=== PATIENT | female | born 1955 | race Caucasian/White ===

== ENCOUNTER 2017-09-30 20:51 | Inpatient (IN) ==
[2017-09-30] MEDS ORDERED: IOPAMIDOL 100 ML BOTTLE IJ ONE (20:52)
[2017-09-30] MEDS ORDERED: 0.9 % SODIUM CHLORIDE 1,000 ML IV ONE (21:10)
[2017-09-30] MEDS ORDERED: ONDANSETRON 4 MG/2 ML VIAL IV ONE (21:10)
--- NOTE | 2017-09-30 21:13 | Emergency Department Note ---
Abdominal Pain HPI - General Chief Complaint: Abdominal Pain Stated Complaint: abdominal pain Time Seen by Provider: 09/30/17 20:56 Source: patient Mode of arrival: ambulatory Limitations: no limitations - History of Present Illness HPI Narrative: 62-year-old female presents with left-sided abdominal pain and diarrhea 2 days. She states she ate a jar of peanuts in 2 days and then this started. She has elevated liver enzymes and had an abdominal pelvis CT 10 days ago and she has not gotten her results yet. She denies shortness of breath. She states the pain is left-sided and very uncomfortable. She denies any urinary symptoms or blood in her urine. She denies history of diverticulitis or kidney stones. She denies fever chills. She is nauseated but has not vomited. She has not taken anything for the pain. She has had regular colonoscopies which have never shown anything significant. She has had loose stools and has had 3 bowel movements yesterday and today. She states it is loose and then watery. She is on the Z-Ben right now for bronchitis. - Related Data Home Medications Medication Instructions Recorded Confirmed buspirone 15 mg tablet 15 mg PO TID tab 04/17/15 06/09/17 fluoxetine 20 mg tablet 80 mg PO DAILY tab 06/18/15 06/09/17 calcium carbonate 600 mg calcium 500 mg PO DAILY tab 10/21/15 03/30/17 (1,500 mg) tablet potassium chloride ER 10 mEq 10 meq PO QDAY 10/21/15 03/30/17 capsule,extended release Furosemide [Lasix] 40 mg PO QDAY 12/10/15 06/09/17 ipratropium bromide 0.02 % 1.25 ml INHALATION ONCE 05/17/17 06/09/17 solution for inhalation meloxicam 15 mg tablet 15 mg PO ONCE tab 05/17/17 06/09/17 mometasone-formoterol HFA 200 2 puff INHALATION BID 05/17/17 06/09/17 mcg-5 mcg/actuation aerosol inhaler pregabalin 75 mg capsule 75 mg PO BID 05/17/17 06/09/17 lisinopril 20 mg tablet 10 mg PO DAILY tab 06/09/17 06/09/17 Previous Rx's Medication Instructions Recorded Lactobacillus 1 tab-cap PO QDAY #30 cap 05/22/15 acidophilus-Bifidobac.animalis 10 billion cell capsule alendronate 70 mg tablet 70 mg PO QWEEK 30 Days #5 tab 05/22/15 loperamide 2 mg capsule 2 mg PO Q1-3H PRN #30 cap 05/22/15 fenofibrate 160 mg tablet 160 mg PO QDAY #90 tab 05/23/15 albuterol sulfate HFA 90 2 puff INHALATION Q4-6HP PRN 30 07/09/15 mcg/actuation aerosol inhaler Days #8 g omeprazole 20 mg capsule,delayed 20 mg PO QDAY #90 cap 07/18/15 release triamcinolone acetonide 0.1 % 1 applic TOPICAL BID #30 g 07/18/15 topical ointment gabapentin 800 mg tablet 800 mg PO TID 30 Days #90 tab 08/30/15 benzonatate 100 mg capsule 100 mg PO Q4H PRN #60 cap 11/11/15 Promethazine [Phenergan] 25 mg PO Q4-6HP PRN #20 tablet 03/30/17 Ondansetron HCl [Zofran ODT] 4 mg SL Q4-6HP PRN #10 tablet 05/26/17 Allergies Allergy/AdvReac Type Severity Reaction Status Date / Time guaifenesin [GUAIFENESIN] Allergy Severe ANAPHYLAXIS Verified 09/30/17 20:53 fluconazole [From Diflucan] Allergy Unknown Hives Verified 09/30/17 20:53 bupropion AdvReac Severe psychotic Verified 09/30/17 20:53 episode sulfamethoxazole AdvReac Intermediate Flushing Verified 09/30/17 20:53 [From Sulfamethoprim] trimethoprim AdvReac Intermediate Flushing Verified 09/30/17 20:53 [From Sulfamethoprim] Pollens Allergy Unknown Unknown Uncoded 06/09/17 14:59 Review of Systems All systems ED: reviewed and negative except as stated. Abdominal Pain PMH - Past Medical History Medical history: Reports: asthma, COPD, fibromyalgia, hyperlipidemia, hypertension, osteoporosis, other (back pain, IBS, osteoarthritis) Surgical history ED: Reports: cholecystectomy, hysterectomy Psychiatric history: Reports: depression PERFUSIONIST history: Reports: no PERFUSIONIST history Family history: Reports: no significant family history - Social History Smoking status: Former smoker Alcohol use: Reports: Rarely Drug use: Reports: marijuana Physical Exam Limitations: no limitations General appearance: alert, in no apparent distress, other (uncomfortable) Head: atraumatic Eye: Present: normal appearance. Absent: conjunctival injection Neck: Present: normal inspection, full ROM Chest: Present: normal inspection, symmetric chest wall rise Respiratory: Present: normal lung sounds bilaterally Cardiovascular: Present: tachycardia, normal heart sounds Abdominal: Present: soft, distention, tenderness, guarding, normal bowel sounds. Absent: rebound, rigidity Abdominal tenderness: Present: LUQ, LLQ, severe Extremities: Present: normal inspection, full ROM Neurological: Present: alert, oriented X3 Psychiatric: Present: anxious Skin: Present: warm, dry, intact Course Course Narrative: Diverticulosis is shown on her CT that she had 10 days ago Sine out Given to Dr. Cuellar and he will take over the care of this patient Vital Signs Temperature 97.0 F 09/30/17 20:51 Pulse Rate 100 H 09/30/17 20:51 Respiratory Rate 22 09/30/17 20:51 Blood Pressure 134/84 09/30/17 20:51 Pulse Oximetry (%) 97 09/30/17 20:51 Temperature 97.0 F 09/30/17 20:51 Pulse Rate 100 H 09/30/17 20:51 Respiratory Rate 22 09/30/17 20:51 Blood Pressure 134/84 09/30/17 20:51 Pulse Oximetry (%) 97 09/30/17 20:51 Abdominal Pain - Lab Data Result diagrams: 09/30/17 21:16 09/30/17 21:16 Lab Results 09/30/17 Range/Units 21:16 Band Neutrophils % Not Reportable Disposition Pt seen by LEARNING AND DEVELOPMENT ASSOCIATE/PA only: No Referrals: Darleen Kemp ARNP [Primary Care Provider] -
[2017-09-30] MEDS: HYDROmorphone 2 MG/ML SYRINGE IV PRN ×3 (21:27→21:56)
[2017-09-30 22:21] LABS: Mean Corpuscular HGB Conc 32.6 g/dL (31.0-36.0); Mean Corpuscular Hemoglobin 26.1 pg (26.0-34.0); Platelet Count 613 K/mcL (140-440); RBC 4.77 M/mcL (4.00-5.20); Red Cell Distribution Width 14.2 % (11.5-14.5)
[2017-09-30 22:26] LABS: ALT/SGPT 38 U/l (0-40); Albumin 3.7 gm/dL (3.2-5.2); Albumin/Globulin Ratio 1.1 (1.0-2.3); Alkaline Phosphatase 63 U/L (39-117); Blood Urea Nitrogen 26 mg/dl (8-23); Lipase 80 U/L (7-60)
--- NOTE | 2017-09-30 22:35 | Emergency Department Note ---
Abdominal Pain HPI - General Chief Complaint: Abdominal Pain Stated Complaint: abdominal pain Time Seen by Provider: 09/30/17 20:56 Source: patient Mode of arrival: ambulatory Limitations: no limitations - Related Data Home Medications Medication Instructions Recorded Confirmed buspirone 15 mg tablet 15 mg PO TID tab 04/17/15 06/09/17 fluoxetine 20 mg tablet 80 mg PO DAILY tab 06/18/15 06/09/17 calcium carbonate 600 mg calcium 500 mg PO DAILY tab 10/21/15 03/30/17 (1,500 mg) tablet potassium chloride ER 10 mEq 10 meq PO QDAY 10/21/15 03/30/17 capsule,extended release Furosemide [Lasix] 40 mg PO QDAY 12/10/15 06/09/17 ipratropium bromide 0.02 % 1.25 ml INHALATION ONCE 05/17/17 06/09/17 solution for inhalation meloxicam 15 mg tablet 15 mg PO ONCE tab 05/17/17 06/09/17 mometasone-formoterol HFA 200 2 puff INHALATION BID 05/17/17 06/09/17 mcg-5 mcg/actuation aerosol inhaler pregabalin 75 mg capsule 75 mg PO BID 05/17/17 06/09/17 lisinopril 20 mg tablet 10 mg PO DAILY tab 06/09/17 06/09/17 Previous Rx's Medication Instructions Recorded Lactobacillus 1 tab-cap PO QDAY #30 cap 05/22/15 acidophilus-Bifidobac.animalis 10 billion cell capsule alendronate 70 mg tablet 70 mg PO QWEEK 30 Days #5 tab 05/22/15 loperamide 2 mg capsule 2 mg PO Q1-3H PRN #30 cap 05/22/15 fenofibrate 160 mg tablet 160 mg PO QDAY #90 tab 05/23/15 albuterol sulfate HFA 90 2 puff INHALATION Q4-6HP PRN 30 07/09/15 mcg/actuation aerosol inhaler Days #8 g omeprazole 20 mg capsule,delayed 20 mg PO QDAY #90 cap 07/18/15 release triamcinolone acetonide 0.1 % 1 applic TOPICAL BID #30 g 07/18/15 topical ointment gabapentin 800 mg tablet 800 mg PO TID 30 Days #90 tab 08/30/15 benzonatate 100 mg capsule 100 mg PO Q4H PRN #60 cap 11/11/15 Promethazine [Phenergan] 25 mg PO Q4-6HP PRN #20 tablet 03/30/17 Ondansetron HCl [Zofran ODT] 4 mg SL Q4-6HP PRN #10 tablet 05/26/17 Allergies Allergy/AdvReac Type Severity Reaction Status Date / Time guaifenesin [GUAIFENESIN] Allergy Severe ANAPHYLAXIS Verified 09/30/17 20:53 fluconazole [From Diflucan] Allergy Unknown Hives Verified 09/30/17 20:53 bupropion AdvReac Severe psychotic Verified 09/30/17 20:53 episode sulfamethoxazole AdvReac Intermediate Flushing Verified 09/30/17 20:53 [From Sulfamethoprim] trimethoprim AdvReac Intermediate Flushing Verified 09/30/17 20:53 [From Sulfamethoprim] Pollens Allergy Unknown Unknown Uncoded 06/09/17 14:59 Abdominal Pain PMH - Past Medical History Medical history: Reports: asthma, COPD, fibromyalgia, hyperlipidemia, hypertension, osteoporosis, other (back pain, IBS, osteoarthritis) Psychiatric history: Reports: depression LIQUEFIER history: Reports: no LIQUEFIER history Family history: Reports: no significant family history - Social History Smoking status: Former smoker Alcohol use: Reports: Rarely Drug use: Reports: marijuana Physical Exam Limitations: no limitations General appearance: alert, in no apparent distress, other (uncomfortable) Course - Reevaluation(s) Reevaluation #1: Repeat abdominal exam still with significant tenderness left lower quadrant, white count is 17,000, we will proceed with CT scan of the abdomen and pelvis.Patient seen and discussed with Janessa Vital Signs Temperature 97.0 F 09/30/17 20:51 Pulse Rate 100 H 09/30/17 20:51 Respiratory Rate 22 09/30/17 20:51 Blood Pressure 134/84 09/30/17 20:51 Pulse Oximetry (%) 97 09/30/17 20:51 Temperature 97.0 F 09/30/17 20:51 Pulse Rate 90 09/30/17 23:35 Respiratory Rate 16 09/30/17 23:35 Blood Pressure 134/86 09/30/17 23:35 Pulse Oximetry (%) 97 09/30/17 23:35 Abdominal Pain - [place] Narrative Medical decision making narrative: Her pain was better in the department after IV Dilaudid. Actually she was much improved after getting a CT scan of the abdomen with contrast and suddenly didn' t feel any pain anymore. He still does have a white count, CT showing small bowel obstruction. I discussed with Dr. Sandoval and we will admit her with NG tube and it antibiotics. - Lab Data Result diagrams: 09/30/17 21:16 09/30/17 21:16 Lab Results 09/30/17 09/30/17 09/30/17 Range/Units 21:16 21:16 21:16 WBC 17.2 H (4.5-11.0) K/mcL RBC 4.77 (4.00-5.20) M/mcL Hgb 12.4 (12.0-15.0) g/dL Hct 38.1 (36.0-48.0) % MCV 80.0 (80.0-100.0) fL MCH 26.1 (26.0-34.0) pg MCHC 32.6 (31.0-36.0) g/dL RDW 14.2 (11.5-14.5) % Plt Count 613 H (140-440) K/mcL MPV 9.0 (7.4-10.4) fL Total Counted 100 Seg Neutrophils % 67 (38-78) % Band Neutrophils % 10 (0-10) % Lymphocytes % 13 L (15-49) % Monocytes % (Manual) 3 (1-12) % Eosinophils % (Manual) 2 (0-7) % Basophils % (Manual) 1 (0-2) % Reactive Lymphocytes 4 H (0-2) % Platelet Estimate Incr (NORMAL) RBC Morphology Abnormal (NORMAL) Polychromasia Occ A (NONE SEEN) Hypochromasia 1+ A (NONE SEEN) Sodium 134 (133-145) mmol/L Potassium 5.3 H (3.3-5.1) mmol/L Chloride 97 (96-108) mmol/L Carbon Dioxide 20 L (22-30) mmol/L Anion Gap 17.0 H (8-16) BUN 26 H (8-23) mg/dl Creatinine 1.0 (0.6-1.1) mg/dl GFR Calculation 59 Glucose 149 H (70-105) mg/dL Calcium 9.9 (8.6-10.4) mg/dl Total Bilirubin 0.3 (0.0-1.0) mg/dL AST 58 H (0-37) U/l ALT 38 (0-40) U/l Alkaline Phosphatase 63 (39-117) U/L C-Reactive Protein 2.2 H (0.0-0.8) mg/dl Total Protein 7.2 (5.9-8.4) gm/dL Albumin 3.7 (3.2-5.2) gm/dL Globulin 3.5 (2.2-3.7) gm/dL Albumin/Globulin Ratio 1.1 (1.0-2.3) Lipase 80 H (7-60) U/L Urine Color Urine Appearance Urine pH (5.0-9.0) Ur Specific [place] (1.000-1.035) Urine Protein (NEG) mg/dL Urine Glucose (UA) (NEG) mg/dL Urine Ketones (NEG) mg/dL Urine Occult Blood (<0.03) mg/dL Urine Nitrate (NEG) Urine Bilirubin (NEG) mg/dL Urine Urobilinogen (NEG) mg/dL Ur Leukocyte Esterase (NEG) /uL Urine RBC (0-1) /hpf Urine WBC (0-4) /hpf Ur Squamous Epith Cells (0-4) /hpf Amorphous Crystals (0) /hpf Urine Bacteria (0) /hpf Ur Culture Indicated? 09/30/17 Range/Units 23:30 WBC (4.5-11.0) K/mcL RBC (4.00-5.20) M/mcL Hgb (12.0-15.0) g/dL Hct (36.0-48.0) % MCV (80.0-100.0) fL MCH (26.0-34.0) pg MCHC (31.0-36.0) g/dL RDW (11.5-14.5) % Plt Count (140-440) K/mcL MPV (7.4-10.4) fL Total Counted Seg Neutrophils % (38-78) % Band Neutrophils % (0-10) % Lymphocytes % (15-49) % Monocytes % (Manual) (1-12) % Eosinophils % (Manual) (0-7) % Basophils % (Manual) (0-2) % Reactive Lymphocytes (0-2) % Platelet Estimate (NORMAL) RBC Morphology (NORMAL) Polychromasia (NONE SEEN) Hypochromasia (NONE SEEN) Sodium (133-145) mmol/L Potassium (3.3-5.1) mmol/L Chloride (96-108) mmol/L Carbon Dioxide (22-30) mmol/L Anion Gap (8-16) BUN (8-23) mg/dl Creatinine (0.6-1.1) mg/dl GFR Calculation Glucose (70-105) mg/dL Calcium (8.6-10.4) mg/dl Total Bilirubin (0.0-1.0) mg/dL AST (0-37) U/l ALT (0-40) U/l Alkaline Phosphatase (39-117) U/L C-Reactive Protein (0.0-0.8) mg/dl Total Protein (5.9-8.4) gm/dL Albumin (3.2-5.2) gm/dL Globulin (2.2-3.7) gm/dL Albumin/Globulin Ratio (1.0-2.3) Lipase (7-60) U/L Urine Color Yellow Urine Appearance Clear Urine pH 6.0 (5.0-9.0) Ur Specific [place] 1.027 (1.000-1.035) Urine Protein Neg (NEG) mg/dL Urine Glucose (UA) Negative (NEG) mg/dL Urine Ketones Neg (NEG) mg/dL Urine Occult Blood Neg (<0.03) mg/dL Urine Nitrate Neg (NEG) Urine Bilirubin Neg (NEG) mg/dL Urine Urobilinogen Neg (NEG) mg/dL Ur Leukocyte Esterase Neg (NEG) /uL Urine RBC < 1 (0-1) /hpf Urine WBC 1 (0-4) /hpf Ur Squamous Epith Cells 1 (0-4) /hpf Amorphous Crystals Few A (0) /hpf Urine Bacteria 0 (0) /hpf Ur Culture Indicated? No Disposition Pt seen by LAP REGULATOR/PA only: No Clinical Impression: Small bowel obstruction Disposition: Xfer As Inpt ([facility]) Condition: Fair Referrals: Darleen Kemp ARNP [Primary Care Provider] -
[2017-09-30 22:37] LABS: Band Neutrophils % 10 % (0-10); Basophils % (Manual) 1 % (0-2); Eosinophils % (Manual) 2 % (0-7); Hypochromasia 1+ (NONE SEEN); Lymphocytes % 13 % (15-49); Monocytes % (Manual) 3 % (1-12); Platelet Estimate INCR (NORMAL); RBC Morphology ABNORMAL (NORMAL); Segmented Neutrophils % 67 % (38-78)
[2017-10-01 00:09] LABS: Appearance,Urine CLEAR; Bacteria,Urine 0 /hpf (0); Bilirubin,Urine NEG (NEG); Color,Urine YELLOW; Glucose,Urine (UA) NEGATIVE (NEG); Leukocyte Esterase,Urine NEG /uL (NEG); Nitrate,Urine NEG (NEG); Protein,Urine NEG (NEG); Specific Gravity,Urine 1.027 (1.000-1.035); Urine Amorphous Crystals FEW /hpf (0); Urine Blood NEG mg/dL (<0.03); Urine RBC < 1 /hpf (0-1); Urine Squamous Epithelial Cell 1 /hpf (0-4); Urine WBC 1 /hpf (0-4); Urobilinogen,Urine NEG (NEG)
[2017-10-01] MEDS ORDERED: LIDOCAINE JEL 2% 1 TUBE 30GM TOPICAL ONE (00:21)
[2017-10-01] MEDS: LACTATED RINGERS 1,000 ML IV SCH ×3 (00:48→23:39)
[2017-10-01] MEDS: PIPERACILLIN SODIUM/TAZOBACTAM 3.375 GM in DEXTROSE 5% IN WATER 50 ML IV SCH ×3 (00:49→21:28)
[2017-10-01] MEDS: HYDROmorphone 2 MG/ML SYRINGE IV PRN ×4 (01:44→12:53)
[2017-10-01] MEDS: ONDANSETRON 4 MG/2 ML VIAL IV PRN ×5 (02:49→21:23)
--- NOTE | 2017-10-01 06:19 | XRay Report ---
CLINICAL INFORMATION: NG placement - small bowel obstruction COMPARISON: None. FINDINGS: NG tube overlies the gastric antrum. Stomach and visualized small bowel are moderately distended compatible small bowel obstruction pattern is seen on CT. Liver is mildly enlarged. No free air or soft tissue mass IMPRESSION: NG in satisfactory position in the gastric antrum. Partial small bowel obstruction pattern - stable Interpreted and Authenticated by: Gaurav Scott 10/01/17
[2017-10-01 10:08] LABS: Basophils # (Auto) 0.1 K/mcL (0.0-0.3); Basophils % (Auto) 0.3 % (0.0-2.0); Eosinophils # (Auto) 0.3 K/mcL (0.0-0.7); Eosinophils % (Auto) 1.3 % (0.0-7.0); Granulocytes % (Auto) 84.4 % (38.0-78.0); Lymphocytes # (Auto) 1.8 K/mcL (1.5-4.8); Lymphocytes % (Auto) 9.3 % (15.5-49.0); Mean Cell Volume 82.5 fL (80.0-100.0); Mean Corpuscular HGB Conc 32.4 g/dL (31.0-36.0); Mean Corpuscular Hemoglobin 26.7 pg (26.0-34.0); Monocytes # (Auto) 0.9 K/mcL (0.1-0.9); Monocytes % (Auto) 4.7 % (1.0-12.0); Platelet Count 644 K/mcL (140-440); Red Cell Distribution Width 15.5 % (11.5-14.5)
[2017-10-01 10:28] LABS: ALT/SGPT 39 U/l (0-40); Albumin 3.9 gm/dL (3.2-5.2); Albumin/Globulin Ratio 1.3 (1.0-2.3); Alkaline Phosphatase 64 U/L (39-117); Bilirubin,Direct < 0.2 mg/dL (0.0-0.3); Blood Urea Nitrogen 18 mg/dl (8-23); Gamma Glutamyl Transpeptidase 104 U/L (5-36); Uric Acid 4.2 mg/dL (2.5-8.0)
--- NOTE | 2017-10-01 10:33 | Cat Scan Report ---
CLINICAL INFORMATION: Abnormal pain and distention COMPARISON: 09/20/[address] TECHNIQUE: Following enteric contrast, 80 cc of Isovue-300 were injected intravenously, and 60 seconds later, 0.625 mm helical slices were obtained from the mid heart through the subtrochanteric regions. Following reconstruction, 2.5 mm sagittal, coronal and axial reformatted images were processed and reviewed at bone, lung and soft tissue windows. Five minutes later, 0.625 mm helical slices were obtained from the mid heart through the kidneys and viewed at soft tissue windows.The exam was performed using radiation dose optimization techniques including, but not limited to, automated exposure control, adjustment of the mA and/or kV according to patient size and use of iterative reconstruction technique. FINDINGS: Lung bases show subsegmental atelectasis in the peripheral right lower lobe which is new. No pleural effusions. The visualized heart is grossly normal Images through the abdomen show mild hepatomegaly with moderate diffuse fatty change - as previously seen. The 5 mm cyst in the left hepatic lobe is noted, but no significant focal hepatic lesions. The gallbladder is surgically absent. Common bile duct is mildly dilated - 8 mm compatible post cholecystectomy state. Both kidneys, adrenal glands, spleen, pancreas and aorta, including aortic branches, are normal in size, configuration and attenuation without focal lesion. Images through the pelvis show urinary bladder to be normal. Hysterectomy/oophorectomy changes are again noted. The stomach duodenum and jejunum are moderately dilated with transition point in the distal jejunum within the central false pelvis. Transition is relatively long suggesting segmental inflammation. The distal small bowel and colon are decompressed. There is a small amount of free fluid in the deep true pelvis and interloop mesenteric region. No free air. A 3.2 cm periumbilical hernia containing only mesenteric fat is unchanged in size, however, there is a small amount of edema in the peripheral hernia sac - not previously seen. Bone windows show only mild broad L5-S1 disc protrusions. No focal osseous lesion IMPRESSION: 1. High-grade partial small bowel obstruction in the distal jejunum with transition point in the central false pelvis. This appears be a long segment of inflammatory change. Small amount of free intraperitoneal fluid is compatible with third spacing. No free air. 2. Small periumbilical hernia with edema surrounding the hernia sac - new from the previous study 3. Mild hepatomegaly with diffuse fatty change in the liver - as previously seen 4. Mild atelectasis right base Interpreted and Authenticated by: Gaurav Scott 10/01/17
[2017-10-01] MEDS: METOCLOPRAMIDE 10 MG/2 ML VIAL IV SCH ×3 (12:25→23:39)
[2017-10-01] MEDS ORDERED: DIATRIZOATE MEGLU/DIATRIZO SOD 30 ML BOTTLE PO ONE (13:49)
[2017-10-01] MEDS ORDERED: HYDROmorphone 2 MG/ML SYRINGE IV PRN (14:41)
--- NOTE | 2017-10-01 14:46 | General Surg History&Physical ---
History of Present Illness Patient information: Note initiated : 10/01/17 at 2:34 pm Service Date, if different from initiated Date: [] Patient: Kenia Sandoval a 62 y/o F admitted on 10/01/17 for abdominal pain. Chief Complaint: [] HPI: Ms. Sandoval is a 62 year old F who is admitted with crampy mid abdominal and left- sided abdominal pain. She states that this started after she ate dark peanuts 2 days ago. She had nausea with some vomiting. The pain has increased in intensity and she finally came to the emergency room. She does give a history of having a loose bowel movement on yesterday. She has passed a small amount of flatus today. CT of the abdomen shows a dilated loop of small bowel in midabdomen which extends all the way back to the stomach. There is equalization of the small bowel contents with very thick residue which appears to be proximal to an area of partial obstruction. There is some small amount of gas in the distal bowel and the colon. She is felt to have a partial obstruction and is admitted for treatment. Review of Systems - Constitutional fatigue, headache(s), malaise, weakness, weight gain - EENT Nose, mouth and throat: dizziness, dry mouth, headache(s) - Cardiovascular dyspnea on exertion, pedal edema, rapid heart rate, no chest pain with activity , no diaphoresis, no irregular heart rhythm, no palpatations - Respiratory dyspnea on exertion, wheezing, chest congestion, excessive phlegm production - Gastrointestinal abdominal pain, bloating, diarrhea, loose stools, nausea, vomiting - Genitourinary Genitourinary: nocturia, urinary incontinence - Musculoskeletal arthralgias, back pain, myalgias - Integumentary no pruritus, no rash (Is is) - Neurological abnormal gait, headache(s), weakness - Psychiatric anxiety, depression - Endocrine fatigue, palpitations - Hematologic/Lymphatic no easy bleeding, no easy bruising (Is), no lymphadenopathy - Allergic/Immunologic no tongue swelling, no throat swelling, no uticaria, no wheezing, no lip swelling ( is) Past History Past medical history: Obstructive lung disease Essential hypertension Anxiety with depression Fibromyalgia Gastroesophageal reflux disease Chronic obstructive sleep apnea Past surgical history: Cholecystectomy Diagnostic laparoscopy Total abdominal hysterectomy Tubal ligation Past family history: Carcinoma of bladder Stroke Essential hypertension Coronary artery disease Diabetes mellitus Throat cancer Past social history: Employed Former smoker 40 years Frequent alcohol use Frequent marijuana use Medications and Allergies Home Medications Medication Instructions Recorded Confirmed Type buspirone 15 mg tablet 15 mg PO TID tab 04/17/15 10/01/17 History alendronate 70 mg tablet 70 mg PO QWEEK 30 Days #5 tab 05/22/15 10/01/17 Rx loperamide 2 mg capsule 2 mg PO Q1-3H PRN #30 cap 05/22/15 10/01/17 Rx fenofibrate 160 mg tablet 160 mg PO QDAY #90 tab 05/23/15 10/01/17 Rx fluoxetine 20 mg tablet 80 mg PO DAILY tab 06/18/15 10/01/17 History albuterol sulfate HFA 90 2 puff INHALATION Q4-6HP PRN 30 07/09/15 10/01/17 Rx mcg/actuation aerosol inhaler Days #8 g omeprazole 20 mg capsule,delayed 20 mg PO QDAY #90 cap 07/18/15 10/01/17 Rx release triamcinolone acetonide 0.1 % 1 applic TOPICAL BID #30 g 07/18/15 10/01/17 Rx topical ointment gabapentin 800 mg tablet 800 mg PO TID 30 Days #90 tab 08/30/15 10/01/17 Rx calcium carbonate 600 mg calcium 500 mg PO DAILY tab 10/21/15 10/01/17 History (1,500 mg) tablet potassium chloride ER 10 mEq 10 meq PO QDAY 10/21/15 10/01/17 History capsule,extended release benzonatate 100 mg capsule 100 mg PO Q4H PRN #60 cap 11/11/15 10/01/17 Rx Furosemide [Lasix] 20 mg PO BID 12/10/15 10/01/17 History ipratropium bromide 0.02 % 1.25 ml INHALATION QIDP PRN 05/17/17 10/01/17 History solution for inhalation meloxicam 15 mg tablet 15 mg PO DAILY tab 05/17/17 10/01/17 History mometasone-formoterol HFA 200 2 puff INHALATION BID 05/17/17 10/01/17 History mcg-5 mcg/actuation aerosol inhaler pregabalin 75 mg capsule 75 mg PO DAILY 05/17/17 10/01/17 History lisinopril 20 mg tablet 10 mg PO DAILY tab 06/09/17 10/01/17 History Allergies Allergy/AdvReac Type Severity Reaction Status Date / Time guaifenesin [GUAIFENESIN] Allergy Severe ANAPHYLAXIS Verified 09/30/17 20:53 fluconazole [From Diflucan] Allergy Mild Hives Verified 10/01/17 07:30 bupropion AdvReac Severe psychotic Verified 09/30/17 20:53 episode sulfamethoxazole AdvReac Intermediate [place]ushing Verified 09/30/17 20:53 [From Sulfamethoprim] trimethoprim AdvReac Intermediate [place] Verified 09/30/17 20:53 [From Sulfamethoprim] Exam Temp Pulse Resp BP Pulse Ox 98.0 F 101 H 16 127/86 92 10/01/17 12:00 10/01/17 12:00 10/01/17 12:00 10/01/17 12:00 10/01/17 12:00 - General physical appearance well developed, well nourished, moderate distress, obese - Eyes PERRL, normal ocular movement. negative: icteric - ENT normal pinna, normal nares, normal mucosa, no hearing loss, no congestion - Head Head exam IM: Present: atraumatic, normocephalic - Neck no masses, no bruits, trachea midline, no lymphadectomy, no venous distension - Cardiovascular Cardiovascular exam IM: Present: normal rate and rhythm, RRR, +S1, +S2. Absent : gallop, JVD, systolic murmur, tachycardia - Respiratory normal expansion (Is), normal respiratory effort, clear to percussion, clear to auscultation - Abdomen Abdomen: Present: soft, tender (Mild tenderness in mid abdomen;), bowel sounds ( Hyperactive bowel sounds), distended (Grossly distended abdomen with tympany;) Hernia: Present: none - Genitourinary Present: normal external genitalia - Integumentary Present: no rash, no growths, no abnormal pigmentation - Neurologic Present: normal coordination, normal sensation - Musculoskeletal Present: normal gait, normal posture - Psychiatric Present: oriented to time, oriented to person, oriented to place, speech is normal, memory intact Assessment and Plan (1) Small bowel obstruction Status: Acute (2) Nausea and vomiting in adult Status: Resolved (3) Generalized anxiety disorder Status: Chronic (4) Major depressive disorder Status: Chronic (5) Hypertension, essential Status: Chronic Comment: BP stable, Will review previous medical records, Monitor for now, stop atenolol, given copd, and try amlodipine. (6) COPD (chronic obstructive pulmonary disease) Status: Chronic Comment: uses albuterol 2 puffs daily on turdoza, symbicort, She is still smoking ciggs as well as THC on a regular basis, educated her at length to quit. Presently stable on current dose Qualifiers:
[2017-10-02 05:45] LABS: Basophils # (Auto) 0 K/mcL (0.0-0.3); Basophils % (Auto) 0.1 % (0.0-2.0); Eosinophils # (Auto) 0.3 K/mcL (0.0-0.7); Eosinophils % (Auto) 2.4 % (0.0-7.0); Granulocytes % (Auto) 70.3 % (38.0-78.0); Lymphocytes # (Auto) 2.1 K/mcL (1.5-4.8); Lymphocytes % (Auto) 18.6 % (15.5-49.0); Mean Cell Volume 81.7 fL (80.0-100.0); Mean Corpuscular HGB Conc 33.2 g/dL (31.0-36.0); Mean Corpuscular Hemoglobin 27.1 pg (26.0-34.0); Monocytes % (Auto) 8.6 % (1.0-12.0); Platelet Count 537 K/mcL (140-440); Red Cell Distribution Width 14.9 % (11.5-14.5)
[2017-10-02] MEDS: METOCLOPRAMIDE 10 MG/2 ML VIAL IV SCH ×4 (05:50→23:54)
[2017-10-02] MEDS: PIPERACILLIN SODIUM/TAZOBACTAM 3.375 GM in DEXTROSE 5% IN WATER 50 ML IV SCH ×3 (05:50→22:12)
[2017-10-02] MEDS: LACTATED RINGERS 1,000 ML IV SCH ×4 (06:05→20:24)
[2017-10-02 06:07] LABS: ALT/SGPT 41 U/l (0-40); Albumin 3.5 gm/dL (3.2-5.2); Albumin/Globulin Ratio 1.1 (1.0-2.3); Alkaline Phosphatase 61 U/L (39-117); Bilirubin,Direct < 0.2 mg/dL (0.0-0.3); Blood Urea Nitrogen 19 mg/dl (8-23); Gamma Glutamyl Transpeptidase 91 U/L (5-36); Magnesium 2.1 mg/dL (1.6-2.5); Uric Acid 5.4 mg/dL (2.5-8.0)
[2017-10-02] MEDS: ONDANSETRON 4 MG/2 ML VIAL IV PRN ×2 (07:04→15:50)
--- NOTE | 2017-10-02 09:48 | XRay Report ---
CLINICAL INFORMATION: Follow bowel obstruction COMPARISON: 10/01/2017 FINDINGS: NG tube is in stable satisfactory position the tip overlying the gastric antrum. The stomach, small and large bowel now appear decompressed compatible with complete resolution of small bowel obstruction. No free air or soft tissue mass or organomegaly. IMPRESSION: Complete resolution small bowel obstruction pattern. Interpreted and Authenticated by: Gaurav Scott 10/02/17
--- NOTE | 2017-10-02 09:52 | XRay Report ---
CLINICAL INFORMATION: Distal jejunal obstruction COMPARISON: Plain films from 10/01/2017 0026 hours TECHNIQUE: Water-soluble contrast was infused through indwelling NG tube and serial plain films were obtained over a two hour period. Unfortunately, in the mid study, the NG tube was inadvertently placed back to suction and much of the enteric contrast was removed mildly diminishing the quality of the exam.. FINDINGS: The stomach, duodenum and multiple loops of jejunum are moderately dilated to the mid jejunal level. No contrast is seen within the ileum or colon IMPRESSION: High-grade small bowel obstruction at the distal jejunal level. Interpreted and Authenticated by: Gaurav Scott 10/02/17
--- NOTE | 2017-10-02 12:24 | General Surgery Progress Note ---
Subjective Patient reports: feels better, pain is less, flatus, bowel movement, afebrile Narrative: Note initiated : 10/02/17 at 12:22 pm Service Date, if different from initiated Date: [] Patient: Kenia Sandoval 62 y/o F admitted on 10/01/17 for abdominal pain. Chief Complaint: [Patient is doing much better. Her small bowel follow through showed transit of contrast through her bowel and she has had multiple bowel movements. She denies nausea. Her nasogastric output is less than 300 cc. Abdominal x-rays this morning shows significant decompression of her small bowel without an obstructive pattern.] Objective Temp Pulse Resp BP Pulse Ox 97.6 F 98 H 20 134/96 93 10/02/17 06:59 10/02/17 06:59 10/02/17 06:59 10/02/17 06:59 10/02/17 06:59 - Additional Data Intake & Output - Last 24 hours: Intake & Output 09/30/17 10/01/17 10/02/17 10/03/17 05:59 05:59 05:59 05:59 Intake Total 1050 / 1050 2460 / 2460 1000 / 1000 Output Total 1050 / 1050 5452 / 5452 50 / 50 Balance 0 / 0 -2992 / -2992 950 / 950 Weight 188 lb 165 lb 165 lb - General physical appearance well developed, no distress - Eyes PERRL - ENT no congestion - Neck no venous distension - Respiratory normal expansion, normal respiratory effort, clear to auscultation - Cardiovascular Cardiovascular exam: Present: normal rate and rhythm, RRR, +S1, +S2. Absent: JVD, tachycardia (Is) - Abdomen soft, non tender, bowel sounds (Good active bowel sounds; mild tenderness in mid abdomen;) - Integumentary no rash, no growths, no abnormal pigmentation - Neurologic normal coordination, normal sensation - Musculoskeletal normal gait, normal posture - Psychiatric oriented to time, oriented to person, oriented to place, speech is normal, memory intact - Labs 10/02/17 04:35 10/02/17 04:35 Diabetes panel 10/02/17 Range/Units 04:35 Sodium 144 (133-145) mmol/L Potassium 3.6 (3.3-5.1) mmol/L Chloride 99 (96-108) mmol/L Carbon Dioxide 30 (22-30) mmol/L BUN 19 (8-23) mg/dl Creatinine 1.1 (0.6-1.1) mg/dl Glucose 117 H (70-105) mg/dL Calcium 9.9 (8.6-10.4) mg/dl AST 64 H (0-37) U/l ALT 41 H (0-40) U/l Alkaline Phosphatase 61 (39-117) U/L Total Protein 6.7 (5.9-8.4) gm/dL Albumin 3.5 (3.2-5.2) gm/dL Triglycerides 175 H (<150) mg/dl Calcium panel 10/02/17 Range/Units 04:35 Calcium 9.9 (8.6-10.4) mg/dl Phosphorus 3.7 (2.7-4.5) mg/dL Albumin 3.5 (3.2-5.2) gm/dL Pituitary panel 10/02/17 Range/Units 04:35 Sodium 144 (133-145) mmol/L Potassium 3.6 (3.3-5.1) mmol/L Chloride 99 (96-108) mmol/L Carbon Dioxide 30 (22-30) mmol/L BUN 19 (8-23) mg/dl Creatinine 1.1 (0.6-1.1) mg/dl Glucose 117 H (70-105) mg/dL Calcium 9.9 (8.6-10.4) mg/dl Adrenal panel 10/02/17 Range/Units 04:35 Sodium 144 (133-145) mmol/L Potassium 3.6 (3.3-5.1) mmol/L Chloride 99 (96-108) mmol/L Carbon Dioxide 30 (22-30) mmol/L BUN 19 (8-23) mg/dl Creatinine 1.1 (0.6-1.1) mg/dl Glucose 117 H (70-105) mg/dL Calcium 9.9 (8.6-10.4) mg/dl Total Bilirubin 0.3 (0.0-1.0) mg/dL AST 64 H (0-37) U/l ALT 41 H (0-40) U/l Alkaline Phosphatase 61 (39-117) U/L Total Protein 6.7 (5.9-8.4) gm/dL Albumin 3.5 (3.2-5.2) gm/dL Assessment and Plan (1) Small bowel obstruction Status: Acute Assessment and plan: Significantly improved; suggesting partial obstruction; Plan--discontinue nasogastric tube Full liquid diet MiraLAX 17 g in 8 ounces liquid twice daily 2 view abdominal x-rays in the morning Current Visit: Yes (2) Nausea and vomiting in adult Status: Resolved Current Visit: No (3) Generalized anxiety disorder Status: Chronic Current Visit: No (4) Major depressive disorder Status: Chronic Current Visit: No (5) Hypertension, essential Problem details: BP stable, Will review previous medical records, Monitor for now, stop atenolol, given copd, and try amlodipine. Status: Chronic Current Visit: No (6) COPD (chronic obstructive pulmonary disease) Problem details: uses albuterol 2 puffs daily on turdoza, symbicort, She is still smoking ciggs as well as THC on a regular basis, educated her at length to quit. Presently stable on current dose Status: Chronic Current Visit: No - Time Spent With Patient Total time spent is greater than 50% in coordination of care (as documented) at patient's floor/unit and/or counseling patient:
[2017-10-02] MEDS: busPIRone 5 MG TABLET PO SCH ×2 (14:37→20:21)
[2017-10-02] MEDS: LORazepam 2 MG/ML VIAL IV PRN ×2 (15:50→22:59)
[2017-10-02] MEDS: GABAPENTIN 300 MG CAPSULE PO SCH (20:21)
[2017-10-02] MEDS: POLYETHYLENE GLYCOL 3350 17 GM PACKET PO SCH (20:21)
[2017-10-03] MEDS: LACTATED RINGERS 1,000 ML IV SCH ×5 (01:58→22:21)
[2017-10-03] MEDS: METOCLOPRAMIDE 10 MG/2 ML VIAL IV SCH ×4 (05:33→23:59)
[2017-10-03] MEDS: PIPERACILLIN SODIUM/TAZOBACTAM 3.375 GM in DEXTROSE 5% IN WATER 50 ML IV SCH ×3 (05:34→21:13)
[2017-10-03 06:04] LABS: Basophils # (Auto) 0.1 K/mcL (0.0-0.3); Basophils % (Auto) 0.5 % (0.0-2.0); Eosinophils # (Auto) 0.4 K/mcL (0.0-0.7); Eosinophils % (Auto) 3.4 % (0.0-7.0); Granulocytes % (Auto) 65.9 % (38.0-78.0); Lymphocytes # (Auto) 2.9 K/mcL (1.5-4.8); Lymphocytes % (Auto) 24.1 % (15.5-49.0); Mean Cell Volume 81.3 fL (80.0-100.0); Mean Corpuscular HGB Conc 33.2 g/dL (31.0-36.0); Monocytes # (Auto) 0.7 K/mcL (0.1-0.9); Monocytes % (Auto) 6.1 % (1.0-12.0); Platelet Count 463 K/mcL (140-440); RBC 4.14 M/mcL (4.00-5.20); Red Cell Distribution Width 14.6 % (11.5-14.5)
[2017-10-03 06:50] LABS: ALT/SGPT 51 U/l (0-40); Albumin 3.2 gm/dL (3.2-5.2); Albumin/Globulin Ratio 1.1 (1.0-2.3); Alkaline Phosphatase 63 U/L (39-117); Bilirubin,Direct < 0.2 mg/dL (0.0-0.3); Blood Urea Nitrogen 10 mg/dl (8-23); Gamma Glutamyl Transpeptidase 88 U/L (5-36)
[2017-10-03] MEDS ORDERED: POTASSIUM CHLORIDE 20 MEQ in DEXTROSE 5% IN WATER 250 ML IV ONE (07:03)
[2017-10-03] MEDS: POTASSIUM CHLORIDE 20 MEQ PACKET PO SCH ×2 (08:09→17:59)
[2017-10-03] MEDS: FLUoxetine HCL 20 MG CAPSULE PO SCH (08:09)
[2017-10-03] MEDS: POLYETHYLENE GLYCOL 3350 17 GM PACKET PO SCH (08:09)
[2017-10-03] MEDS: GABAPENTIN 300 MG CAPSULE PO SCH ×2 (08:10→21:13)
[2017-10-03] MEDS: busPIRone 5 MG TABLET PO SCH ×3 (08:10→21:13)
--- NOTE | 2017-10-03 08:46 | XRay Report ---
CLINICAL INFORMATION: Follow up small bowel obstruction COMPARISON: 10/02/2017 FINDINGS: Stool gas pattern is normal. NG tube now out. No free air, soft tissue mass or organomegaly or pathologic calcification IMPRESSION: Negative abdomen Interpreted and Authenticated by: Gaurav Scott 10/03/17
--- NOTE | 2017-10-03 11:04 | General Surgery Progress Note ---
Subjective Patient reports: feels better, pain is less, flatus, bowel movement, diarrhea, afebrile Narrative: Note initiated : 10/03/17 at 11:02 am Service Date, if different from initiated Date: [] Patient: Kenia Sandoval 62 y/o F admitted on 10/01/17 for abdominal pain. Chief Complaint: [Patient is significantly improved. She no longer has crampy pain. She has a large volume of flatus and has had multiple liquid bowel movements. She estimates that she has had at least 10-12 bowel movements since yesterday. Her abdomen is still distended but it is nontender. She has good active bowel sounds. She has tolerated full liquids without difficulty. She has been afebrile.] Objective Temp Pulse Resp BP Pulse Ox 98.2 F 100 H 22 143/87 95 10/03/17 04:00 10/03/17 04:00 10/03/17 04:00 10/03/17 04:00 10/03/17 04:00 - Additional Data Intake & Output - Last 24 hours: Intake & Output 10/01/17 10/02/17 10/03/17 10/04/17 05:59 05:59 05:59 05:59 Intake Total 1050 / 1050 2460 / 2460 3870 / 3870 200 / 200 Output Total 1050 / 1050 5452 / 5452 1151 / 1151 250 / 250 Balance 0 / 0 -2992 / -2992 2719 / 2719 -50 / -50 Weight 188 lb 165 lb 168 lb - General physical appearance well developed, well nourished, no distress, severe distress, no pain - Eyes PERRL - ENT no congestion - Neck no venous distension - Respiratory normal expansion, normal respiratory effort, clear to auscultation - Cardiovascular Cardiovascular exam: Present: normal rate and rhythm, RRR, +S1, +S2. Absent: gallop, JVD, systolic murmur, tachycardia - Abdomen soft, non tender, bowel sounds (Good active bowel sounds) - Integumentary no rash, no growths, no abnormal pigmentation - Neurologic normal coordination, normal sensation - Musculoskeletal normal gait, normal posture - Psychiatric oriented to time, oriented to person, oriented to place, speech is normal, memory intact - Labs 10/03/17 04:06 10/03/17 04:06 Diabetes panel 10/03/17 Range/Units 04:06 Sodium 140 (133-145) mmol/L Potassium 2.8 L* (3.3-5.1) mmol/L Chloride 99 (96-108) mmol/L Carbon Dioxide 28 (22-30) mmol/L BUN 10 (8-23) mg/dl Creatinine 0.9 (0.6-1.1) mg/dl Glucose 87 (70-105) mg/dL Calcium 9.0 (8.6-10.4) mg/dl AST 109 H (0-37) U/l ALT 51 H (0-40) U/l Alkaline Phosphatase 63 (39-117) U/L Total Protein 6.1 (5.9-8.4) gm/dL Albumin 3.2 (3.2-5.2) gm/dL Triglycerides 159 H (<150) mg/dl Calcium panel 10/03/17 Range/Units 04:06 Calcium 9.0 (8.6-10.4) mg/dl Phosphorus 2.9 (2.7-4.5) mg/dL Albumin 3.2 (3.2-5.2) gm/dL Pituitary panel 10/03/17 Range/Units 04:06 Sodium 140 (133-145) mmol/L Potassium 2.8 L* (3.3-5.1) mmol/L Chloride 99 (96-108) mmol/L Carbon Dioxide 28 (22-30) mmol/L BUN 10 (8-23) mg/dl Creatinine 0.9 (0.6-1.1) mg/dl Glucose 87 (70-105) mg/dL Calcium 9.0 (8.6-10.4) mg/dl Adrenal panel 10/03/17 Range/Units 04:06 Sodium 140 (133-145) mmol/L Potassium 2.8 L* (3.3-5.1) mmol/L Chloride 99 (96-108) mmol/L Carbon Dioxide 28 (22-30) mmol/L BUN 10 (8-23) mg/dl Creatinine 0.9 (0.6-1.1) mg/dl Glucose 87 (70-105) mg/dL Calcium 9.0 (8.6-10.4) mg/dl Total Bilirubin 0.3 (0.0-1.0) mg/dL AST 109 H (0-37) U/l ALT 51 H (0-40) U/l Alkaline Phosphatase 63 (39-117) U/L Total Protein 6.1 (5.9-8.4) gm/dL Albumin 3.2 (3.2-5.2) gm/dL Assessment and Plan (1) Small bowel obstruction Status: Acute Assessment and plan: Significantly improved; suggesting partial obstruction; Plan--discontinue MiraLAX Advance to soft diet Possible discharge home in the morning Replace potassium chloride Current Visit: Yes (2) Nausea and vomiting in adult Status: Resolved Current Visit: No (3) Generalized anxiety disorder Status: Chronic Current Visit: No (4) Major depressive disorder Status: Chronic Current Visit: No (5) Hypertension, essential Problem details: BP stable, Will review previous medical records, Monitor for now, stop atenolol, given copd, and try amlodipine. Status: Chronic Current Visit: No (6) COPD (chronic obstructive pulmonary disease) Problem details: uses albuterol 2 puffs daily on turdoza, symbicort, She is still smoking ciggs as well as THC on a regular basis, educated her at length to quit. Presently stable on current dose Status: Chronic Current Visit: No - Time Spent With Patient Total time spent is greater than 50% in coordination of care (as documented) at patient's floor/unit and/or counseling patient:
[2017-10-03] MEDS: LORazepam 2 MG/ML VIAL IV PRN (21:57)
[2017-10-04] MEDS: LACTATED RINGERS 1,000 ML IV SCH ×2 (04:21→08:15)
[2017-10-04 05:01] LABS: Basophils # (Auto) 0.1 K/mcL (0.0-0.3); Basophils % (Auto) 0.5 % (0.0-2.0); Eosinophils # (Auto) 0.7 K/mcL (0.0-0.7); Eosinophils % (Auto) 5.6 % (0.0-7.0); Granulocytes % (Auto) 64.5 % (38.0-78.0); Lymphocytes # (Auto) 2.6 K/mcL (1.5-4.8); Lymphocytes % (Auto) 22.8 % (15.5-49.0); Mean Cell Volume 81.9 fL (80.0-100.0); Mean Corpuscular HGB Conc 32.8 g/dL (31.0-36.0); Mean Corpuscular Hemoglobin 26.8 pg (26.0-34.0); Monocytes # (Auto) 0.8 K/mcL (0.1-0.9); Monocytes % (Auto) 6.6 % (1.0-12.0); Platelet Count 489 K/mcL (140-440); RBC 4.12 M/mcL (4.00-5.20); Red Cell Distribution Width 14.7 % (11.5-14.5)
[2017-10-04 05:20] LABS: ALT/SGPT 51 U/l (0-40); Albumin 3.3 gm/dL (3.2-5.2); Albumin/Globulin Ratio 1.3 (1.0-2.3); Alkaline Phosphatase 54 U/L (39-117); Bilirubin,Direct < 0.2 mg/dL (0.0-0.3); Blood Urea Nitrogen 8 mg/dl (8-23); Gamma Glutamyl Transpeptidase 91 U/L (5-36); Uric Acid 3.2 mg/dL (2.5-8.0)
[2017-10-04] MEDS: PIPERACILLIN SODIUM/TAZOBACTAM 3.375 GM in DEXTROSE 5% IN WATER 50 ML IV SCH ×2 (05:23→13:01)
[2017-10-04] MEDS: METOCLOPRAMIDE 10 MG/2 ML VIAL IV SCH ×2 (05:24→13:01)
[2017-10-04] MEDS: POTASSIUM CHLORIDE 20 MEQ PACKET PO SCH (08:05)
[2017-10-04] MEDS ORDERED: LISINOPRIL 5 MG TABLET PO SCH (09:00)
[2017-10-04] MEDS: FLUoxetine HCL 20 MG CAPSULE PO SCH (09:13)
[2017-10-04] MEDS: GABAPENTIN 300 MG CAPSULE PO SCH (09:14)
[2017-10-04] MEDS: busPIRone 5 MG TABLET PO SCH (09:15)
--- NOTE | 2017-10-04 13:21 | Discharge Summary ---
Providers - Providers Patient information: Note initiated : 10/04/17 at 1:16 pm Service Date, if different from initiated Date: [] Patient: Kenia Sandoval 62 y/o F admitted on 10/01/17 for Abdominal Pain/Small Bowel Obstruction. Chief Complaint: [] Date of admission: 09/30/17 Discharge date: 10/04/17 Attending physician: Mary Kate Sandoval Hospitalization Hospital course: 62-year-old female who was admitted for partial intestinal obstruction. The patient developed crampy abdominal pain followed by nausea and vomiting after eating a large jar of mixed nuts. The pain became worse and she developed worsening abdominal distention with recurrent nausea and vomiting. She was seen in the emergency room for exam revealed a tender distended abdomen with hyperactive bowel sounds. She had leukocytosis and CT scan showed faecalization of intestinal contents in the small bowel with an abrupt transition in the distal jejunum. The proximal jejunum and stomach were also dilated. She was treated with nasogastric decompression, IV fluids. A small bowel follow-through was done with Gastrografin which showed transit through the bowel. She had multiple bowel movements thereafter and follow-up x-rays showed resolution of the obstructive pattern. She was given 4 doses of MiraLAX and her bowel was totally cleared. Her diet was advanced and she tolerated it without difficulty. She was started on soft diet yesterday and she is asymptomatic today. She is stable for discharge and is advised to have follow- up with her primary physician within the next week. Discharge diagnosis: Small bowel obstruction Secondary discharge diagnosis: Diabetes mellitus Chronic obstructive lung disease Chronic obstructive sleep apnea Anxiety with depression Reason for admission: Small bowel obstruction Procedures: None Pertinent studies/significant findings: small bowel follow-through with Gastrografin Complications: None Exam Temp Pulse Resp BP Pulse Ox 99.5 F H 96 H 16 129/74 96 10/04/17 12:54 10/04/17 12:54 10/04/17 12:54 10/04/17 12:54 10/04/17 08:10 - General physical appearance well developed, well nourished, no distress - Eyes PERRL, normal ocular movement - ENT normal pinna, normal nares, normal mucosa, no hearing loss, no congestion - Head Head exam IM: Present: atraumatic, normocephalic - Neck no masses, no bruits, trachea midline, no lymphadectomy, no venous distension - Cardiovascular Cardiovascular exam IM: Present: normal rate and rhythm - Respiratory normal expansion, normal respiratory effort, clear to percussion, clear to auscultation - Abdomen Abdomen: Present: soft, non tender, bowel sounds, distended (Abdomen is mildly distended but with good active bowel sounds and without tenderness) Hernia: Present: none - Genitourinary Present: normal external genitalia - Integumentary Present: no rash, no growths, no abnormal pigmentation - Neurologic Present: normal coordination, normal sensation - Musculoskeletal Present: normal gait, normal posture - Psychiatric Present: oriented to time, oriented to person, oriented to place, speech is normal, memory intact Discharge Plan - Patient/Caregiver Discharge Instructions Activity: increase activity as tolerated Diet: Regular Diet Additional Instructions: Use MiraLAX 1 or 2 glasses per day if you should develop symptoms of constipation - Follow up Plan Follow up with: Darleen Kemp ARNP [Primary Care Provider] - Disposition: Home, Self-Care Prognosis: Good Rehab Potential: Good I certify that the patient requires SNF services.: No Overall status at discharge: patient is back to baseline Pending Studies Resuscitation Status Full Code Diet GI Soft/Transitional Start WedOct 03 1050 Buspirone HCl (Buspar) 15 mg PO TID [facility] Last Admin: 10/04/17 09:15 Dose: 15 mg Admin: 10/03/17 21:13 Dose: 15 mg Admin: 10/03/17 15:15 Dose: 15 mg Admin: 10/03/17 08:10 Dose: 15 mg Admin: 10/02/17 20:21 Dose: 15 mg Admin: 10/02/17 14:37 Dose: 15 mg Fluoxetine HCl (Prozac) 80 mg PO DAILY [facility] Last Admin: 10/04/17 09:13 Dose: 80 mg Admin: 10/03/17 08:09 Dose: 80 mg Gabapentin (Neurontin) 600 mg PO BID [facility] Last Admin: 10/04/17 09:14 Dose: 600 mg Admin: 10/03/17 21:13 Dose: 600 mg Admin: 10/03/17 08:10 Dose: 600 mg Admin: 10/02/17 20:21 Dose: 600 mg Hydromorphone HCl (Dilaudid) 1 mg IV Q4HP PRN PRN Reason: PAIN LEVEL > 6 Last Admin: 10/01/17 23:40 Dose: 1 mg Lactated Ringer's (Lactated Ringers) 1,000 mls @ 100 mls/hr IV .Q10H [facility] Last Admin: 10/04/17 08:15 Dose: Not Given Admin: 10/04/17 04:21 Dose: 100 mls/hr Infusion: 10/04/17 03:34 Dose: 100 mls/hr Admin: 10/03/17 22:21 Dose: Not Given Admin: 10/03/17 17:34 Dose: 100 mls/hr Infusion: 10/03/17 17:34 Dose: 0 mls/hr Admin: 10/03/17 15:14 Dose: Not Given Admin: 10/03/17 05:34 Dose: 100 mls/hr Infusion: 10/03/17 05:34 Dose: 100 mls/hr Admin: 10/03/17 01:58 Dose: Not Given Admin: 10/02/17 20:24 Dose: 100 mls/hr Infusion: 10/02/17 20:24 Dose: 100 mls/hr Admin: 10/02/17 17:20 Dose: Not Given Admin: 10/02/17 10:28 Dose: 100 mls/hr Infusion: 10/02/17 09:39 Dose: 100 mls/hr Admin: 10/02/17 06:05 Dose: Not Given Admin: 10/01/17 23:39 Dose: 100 mls/hr Infusion: 10/01/17 22:25 Dose: 100 mls/hr Admin: 10/01/17 12:25 Dose: 100 mls/hr Infusion: 10/01/17 10:48 Dose: 100 mls/hr Admin: 10/01/17 00:48 Dose: 100 mls/hr Piperacillin Sod/Tazobactam (Sod 3.375 gm/ Dextrose) 50 mls @ 100 mls/hr IV Q8H ALEJANDRO Last Admin: 10/04/17 13:01 Dose: Admin: 10/04/17 05:23 Dose: 100 mls/hr Infusion: 10/03/17 21:58 Dose: 0 mls/hr Admin: 10/03/17 21:13 Dose: 100 mls/hr Infusion: 10/03/17 15:45 Dose: 100 mls/hr Admin: 10/03/17 15:15 Dose: 100 mls/hr Infusion: 10/03/17 06:04 Dose: 100 mls/hr Admin: 10/03/17 05:34 Dose: 100 mls/hr Infusion: 10/02/17 22:42 Dose: 0 mls/hr Admin: 10/02/17 22:12 Dose: 100 mls/hr Infusion: 10/02/17 15:08 Dose: 100 mls/hr Admin: 10/02/17 14:38 Dose: 100 mls/hr Infusion: 10/02/17 06:20 Dose: 100 mls/hr Admin: 10/02/17 05:50 Dose: 100 mls/hr Infusion: 10/01/17 22:00 Dose: 0 mls/hr Admin: 10/01/17 21:28 Dose: 100 mls/hr Infusion: 10/01/17 12:00 Dose: 0 mls/hr Admin: 10/01/17 11:05 Dose: 100 mls/hr Infusion: 10/01/17 01:25 Dose: 0 mls/hr Admin: 10/01/17 00:49 Dose: 100 mls/hr Lisinopril (Zestril) 10 mg PO DAILY [facility] Last Admin: 10/04/17 09:14 Dose: 10 mg Lorazepam (Ativan) 1 mg IV Q6HP PRN PRN Reason: ANXIETY/SEDATION Last Admin: 10/03/17 21:57 Dose: 1 mg Admin: 10/02/17 22:59 Dose: 1 mg Admin: 10/02/17 15:50 Dose: 1 mg Metoclopramide HCl (Reglan) 10 mg IV Q6 [facility] Last Admin: 10/04/17 13:01 Dose: Admin: 10/04/17 05:24 Dose: 10 mg Admin: 10/03/17 23:59 Dose: 10 mg Admin: 10/03/17 17:59 Dose: 10 mg Admin: 10/03/17 13:26 Dose: 10 mg Admin: 10/03/17 05:33 Dose: 10 mg Admin: 10/02/17 23:54 Dose: 10 mg Admin: 10/02/17 17:32 Dose: 10 mg Admin: 10/02/17 11:57 Dose: 10 mg Admin: 10/02/17 05:50 Dose: 10 mg Admin: 10/01/17 23:39 Dose: 10 mg Admin: 10/01/17 17:39 Dose: 10 mg Admin: 10/01/17 12:25 Dose: 10 mg Ondansetron HCl (Zofran) 4 mg IV Q4HP PRN PRN Reason: Nausea Last Admin: 10/02/17 15:50 Dose: 4 mg Admin: 10/02/17 07:04 Dose: 4 mg Admin: 10/01/17 21:23 Dose: 4 mg Admin: 10/01/17 17:00 Dose: 4 mg Potassium Chloride (Klor-Con) 40 meq PO BIDCC [facility]ANDRO Last Admin: 10/04/17 08:05 Dose: 40 meq Admin: 10/03/17 17:59 Dose: 40 meq Admin: 10/03/17 08:09 Dose: 40 meq Shift Summary 10/04/17 03:39 Shift Summary by Misael Argueta Pt states she is feeling much better. VSS on RA. Continues to be tachycardic. Up ad sindy to BSC. Wearing attends, sometimes incontinent of bowel on way to [facility]. Multiple very small, loose BMs at beginning of shift. No complaints of abdominal pain or tenderness. Tolerating diet well w/no complaints of nausea. IV to left wrist running LR @ 100mL/hr. Receiving IV antibiotics. Offered to walk halls w/pt after she c/o being uncomfortable and tired of laying bed, however pt declined. Possible d/c today. Initialized on 10/04/17 03:39 - END OF NOTE
[2017-10-04] MEDS ORDERED: BENZONATATE 100 MG CAPSULE PO PRN (13:25)
[2017-10-04] MEDS ORDERED: ALBUTEROL SULFATE 1 PUFF INHALER INH PRN (13:25)
[2017-10-04] MEDS ORDERED: IPRATROPIUM 2.5 ML AMPUL.NEB INH PRN (13:25)
[2017-10-04] MEDS ORDERED: LOPERAMIDE 2 MG CAPSULE PO PRN (13:25)
[2017-10-04] MEDS ORDERED: Mometasone/Formoterol [Dulera 200 Mcg/5 Mcg Inhaler] INH SCH (21:00)
[2017-10-04] MEDS ORDERED: TRIAMCINOLONE CREAM 0.1% 15G 1 DOSE TUBE TOPICAL SCH (21:00)
[2017-10-04] MEDS ORDERED: FUROSEMIDE 20 MG TABLET PO SCH (21:00)
[2017-10-05] MEDS ORDERED: OMEPRAZOLE 20 MG CAPSULE PO SCH (07:30)
[2017-10-05] MEDS ORDERED: MELOXICAM 7.5 MG TABLET PO SCH (09:00)
[2017-10-05] MEDS ORDERED: CALCIUM CARBONATE 500 MG TAB.CHEW CHEWED SCH (09:00)
[2017-10-05] MEDS ORDERED: NON FORMULARY MEDICATION 1 DOSE MISCELL (Potassium Chloride [Potassium Chloride] 10 MEQ) PO SCH (09:00)
[2017-10-05] MEDS ORDERED: FENOFIBRATE 43 MG CAPSULE PO SCH (09:00)
[2017-10-05] MEDS ORDERED: PREGABALIN 75 MG CAPSULE PO SCH (09:00)
[2017-10-11] MEDS ORDERED: ALENDRONATE SODIUM 70 MG TABLET PO SCH (09:00)
== END 2017-10-04 14:15 | disposition home or self-care (01) | DRG 390 ==
LOC: ED 20:51 → MEDSUR 10-01 00:55
PROVIDERS: ADMIT Family Medicine Adult Medicine; ATTEND Family Medicine Adult Medicine

== ENCOUNTER 2017-10-06 12:51 | Inpatient (IN) ==
[2017-10-06 13:58] LABS: Mean Cell Volume 80.8 fL (80.0-100.0); Mean Corpuscular HGB Conc 33.5 g/dL (31.0-36.0); Platelet Count 596 K/mcL (140-440); RBC 4.58 M/mcL (4.00-5.20); Red Cell Distribution Width 14.5 % (11.5-14.5)
[2017-10-06 14:15] LABS: ALT/SGPT 61 U/l (0-40); Albumin 3.9 gm/dL (3.2-5.2); Albumin/Globulin Ratio 1.3 (1.0-2.3); Alkaline Phosphatase 78 U/L (39-117); Blood Urea Nitrogen 9 mg/dl (8-23)
[2017-10-06 14:47] LABS: Appearance,Urine TURBID; Bacteria,Urine 0 /hpf (0); Bilirubin,Urine NEG (NEG); Color,Urine AMBER; Glucose,Urine (UA) NEGATIVE (NEG); Leukocyte Esterase,Urine NEG /uL (NEG); Mucus,Urine MANY /hpf (0); Nitrate,Urine NEG (NEG); Protein,Urine 30 mg/dL (NEG); Specific Gravity,Urine 1.024 (1.000-1.035); Urine Blood 0.03 mg/dL (<0.03); Urine RBC 4 /hpf (0-1); Urine Squamous Epithelial Cell 5 /hpf (0-4); Urine WBC 1 /hpf (0-4); Urobilinogen,Urine NEG (NEG)
--- NOTE | 2017-10-06 14:51 | XRay Report ---
HISTORY: Reason for Exam:still n-v FINDINGS: There are two loops of dilated jejunum in the left upper quadrant. They measure up to 4.3 cm in diameter and contain air-fluid levels. Distal to this the small and large intestine are decompressed. The stomach is also decompressed. There is no free intra-abdominal air. The dilatation small intestine is a new finding since 10/03/17. IMPRESSION: Proximal small bowel obstruction Interpreted and Authenticated by: Dariel Singh 10/06/17
[2017-10-06 14:55] LABS: Eosinophils % (Manual) 2 % (0-7); Lymphocytes % 16 % (15-49); Monocytes % (Manual) 4 % (1-12); Platelet Estimate INCREASED (NORMAL); RBC Morphology NORMAL (NORMAL); Segmented Neutrophils % 78 % (38-78)
[2017-10-06] MEDS: 0.9 % SODIUM CHLORIDE 1,000 ML IV SCH ×2 (15:54→19:38)
[2017-10-06] MEDS ORDERED: ONDANSETRON 4 MG/2 ML VIAL IV PRN (16:10)
--- NOTE | 2017-10-06 16:23 | XRay Report ---
HISTORY: Reason for Exam:NG TUBE CONFIRMATION FINDINGS: There is nasogastric tube with the tip in the cardia of the stomach. The sidehole of the catheter remains in the distal esophagus. The stomach is decompressed. There are dilated segments of jejunum in the left midabdomen. The dilatation of the small bowel is unchanged from the prior study done at 1425. IMPRESSION: Nasogastric tube in the cardia of the stomach. Stable proximal small bowel obstruction Interpreted and Authenticated by: Dariel Singh 10/06/17
--- NOTE | 2017-10-06 19:09 | General Surg History&Physical ---
History of Present Illness Patient information: Note initiated : 10/06/17 at 7:06 pm Service Date, if different from initiated Date: [] Patient: Kenia Sandoval a 62 y/o F admitted on 10/06/17 for Nausea, vomiting, diarrhea, cough, fever.. Chief Complaint: [Recurrent uncontrolled diarrhea with nausea] HPI: Ms. Sandoval is a 62 year old F who was admitted through the emergency room with recurrent severe diarrhea with nausea but no vomiting. She was recently hospitalized 30 September through 04 October 2017 with a partial intestinal obstruction associated with nausea and vomiting. She was treated with nasogastric decompression IV fluids. A Gastrografin study was done which showed good transit through the bowel but she had extensive diarrhea after the procedure. She had resolution of her obstructive pattern. Her diet was advanced and she tolerated without difficulty. She was discharged home on 04 October stable and tolerating a diet. She states that she has continued to have diarrhea and she has had low-grade fever in the 100.5 range. She has had mild mid abdominal pain but no vomiting. She has extensive yellow watery stools which occur unexpectedly and without warning. She has not had any hematochezia. Abdominal x-ray suggests adynamic ileus versus partial small bowel obstruction though the history is more compatible with ileus. Must also rule out the potential for C. difficile colitis. Review of Systems - Constitutional fatigue, headache(s), malaise - EENT Nose, mouth and throat: dizziness, dry mouth, headache(s) - Cardiovascular dyspnea on exertion, edema, no chest pain with activity, no palpatations, no rapid heart rate - Respiratory dyspnea on exertion, wheezing, chest congestion - Gastrointestinal abdominal pain, bloating, change in bowel habits, cramping, diarrhea, loose stools, nausea, no vomiting - Genitourinary Genitourinary: nocturia, urinary incontinence - Musculoskeletal back pain, myalgias - Integumentary no pruritus, no rash - Neurological abnormal gait, headache(s) - Psychiatric anxiety, depression - Endocrine fatigue - Hematologic/Lymphatic no easy bleeding, no easy bruising, no lymphadenopathy - Allergic/Immunologic no tongue swelling, no throat swelling, no uticaria, no wheezing, no lip swelling Past History Past medical history: Obstructive chronic obstructive lung disease Essential hypertension Anxiety with depression Fibromyalgia Gastroesophageal reflux disease Chronic obstructive sleep apnea Past surgical history: Cholecystectomy Diagnostic laparoscopy Total abdominal hysterectomy Tubal ligation Past family history: Carcinoma of the bladder Stroke Essential hypertension Is coronary artery disease Diabetes mellitus Laryngeal cancer Past social history: Employed Former smoker 40 years Frequent alcohol use Frequent marijuana use Medications and Allergies Home Medications Medication Instructions Recorded Confirmed Type buspirone 15 mg tablet 15 mg PO TID tab 04/17/15 10/06/17 History alendronate 70 mg tablet 70 mg PO QWEEK 30 Days #5 tab 05/22/15 10/06/17 Rx loperamide 2 mg capsule 2 mg PO Q1-3H PRN #30 cap 05/22/15 10/06/17 Rx fenofibrate 160 mg tablet 160 mg PO QDAY #90 tab 05/23/15 10/06/17 Rx fluoxetine 20 mg tablet 80 mg PO DAILY tab 06/18/15 10/06/17 History albuterol sulfate HFA 90 2 puff INHALATION Q4-6HP PRN 30 07/09/15 10/06/17 Rx mcg/actuation aerosol inhaler Days #8 g omeprazole 20 mg capsule,delayed 20 mg PO QDAY #90 cap 07/18/15 10/06/17 Rx release triamcinolone acetonide 0.1 % 1 applic TOPICAL BID #30 g 07/18/15 10/06/17 Rx topical ointment gabapentin 800 mg tablet 800 mg PO TID 30 Days #90 tab 08/30/15 10/06/17 Rx calcium carbonate 600 mg calcium 500 mg PO DAILY tab 10/21/15 10/06/17 History (1,500 mg) tablet potassium chloride ER 10 mEq 10 meq PO QDAY 10/21/15 10/06/17 History capsule,extended release benzonatate 100 mg capsule 100 mg PO Q4H PRN #60 cap 11/11/15 10/06/17 Rx Furosemide [Lasix] 20 mg PO BID 12/10/15 10/06/17 History ipratropium bromide 0.02 % 1.25 ml INHALATION QIDP PRN 05/17/17 10/06/17 History solution for inhalation meloxicam 15 mg tablet 15 mg PO DAILY tab 05/17/17 10/06/17 History mometasone-formoterol HFA 200 2 puff INHALATION BID 05/17/17 10/06/17 History mcg-5 mcg/actuation aerosol inhaler pregabalin 75 mg capsule 75 mg PO DAILY 05/17/17 10/06/17 History lisinopril 20 mg tablet 10 mg PO DAILY tab 06/09/17 10/06/17 History Allergies Allergy/AdvReac Type Severity Reaction Status Date / Time guaifenesin [GUAIFENESIN] Allergy Severe ANAPHYLAXIS Verified 09/30/17 20:53 fluconazole [From Diflucan] Allergy Mild Hives Verified 10/01/17 07:30 bupropion AdvReac Severe psychotic Verified 09/30/17 20:53 episode sulfamethoxazole AdvReac Intermediate Flushing Verified 09/30/17 20:53 [From Sulfamethoprim] trimethoprim AdvReac Intermediate Flushing Verified 09/30/17 20:53 [From Sulfamethoprim] Exam Temp Pulse Resp BP Pulse Ox 98.3 F 84 16 139/84 95 10/06/17 17:50 10/06/17 16:35 10/06/17 17:50 10/06/17 17:50 10/06/17 17:50 - General physical appearance well developed, well nourished, moderate distress, chronically ill, obese - Eyes PERRL, normal ocular movement. negative: icteric - ENT normal pinna, normal nares, normal mucosa, no hearing loss, no congestion - Head Head exam IM: Present: normal inspection - Neck no masses, no bruits, trachea midline, no lymphadectomy, no venous distension - Cardiovascular Cardiovascular exam IM: Present: normal rate and rhythm, RRR, +S1, +S2. Absent : gallop, JVD, systolic murmur - Respiratory normal expansion, normal respiratory effort, clear to percussion, clear to auscultation - Abdomen Abdomen: Present: soft, non tender, bowel sounds, distended (Moderate distention with hyperactive bowel sounds no tenderness noted) Hernia: Present: none - Genitourinary Present: normal external genitalia - Integumentary Present: no rash, no growths, no abnormal pigmentation - Neurologic Present: normal coordination, normal sensation - Musculoskeletal Present: normal gait, normal posture - Psychiatric Present: oriented to time, oriented to person, oriented to place, speech is normal, memory intact Assessment and Plan (1) Chronic diarrhea of unknown origin We will treat symptomatically and get C. difficile titer Status: Acute (2) GERD (gastroesophageal reflux disease) Status: Chronic Qualifiers: Esophagitis presence: esophagitis presence not specified Qualified Code(s) : K21.9 - Gastro-esophageal reflux disease without esophagitis (3) Benign hypertension Status: Chronic (4) Major depressive disorder Status: Chronic (5) COPD (chronic obstructive pulmonary disease) Status: Acute (6) Tension type headache Status: Chronic (7) IBS (irritable bowel syndrome) Status: Chronic Comment: 1983 (8) COPD (chronic obstructive pulmonary disease) Status: Chronic Comment: uses albuterol 2 puffs daily on turdoza, symbicort, She is still smoking ciggs as well as THC on a regular basis, educated her at length to quit. Presently stable on current dose Qualifiers:
[2017-10-06] MEDS: ACETAMINOPHEN 1,000 MG/100 ML BOTTLE IV PRN (19:39)
[2017-10-06] MEDS: PIPERACILLIN SODIUM/TAZOBACTAM 3.375 GM in DEXTROSE 5% IN WATER 50 ML IV SCH (20:02)
[2017-10-06] MEDS: LORazepam 2 MG/ML VIAL IV PRN (22:01)
[2017-10-06] MEDS: metroNIDAZOLE 500 MG/100 ML BAG IV SCH (22:02)
[2017-10-06] MEDS: 0.9 % SODIUM CHLORIDE 10 ML SYRINGE IV SCH (22:05)
[2017-10-07] MEDS: PIPERACILLIN SODIUM/TAZOBACTAM 3.375 GM in DEXTROSE 5% IN WATER 50 ML IV SCH ×5 (01:36→23:50)
[2017-10-07] MEDS: HYDROmorphone 2 MG/ML SYRINGE IV PRN ×2 (01:39→10:47)
[2017-10-07] MEDS: metroNIDAZOLE 500 MG/100 ML BAG IV SCH ×4 (01:41→19:23)
[2017-10-07] MEDS: 0.9 % SODIUM CHLORIDE 1,000 ML IV SCH ×4 (05:59→22:09)
[2017-10-07] MEDS: 0.9 % SODIUM CHLORIDE 10 ML SYRINGE IV SCH ×3 (05:59→20:36)
--- NOTE | 2017-10-07 08:19 | XRay Report ---
HISTORY: Reason for Exam:F/U OF BOWEL OBSTRUCTION FINDINGS: The dilated segments of jejunum seen in left mid abdomen on 10/06/17 have returned to normal caliber. There are a few air-fluid levels in nondilated large and small intestine. No free intra-abdominal air is present. Nasogastric tube remains in the cardia of the stomach. A patchy alveolar infiltrate is developing laterally in the left lower lobe. IMPRESSION: Resolved small bowel obstruction Mild left lower lobe atelectasis or pneumonia Interpreted and Authenticated by: Dariel Singh 10/07/17
[2017-10-07] MEDS: LORazepam 2 MG/ML VIAL IV PRN ×2 (10:47→22:05)
--- NOTE | 2017-10-07 16:01 | General Surgery Progress Note ---
Subjective Patient reports: feels better, pain is less, bowel movement, afebrile Narrative: Note initiated : 10/07/17 at 4:00 pm Service Date, if different from initiated Date: [] Patient: Kenia Sandoval 62 y/o F admitted on 10/06/17 for Recurrent Uncontrolled Diarrhea with Nausea. Chief Complaint: [] Is patient is doing better and has less diarrhea. Her stools are becoming more formed. She has less crampy abdominal pain and she denies nausea. Objective Temp Pulse Resp BP Pulse Ox 98.2 F 83 22 133/82 93 10/07/17 12:00 10/07/17 08:00 10/07/17 12:00 10/07/17 12:00 10/07/17 12:00 - Additional Data Intake & Output - Last 24 hours: Intake & Output 10/05/17 10/06/17 10/07/17 10/08/17 05:59 05:59 05:59 05:59 Intake Total 1385 / 1385 50 / 50 Output Total 782 / 782 Balance 603 / 603 50 / 50 Weight 178 lb 8 oz - General physical appearance moderate distress, moderate pain - Eyes PERRL - ENT no congestion - Neck no venous distension - Respiratory normal expansion, normal respiratory effort, clear to auscultation - Cardiovascular Cardiovascular exam: Present: normal rate and rhythm, RRR, +S1, +S2. Absent: JVD - Abdomen soft, tender, distended (Abdomen is less distended; she does not have tenderness ) - Integumentary other (Developing intertrigo) - Neurologic normal coordination - Musculoskeletal normal gait - Psychiatric oriented to time, oriented to person, oriented to place, speech is normal, memory intact - Labs 10/09/17 04:10 10/09/17 04:10 Assessment and Plan (1) Chronic diarrhea of unknown origin Status: Acute Assessment and plan: DC NG Discontinue Quinones catheter Bentyl 20 mg 4 times Current Visit: Yes (2) GERD (gastroesophageal reflux disease) Status: Chronic Current Visit: No (3) Benign hypertension Status: Chronic Current Visit: No (4) Major depressive disorder Status: Chronic Current Visit: No (5) COPD (chronic obstructive pulmonary disease) Status: Acute Current Visit: No (6) Tension type headache Status: Chronic Current Visit: No (7) IBS (irritable bowel syndrome) Problem details: 1985 Status: Chronic Current Visit: No (8) COPD (chronic obstructive pulmonary disease) Problem details: uses albuterol 2 puffs daily on turdoza, symbicort, She is still smoking ciggs as well as THC on a regular basis, educated her at length to quit. Presently stable on current dose Status: Chronic Current Visit: No - Time Spent With Patient Total time spent is greater than 50% in coordination of care (as documented) at patient's floor/unit and/or counseling patient:
[2017-10-07] MEDS: DICYCLOMINE 20 MG TABLET PO SCH ×2 (17:42→20:36)
[2017-10-07] MEDS: GABAPENTIN 400 MG CAPSULE PO SCH (20:36)
[2017-10-07] MEDS: busPIRone 5 MG TABLET PO SCH (20:36)
[2017-10-08] MEDS: metroNIDAZOLE 500 MG/100 ML BAG IV SCH ×4 (00:29→18:58)
[2017-10-08] MEDS: LORazepam 2 MG/ML VIAL IV PRN ×2 (04:41→22:19)
[2017-10-08] MEDS: HYDROmorphone 2 MG/ML SYRINGE IV PRN (05:49)
[2017-10-08] MEDS: PIPERACILLIN SODIUM/TAZOBACTAM 3.375 GM in DEXTROSE 5% IN WATER 50 ML IV SCH ×3 (05:52→17:32)
[2017-10-08] MEDS: 0.9 % SODIUM CHLORIDE 10 ML SYRINGE IV SCH ×3 (06:00→22:19)
[2017-10-08 06:01] LABS: Basophils # (Auto) 0 K/mcL (0.0-0.3); Basophils % (Auto) 0.2 % (0.0-2.0); Eosinophils # (Auto) 0.4 K/mcL (0.0-0.7); Eosinophils % (Auto) 3.7 % (0.0-7.0); Granulocytes % (Auto) 71.1 % (38.0-78.0); Lymphocytes # (Auto) 2.3 K/mcL (1.5-4.8); Lymphocytes % (Auto) 18.7 % (15.5-49.0); Mean Cell Volume 81.2 fL (80.0-100.0); Mean Corpuscular HGB Conc 33.9 g/dL (31.0-36.0); Mean Corpuscular Hemoglobin 27.6 pg (26.0-34.0); Monocytes # (Auto) 0.8 K/mcL (0.1-0.9); Monocytes % (Auto) 6.3 % (1.0-12.0); Platelet Count 484 K/mcL (140-440); RBC 4.08 M/mcL (4.00-5.20); Red Cell Distribution Width 15.1 % (11.5-14.5)
[2017-10-08 06:28] LABS: ALT/SGPT 44 U/l (0-40); Albumin 3.3 gm/dL (3.2-5.2); Albumin/Globulin Ratio 1.4 (1.0-2.3); Alkaline Phosphatase 73 U/L (39-117); Bilirubin,Direct < 0.2 mg/dL (0.0-0.3); Blood Urea Nitrogen 6 mg/dl (8-23); Gamma Glutamyl Transpeptidase 110 U/L (5-36)
[2017-10-08] MEDS: GABAPENTIN 400 MG CAPSULE PO SCH ×3 (09:00→22:18)
[2017-10-08] MEDS: busPIRone 5 MG TABLET PO SCH ×3 (09:00→22:19)
[2017-10-08] MEDS: DICYCLOMINE 20 MG TABLET PO SCH ×4 (09:00→22:19)
[2017-10-08] MEDS: FLUoxetine HCL 20 MG CAPSULE PO SCH (09:00)
[2017-10-08] MEDS: PREGABALIN 75 MG CAPSULE PO SCH (09:00)
[2017-10-08] MEDS: 0.9 % SODIUM CHLORIDE 1,000 ML IV SCH (09:01)
--- NOTE | 2017-10-08 12:23 | General Surgery Progress Note ---
Subjective Patient reports: feels better, pain is less, flatus, bowel movement, afebrile Narrative: Note initiated : 10/08/17 at 12:21 pm Service Date, if different from initiated Date: [] Patient: Kenia Sandoval 62 y/o F admitted on 10/06/17 for Recurrent Uncontrolled Diarrhea with Nausea. Chief Complaint: [Patient states that she feels much better. She has much less pain. Her stools are more formed. She denies nausea or vomiting.] Objective Temp Pulse Resp BP Pulse Ox 98.7 F 86 20 126/74 90 10/08/17 11:33 10/08/17 03:22 10/08/17 11:33 10/08/17 11:33 10/08/17 11:33 - Additional Data Intake & Output - Last 24 hours: Intake & Output 10/06/17 10/07/17 10/08/17 10/09/17 05:59 05:59 05:59 05:59 Intake Total 1385 / 1385 2225 / 2225 1890 / 1890 Output Total 782 / 782 2200 / 2200 150 / 150 Balance 603 / 603 25 / 1740 / 1740 Weight 178 lb 8 oz 178 lb - General physical appearance well developed, no distress, other (She has minimal pain at this time) - Eyes PERRL - ENT no congestion - Neck no venous distension - Respiratory normal expansion, normal respiratory effort, clear to auscultation - Cardiovascular Cardiovascular exam: Present: normal rate and rhythm, RRR, +S1, +S2. Absent: gallop, JVD, tachycardia - Abdomen soft, non tender, bowel sounds (Abdomen is benign without distention; she has good active bowel sounds; there is no tenderness) - Integumentary no rash, no growths, no abnormal pigmentation - Neurologic normal coordination, normal sensation - Musculoskeletal normal gait, normal posture - Psychiatric oriented to time, oriented to person, oriented to place, speech is normal, memory intact - Labs 10/08/17 04:27 10/08/17 04:27 Diabetes panel 10/08/17 Range/Units 04:27 Sodium 138 (133-145) mmol/L Potassium 3.3 (3.3-5.1) mmol/L Chloride 104 (96-108) mmol/L Carbon Dioxide 20 L (22-30) mmol/L BUN 6 L (8-23) mg/dl Creatinine 0.6 (0.6-1.1) mg/dl Glucose 93 (70-105) mg/dL Calcium 8.0 L (8.6-10.4) mg/dl AST 64 H (0-37) U/l ALT 44 H (0-40) U/l Alkaline Phosphatase 73 (39-117) U/L Total Protein 5.7 L (5.9-8.4) gm/dL Albumin 3.3 (3.2-5.2) gm/dL Triglycerides 132 (<150) mg/dl Calcium panel 10/08/17 Range/Units 04:27 Calcium 8.0 L (8.6-10.4) mg/dl Phosphorus 2.4 L (2.7-4.5) mg/dL Albumin 3.3 (3.2-5.2) gm/dL Pituitary panel 10/08/17 Range/Units 04:27 Sodium 138 (133-145) mmol/L Potassium 3.3 (3.3-5.1) mmol/L Chloride 104 (96-108) mmol/L Carbon Dioxide 20 L (22-30) mmol/L BUN 6 L (8-23) mg/dl Creatinine 0.6 (0.6-1.1) mg/dl Glucose 93 (70-105) mg/dL Calcium 8.0 L (8.6-10.4) mg/dl Adrenal panel 10/08/17 Range/Units 04:27 Sodium 138 (133-145) mmol/L Potassium 3.3 (3.3-5.1) mmol/L Chloride 104 (96-108) mmol/L Carbon Dioxide 20 L (22-30) mmol/L BUN 6 L (8-23) mg/dl Creatinine 0.6 (0.6-1.1) mg/dl Glucose 93 (70-105) mg/dL Calcium 8.0 L (8.6-10.4) mg/dl Total Bilirubin 0.2 (0.0-1.0) mg/dL AST 64 H (0-37) U/l ALT 44 H (0-40) U/l Alkaline Phosphatase 73 (39-117) U/L Total Protein 5.7 L (5.9-8.4) gm/dL Albumin 3.3 (3.2-5.2) gm/dL Assessment and Plan (1) Chronic diarrhea of unknown origin Status: Acute Assessment and plan: Advance to soft diet as needed Saline lock IV Probable discharge in the morning Current Visit: Yes (2) GERD (gastroesophageal reflux disease) Status: Chronic Current Visit: No (3) Benign hypertension Status: Chronic Current Visit: No (4) Major depressive disorder Status: Chronic Current Visit: No (5) COPD (chronic obstructive pulmonary disease) Status: Acute Current Visit: No (6) Tension type headache Status: Chronic Current Visit: No (7) IBS (irritable bowel syndrome) Problem details: 1985 Status: Chronic Current Visit: No (8) COPD (chronic obstructive pulmonary disease) Problem details: uses albuterol 2 puffs daily on turdoza, symbicort, She is still smoking ciggs as well as THC on a regular basis, educated her at length to quit. Presently stable on current dose Status: Chronic Current Visit: No - Time Spent With Patient Total time spent is greater than 50% in coordination of care (as documented) at patient's floor/unit and/or counseling patient:
[2017-10-08] MEDS: POTASSIUM CHLORIDE 20 MEQ TABLET PO SCH (17:32)
[2017-10-08] MEDS: ACETAMINOPHEN 1,000 MG/100 ML BOTTLE IV PRN (20:01)
[2017-10-09] MEDS: PIPERACILLIN SODIUM/TAZOBACTAM 3.375 GM in DEXTROSE 5% IN WATER 50 ML IV SCH ×3 (00:12→11:39)
[2017-10-09] MEDS: metroNIDAZOLE 500 MG/100 ML BAG IV SCH ×3 (00:51→12:11)
[2017-10-09] MEDS: 0.9 % SODIUM CHLORIDE 10 ML SYRINGE IV SCH (06:06)
[2017-10-09 06:33] LABS: Basophils # (Auto) 0.1 K/mcL (0.0-0.3); Basophils % (Auto) 0.8 % (0.0-2.0); Eosinophils # (Auto) 0.6 K/mcL (0.0-0.7); Eosinophils % (Auto) 5.7 % (0.0-7.0); Granulocytes % (Auto) 61.4 % (38.0-78.0); Lymphocytes # (Auto) 2.5 K/mcL (1.5-4.8); Lymphocytes % (Auto) 25.2 % (15.5-49.0); Mean Cell Volume 81.9 fL (80.0-100.0); Mean Corpuscular Hemoglobin 27.8 pg (26.0-34.0); Monocytes # (Auto) 0.7 K/mcL (0.1-0.9); Monocytes % (Auto) 6.9 % (1.0-12.0); Platelet Count 478 K/mcL (140-440); Red Cell Distribution Width 15.3 % (11.5-14.5)
[2017-10-09] MEDS: HYDROmorphone 2 MG/ML SYRINGE IV PRN (06:47)
[2017-10-09 07:08] LABS: ALT/SGPT 38 U/l (0-40); Albumin 3.2 gm/dL (3.2-5.2); Albumin/Globulin Ratio 1.3 (1.0-2.3); Alkaline Phosphatase 75 U/L (39-117); Bilirubin,Direct < 0.2 mg/dL (0.0-0.3); Blood Urea Nitrogen 7 mg/dl (8-23); Gamma Glutamyl Transpeptidase 119 U/L (5-36)
[2017-10-09] MEDS: POTASSIUM CHLORIDE 20 MEQ TABLET PO SCH (07:59)
[2017-10-09] MEDS: busPIRone 5 MG TABLET PO SCH (09:05)
[2017-10-09] MEDS: PREGABALIN 75 MG CAPSULE PO SCH (09:05)
[2017-10-09] MEDS: GABAPENTIN 400 MG CAPSULE PO SCH (09:05)
[2017-10-09] MEDS: FLUoxetine HCL 20 MG CAPSULE PO SCH (09:05)
[2017-10-09] MEDS: DICYCLOMINE 20 MG TABLET PO SCH ×2 (09:06→12:14)
--- NOTE | 2017-10-09 12:20 | Discharge Summary ---
Providers - Providers Patient information: Note initiated : 10/09/17 at 12:16 pm Service Date, if different from initiated Date: [] Patient: Kenia Sandoval 62 y/o F admitted on 10/06/17 for Recurrent Uncontrolled Diarrhea with Nausea. Chief Complaint: [] Date of admission: 10/06/17 Discharge date: 10/09/17 Attending physician: Mary Kate Sandoval Hospitalization Hospital course: 62-year-old female who was admitted through the emergency room with recurrent severe diarrhea with nausea but no vomiting. She had been previously hospitalized 30 September through 04 October 2017 with partial intestinal obstruction with associated nausea and vomiting. She was treated with nasogastric decompression, IV fluids,. A Gastrografin study was done which showed good transit through the bowel however it produced excessive diarrhea at the procedure. Her obstructive pattern resolved. Her diet was advanced and she tolerated regular diet. At the time of discharge she was stable without complaints. One day after discharge she developed recurrent diarrhea with low- grade fever and mid abdominal pain. She was having multiple yellow watery stools. Abdominal x-rays in the emergency room suggest adynamic ileus. There was some concern for C. difficile colitis but C. difficile titer was negative. Patient was admitted and placed on bowel rest. She was also given dicyclomine 4 times daily. Her nausea was treated symptomatically. She gradually improved and the nasogastric tube was discontinued. Diet was advanced and she had semi- formed stools which were reduced to about 3 times daily. She is now on a regular diet and is having to soft bowel movements per day. All of her symptoms have resolved. She is now stable for discharge. She will be treated with Flagyl 500 mg 3 times daily for 7 more days and will receive Bentyl 20 mg every 6 hours as needed. Discharge diagnosis: Acute gastroenteritis Secondary discharge diagnosis: Irritable bowel syndrome with exacerbation Reason for admission: Abdominal pain, uncontrolled diarrhea Procedures: None Complications: None Exam Temp Pulse Resp BP Pulse Ox 97.4 F 79 18 159/77 95 10/09/17 11:54 10/09/17 03:54 10/09/17 11:54 10/09/17 11:54 10/09/17 11:54 - General physical appearance well developed, well nourished, no distress - Eyes PERRL, normal ocular movement - ENT normal pinna, normal nares, normal mucosa, no hearing loss, no congestion - Head Head exam IM: Present: atraumatic, normocephalic - Neck no masses, no bruits, trachea midline, no lymphadectomy, no venous distension - Cardiovascular Cardiovascular exam IM: Present: normal rate and rhythm, RRR, +S1, +S2. Absent : gallop, JVD - Respiratory normal expansion, normal respiratory effort, clear to percussion, clear to auscultation - Abdomen Abdomen: Present: soft, non tender, bowel sounds. Absent: tender, guarding, distended Hernia: Present: none - Genitourinary Present: normal external genitalia - Integumentary Present: no growths, no abnormal pigmentation, other (Perineal intertrigo) - Neurologic Present: normal coordination, normal sensation - Musculoskeletal Present: normal gait, normal posture - Psychiatric Present: oriented to time, oriented to person, oriented to place, speech is normal, memory intact Discharge Plan - Patient/Caregiver Discharge Instructions Activity: increase activity as tolerated Diet: Regular Diet Prescriptions: Dicyclomine 20 mg PO QID #120 tab metroNIDAZOLE [Metronidazole] 500 mg PO TID #20 tab - Follow up Plan Follow up with: Darleen Kemp ARNP [Primary Care Provider] - Disposition: Home, Self-Care Prognosis: Good Rehab Potential: Good I certify that the patient requires SNF services.: No Overall status at discharge: patient is back to baseline Pending Studies Resuscitation Status Full Code Diet GI Soft/Transitional Start WedOct 08 1208 Buspirone HCl (Buspar) 15 mg PO TID [facility] Last Admin: 10/09/17 09:05 Dose: 15 mg Admin: 10/08/17 22:19 Dose: 15 mg Admin: 10/08/17 14:27 Dose: 15 mg Admin: 10/08/17 09:00 Dose: 15 mg Admin: 10/07/17 20:36 Dose: 15 mg Dicyclomine HCl (Dicyclomine) 20 mg PO QID [facility] Last Admin: 10/09/17 12:14 Dose: 20 mg Admin: 10/09/17 09:06 Dose: 20 mg Admin: 10/08/17 22:19 Dose: 20 mg Admin: 10/08/17 17:32 Dose: 20 mg Admin: 10/08/17 12:23 Dose: 20 mg Admin: 10/08/17 09:00 Dose: 20 mg Admin: 10/07/17 20:36 Dose: 20 mg Admin: 10/07/17 17:42 Dose: 20 mg Fluoxetine HCl (Prozac) 80 mg PO DAILY [facility] Last Admin: 10/09/17 09:05 Dose: 80 mg Admin: 10/08/17 09:00 Dose: 80 mg Gabapentin (Neurontin) 800 mg PO TID [facility] Last Admin: 10/09/17 09:05 Dose: 800 mg Admin: 10/08/17 22:18 Dose: 800 mg Admin: 10/08/17 14:27 Dose: 800 mg Admin: 10/08/17 09:00 Dose: 800 mg Admin: 10/07/17 20:36 Dose: 800 mg Hydromorphone HCl (Dilaudid) 1 mg IV Q2HP PRN PRN Reason: PAIN LEVEL > 6 Last Admin: 10/09/17 06:47 Dose: 1 mg Admin: 10/08/17 05:49 Dose: 1 mg Admin: 10/07/17 10:47 Dose: 1 mg Admin: 10/07/17 01:39 Dose: 1 mg Piperacillin Sod/Tazobactam (Sod 3.375 gm/ Dextrose) 50 mls @ 100 mls/hr IV Q6H [facility] Last Infusion: 10/09/17 12:09 Dose: 0 mls/hr Admin: 10/09/17 11:39 Dose: 100 mls/hr Infusion: 10/09/17 06:38 Dose: 0 mls/hr Admin: 10/09/17 06:08 Dose: 100 mls/hr Infusion: 10/09/17 00:42 Dose: 0 mls/hr Admin: 10/09/17 00:12 Dose: 100 mls/hr Infusion: 10/08/17 18:05 Dose: 0 mls/hr Admin: 10/08/17 17:32 Dose: 100 mls/hr Infusion: 10/08/17 12:18 Dose: 100 mls/hr Admin: 10/08/17 11:48 Dose: 100 mls/hr Infusion: 10/08/17 06:30 Dose: 0 mls/hr Admin: 10/08/17 05:52 Dose: 100 mls/hr Infusion: 10/08/17 00:20 Dose: 100 mls/hr Admin: 10/07/17 23:50 Dose: 100 mls/hr Infusion: 10/07/17 18:15 Dose: 100 mls/hr Admin: 10/07/17 17:45 Dose: 100 mls/hr Infusion: 10/07/17 13:54 Dose: 100 mls/hr Admin: 10/07/17 13:24 Dose: 100 mls/hr Infusion: 10/07/17 06:29 Dose: 100 mls/hr Admin: 10/07/17 05:59 Dose: 100 mls/hr Infusion: 10/07/17 02:06 Dose: 100 mls/hr Admin: 10/07/17 01:36 Dose: 100 mls/hr Infusion: 10/06/17 20:32 Dose: 100 mls/hr Admin: 10/06/17 20:02 Dose: 100 mls/hr Metronidazole (Flagyl) 500 mg in 100 mls @ 100 mls/hr IV Q6H [facility] Last Admin: 10/09/17 12:11 Dose: 100 mls/hr Infusion: 10/09/17 07:51 Dose: 0 mls/hr Admin: 10/09/17 06:51 Dose: 100 mls/hr Infusion: 10/09/17 01:55 Dose: 0 mls/hr Admin: 10/09/17 00:51 Dose: 100 mls/hr Infusion: 10/08/17 19:58 Dose: 0 mls/hr Admin: 10/08/17 18:58 Dose: 100 mls/hr Infusion: 10/08/17 13:23 Dose: 0 mls/hr Admin: 10/08/17 12:23 Dose: 100 mls/hr Infusion: 10/08/17 08:09 Dose: 100 mls/hr Admin: 10/08/17 07:09 Dose: 100 mls/hr Infusion: 10/08/17 01:29 Dose: 100 mls/hr Admin: 10/08/17 00:29 Dose: 100 mls/hr Infusion: 10/07/17 20:23 Dose: 100 mls/hr Admin: 10/07/17 19:23 Dose: 100 mls/hr Infusion: 10/07/17 16:32 Dose: 100 mls/hr Admin: 10/07/17 15:32 Dose: 100 mls/hr Infusion: 10/07/17 08:40 Dose: 100 mls/hr Admin: 10/07/17 07:40 Dose: 100 mls/hr Infusion: 10/07/17 02:41 Dose: 100 mls/hr Admin: 10/07/17 01:41 Dose: 100 mls/hr Infusion: 10/06/17 23:02 Dose: 100 mls/hr Admin: 10/06/17 22:02 Dose: 100 mls/hr Acetaminophen (Ofirmev) 1,000 mg in 100 mls @ 200 mls/hr IV Q6HP PRN PRN Reason: Pain Last Admin: 10/08/17 20:01 Dose: 100 mls/hr Infusion: 10/06/17 20:09 Dose: 200 mls/hr Admin: 10/06/17 19:39 Dose: 200 mls/hr Lorazepam (Ativan) 0.5 mg IV Q6HP PRN PRN Reason: ANXIETY/SEDATION Last Admin: 10/08/17 22:19 Dose: 0.5 mg Admin: 10/08/17 04:41 Dose: 0.5 mg Admin: 10/07/17 22:05 Dose: 0.5 mg Admin: 10/07/17 10:47 Dose: 0.5 mg Admin: 10/06/17 22:01 Dose: 0.5 mg Ondansetron HCl (Zofran) 4 mg IV Q4HP PRN PRN Reason: Nausea And Vomiting Last Admin: 10/08/17 05:58 Dose: 4 mg Potassium Chloride (Kdur) 40 meq PO BIDCC [facility] Last Admin: 10/09/17 07:59 Dose: 40 meq Admin: 10/08/17 17:32 Dose: 40 meq Pregabalin (Lyrica) 75 mg PO DAILY [facility] Last Admin: 10/09/17 09:05 Dose: 75 mg Admin: 10/08/17 09:00 Dose: 75 mg Sodium Chloride (Saline Flush) 10 ml IV Q8 [facility] Last Admin: 10/09/17 06:06 Dose: 10 ml Admin: 10/08/17 22:19 Dose: 10 ml Admin: 10/08/17 14:27 Dose: 10 ml Admin: 10/08/17 06:00 Dose: Not Given Admin: 10/07/17 20:36 Dose: Not Given Admin: 10/07/17 17:34 Dose: Not Given Admin: 10/07/17 05:59 Dose: Not Given Admin: 10/06/17 22:05 Dose: Not Given Shift Summary 10/09/17 04:21 Shift Summary by Louann Tavarez Pt did well through night. Up ad sindy to BR, will call when back to bed to empty hat and for help with bed rail. Incont Briefs in place for occ bowel incon, she does own cares. Alert and oriented. VSS. PRN Ativan IV 0.5 mg given at 2200 per pt req. SL IV to right wrist with intermittent antibiotics. Tolerating soft diet. Should d/c home this am. Initialized on 10/09/17 04:21 - END OF NOTE
--- NOTE | 2017-10-10 09:08 | Emergency Department Note ---
General Adult HPI - General Chief complaint: Nausea/Vomiting/Diarrhea Stated complaint: Nausea, vomiting, diarrhea, cough, fever. Time Seen by Provider: 10/06/17 13:01 Source: patient Mode of arrival: ambulatory Limitations: no limitations - History of Present Illness HPI Narrative: patient admitted earlier for small bowel obstruction and patient has had a reoccurrence of the nausea vomiting and having some abdominal pain. Pain is generalized in the mid epigastric region no localization of the pain there is no guarding or rebound sounds are decreased she was admitted to had an NG placement and apparently the small bowel obstruction resolved but her signs and symptoms she states continued for the next several days. Is afebrile - Related Data Home Medications Medication Instructions Recorded Confirmed buspirone 15 mg tablet 15 mg PO TID tab 04/17/15 10/06/17 fluoxetine 20 mg tablet 80 mg PO DAILY tab 06/18/15 10/06/17 calcium carbonate 600 mg calcium 500 mg PO DAILY tab 10/21/15 10/06/17 (1,500 mg) tablet potassium chloride ER 10 mEq 10 meq PO QDAY 10/21/15 10/06/17 capsule,extended release Furosemide [Lasix] 20 mg PO BID 12/10/15 10/06/17 ipratropium bromide 0.02 % 1.25 ml INHALATION QIDP PRN 05/17/17 10/06/17 solution for inhalation meloxicam 15 mg tablet 15 mg PO DAILY tab 05/17/17 10/06/17 mometasone-formoterol HFA 200 2 puff INHALATION BID 05/17/17 10/06/17 mcg-5 mcg/actuation aerosol inhaler pregabalin 75 mg capsule 75 mg PO DAILY 05/17/17 10/06/17 lisinopril 20 mg tablet 10 mg PO DAILY tab 06/09/17 10/06/17 Previous Rx's Medication Instructions Recorded alendronate 70 mg tablet 70 mg PO QWEEK 30 Days #5 tab 05/22/15 loperamide 2 mg capsule 2 mg PO Q1-3H PRN #30 cap 05/22/15 fenofibrate 160 mg tablet 160 mg PO QDAY #90 tab 05/23/15 albuterol sulfate HFA 90 2 puff INHALATION Q4-6HP PRN 30 07/09/15 mcg/actuation aerosol inhaler Days #8 g omeprazole 20 mg capsule,delayed 20 mg PO QDAY #90 cap 07/18/15 release triamcinolone acetonide 0.1 % 1 applic TOPICAL BID #30 g 07/18/15 topical ointment gabapentin 800 mg tablet 800 mg PO TID 30 Days #90 tab 08/30/15 benzonatate 100 mg capsule 100 mg PO Q4H PRN #60 cap 11/11/15 Dicyclomine 20 mg PO QID #120 tab 10/09/17 Nystatin [Nyata] 15 gm TP TIDP PRN #1 powder 10/09/17 metroNIDAZOLE [Metronidazole] 500 mg PO TID #20 tab 10/09/17 Allergies Allergy/AdvReac Type Severity Reaction Status Date / Time guaifenesin [GUAIFENESIN] Allergy Severe ANAPHYLAXIS Verified 09/30/17 20:53 fluconazole [From Diflucan] Allergy Mild Hives Verified 10/01/17 07:30 bupropion AdvReac Severe psychotic Verified 09/30/17 20:53 episode sulfamethoxazole AdvReac Intermediate Flushing Verified 09/30/17 20:53 [From Sulfamethoprim] trimethoprim AdvReac Intermediate Flushing Verified 09/30/17 20:53 [From Sulfamethoprim] Review of Systems All systems ED: reviewed and negative except as stated. Constitutional: Denies: fever, chills Gastrointestinal: Reports: as per HPI, abdominal pain, nausea, vomiting Past Medical History - Past Medical History Medical history: Reports: asthma, COPD, fibromyalgia, hyperlipidemia, hypertension, osteoporosis, other (back pain, IBS, osteoarthritis) Psychiatric history: Reports: depression [employer] OFFICE ASSOCIATE history: Reports: no [employer] OFFICE ASSOCIATE history Surgical history ED: Reports: cholecystectomy, hysterectomy - Social History smoking status: Former smoker Alcohol use: Reports: Rarely Drug use: Reports: marijuana Physical Exam Limitations: no limitations General appearance: alert Head: atraumatic Eye: Present: normal appearance, PERRL ENT: normal exam, normal oropharynx, mucous membranes moist Neck: Present: normal inspection, full ROM Chest: Present: normal inspection, symmetric chest wall rise Respiratory: Present: normal lung sounds bilaterally. Absent: respiratory distress, wheezes Cardiovascular: Present: regular rate, normal rhythm. Absent: bradycardia, tachycardia Abdominal: Present: distention, tenderness, diminished bowel sounds. Absent: guarding, rebound, rigidity Extremities: Present: normal inspection, full ROM. Absent: tenderness Back: Present: normal inspection, full ROM. Absent: tenderness Course Vital Signs Temperature 97.8 F 10/06/17 12:53 Pulse Rate 95 H 10/06/17 12:53 Respiratory Rate 20 10/06/17 12:53 Blood Pressure 151/94 10/06/17 12:53 Pulse Oximetry (%) 95 10/06/17 12:53 Temperature 97.7 F 10/09/17 14:29 Pulse Rate 93 H 10/09/17 14:29 Respiratory Rate 18 10/09/17 14:29 Blood Pressure 134/82 10/09/17 14:29 Pulse Oximetry (%) 95 10/09/17 14:29 Medical Decision Making - MDM Narrative Medical decision making narrative: She was revealed small bowel obstruction. Dr. Sandoval contacted patient admitted for bowel obstruction NG tube placed - Lab Data Result diagrams: 10/09/17 04:10 10/09/17 04:10 Lab Results 10/06/17 10/06/17 10/06/17 Range/Units 13:29 13:29 14:24 WBC 13.3 H (4.5-11.0) K/mcL RBC 4.58 (4.00-5.20) M/mcL Hgb 12.4 (12.0-15.0) g/dL Hct 37.0 (36.0-48.0) % MCV 80.8 (80.0-100.0) fL MCH 27.0 (26.0-34.0) pg MCHC 33.5 (31.0-36.0) g/dL RDW 14.5 (11.5-14.5) % Plt Count 596 H (140-440) K/mcL MPV 8.0 (7.4-10.4) fL Total Counted 100 Seg Neutrophils % 78 (38-78) % Band Neutrophils % Not Reportable Lymphocytes % 16 (15-49) % Monocytes % (Manual) 4 (1-12) % Eosinophils % (Manual) 2 (0-7) % Platelet Estimate Increased (NORMAL) RBC Morphology Normal (NORMAL) Sodium 139 (133-145) mmol/L Potassium 3.8 (3.3-5.1) mmol/L Chloride 104 (96-108) mmol/L Carbon Dioxide 20 L (22-30) mmol/L Anion Gap 15.0 (8-16) BUN 9 (8-23) mg/dl Creatinine 0.7 (0.6-1.1) mg/dl GFR Calculation 92 Glucose 120 H (70-105) mg/dL Calcium 9.1 (8.6-10.4) mg/dl Total Bilirubin 0.2 (0.0-1.0) mg/dL AST 121 H (0-37) U/l ALT 61 H (0-40) U/l Alkaline Phosphatase 78 (39-117) U/L Total Protein 6.9 (5.9-8.4) gm/dL Albumin 3.9 (3.2-5.2) gm/dL Globulin 3.0 (2.2-3.7) gm/dL Albumin/Globulin Ratio 1.3 (1.0-2.3) Urine Color Sima Urine Appearance Turbid Urine pH 5.0 (5.0-9.0) Ur Specific [place] 1.024 (1.000-1.035) Urine Protein 30 A (NEG) mg/dL Urine Glucose (UA) Negative (NEG) mg/dL Urine Ketones 5/tr A (NEG) mg/dL Urine Occult Blood 0.03 A (<0.03) mg/dL Urine Nitrate Neg (NEG) Urine Bilirubin Neg (NEG) mg/dL Urine Urobilinogen Neg (NEG) mg/dL Ur Leukocyte Esterase Neg (NEG) /uL Urine RBC 4 H (0-1) /hpf Urine WBC 1 (0-4) /hpf Ur Squamous Epith Cells 5 H (0-4) /hpf Urine Bacteria 0 (0) /hpf Urine Mucus Many A (0) /hpf Ur Culture Indicated? No Disposition Pt seen by TAR CHASER/PA only: No Clinical Impression: Small bowel obstruction Disposition: Xfer As Outpt/Obs ([facility]) Condition: Good Time of Disposition: 09:09
== END 2017-10-09 14:27 | disposition home or self-care (01) | DRG 392 ==
LOC: ED 12:51 → MEDSUR 16:38
PROVIDERS: ADMIT Family Medicine Adult Medicine; ATTEND Family Medicine Adult Medicine

== ENCOUNTER 2017-10-11 14:06 | Observation (INO) ==
[2017-10-11] MEDS ORDERED: PROMETHAZINE 25 MG TABLET PO PRN (14:37)
[2017-10-11] MEDS ORDERED: HYDROmorphone 2 MG/ML SYRINGE IV PRN (14:37)
[2017-10-11] MEDS ORDERED: ONDANSETRON 4 MG/2 ML VIAL IV PRN (14:37)
[2017-10-11] MEDS: 0.9 % SODIUM CHLORIDE 1,000 ML IV SCH (15:17)
[2017-10-11] MEDS: GABAPENTIN 300 MG CAPSULE PO SCH ×2 (15:17→21:43)
[2017-10-11] MEDS: busPIRone 5 MG TABLET PO SCH ×2 (15:17→21:42)
[2017-10-11] MEDS: LORazepam 2 MG/ML VIAL IV PRN ×2 (15:18→21:44)
--- NOTE | 2017-10-11 15:59 | General Surg History&Physical ---
History of Present Illness Patient information: Note initiated : 10/11/17 at 3:59 pm Service Date, if different from initiated Date: [] Patient: Kenia Sandoval 62 y/o F admitted on 10/11/17 for n/v abd pain. Chief Complaint: [] HPI: Ms. Sandoval is a 62 year old F Medications and Allergies Home Medications Medication Instructions Recorded Confirmed Type buspirone 15 mg tablet 15 mg PO TID tab 04/17/15 10/11/17 History alendronate 70 mg tablet 70 mg PO QWEEK 30 Days #5 tab 05/22/15 10/11/17 Rx loperamide 2 mg capsule 2 mg PO Q1-3H PRN #30 cap 05/22/15 10/11/17 Rx fenofibrate 160 mg tablet 160 mg PO QDAY #90 tab 05/23/15 10/11/17 Rx fluoxetine 20 mg tablet 80 mg PO DAILY tab 06/18/15 10/11/17 History albuterol sulfate HFA 90 2 puff INHALATION Q4-6HP PRN 30 07/09/15 10/11/17 Rx mcg/actuation aerosol inhaler Days #8 g omeprazole 20 mg capsule,delayed 20 mg PO QDAY #90 cap 07/18/15 10/11/17 Rx release triamcinolone acetonide 0.1 % 1 applic TOPICAL BID #30 g 07/18/15 10/11/17 Rx topical ointment gabapentin 800 mg tablet 800 mg PO TID 30 Days #90 tab 08/30/15 10/11/17 Rx calcium carbonate 600 mg calcium 500 mg PO DAILY tab 10/21/15 10/11/17 History (1,500 mg) tablet potassium chloride ER 10 mEq 10 meq PO QDAY 10/21/15 10/11/17 History capsule,extended release benzonatate 100 mg capsule 100 mg PO Q4H PRN #60 cap 11/11/15 10/11/17 Rx Furosemide [Lasix] 20 mg PO BID 12/10/15 10/11/17 History ipratropium bromide 0.02 % 1.25 ml INHALATION QIDP PRN 05/17/17 10/11/17 History solution for inhalation meloxicam 15 mg tablet 15 mg PO DAILY tab 05/17/17 10/11/17 History mometasone-formoterol HFA 200 2 puff INHALATION BID 05/17/17 10/11/17 History mcg-5 mcg/actuation aerosol inhaler pregabalin 75 mg capsule 75 mg PO DAILY 05/17/17 10/11/17 History lisinopril 20 mg tablet 10 mg PO DAILY tab 06/09/17 10/11/17 History Dicyclomine 20 mg PO QID #120 tab 10/09/17 10/11/17 Rx Nystatin [Nyata] 15 gm TP TIDP PRN #1 powder 10/09/17 10/11/17 Rx metroNIDAZOLE [Metronidazole] 500 mg PO TID #20 tab 10/09/17 10/11/17 Rx Ondansetron HCl [Zofran ODT] 4 mg SL Q4-6HP PRN #20 tab 10/10/17 10/11/17 Rx Allergies Allergy/AdvReac Type Severity Reaction Status Date / Time guaifenesin [GUAIFENESIN] Allergy Severe ANAPHYLAXIS Verified 10/11/17 13:22 fluconazole [From Diflucan] Allergy Mild Hives Verified 10/11/17 13:22 bupropion AdvReac Severe psychotic Verified 10/11/17 13:22 episode sulfamethoxazole AdvReac Intermediate Flushing Verified 10/11/17 13:22 [From Sulfamethoprim] trimethoprim AdvReac Intermediate Flushing Verified 10/11/17 13:22 [From Sulfamethoprim] Exam Temp Resp BP Pulse Ox 98.6 F 22 164/97 95 10/11/17 14:36 10/11/17 14:36 10/11/17 14:36 10/11/17 14:36
[2017-10-11 16:20] LABS: Mean Cell Volume 81.7 fL (80.0-100.0); Mean Corpuscular HGB Conc 33.5 g/dL (31.0-36.0); Mean Corpuscular Hemoglobin 27.3 pg (26.0-34.0); Platelet Count 483 K/mcL (140-440); RBC 4.17 M/mcL (4.00-5.20); Red Cell Distribution Width 15.6 % (11.5-14.5)
[2017-10-11 16:38] LABS: ALT/SGPT 48 U/l (0-40); Albumin 3.8 gm/dL (3.2-5.2); Albumin/Globulin Ratio 1.4 (1.0-2.3); Alkaline Phosphatase 96 U/L (39-117); Blood Urea Nitrogen 3 mg/dl (8-23)
[2017-10-11 16:46] LABS: Eosinophils % (Manual) 1 % (0-7); Lymphocytes % 15 % (15-49); Monocytes % (Manual) 3 % (1-12); Platelet Estimate INCREASED (NORMAL); RBC Morphology NORMAL (NORMAL); Segmented Neutrophils % 78 % (38-78)
[2017-10-11 17:14] LABS: Erythrocyte Sedimentation Rate 53 mm/hr (0-20)
[2017-10-11] MEDS: HYDROcodone/APAP 5/325MG TABLET PO PRN (18:19)
[2017-10-11] MEDS: FAMOTIDINE 20 MG TABLET PO SCH (21:44)
[2017-10-11] MEDS: FLUoxetine HCL 20 MG CAPSULE PO SCH (21:44)
[2017-10-11] MEDS: 0.9 % SODIUM CHLORIDE 10 ML SYRINGE IV SCH (21:48)
[2017-10-11] MEDS: ALBUTEROL SULFATE 2.5 MG/3 ML NEBULIZER NEB PRN (23:35)
[2017-10-12] MEDS: HYDROcodone/APAP 5/325MG TABLET PO PRN ×3 (02:53→20:50)
[2017-10-12] MEDS: 0.9 % SODIUM CHLORIDE 1,000 ML IV SCH ×2 (03:53→17:37)
[2017-10-12] MEDS: LORazepam 2 MG/ML VIAL IV PRN ×3 (06:08→20:51)
[2017-10-12] MEDS: 0.9 % SODIUM CHLORIDE 10 ML SYRINGE IV SCH ×3 (06:09→20:51)
[2017-10-12] MEDS: ENOXAPARIN 40 MG/0.4 ML SYRINGE SQ SCH (08:10)
[2017-10-12] MEDS: GABAPENTIN 300 MG CAPSULE PO SCH ×3 (08:11→20:50)
[2017-10-12] MEDS: FAMOTIDINE 20 MG TABLET PO SCH ×2 (08:11→20:49)
[2017-10-12] MEDS: busPIRone 5 MG TABLET PO SCH ×3 (08:11→20:50)
[2017-10-12] MEDS ORDERED: LISINOPRIL 10 MG TABLET PO ONE (09:00)
--- NOTE | 2017-10-12 17:53 | General Surgery Progress Note ---
Subjective Patient reports: feels better, pain is less, tolerating liquids well, flatus, bowel movement, afebrile Narrative: Note initiated : 10/12/17 at 5:50 pm Service Date, if different from initiated Date: [] Patient: Kenia Sandoval 62 y/o F admitted on 10/11/17 for N/V Abd Pain. Chief Complaint: [Patient is doing much better than on admission. She had a mild amount of nausea on admission but has not had any nausea or vomiting since admission. She had one loose stool but is now having semi-formed stools with no diarrhea. She denies abdominal pain. Her anxiety is much improved. Discussed with patient the plan for discharge in the morning with follow-up with her primary care provider Darleen Kemp.] Objective Temp Pulse Resp BP Pulse Ox 97.2 F 87 20 150/83 95 10/12/17 16:00 10/12/17 07:25 10/12/17 16:00 10/12/17 16:00 10/12/17 16:00 - Additional Data Intake & Output - Last 24 hours: Intake & Output 10/10/17 10/11/17 10/12/17 10/13/17 05:59 05:59 05:59 05:59 Intake Total 1770 / 1770 1480 / 1480 Output Total Balance 1769 / 1769 1479 / 1479 Weight 180 lb - General physical appearance well developed, no distress, no pain - Eyes PERRL - ENT no congestion - Neck no venous distension - Respiratory normal respiratory effort, clear to auscultation - Cardiovascular Cardiovascular exam: Present: normal rate and rhythm, RRR, +S1, +S2. Absent: JVD, tachycardia - Abdomen soft, non tender, distended (Abdominal exam is totally benign) - Psychiatric oriented to time, oriented to person, oriented to place, speech is normal, memory intact - Labs 10/11/17 15:28 10/11/17 15:28 Assessment and Plan (1) Irritable bowel syndrome with diarrhea Status: Acute Assessment and plan: Patient is improved and will probably be discharged in the morning. No further medication changes are warranted Current Visit: Yes (2) Nausea with vomiting, unspecified Status: Acute Current Visit: Yes (3) GERD (gastroesophageal reflux disease) Status: Chronic Assessment and plan: Continue home medications Current Visit: No (4) Generalized anxiety disorder Status: Chronic Assessment and plan: Continue on all home medications Current Visit: No (5) Major depressive disorder Status: Chronic Current Visit: No (6) COPD (chronic obstructive pulmonary disease) Status: Acute Current Visit: No (7) Hypertension, essential Problem details: BP stable, Will review previous medical records, Monitor for now, stop atenolol, given copd, and try amlodipine. Status: Chronic Current Visit: No (8) Depression Problem details: severe acute worsening, on refer to Emergency. Status: Chronic Current Visit: No - Time Spent With Patient Total time spent is greater than 50% in coordination of care (as documented) at patient's floor/unit and/or counseling patient:
[2017-10-12] MEDS: ALBUTEROL SULFATE 2.5 MG/3 ML NEBULIZER NEB PRN (20:21)
[2017-10-12] MEDS: FLUoxetine HCL 20 MG CAPSULE PO SCH (20:48)
[2017-10-13] MEDS: HYDROcodone/APAP 5/325MG TABLET PO PRN ×3 (01:10→11:49)
[2017-10-13] MEDS: 0.9 % SODIUM CHLORIDE 10 ML SYRINGE IV SCH ×2 (04:48→08:14)
[2017-10-13] MEDS: FAMOTIDINE 20 MG TABLET PO SCH (08:13)
[2017-10-13] MEDS: ENOXAPARIN 40 MG/0.4 ML SYRINGE SQ SCH (08:14)
[2017-10-13] MEDS: busPIRone 5 MG TABLET PO SCH (08:14)
[2017-10-13] MEDS: 0.9 % SODIUM CHLORIDE 1,000 ML IV SCH ×2 (08:14→10:43)
[2017-10-13] MEDS: GABAPENTIN 300 MG CAPSULE PO SCH (08:14)
[2017-10-13] MEDS ORDERED: LISINOPRIL 10 MG TABLET PO SCH (09:00)
[2017-10-13] MEDS: LORazepam 2 MG/ML VIAL IV PRN (10:46)
--- NOTE | 2017-10-13 12:30 | Discharge Summary ---
Providers - Providers Patient information: Note initiated : 10/13/17 at 12:27 pm Service Date, if different from initiated Date: [] Patient: Kenia Sandoval 62 y/o F admitted on 10/11/17 for N/V Abd Pain. Chief Complaint: [] Date of admission: 10/11/17 Discharge date: 10/13/17 Attending physician: Mary Kate Sandoval Hospitalization Hospital course: 62-year-old female who was admitted for the third time for recurrent abdominal pain nausea vomiting diarrhea. On previous evaluations no abnormality had been noted. She was seen in the emergency room on the night prior to admission with recurrent symptoms with documented nausea and vomiting. She was referred to the office where she appear to be in acute distress but had a normal abdominal exam. She was afebrile and her vital signs are stable. She was admitted started on IV fluids placed on her psychotropic meds and continued on antibiotics and pain medication. She has done well. She did not have any nausea and there was no documented vomiting. She has had semi-formed bowel movements. Patient is clinically stable at this time and is discharged home in satisfactory condition. Discharge diagnosis: Recurrent abdominal pain Secondary discharge diagnosis: Anxiety with depression Adynamic ileus Hypertension Psychogenic nausea and vomiting Reason for admission: Nausea and vomiting Procedures: None none Pertinent studies/significant findings: None Complications: None Exam Temp Pulse Resp BP Pulse Ox 96.7 F L 83 20 153/95 97 10/13/17 07:32 10/13/17 07:17 10/13/17 07:32 10/13/17 07:32 10/13/17 07:32 - General physical appearance well developed, well nourished, no distress, other (Chronic depression) - Eyes PERRL, normal ocular movement - ENT normal pinna, normal nares, normal mucosa, no hearing loss, no congestion - Head Head exam IM: Present: atraumatic, normocephalic - Neck no masses, no bruits, trachea midline, no lymphadectomy, no venous distension - Cardiovascular Cardiovascular exam IM: Present: normal rate and rhythm - Respiratory normal expansion, normal respiratory effort, clear to percussion, clear to auscultation - Abdomen Abdomen: Present: soft, non tender, bowel sounds, distended (Abdomen is distended but nontender; she has good active bowel sounds; no evidence of hernia ) Hernia: Present: none - Genitourinary Present: normal external genitalia - Integumentary Present: no rash, no growths, no abnormal pigmentation - Neurologic Present: normal coordination, normal sensation - Musculoskeletal Present: normal gait, normal posture - Psychiatric Present: oriented to time, oriented to person, oriented to place, speech is normal, memory intact, other (Chronic depression with anxiety disorder) Discharge Plan - Patient/Caregiver Discharge Instructions Activity: increase activity as tolerated Diet: Regular Diet Additional Instructions: please follow-up with your primary care provider No new prescriptions given - Follow up Plan Disposition: Home, Self-Care Prognosis: Good Rehab Potential: Good I certify that the patient requires SNF services.: No Overall status at discharge: patient is back to baseline Pending Studies Resuscitation Status Full Code Diet GI Soft/Transitional Start WedOct 11 144 Hydrocodone Bitart/Acetaminophen ([place] 5/325mg) 1 tab PO Q4HP PRN PRN Reason: PAIN LEVEL 3-6 Last Admin: 10/13/17 11:49 Dose: 1 tab Admin: 10/13/17 08:13 Dose: 1 tab Admin: 10/13/17 01:10 Dose: 1 tab Admin: 10/12/17 20:50 Dose: 1 tab Admin: 10/12/17 08:11 Dose: 1 tab Admin: 10/12/17 02:53 Dose: 1 tab Admin: 10/11/17 18:19 Dose: 1 tab Albuterol Sulfate (Ventolin) 2.5 mg NEB Q2HP PRN PRN Reason: Shortness Of Breath Last Admin: 10/12/17 20:21 Dose: 2.5 mg Admin: 10/11/17 23:35 Dose: 2.5 mg Buspirone HCl (Buspar) 15 mg PO TID [facility] Last Admin: 10/13/17 08:14 Dose: 15 mg Admin: 10/12/17 20:50 Dose: 15 mg Admin: 10/12/17 14:22 Dose: 15 mg Admin: 10/12/17 08:11 Dose: 15 mg Admin: 10/11/17 21:42 Dose: 15 mg Admin: 10/11/17 15:17 Dose: 15 mg Enoxaparin Sodium (Lovenox) 40 mg SQ DAILY [facility] Last Admin: 10/13/17 08:14 Dose: 40 mg Admin: 10/12/17 08:10 Dose: 40 mg Famotidine (Pepcid) 20 mg PO BID [facility] Last Admin: 10/13/17 08:13 Dose: 20 mg Admin: 10/12/17 20:49 Dose: 20 mg Admin: 10/12/17 08:11 Dose: 20 mg Admin: 10/11/17 21:44 Dose: 20 mg Fluoxetine HCl (Prozac) 80 mg PO HS [facility] Last Admin: 10/12/17 20:48 Dose: 80 mg Admin: 10/11/17 21:44 Dose: 80 mg Gabapentin (Neurontin) 600 mg PO TID [facility] Last Admin: 10/13/17 08:14 Dose: 600 mg Admin: 10/12/17 20:50 Dose: 600 mg Admin: 10/12/17 14:22 Dose: 600 mg Admin: 10/12/17 08:11 Dose: 600 mg Admin: 10/11/17 21:43 Dose: 600 mg Admin: 10/11/17 15:17 Dose: 600 mg Sodium Chloride (Sodium Chloride 0.9%) 1,000 mls @ 75 mls/hr IV .[id number] [facility] Last Admin: 10/13/17 10:43 Dose: 75 mls/hr Admin: 10/13/17 08:14 Dose: Not Given Infusion: 10/13/17 06:57 Dose: 75 mls/hr Admin: 10/12/17 17:37 Dose: 75 mls/hr Infusion: 10/12/17 17:13 Dose: 75 mls/hr Admin: 10/12/17 03:53 Dose: 75 mls/hr Infusion: 10/12/17 03:53 Dose: 75 mls/hr Admin: 10/11/17 15:17 Dose: 75 mls/hr Lisinopril (Zestril) 10 mg PO DAILY [facility] Last Admin: 10/13/17 08:13 Dose: 10 mg Lorazepam (Ativan) 1 mg IV Q6HP PRN PRN Reason: ANXIETY/SEDATION Last Admin: 10/13/17 10:46 Dose: 1 mg Admin: 10/12/17 20:51 Dose: 1 mg Admin: 10/12/17 11:56 Dose: 1 mg Admin: 10/12/17 06:08 Dose: 1 mg Admin: 10/11/17 21:44 Dose: 1 mg Admin: 10/11/17 15:18 Dose: 1 mg Ondansetron HCl (Zofran) 4 mg IV Q6HP PRN PRN Reason: Nausea And Vomiting Last Admin: 10/11/17 17:35 Dose: 4 mg Promethazine HCl (Phenergan) 12.5 mg PO Q6HP PRN PRN Reason: Nausea And Vomiting Last Admin: 10/11/17 15:11 Dose: 12.5 mg Sodium Chloride (Saline Flush) 10 ml IV Q8 ALEJANDRO Last Admin: 10/13/17 08:14 Dose: Not Given Admin: 10/12/17 20:51 Dose: Not Given Admin: 10/12/17 12:05 Dose: Not Given Admin: 10/12/17 06:09 Dose: Not Given Admin: 10/11/17 21:48 Dose: Not Given Shift Summary 10/13/17 03:55 Shift Summary by Veronika Page Slept off & on; c/o about having to use the BR all night. No nausea/vomiting. No abdominal pain. Has had a headache most of the night; pain meds help with ice packs between doses. Also c/o low back pain, says it's chronic, but is worse after being in our bed for 2 days. She is hoping she can go home & not get nauseated while there. Initialized on 10/13/17 03:55 - END OF NOTE
== END 2017-10-13 13:35 | disposition home or self-care (01) ==
LOC: MEDSUR
PROVIDERS: ADMIT Family Medicine Adult Medicine; ATTEND Family Medicine Adult Medicine

== ENCOUNTER 2020-10-17 15:02 | Inpatient (IN) ==
[2020-10-17] MEDS ORDERED: IPRATROPIUM/ALBUTEROL 3 ML AMPUL.NEB NEB ONE (15:35)
[2020-10-17] MEDS ORDERED: methylPREDNISolone SOD SUCC 125 MG/2 ML VIAL IV ONE (15:35)
--- NOTE | 2020-10-17 15:40 | Emergency Department Note ---
SOB HPI General Chief Complaint: Shortness of Breath/Dyspnea Stated Complaint: Shortness of Breath Time Seen by Provider: 10/17/20 15:11 Source: patient, RN notes reviewed and old records reviewed Mode of arrival: ambulatory Limitations: no limitations History of Present Illness HPI Narrative: Narrative: Dr. Gardner sent this patient to the ER after seeing her in the office for follow-up of COPD. She seemed to be struggling and gasping for breath and on arrival her O2 saturation was 81% on room air. I saw her a couple of weeks ago with COPD exacerbation and she seemed to respond to steroids and DuoNeb and went home. She has had multiple antibiotics recently and does not seem to be getting better. She has had 2 - Covid tests in the past few weeks. Today she does have wheezing some nausea and vomiting and some body aches but no headache or diarrhea. Dr. Gardner did talk to the hospitalist and the plan will be to admit her. On 3 L of oxygen nasal cannula her O2 saturation came up to 95%. She has no significant chest pain. Dr. Gardner was wondering about whether heart failure was playing a role and she does take Lasix chronically. She has had no recent edema. MD Complaint: shortness of breath and cough Onset (ago): week(s) Context: recent illness Severity: severe Consistency/Duration: constant Improves with: oxygen Worsens with: exertion Known history of: COPD, asthma and congestive heart failure Associated symptoms: Reports cough, wheezing, sputum production and nausea/vomiting Treatment prior to arrival: bronchodilator Related Data Home oxygen amount: none Home Medications Medication Instructions Recorded Confirmed buspirone 15 mg tablet 15 mg PO TID tab 04/17/15 10/17/20 fluoxetine 20 mg tablet 80 mg PO DAILY tab 06/18/15 10/17/20 potassium chloride 10 mEq 10 meq PO QDAY 10/21/15 10/17/20 capsule,extended release furosemide 20 mg PO BID 12/10/15 10/17/20 ipratropium bromide 0.02 % 1.25 ml INHALATION QIDP PRN 05/17/17 10/17/20 solution for inhalation pregabalin 75 mg capsule 75 mg PO DAILY 05/17/17 10/17/20 lisinopril 20 mg tablet 10 mg PO DAILY tab 06/09/17 10/17/20 ipratropium bromide 18 2 puff INHALATION BID 06/10/20 10/17/20 mcg/actuation aerosol inhaler ipratropium 0.5 mg-albuterol 3 mg 3 ml INHALATION Q6H PRN 10/10/20 10/17/20 (2.5 mg base)/3 mL nebulization soln Previous Rx's Medication Instructions Recorded alendronate 70 mg tablet 70 mg PO QWEEK 30 Days #5 tab 05/22/15 loperamide 2 mg capsule 2 mg PO Q1-3H PRN #30 cap 05/22/15 fenofibrate 160 mg tablet 160 mg PO QDAY #90 tab 05/23/15 albuterol sulfate 90 mcg/actuation 2 puff INHALATION Q4-6HP PRN 30 07/09/15 aerosol inhaler Days #8 g omeprazole 20 mg capsule,delayed 20 mg PO QDAY #90 cap 07/18/15 release triamcinolone acetonide 0.1 % 1 applic TOPICAL BID #30 g 07/18/15 topical ointment benzonatate 200 mg PO TID PRN #21 cap 06/13/20 naproxen 500 mg PO BID PRN #14 tab 06/22/20 ondansetron 4 mg PO Q6H PRN #14 tab 10/04/20 prednisone [Prednisone] 20 mg PO DAILY #23 tab 10/04/20 Allergies Allergy/AdvReac Type Severity Reaction Status Date / Time guaifenesin [GUAIFENESIN] Allergy Severe ANAPHYLAXIS Verified 10/10/20 14:53 fluconazole [From Diflucan] Allergy Mild Hives Verified 10/10/20 14:53 bupropion AdvReac Severe psychotic Verified 10/10/20 14:53 episode diphenhydramine AdvReac Severe Vomiting Verified 10/10/20 14:53 [From Benadryl] sulfamethoxazole AdvReac Intermediate Flushing Verified 10/10/20 14:53 [From Sulfamethoprim] trimethoprim AdvReac Intermediate Flushing Verified 10/10/20 14:53 [From Sulfamethoprim] Review of Systems ROS ROS Narrative: Narrative: All systems ED: reviewed and negative except as stated. Constitutional: Denies fever PFSH Narrative Patient History Narrative: Narrative: Medical/Surgical/Family History All Active Problems (Updated 10/17/20 @ 20:02 by Ankur Acharya MD) Acute UTI (urinary tract infection) (Acute) DDD (degenerative disc disease), lumbar (Acute) Acute low back pain (Acute) Drug side effects (Acute) Open T12 vertebral fracture (Acute) Back pain (Acute) Acute viral syndrome (Acute) Bronchitis (Acute) History of asthma (Acute) Small bowel obstruction (Acute) Small bowel obstruction (Acute) Chronic diarrhea of unknown origin (Acute) Abdominal pain (Acute) Nausea (Acute) Diarrhea (Acute) Irritable bowel syndrome with diarrhea (Acute) Nausea with vomiting, unspecified (Acute) Right otitis media (Acute) COPD exacerbation (Acute) Bronchitis (Acute) Bilateral hip joint arthritis (Acute) Hyperglycemia (Acute) ATIF on CPAP (Chronic) Nausea and vomiting in adult (Acute) Upper respiratory infection (Acute) Gastroenteritis (Acute) Lumbar sprain (Chronic) Edema (Chronic) Nonallopathic lesion of cervical region (Chronic) Fibromyositis (Chronic) Eczema (Chronic) GERD (gastroesophageal reflux disease) (Chronic) Benign hypertension (Chronic) Chronic pain syndrome (Chronic) Generalized anxiety disorder (Chronic) Major depressive disorder (Chronic) Obesity (Chronic) Mixed hypercholesterolemia and hypertriglyceridemia (Chronic) Vitamin D deficiency (Chronic) Thrombocytosis (Chronic) Upper respiratory infection (Acute) COPD (chronic obstructive pulmonary disease) (Acute) COPD with exacerbation (Acute) Encounter for medication refill (Acute) Acute exacerbation of chronic obstructive airways disease (Acute) Acute bronchitis (Acute) Heart palpitations (Acute) Tension type headache (Chronic) COPD exacerbation (Chronic) Edema of foot (Chronic) Shortness of Breath (Chronic) Nummular eczema (Chronic) Marijuana smoker (Chronic) Tobacco abuse (Chronic) Stress incontinence in female (Chronic) Chronic pain (Chronic) Osteoporosis (Chronic) Osteoarthritis (Chronic) IBS (irritable bowel syndrome) (Chronic) Hypertension, essential (Chronic) Hyperlipidemia (Chronic) Heartburn (Chronic) Fibromyalgia (Chronic) Fatigue (Chronic) Depression (Chronic) COPD (chronic obstructive pulmonary disease) (Chronic) Bone spur of foot (Chronic) Back pain (Chronic) Asthma (Chronic) Anxiety (Chronic) Medical History (Updated 10/17/20 @ 20:02 by Ankur Acharya MD) Abdominal pain (Inactive) Acute exacerbation of chronic obstructive airways disease (Acute) Anxiety (Chronic) 2012. PHQ 9=21 12/31/15. Apnea (Chronic) Asthma (Chronic) 1994 Back pain (Chronic) 1999 Benign hypertension (Chronic) Bone spur of foot (Chronic) 2009 Bronchitis (Inactive) given h/o copd, treat with zithromax. Bronchitis (Inactive) Bronchitis (Resolved) Cellulitis (Inactive) Cholecystitis (Inactive) 2010 Chronic pain (Chronic) 01/31/2014 - Etiology unknown. On Vicodin, for same will try alternative meds, wean off if tolerated Chronic pain syndrome (Chronic) COPD (chronic obstructive pulmonary disease) (Chronic) uses albuterol 2 puffs daily on turdoza, symbicort, She is still smoking ciggs as well as THC on a regular basis, educated her at length to quit. Presently stable on current dose COPD (chronic obstructive pulmonary disease) (Acute) COPD exacerbation (Chronic) COPD with exacerbation (Acute) Depression (Chronic) severe acute worsening, on refer to Emergency. Eczema (Chronic) Edema (Chronic) Edema of foot (Chronic) acute bilateral, h/o copd, get echo, get bnp and d dmier, start on lasix 20mg qd and KCL supplements, if worsens or does not respond advise to call back. Encounter for medication refill (Acute) Fatigue (Chronic) 1982 Fibromyalgia (Chronic) 01/31/2014 - Positive symptoms and tender points, need to rule out inflammatory conditions. Check ESR, CRP, ASHLIE, Uric Acid levels, CBC, CMP Fibromyositis (Chronic) Gastritis (Inactive) Generalized anxiety disorder (Chronic) GERD (gastroesophageal reflux disease) (Chronic) Heartburn (Chronic) doing wel with prilosec, Hyperlipidemia (Chronic) On fenofibrate, TG now 197 better , LDL is 83 which is also better, pt does not want to use statin, Hypertension, essential (Chronic) BP stable, Will review previous medical records, Monitor for now, stop atenolol, given copd, and try amlodipine. IBS (irritable bowel syndrome) (Chronic) 1982 Lumbar sprain (Chronic) Major depressive disorder (Chronic) Marijuana smoker (Chronic) advised to quit. Mixed hypercholesterolemia and hypertriglyceridemia (Chronic) Myalgia (Inactive) 1982 Nonallopathic lesion of cervical region (Chronic) Nummular eczema (Chronic) treat with triamcinolone Obesity (Chronic) ATIF on CPAP (Chronic) Osteoarthritis (Chronic) Osteoporosis (Chronic) 02/21/2015 Rib fracture (Inactive) 01/02/2015 - Dr. Holland Shortness of Breath (Chronic) chr in nature, mild worsening, 2 pillow at night at times. Stress incontinence in female (Chronic) 01/31/2014 - Urination on cough, will address this later Tension type headache (Chronic) Thrombocytosis (Chronic) Tinea corporis (Inactive) Tobacco abuse (Chronic) Smoking: Counseled to quit - 40 pack year history , tried chantix, pt self stopped Upper respiratory infection (Acute) Vitamin D deficiency (Chronic) Surgical History History of cholecystectomy (Inactive 06/09/15) Dr. Stacey Pringle History of cholecystectomy (Chronic 06/09/15) History of colonoscopy (Inactive 08/12/15) 1982 History of hysterectomy (Inactive) 1982 History of laparoscopy (Inactive) 1982 History of laparoscopy (Chronic ~1982) History of tonsillectomy (Inactive) 1976 History of tonsillectomy (Chronic ~1976) History of total abdominal hysterectomy (Chronic ~1982) History of tubal ligation (Inactive) 1973 History of tubal ligation (Chronic ~1973) Family History Father Carcinoma in situ of bladder Grandmother Cerebrovascular accident Arthritis Essential hypertension Maternal Myocardial Infarction Maternal Brother Type 2 diabetes mellitus Unknown Family history of throat cancer Mother Arthritis Social History Smoking Status: Current every day smoker Alcohol Intake Frequency: a few times a month Substance Use: marijuana Exam Narrative Narrative: Narrative: General Limitations: no limitations Head Head: Present atraumatic, normocephalic and normal inspection Eye Eye: Present normal appearance and EOMI; Absent scleral icterus and conjunctival injection ENT ENT: Present normal exam, normal oropharynx and mucous membranes moist Neck Neck: Present normal inspection and full ROM Chest Chest: Present normal inspection and symmetric chest wall rise Respiratory Respiratory: Present rales/crackles and wheezes; Absent respiratory distress Cardiovascular Cardiovascular: Present regular rate, normal rhythm and normal heart sounds Adbominal Abdominal: Present soft; Absent distention and tenderness Extremities Extremities: Present normal inspection and full ROM; Absent pedal edema and pretibial edema Neurological Neurological: Present alert Psychiatric Psychiatric: Present normal affect Skin Skin: Present warm (WNL) and dry; Absent diaphoresis Course Vital Signs Vital signs: Vital Signs Temperature 99.8 F H 10/17/20 15:03 Pulse Rate 103 H 10/17/20 15:03 Respiratory Rate 22 12/17/20 15:03 Blood Pressure 128/66 12/17/20 15:03 Pulse Oximetry (%) 81 L 10/17/20 15:03 Temperature 99.8 F H 10/17/20 15:03 Pulse Rate 94 H 10/17/20 19:00 Respiratory Rate 22 10/17/20 15:03 Blood Pressure 115/60 10/17/20 19:00 Pulse Oximetry (%) 91 10/17/20 19:00 MDM MDM Narrative Medical decision making narrative: Narrative: Patient was treated with IV Solu-Medrol and a DuoNeb treatment and will be admitted to the hospital by Dr. Liao Lab Data Lab results reviewed: Yes I reviewed the patient's lab results. Lab results narrative: Rapid Covid test was negative Result diagrams: 10/17/20 15:24 10/17/20 15:24 Labs: Lab Results 10/17/20 10/17/20 10/17/20 Range/Units 15:24 15:24 15:24 WBC 11.8 H (4.5-11.0) K/mcL RBC 4.20 (4.00-5.20) M/mcL Hgb 9.1 L (12.0-15.0) g/dL Hct 30.9 L (36.0-48.0) % MCV 73.6 L (80.0-100.0) fL MCH 21.7 L (26.0-34.0) pg MCHC 29.4 L (31.0-36.0) g/dL RDW 15.8 H (11.5-14.5) % Plt Count 361 (140-440) K/mcL MPV 10.9 H (7.4-10.4) fL Neut % (Auto) 73.6 (38.0-78.0) % Lymph % (Auto) 16.1 (15.0-49.0) % [place] % (Auto) 7.6 (1.0-12.0) % Eos % (Auto) 2.4 (0.0-7.0) % Baso % (Auto) 0.3 (0.0-2.0) % Lymph # (Auto) 1.89 (1.50-4.80) K/mcL [place] # (Auto) 0.89 (0.10-0.90) K/mcL Eos # (Auto) 0.28 (0.00-0.70) K/mcL Baso # (Auto) 0.04 (0.00-0.20) K/mcL Absolute Neutrophils 8.67 H (1.80-8.00) K/mcL VBG Lactic Acid (0.5-2.0) mmol/L Sodium 136 (133-145) mmol/L Potassium 4.1 (3.3-5.1) mmol/L Chloride 96 (96-108) mmol/L Carbon Dioxide 21 L (22-30) mmol/L Anion Gap 19.0 H (8.0-16.0) BUN 16 (8-23) mg/dL Creatinine 1.0 (0.6-1.1) mg/dL GFR Calculation 58 Glucose 116 H (70-105) mg/dL Calcium 9.7 (8.6-10.4) mg/dL Total Bilirubin 0.4 (0.1-1.0) mg/dL AST 42 H (<32) U/L ALT 22 (<40) U/L Alkaline Phosphatase 71 (39-117) U/L Troponin T < 0.01 (<0.03) ng/mL NT-Pro-B Natriuret Pep 251.5 H (<125.0) pg/mL Total Protein 7.6 (5.9-8.4) gm/dL Albumin 3.3 (3.2-5.2) gm/dL Globulin 4.3 H (2.2-3.7) gm/dL Albumin/Globulin Ratio 0.8 L (1.0-2.3) 10/17/20 Range/Units 15:24 WBC (4.5-11.0) K/mcL RBC (4.00-5.20) M/mcL Hgb (12.0-15.0) g/dL Hct (36.0-48.0) % MCV (80.0-100.0) fL MCH (26.0-34.0) pg MCHC (31.0-36.0) g/dL RDW (11.5-14.5) % Plt Count (140-440) K/mcL MPV (7.4-10.4) fL Neut % (Auto) (38.0-78.0) % Lymph % (Auto) (15.0-49.0) % [place] % (Auto) (1.0-12.0) % Eos % (Auto) (0.0-7.0) % Baso % (Auto) (0.0-2.0) % Lymph # (Auto) (1.50-4.80) K/mcL [place] # (Auto) (0.10-0.90) K/mcL Eos # (Auto) (0.00-0.70) K/mcL Baso # (Auto) (0.00-0.20) K/mcL Absolute Neutrophils (1.80-8.00) K/mcL VBG Lactic Acid 1.3 (0.5-2.0) mmol/L Sodium (133-145) mmol/L Potassium (3.3-5.1) mmol/L Chloride (96-108) mmol/L Carbon Dioxide (22-30) mmol/L Anion Gap (8.0-16.0) BUN (8-23) mg/dL Creatinine (0.6-1.1) mg/dL GFR Calculation Glucose (70-105) mg/dL Calcium (8.6-10.4) mg/dL Total Bilirubin (0.1-1.0) mg/dL AST (<32) U/L ALT (<40) U/L Alkaline Phosphatase (39-117) U/L Troponin T (<0.03) ng/mL NT-Pro-B Natriuret Pep (<125.0) pg/mL Total Protein (5.9-8.4) gm/dL Albumin (3.2-5.2) gm/dL Globulin (2.2-3.7) gm/dL Albumin/Globulin Ratio (1.0-2.3) Radiology Data Radiology results reviewed: Yes I reviewed the patient's radiology results. Radiology results narrative: Chest x-ray actually shows some resolution of a left lower lobe infiltrate Discharge Plan Patient/Caregiver Discharge Instructions Pt seen by MANAGER DIALYSIS/PA only: No Clinical Impression: COPD exacerbation Patient Disposition: Xfer As Inpt ([facility]) Follow up with: Darleen Kemp ARNP [Primary Care Provider] - Prescriptions: No Action albuterol sulfate 90 mcg/actuation HFA aerosol inhaler 2 puff INHALATION Q4-6HP PRN (Reason: shortness of breath or wheezing) 30 Days Qty: 8 RF: 3 ipratropium bromide 0.02 % solution 1.25 ml INHALATION QIDP PRN (Reason: Shortness Of Breath) RF: 0 pregabalin [Lyrica] 75 mg capsule 75 mg PO DAILY RF: 0 loperamide 2 mg capsule 2 mg PO Q1-3H PRN (Reason: loose stool) Qty: 30 RF: 0 alendronate 70 mg tablet 70 mg PO QWEEK 30 Days Qty: 5 RF: 0 fenofibrate 160 mg tablet 160 mg PO QDAY Qty: 90 RF: 3 buspirone 15 mg tablet 15 mg PO TID RF: 0 triamcinolone acetonide 0.1 % ointment 1 applic TOPICAL BID Qty: 30 RF: 3 omeprazole 20 MG capsule 20 mg PO QDAY Qty: 90 RF: 3 potassium chloride 10 mEq capsule, extended release 10 meq PO QDAY RF: 0 ipratropium bromide 18 mcg/actuation aerosol 2 puff INHALATION BID RF: 0 ipratropium-albuterol 0.5 mg-3 mg(2.5 mg base)/3 mL solution for nebulization 3 ml INHALATION Q6H PRNRF: 0 fluoxetine 20 MG tablet 80 mg PO DAILY RF: 0 furosemide 20 MG tablet 20 mg PO BID RF: 0 lisinopril 20 MG tablet 10 mg PO DAILY RF: 0 benzonatate 200 mg capsule 200 mg PO TID PRN (Reason: cough) Qty: 21 RF: 0 naproxen 500 mg tablet 500 mg PO BID PRN (Reason: pain) Qty: 14 RF: 0 prednisone [Prednisone] 20 MG tablet 20 mg PO DAILY Qty: 23 RF: 0 ondansetron 4 mg tablet,disintegrating 4 mg PO Q6H PRN (Reason: nausea and vomiting) Qty: 14 RF: 0
--- NOTE | 2020-10-17 16:02 | XRay Report ---
CLINICAL INFORMATION: sob COMPARISON: 10/04/2020 FINDINGS: Borderline cardiomegaly is unchanged. Mediastinum and pulmonary vessels are normal. Right basilar infiltrate has nearly cleared. Mild interstitial fibrosis in both lungs as stable. Vague nodules have developed in the mid and lower lungs: 20 mm in the left infrahilar region, 5 mm in the left base, 16 mm right base and 6 mm in the right midlung IMPRESSION: 1. Interval resolution right basilar infiltrate. 2. Mild residual fibrosis throughout both lungs 3. New scattered nodules in the mid and lower lungs. Suggest chest CT Interpreted and Authenticated by: Gaurav Scott 10/17/20
[2020-10-17 16:19] LABS: Basophils # (Auto) 0.04 K/mcL (0.00-0.20); Basophils % (Auto) 0.3 % (0.0-2.0); Eosinophils # (Auto) 0.28 K/mcL (0.00-0.70); Eosinophils % (Auto) 2.4 % (0.0-7.0); Hematocrit 30.9 % (36.0-48.0); Hemoglobin 9.1 g/dL (12.0-15.0); Lymphocytes # (Auto) 1.89 K/mcL (1.50-4.80); Lymphocytes % (Auto) 16.1 % (15.0-49.0); Mean Cell Volume 73.6 fL (80.0-100.0); Mean Corpuscular HGB Conc 29.4 g/dL (31.0-36.0); Mean Platelet Volume 10.9 fL (7.4-10.4); Monocytes # (Auto) 0.89 K/mcL (0.10-0.90); Monocytes % (Auto) 7.6 % (1.0-12.0); Neutrophils % (Auto) 73.6 % (38.0-78.0); Platelet Count 361 K/mcL (140-440); Red Cell Distribution Width 15.8 % (11.5-14.5); WBC 11.8 K/mcL (4.5-11.0)
[2020-10-17 18:18] LABS: proBNP 251.5 pg/mL (<125.0)
[2020-10-17 18:21] LABS: ALT/SGPT 22 U/L (<40); AST/SGOT 42 U/L (<32); Albumin 3.3 gm/dL (3.2-5.2); Albumin/Globulin Ratio 0.8 (1.0-2.3); Alkaline Phosphatase 71 U/L (39-117); Bilirubin,Total 0.4 mg/dL (0.1-1.0); Blood Urea Nitrogen 16 mg/dL (8-23); Calcium 9.7 mg/dL (8.6-10.4); Carbon Dioxide 21 mmol/L (22-30); Chloride 96 mmol/L (96-108); Globulin 4.3 gm/dL (2.2-3.7); Glomerular Filtration Rate 58; Glucose 116 mg/dL (70-105)
--- NOTE | 2020-10-17 20:20 | Internal Med History&Physical ---
HPI History of Present Illness Patient information: Note initiated : 10/17/20 at 8:12 pm Service Date, if different from initiated Date: [] Patient: Kenia Sandoval a 65 y/o F admitted on for Shortness of Breath. Chief Complaint: [] History of present illness: Ms. Sandoval is a 65 year old F Who presents from Dr. Gardner office for increased cough and shortness of breath. She was first seen in the ED October 04 and given antibiotics for appear to be pneumonia and as well as. Having a COPD exacerbation was given steroid taper. She was seen in Dr. Gardner office on the . She appeared to be improving. She was seen back in his office today where she complained of increased shortness of breath and productive cough of green sputum. He finished the 10- day course of Augmentin and finished her steroid taper a few days ago. She complains of headache and feeling wheezy. She complains of fatigue. She has a sore throat and occasional chest discomfort when she coughs. In the ED she is afebrile, had a mild leukocytosis at 11.8. She had a third Covid test which is negative. Chest x-ray did show improvement of the right base infiltrate. However she was hypoxic in the low 80s on room air. proBNP was 250 and she denies any lower extremity edema. She has been a smoker quit and then started about 6 months ago but quit again in September. She is however still exposed to smoke by her . Review of Systems: Pertinent positives as above occluding headache. Denies fever/chills/nausea/vomiting/abdominal pain/diarrhea. Many 10 point review of system reviewed negative PFSH PFSH All Active Problems (Updated 10/17/20 @ 20:02 by Ankur Acharya MD) Acute UTI (urinary tract infection) (Acute) DDD (degenerative disc disease), lumbar (Acute) Acute low back pain (Acute) Drug side effects (Acute) Open T12 vertebral fracture (Acute) Back pain (Acute) Acute viral syndrome (Acute) Bronchitis (Acute) History of asthma (Acute) Small bowel obstruction (Acute) Small bowel obstruction (Acute) Chronic diarrhea of unknown origin (Acute) Abdominal pain (Acute) Nausea (Acute) Diarrhea (Acute) Irritable bowel syndrome with diarrhea (Acute) Nausea with vomiting, unspecified (Acute) Right otitis media (Acute) COPD exacerbation (Acute) Bronchitis (Acute) Bilateral hip joint arthritis (Acute) Hyperglycemia (Acute) ATIF on CPAP (Chronic) Nausea and vomiting in adult (Acute) Upper respiratory infection (Acute) Gastroenteritis (Acute) Lumbar sprain (Chronic) Edema (Chronic) Nonallopathic lesion of cervical region (Chronic) Fibromyositis (Chronic) Eczema (Chronic) GERD (gastroesophageal reflux disease) (Chronic) Benign hypertension (Chronic) Chronic pain syndrome (Chronic) Generalized anxiety disorder (Chronic) Major depressive disorder (Chronic) Obesity (Chronic) Mixed hypercholesterolemia and hypertriglyceridemia (Chronic) Vitamin D deficiency (Chronic) Thrombocytosis (Chronic) Upper respiratory infection (Acute) COPD (chronic obstructive pulmonary disease) (Acute) COPD with exacerbation (Acute) Encounter for medication refill (Acute) Acute exacerbation of chronic obstructive airways disease (Acute) Acute bronchitis (Acute) Heart palpitations (Acute) Tension type headache (Chronic) COPD exacerbation (Chronic) Edema of foot (Chronic) Shortness of Breath (Chronic) Nummular eczema (Chronic) Marijuana smoker (Chronic) Tobacco abuse (Chronic) Stress incontinence in female (Chronic) Chronic pain (Chronic) Osteoporosis (Chronic) Osteoarthritis (Chronic) IBS (irritable bowel syndrome) (Chronic) Hypertension, essential (Chronic) Hyperlipidemia (Chronic) Heartburn (Chronic) Fibromyalgia (Chronic) Fatigue (Chronic) Depression (Chronic) COPD (chronic obstructive pulmonary disease) (Chronic) Bone spur of foot (Chronic) Back pain (Chronic) Asthma (Chronic) Anxiety (Chronic) Medical History (Updated 10/17/20 @ 20:02 by Ankur Acharya MD) Abdominal pain (Inactive) Acute exacerbation of chronic obstructive airways disease (Acute) Anxiety (Chronic) 2012. PHQ 9=21 12/31/15. Apnea (Chronic) Asthma (Chronic) 1994 Back pain (Chronic) 1999 Benign hypertension (Chronic) Bone spur of foot (Chronic) 2009 Bronchitis (Inactive) given h/o copd, treat with zithromax. Bronchitis (Inactive) Bronchitis (Resolved) Cellulitis (Inactive) Cholecystitis (Inactive) 2010 Chronic pain (Chronic) 01/31/2014 - Etiology unknown. On Vicodin, for same will try alternative meds, wean off if tolerated Chronic pain syndrome (Chronic) COPD (chronic obstructive pulmonary disease) (Chronic) uses albuterol 2 puffs daily on turdoza, symbicort, She is still smoking ciggs as well as THC on a regular basis, educated her at length to quit. Presently stable on current dose COPD (chronic obstructive pulmonary disease) (Acute) COPD exacerbation (Chronic) COPD with exacerbation (Acute) Depression (Chronic) severe acute worsening, on refer to Emergency. Eczema (Chronic) Edema (Chronic) Edema of foot (Chronic) acute bilateral, h/o copd, get echo, get bnp and d dmier, start on lasix 20mg qd and KCL supplements, if worsens or does not respond advise to call back. Encounter for medication refill (Acute) Fatigue (Chronic) 1983 Fibromyalgia (Chronic) 01/31/2014 - Positive symptoms and tender points, need to rule out inflammatory conditions. Check ESR, CRP, ASHLIE, Uric Acid levels, CBC, CMP Fibromyositis (Chronic) Gastritis (Inactive) Generalized anxiety disorder (Chronic) GERD (gastroesophageal reflux disease) (Chronic) Heartburn (Chronic) doing wel with prilosec, Hyperlipidemia (Chronic) On fenofibrate, TG now 197 better , LDL is 83 which is also better, pt does not want to use statin, Hypertension, essential (Chronic) BP stable, Will review previous medical records, Monitor for now, stop atenolol, given copd, and try amlodipine. IBS (irritable bowel syndrome) (Chronic) 1982 Lumbar sprain (Chronic) Major depressive disorder (Chronic) Marijuana smoker (Chronic) advised to quit. Mixed hypercholesterolemia and hypertriglyceridemia (Chronic) Myalgia (Inactive) 1982 Nonallopathic lesion of cervical region (Chronic) Nummular eczema (Chronic) treat with triamcinolone Obesity (Chronic) ATIF on CPAP (Chronic) Osteoarthritis (Chronic) Osteoporosis (Chronic) 02/21/2015 Rib fracture (Inactive) 01/02/2015 - Dr. Holland Shortness of Breath (Chronic) chr in nature, mild worsening, 2 pillow at night at times. Stress incontinence in female (Chronic) 01/31/2014 - Urination on cough, will address this later Tension type headache (Chronic) Thrombocytosis (Chronic) Tinea corporis (Inactive) Tobacco abuse (Chronic) Smoking: Counseled to quit - 40 pack year history , tried chantix, pt self stopped Upper respiratory infection (Acute) Vitamin D deficiency (Chronic) Surgical History History of cholecystectomy (Inactive 06/09/15) Dr. Stacey Pringle History of cholecystectomy (Chronic 06/09/15) History of colonoscopy (Inactive 08/12/15) 1983 History of hysterectomy (Inactive) 1982 History of laparoscopy (Inactive) 1982 History of laparoscopy (Chronic ~1982) History of tonsillectomy (Inactive) 1976 History of tonsillectomy (Chronic ~1976) History of total abdominal hysterectomy (Chronic ~1982) History of tubal ligation (Inactive) 1973 History of tubal ligation (Chronic ~1973) Family History Father Carcinoma in situ of bladder Grandmother Cerebrovascular accident Arthritis Essential hypertension Maternal Myocardial Infarction Maternal Brother Type 2 diabetes mellitus Unknown Family history of throat cancer Mother Arthritis Social History adopted: No caregiver/support person: No foster care: No household members: alone housing: house lives independently: Yes marital status: education level: high school service: No [place] [facility]: No occupational 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 pets and animals: Yes pets and animals: cat(s) and dog(s) hx recent travel: No sexually active: No smoking status: Current every day smoker alcohol intake frequency: a few times a month substance use type: marijuana seatbelt use: always working smoke detector in home: Yes firearms in home: No MEDS/ALLERGIES Home Medications and Allergies Home Medications Medication Instructions Recorded Confirmed Type buspirone 15 mg tablet 15 mg PO TID tab 04/17/15 10/17/20 History alendronate 70 mg tablet 70 mg PO QWEEK 30 Days #5 tab 05/22/15 10/17/20 Rx loperamide 2 mg capsule 2 mg PO Q1-3H PRN #30 cap 05/22/15 10/17/20 Rx fenofibrate 160 mg tablet 160 mg PO QDAY #90 tab 05/23/15 10/17/20 Rx fluoxetine 20 mg tablet 80 mg PO DAILY tab 06/18/15 10/17/20 History albuterol sulfate 90 mcg/actuation 2 puff INHALATION Q4-6HP PRN 30 07/09/15 10/17/20 Rx aerosol inhaler Days #8 g omeprazole 20 mg capsule,delayed 20 mg PO QDAY #90 cap 07/18/15 10/17/20 Rx release triamcinolone acetonide 0.1 % 1 applic TOPICAL BID #30 g 07/18/15 10/17/20 Rx topical ointment potassium chloride 10 mEq 10 meq PO QDAY 10/21/15 10/17/20 History capsule,extended release furosemide 20 mg PO BID 12/10/15 10/17/20 History ipratropium bromide 0.02 % 1.25 ml INHALATION QIDP PRN 05/17/17 10/17/20 History solution for inhalation pregabalin 75 mg capsule 75 mg PO DAILY 05/17/17 10/17/20 History lisinopril 20 mg tablet 10 mg PO DAILY tab 06/09/17 10/17/20 History ipratropium bromide 18 2 puff INHALATION BID 06/10/20 10/17/20 History mcg/actuation aerosol inhaler benzonatate 200 mg PO TID PRN #21 cap 06/13/20 10/17/20 Rx naproxen 500 mg PO BID PRN #14 tab 06/22/20 10/17/20 Rx ondansetron 4 mg PO Q6H PRN #14 tab 10/04/20 10/17/20 Rx prednisone [Prednisone] 20 mg PO DAILY #23 tab 10/04/20 10/17/20 Rx ipratropium 0.5 mg-albuterol 3 mg 3 ml INHALATION Q6H PRN 10/10/20 10/17/20 History (2.5 mg base)/3 mL nebulization soln Allergies Allergy/AdvReac Type Severity Reaction Status Date / Time guaifenesin [GUAIFENESIN] Allergy Severe ANAPHYLAXIS Verified 10/10/20 14:53 fluconazole [From Diflucan] Allergy Mild Hives Verified 10/10/20 14:53 bupropion AdvReac Severe psychotic Verified 10/10/20 14:53 episode diphenhydramine AdvReac Severe Vomiting Verified 10/10/20 14:53 [From Benadryl] sulfamethoxazole AdvReac Intermediate Flushing Verified 10/10/20 14:53 [From Sulfamethoprim] trimethoprim AdvReac Intermediate Flushing Verified 10/10/20 14:53 [From Sulfamethoprim] EXAM Constitutional Vitals: Temp Pulse Resp BP Pulse Ox 99.8 F H 96 H 22 112/59 92 10/17/20 15:03 10/17/20 20:00 10/17/20 15:03 10/17/20 20:00 10/17/20 20:00 Exam: General: Alert, Awake, No acute Distress Eyes/N/T: EOMI, PERRL, Head/Neck: neck supple, normocephalic atraumatic CV: RRR, No murmurs, normal s1/s2 Pulm: b/l rhonchi and bronchial sounds, prolonged exp phase, mild wheezing Abd: soft, nontender, +BS x4 Ext: no clubbing/cyanosis/edema Neuro: Alert, no focal deficits, moves all extremities, CN 2-12 grossly intact, symmetrical strength b/l upper/lower, sensations intact b/l upper/lower Skin: warm/dry DATA Data Completed and Pending Labs: Labs from last 24 hours 10/17/20 10/17/20 10/17/20 15:24 15:24 15:24 WBC RBC Hgb Hct MCV MCH MCHC RDW Plt Count MPV Neut % (Auto) Lymph % (Auto) Josephine % (Auto) Eos % (Auto) Baso % (Auto) Lymph # (Auto) Josephine # (Auto) Eos # (Auto) Baso # (Auto) Absolute Neutrophils VBG Lactic Acid 1.3 Sodium 136 Potassium 4.1 Chloride 96 Carbon Dioxide 21 L Anion Gap 19.0 H BUN 16 Creatinine 1.0 GFR Calculation 58 Glucose 116 H Calcium 9.7 Total Bilirubin 0.4 AST 42 H ALT 22 Alkaline Phosphatase 71 Troponin T < 0.01 NT-Pro-B Natriuret Pep 251.5 H Total Protein 7.6 Albumin 3.3 Globulin 4.3 H Albumin/Globulin Ratio 0.8 L 10/17/20 15:24 WBC 11.8 H RBC 4.20 Hgb 9.1 L Hct 30.9 L MCV 73.6 L MCH 21.7 L MCHC 29.4 L RDW 15.8 H Plt Count 361 MPV 10.9 H Neut % (Auto) 73.6 Lymph % (Auto) 16.1 Josephine % (Auto) 7.6 Eos % (Auto) 2.4 Baso % (Auto) 0.3 Lymph # (Auto) 1.89 Josephine # (Auto) 0.89 Eos # (Auto) 0.28 Baso # (Auto) 0.04 Absolute Neutrophils 8.67 H VBG Lactic Acid Sodium Potassium Chloride Carbon Dioxide Anion Gap BUN Creatinine GFR Calculation Glucose Calcium Total Bilirubin AST ALT Alkaline Phosphatase Troponin T NT-Pro-B Natriuret Pep Total Protein Albumin Globulin Albumin/Globulin Ratio A/P Narrative A/P Narrative: A: *AECOPD(not on home O2): -covid neg *Acute hypoxic respiratory failure: *ATIF on CPAP: *Anxiety/depression: *HTN: *GERD: *obesity: P: -steroids(wean), nebs -supp O2 wean -IS/acapella -RVP pending -Would be hesitant to start empiric antibiotics given the recent 10-day course of Augmentin. Will check procalcitonin and band levels. -cont home psych, BP, PPI meds - -ppx: lovenox DNR Time Spent With Patient Time: Total time spent is greater than 50% in coordination of care (as documented) at patient's floor/unit and/or counseling patient: QUALITY Stroke Symptom Onset Unknown: No
[2020-10-17 21:13] LABS: Appearance,Urine CLEAR (Clear); Bilirubin,Urine Negative (Negative); Color,Urine YELLOW; Culture Indicated,Urine No; Glucose,Urine (UA) >=500 mg/dL (Negative); Ketones,Urine Negative (Negative); Leukocyte Esterase,Urine 25 /ug (Negative); Mucus,Urine FEW /hpf; Nitrate,Urine Negative (Negative); Protein,Urine Negative (Negative); Specific Gravity,Urine 1.017 (1.000-1.035); Urine Blood Negative (Negative); Urine Hyaline Cast 1 /lph (0-2); Urine RBC 0 /hpf (0-1); Urine Squamous Epithelial Cell 1 /hpf (0-4); Urine WBC 1 /hpf (0-4); Urobilinogen,Urine Negative
[2020-10-17] MEDS ORDERED: MAGNESIUM SULFATE 2 GM/50 ML BAG IV PRN (21:30)
[2020-10-17] MEDS ORDERED: ONDANSETRON 4 MG/2 ML VIAL IV PRN (21:30)
[2020-10-17] MEDS ORDERED: POTASSIUM CHLORIDE 20 MEQ TABLET PO PRN ×2 (21:30)
[2020-10-17] MEDS ORDERED: ACETAMINOPHEN 325 MG TABLET PO PRN (21:30)
[2020-10-17] MEDS ORDERED: POTASSIUM CHLORIDE 40 MEQ in DEXTROSE 5% IN WATER 500 ML IV PRN (21:30)
[2020-10-17] MEDS ORDERED: DEXTROSE 50% 50 ML VIAL IV PRN (21:30)
[2020-10-17] MEDS ORDERED: DEXTROSE 31 GM ORAL.SUSP PO PRN (21:30)
[2020-10-17] MEDS ORDERED: IPRATROPIUM/ALBUTEROL 3 ML AMPUL.NEB NEB PRN (21:30)
[2020-10-17] MEDS: BUDESONIDE 0.5 MG/2 ML AMPUL.NEB NEB SCH (21:34)
[2020-10-17] MEDS: 0.9 % SODIUM CHLORIDE 10 ML SYRINGE IV SCH (22:00)
[2020-10-18] MEDS: methylPREDNISolone SOD SUCC 125 MG/2 ML VIAL IV SCH ×4 (00:10→18:52)
[2020-10-18] MEDS: IPRATROPIUM/ALBUTEROL 3 ML AMPUL.NEB NEB SCH ×4 (00:58→19:23)
[2020-10-18] MEDS: INSULIN LISPRO 1 UNIT/0.01 ML UNIT SQ SCH ×5 (01:00→20:46)
[2020-10-18] MEDS: 0.9 % SODIUM CHLORIDE 10 ML SYRINGE IV SCH ×3 (05:35→20:51)
[2020-10-18 07:02] LABS: Anisocytosis 1+ (None Seen); Hypochromasia 2+ (None Seen); Lymphocytes % 3 % (15-49); Microcytosis 1+ (None Seen); Plasma Cells 1 % (None Seen); Platelet Estimate NORMAL (Normal); RBC Morphology ABNORMAL (Normal); Segmented Neutrophils % 96 % (38-78)
[2020-10-18] MEDS: BUDESONIDE 0.5 MG/2 ML AMPUL.NEB NEB SCH ×2 (07:03→19:23)
--- NOTE | 2020-10-18 07:16 | Internal Med Progress Note ---
SUBJECTIVE Subjective Patient information: Note initiated : 10/18/20 at 7:10 am Service Date, if different from initiated Date: [] Patient: Kenia Sandoval a 65 y/o F admitted on 10/17/20 for Shortness of Breath. Chief Complaint: [] Interval history: History of present illness: Ms. Sandoval is a 65 year old F Who presents from Dr. Gardner office for increased cough and shortness of breath. She was first seen in the ED October 04 and given antibiotics for appear to be pneumonia and as well as. Having a COPD exacerbation was given steroid taper. She was seen in Dr. Gardner office on the . She appeared to be improving. She was seen back in his office today where she complained of increased shortness of breath and productive cough of green sputum. He finished the 10- day course of Augmentin and finished her steroid taper a few days ago. She complains of headache and feeling wheezy. She complains of fatigue. She has a sore throat and occasional chest discomfort when she coughs. In the ED she is afebrile, had a mild leukocytosis at 11.8. She had a third Covid test which is negative. Chest x-ray did show improvement of the right base infiltrate. However she was hypoxic in the low 80s on room air. proBNP was 250 and she denies any lower extremity edema. She has been a smoker quit and then started about 6 months ago but quit again in September. She is however still exposed to smoke by her . 10/18 Slept okay. Feeling a little better today. Has productive cough and shortness of breath. Review of Systems: denies headache/fever/chills/nausea/vomiting/chest or abdominal pain/diarrhea. Otherwise see above. Constitutional Vitals: Vital Signs Temp Pulse Resp BP Pulse Ox 97.6 F 92 H 24 H 105/65 93 10/18/20 04:00 10/18/20 04:00 10/18/20 04:00 10/18/20 04:00 10/18/20 04:00 Period Temp Pulse Resp BP Sys/Miranda Pulse Ox Last 24 Hr 97.4 F-99.8 F 46-112 20-24 100-134/47-72 81-98 Intake and Output 10/17/20 10/18/20 10/18/20 21:59 05:59 13:59 Intake Total 250 Output Total 400 Balance -150 Weight 69.536 kg Intake & Output: Intake & Output 10/17/20 10/18/20 10/18/20 21:59 05:59 13:59 Intake Total 250 Output Total 400 Balance -150 Weight 69.536 kg Intake: Oral 250 Output: Void Amount 400 Other: Urine Color Dark Yellow Urine Odor Normal # Voids 1 1 Exam: General: Alert, Awake, No acute Distress Eyes/N/T: EOMI, Head/Neck: neck supple, CV: RRR, No murmurs, Pulm: b/l rhonchi and bronchial sounds improving today, prolonged exp phase, no wheezing Abd: soft, nontender, +BS x4 Ext: no clubbing/cyanosis/edema Neuro: Alert, no focal deficits, moves all extremities, Skin: warm/dry OBJ DATA Labs CBC & Chem 7: 10/17/20 15:24 10/17/20 15:24 Labs: Abnormal Lab Results 10/17/20 10/17/20 10/17/20 22:01 20:20 15:24 WBC Hgb Hct MCV MCH MCHC RDW MPV Seg Neutrophils % 96 H Lymphocytes % 3 L Absolute Neutrophils RBC Morphology Abnormal A Hypochromasia 2+ A Anisocytosis 1+ A Microcytosis 1+ A Carbon Dioxide Anion Gap Glucose AST C-Reactive Protein NT-Pro-B Natriuret Pep Globulin Albumin/Globulin Ratio Procalcitonin 0.30 H Urine Glucose (UA) >=500 A Ur Leukocyte Esterase 25 A Urine Mucus Few A 10/17/20 10/17/20 10/17/20 15:24 15:24 15:24 WBC 11.8 H Hgb 9.1 L Hct 30.9 L MCV 73.6 L MCH 21.7 L MCHC 29.4 L RDW 15.8 H MPV 10.9 H Seg Neutrophils % Lymphocytes % Absolute Neutrophils 8.67 H RBC Morphology Hypochromasia Anisocytosis Microcytosis Carbon Dioxide 21 L Anion Gap 19.0 H Glucose 116 H AST 42 H C-Reactive Protein 11.00 H NT-Pro-B Natriuret Pep 251.5 H Globulin 4.3 H Albumin/Globulin Ratio 0.8 L Procalcitonin Urine Glucose (UA) Ur Leukocyte Esterase Urine Mucus Meds: Medications Acetaminophen (Tylenol) 650 mg PO Q6HP PRN PRN Reason: PAIN/FEVER > 101 Albuterol/Ipratropium (Duoneb) 3 ml NEB Q6HRT [facility] Last Admin: 10/18/20 07:03 Dose: 3 ml Documented by: Albuterol/Ipratropium (Duoneb) 3 ml NEB Q4HP PRN PRN Reason: Shortness Of Breath Budesonide (Pulmicort) 0.5 mg NEB Q12 [facility] Last Admin: 10/18/20 07:03 Dose: 0.5 mg Documented by: Dextrose (Dextrose 50%) 0 ml IV UD PRN PRN Reason: Hypoglycemia Diagnostic Test (Pha) (Accu-Chek) 1 each FS BIDAC ALEJANDRO Enoxaparin Sodium (Lovenox) 40 mg SQ DAILY [facility] Glucose (Insta-Glucose) 15 gm PO PRN PRN PRN Reason: Hypoglycemia Potassium Chloride 40 meq/ (Dextrose) 520 mls @ 130 mls/hr IV UD PRN PRN Reason: Potassium < 3 Magnesium Sulfate (Magnesium Sulfate) 2 gm in 50 mls @ 50 mls/hr IV UD PRN PRN Reason: Magnesium </= 1.6 Insulin Human Lispro (Humalog) 0 unit SQ ACHS [facility]; Protocol Last Admin: 10/18/20 01:00 Dose: Not Given Documented by: Methylprednisolone Sodium Succinate (Solu-Medrol) 62.5 mg IV Q6H [facility] Last Admin: 10/18/20 05:35 Dose: 62.5 mg Documented by: Ondansetron HCl (Zofran) 4 mg IV Q4HP PRN PRN Reason: Nausea And Vomiting Potassium Chloride (Kdur) 40 meq PO UD PRN PRN Reason: Potssium is 3-3.5 Potassium Chloride (Kdur) 40 meq PO UD PRN PRN Reason: Potassium < 3 Sodium Chloride (Saline Flush) 10 ml IV Q8 [facility] Last Admin: 10/18/20 05:35 Dose: 10 ml Documented by: A/P Narrative A/P Narrative: A: *AECOPD(not on home O2)/mild fibrosis: -covid neg *Acute hypoxic respiratory failure: -on 3L NC *ATIF on CPAP: *Anxiety/depression: *HTN: *GERD: *chr back pain: P: -steroids(wean), nebs -supp O2 wean -IS/acapella -RVP pending -will start empiric antibiotics given elevated PCT and prolonged course of illness -home cpap -cont home psych, BP(restart ACEI based on bp), PPI meds -f/u lung nodules with CT -ppx: lovenox DNR Time Spent With Patient Time: Total time spent is greater than 50% in coordination of care (as doc umented) at patient's floor/unit and/or counseling patient: QUALITY Stroke Symptom Onset Unknown: No VTE Deep Vein Thrombosis/Pulmonary Embolism Present on Admission: No
[2020-10-18] MEDS ORDERED: ONDANSETRON 4 MG ODT TABLET SL PRN (07:27)
[2020-10-18] MEDS: FLUoxetine HCL 20 MG CAPSULE PO SCH (08:13)
[2020-10-18] MEDS: ENOXAPARIN 40 MG/0.4 ML SYRINGE SQ SCH (08:13)
[2020-10-18] MEDS: LACTOBACILLUS 1 CAPSULE PO SCH ×2 (08:13→20:48)
[2020-10-18] MEDS: PREGABALIN 75 MG CAPSULE PO SCH ×2 (08:14→16:46)
[2020-10-18] MEDS: OMEPRAZOLE 20 MG CAPSULE PO SCH (08:14)
[2020-10-18] MEDS: busPIRone 15 MG TABLET PO SCH ×3 (08:14→20:48)
[2020-10-18] MEDS: FUROSEMIDE 20 MG TABLET PO SCH ×2 (08:14→16:46)
[2020-10-18] MEDS ORDERED: cefTRIAXone 2 GM in DEXTROSE 5% IN WATER 50 ML IV SCH (09:00)
--- NOTE | 2020-10-18 09:22 | Cat Scan Report ---
CLINICAL INFORMATION: Cough COMPARISON: None TECHNIQUE: 0.625 mm axial slices were obtained from the lung apices through the bases without intravenous contrast. 2.5 mm Sagittal, coronal and axial reformatted images were processed and reviewed at bone, lung and soft tissue windows. 7 mm axial MIP images were also reconstructed to optimize pulmonary nodule detection.The exam was performed using radiation dose optimization techniques including, but not limited to, automated exposure control, adjustment of the mA and/or kV according to patient size and use of iterative reconstruction technique. FINDINGS: Pulmonary parenchymal windows show a 5 x 3 cm mass or masslike consolidated infiltrate in the posterior medial right lower lobe. There are scattered regions of cavitation with in this lesion. Moderate patchy infiltrate is seen right lower lobe - peripheral to this lesion. There are three nodular densities in the lateral right upper lobe 4.3 mm on image 49, 7 mm on image 51 and a 10 mm lesion which is pleural-based on image 54. These are more likely inflammatory rather than neoplastic. On the left side, a 2.3 cm mass or masslike region of consolidation is seen in the superior segment left lower lobe on image 63. A moderate wedge-shaped region of consolidated infiltrate in the medial basilar segment left lower lobe is also noted. A small left pleural effusion is seen. Mediastinal windows show the heart is normal in size. The thoracic aorta and pulmonary arteries are normal diameter. There is no adenopathy in the mediastinal, hilar or axillary regions. There is a 2.4 cm low-attenuation lesion dominating the left thyroid lobe and isthmus. Esophagus is grossly normal. Abdominal images show moderate splenic enlargement estimated to be 15 cm. This is a change lumbar MRI credit assistant images - 07/27/2014. At that time the spleen was normal in length at 9 cm. The remaining superior abdomen show no abnormality. Superior aspect of the thoracolumbar fusion is present pedicle screws seen at T11-T12. There is likely L1 compression fracture which is partially imaged. At T12-L1 there is moderate central canal stenosis due to retrolisthesis of the compressed vertebral body and fibrosis. IMPRESSION: 1. 5 cm mass versus masslike consolidated infiltrate in the medial right lower lobe with scattered regions of cavitation. Moderate infiltrate in the right lower lobe is peripheral to this region. Three nodular densities in the right upper lobe ranging to 10 mm. A 2.3 cm mass or masslike consolidated infiltrate in the superior segment left lower lobe and a consolidated infiltrate posterior basilar segment left lower lobe. These are more likely infectious/inflammatory than malignant. Consider treatment for pneumonia and repeat chest CT in 3-4 weeks to reevaluate for resolution. Any persistent density may require CT-guided biopsy. 2. Moderate splenomegaly - new from the 2014 exam. This may represent infection. The possibility of lymphoma or myeloproliferative disease should be entertained. 3. 24 mm low-attenuation lesion dominating the left thyroid isthmus - suggest thyroid ultrasound 4. L1 compression fracture appreciated which been treated with T11-L2 posterior fusion. There is moderate T12-L1 central canal stenosis Interpreted and Authenticated by: Gaurav Scott 10/18/20
[2020-10-18] MEDS: AZITHROMYCIN 500 MG in DEXTROSE 5% IN WATER 250 ML IV SCH (10:03)
[2020-10-18] MEDS: ACETAMINOPHEN 500 MG TABLET PO PRN (11:45)
[2020-10-18 11:55] LABS: ALT/SGPT 22 U/L (<40); AST/SGOT 34 U/L (<32); Albumin 3.3 gm/dL (3.2-5.2); Albumin/Globulin Ratio 0.8 (1.0-2.3); Alkaline Phosphatase 78 U/L (39-117); Bilirubin,Direct 0.2 mg/dL (<0.3); Bilirubin,Total 0.3 mg/dL (0.1-1.0); Blood Urea Nitrogen 27 mg/dL (8-23); Calcium 9.7 mg/dL (8.6-10.4); Carbon Dioxide 23 mmol/L (22-30); Chloride 98 mmol/L (96-108); Glomerular Filtration Rate 66; Glucose 203 mg/dL (70-105); Lactate Dehydrogenase 213 U/L (135-225); Phosphorous 4.4 mg/dL (2.5-4.5); Triglycerides 176 mg/dL (<150); Uric Acid 6.2 mg/dL (2.5-8.0)
[2020-10-18] MEDS: BENZOCAINE/MENTHOL 1 LOZENGE PO PRN ×2 (14:25→20:47)
[2020-10-18 15:21] LABS: Basophils # (Auto) 0.01 K/mcL (0.00-0.20); Basophils % (Auto) 0.1 % (0.0-2.0); Eosinophils # (Auto) 0 K/mcL (0.00-0.70); Eosinophils % (Auto) 0 % (0.0-7.0); Hematocrit 30.3 % (36.0-48.0); Lymphocytes # (Auto) 0.95 K/mcL (1.50-4.80); Lymphocytes % (Auto) 11.7 % (15.0-49.0); Mean Cell Volume 74.3 fL (80.0-100.0); Mean Corpuscular HGB Conc 29.7 g/dL (31.0-36.0); Mean Platelet Volume 10.6 fL (7.4-10.4); Monocytes # (Auto) 0.12 K/mcL (0.10-0.90); Monocytes % (Auto) 1.5 % (1.0-12.0); Neutrophils % (Auto) 86.7 % (38.0-78.0); Platelet Count 299 K/mcL (140-440); RBC 4.08 M/mcL (4.00-5.20); Red Cell Distribution Width 15.6 % (11.5-14.5); WBC 8.1 K/mcL (4.5-11.0)
[2020-10-18] MEDS: PIPERACILLIN SODIUM/TAZOBACTAM 3.375 GM in DEXTROSE 5% IN WATER 50 ML IV SCH (16:46)
[2020-10-18] MEDS: TRIAMCINOLONE CREAM 0.1% 15G 1 DOSE TUBE TOPICAL SCH (21:36)
[2020-10-18] MEDS: NYSTATIN POWDER BOTTLE 15GM TOPICAL SCH (21:37)
[2020-10-19] MEDS: ACETAMINOPHEN 500 MG TABLET PO PRN ×4 (00:17→21:08)
[2020-10-19] MEDS: methylPREDNISolone SOD SUCC 125 MG/2 ML VIAL IV SCH ×2 (00:18→05:49)
[2020-10-19] MEDS: PIPERACILLIN SODIUM/TAZOBACTAM 3.375 GM in DEXTROSE 5% IN WATER 50 ML IV SCH ×4 (00:19→17:50)
[2020-10-19] MEDS: IPRATROPIUM/ALBUTEROL 3 ML AMPUL.NEB NEB SCH ×4 (00:30→20:05)
[2020-10-19] MEDS: 0.9 % SODIUM CHLORIDE 10 ML SYRINGE IV SCH ×3 (05:49→21:18)
[2020-10-19 06:58] LABS: ALT/SGPT 21 U/L (<40); AST/SGOT 28 U/L (<32); Albumin 3.2 gm/dL (3.2-5.2); Albumin/Globulin Ratio 0.8 (1.0-2.3); Alkaline Phosphatase 65 U/L (39-117); Bilirubin,Direct < 0.2 mg/dL (<0.3); Bilirubin,Total 0.2 mg/dL (0.1-1.0); Blood Urea Nitrogen 32 mg/dL (8-23); Calcium 9.2 mg/dL (8.6-10.4); Carbon Dioxide 23 mmol/L (22-30); Chloride 97 mmol/L (96-108); Globulin 3.8 gm/dL (2.2-3.7); Glomerular Filtration Rate 66; Glucose 285 mg/dL (70-105); Lactate Dehydrogenase 173 U/L (135-225); Phosphorous 3.4 mg/dL (2.5-4.5); Triglycerides 138 mg/dL (<150); Uric Acid 5.1 mg/dL (2.5-8.0)
[2020-10-19] MEDS: BUDESONIDE 0.5 MG/2 ML AMPUL.NEB NEB SCH ×2 (07:02→20:05)
--- NOTE | 2020-10-19 07:34 | Internal Med Progress Note ---
SUBJECTIVE Subjective Patient information: Note initiated : 10/19/20 at 7:32 am Service Date, if different from initiated Date: [] Patient: Kenia Sandoval a 65 y/o F admitted on 10/17/20 for Shortness of Breath. Chief Complaint: [] Interval history: History of present illness: Ms. Sandoval is a 65 year old F Who presents from Dr. Gardner office for increased cough and shortness of breath. She was first seen in the ED October 04 and given antibiotics for appear to be pneumonia and as well as. Having a COPD exacerbation was given steroid taper. She was seen in Dr. Gardner office on the . She appeared to be improving. She was seen back in his office today where she complained of increased shortness of breath and productive cough of green sputum. He finished the 10- day course of Augmentin and finished her steroid taper a few days ago. She complains of headache and feeling wheezy. She complains of fatigue. She has a sore throat and occasional chest discomfort when she coughs. In the ED she is afebrile, had a mild leukocytosis at 11.8. She had a third Covid test which is negative. Chest x-ray did show improvement of the right base infiltrate. However she was hypoxic in the low 80s on room air. proBNP was 250 and she denies any lower extremity edema. She has been a smoker quit and then started about 6 months ago but quit again in September. She is however still exposed to smoke by her . 10/18 Slept okay. Feeling a little better today. Has productive cough and shortness of breath. 10/19 On 2 L this morning. Of oxygen. She is has decreased cough. Shortness of breath feels about the same as yesterday. She feels weak. MRSA screen was positive. And given the CT findings are covering with vancomycin. Procalcitonin improving. CRP improving. Awaiting sputum culture Review of Systems: denies headache/fever/chills/nausea/vomiting/chest or abdominal pain/diarrhea. Otherwise see above. Constitutional Vitals: Vital Signs Temp Pulse Resp BP Pulse Ox 98.0 F 100 H 16 141/78 95 10/19/20 03:49 10/19/20 07:12 10/19/20 07:12 10/19/20 03:49 10/19/20 07:02 Period Temp Pulse Resp BP Sys/Miranda Pulse Ox Last 24 Hr 97.3 F-98.7 F 91-103 16-24 109-141/67-78 91-97 Intake and Output 10/18/20 10/19/20 10/19/20 21:59 05:59 13:59 Intake Total 290 625 Output Total 1650 Balance 290 -1025 Weight 70.76 kg Intake & Output: Intake & Output 10/18/20 10/19/20 10/19/20 21:59 05:59 13:59 Intake Total 290 625 Output Total 1650 Balance 290 -1025 Weight 70.76 kg Intake: IV 50 50 Zosyn 3.375 gm In Dextrose 5% 50 50 in Water 50 ml @ 100 mls/hr IV Q6H [facility] Rx#:[id number] Oral 240 575 Output: Void Amount 1650 Other: Meal Dinner Percent of Meal Consumed 100% Feeding Ability Independent Urine Appearance Clear Clear Urine Color Straw Dark Yellow Urine Odor Normal Normal Exam: General: Alert, Awake, No acute Distress Eyes/N/T: EOMI, Head/Neck: neck supple, CV: RRR, No murmurs, Pulm: mild b/l rhonchi improved, no wheezing Abd: soft, nontender, +BS x4 Ext: no clubbing/cyanosis/edema Neuro: Alert, no focal deficits, moves all extremities, Skin: warm/dry OBJ DATA Labs CBC & Chem 7: 10/18/20 06:00 10/19/20 04:36 Labs: Abnormal Lab Results 10/19/20 10/18/20 10/18/20 04:36 06:00 06:00 WBC Hgb 9.0 L Hct 30.3 L MCV 74.3 L MCH 22.1 L MCHC 29.7 L RDW 15.6 H MPV 10.6 H Neut % (Auto) 86.7 H Lymph % (Auto) 11.7 L Lymph # (Auto) 0.95 L Seg Neutrophils % Lymphocytes % Absolute Neutrophils RBC Morphology Hypochromasia Anisocytosis Microcytosis Carbon Dioxide Anion Gap BUN 32 H 27 H Glucose 285 H 203 H GGT 74 H 74 H AST 34 H C-Reactive Protein 4.00 H NT-Pro-B Natriuret Pep Globulin 3.8 H 4.0 H Albumin/Globulin Ratio 0.8 L 0.8 L Triglycerides 176 H Procalcitonin Urine Glucose (UA) Ur Leukocyte Esterase Urine Mucus 10/17/20 10/17/20 10/17/20 22:01 20:20 15:24 WBC Hgb Hct MCV MCH MCHC RDW MPV Neut % (Auto) Lymph % (Auto) Lymph # (Auto) Seg Neutrophils % 96 H Lymphocytes % 3 L Absolute Neutrophils RBC Morphology Abnormal A Hypochromasia 2+ A Anisocytosis 1+ A Microcytosis 1+ A Carbon Dioxide Anion Gap BUN Glucose GGT AST C-Reactive Protein NT-Pro-B Natriuret Pep Globulin Albumin/Globulin Ratio Triglycerides Procalcitonin 0.30 H Urine Glucose (UA) >=500 A Ur Leukocyte Esterase 25 A Urine Mucus Few A 10/17/20 10/17/20 10/17/20 15:24 15:24 15:24 WBC 11.8 H Hgb 9.1 L Hct 30.9 L MCV 73.6 L MCH 21.7 L MCHC 29.4 L RDW 15.8 H MPV 10.9 H Neut % (Auto) Lymph % (Auto) Lymph # (Auto) Seg Neutrophils % Lymphocytes % Absolute Neutrophils 8.67 H RBC Morphology Hypochromasia Anisocytosis Microcytosis Carbon Dioxide 21 L Anion Gap 19.0 H BUN Glucose 116 H GGT AST 42 H C-Reactive Protein 11.00 H NT-Pro-B Natriuret Pep 251.5 H Globulin 4.3 H Albumin/Globulin Ratio 0.8 L Triglycerides Procalcitonin Urine Glucose (UA) Ur Leukocyte Esterase Urine Mucus Meds: Medications Acetaminophen (Tylenol) 1,000 mg PO Q6HP PRN; Protocol PRN Reason: Per Pain Protocol Last Admin: 10/19/20 00:17 Dose: 1,000 mg Documented by: Albuterol/Ipratropium (Duoneb) 3 ml NEB Q6HRT [facility] Last Admin: 10/19/20 07:02 Dose: 3 ml Documented by: Albuterol/Ipratropium (Duoneb) 3 ml NEB Q4HP PRN PRN Reason: Shortness Of Breath Budesonide (Pulmicort) 0.5 mg NEB Q12 [facility] Last Admin: 10/19/20 07:02 Dose: 0.5 mg Documented by: Buspirone HCl (Buspar) 15 mg PO TID [facility] Last Admin: 10/18/20 20:48 Dose: 15 mg Documented by: Dextrose (Dextrose 50%) 0 ml IV UD PRN PRN Reason: Hypoglycemia Diagnostic Test (Pha) (Accu-Chek) 1 each FS BIDAC [facility] Last Admin: 10/18/20 16:46 Dose: 1 each Documented by: Enoxaparin Sodium (Lovenox) 40 mg SQ DAILY [facility] Last Admin: 10/18/20 08:13 Dose: 40 mg Documented by: Fluoxetine HCl (Prozac) 80 mg PO DAILY [facility] Last Admin: 10/18/20 08:13 Dose: 80 mg Documented by: Furosemide (Lasix) 20 mg PO BIDD [facility] Last Admin: 10/18/20 16:46 Dose: 20 mg Documented by: Glucose (Insta-Glucose) 15 gm PO PRN PRN PRN Reason: Hypoglycemia Potassium Chloride 40 meq/ (Dextrose) 520 mls @ 130 mls/hr IV UD PRN PRN Reason: Potassium < 3 Magnesium Sulfate (Magnesium Sulfate) 2 gm in 50 mls @ 50 mls/hr IV UD PRN PRN Reason: Magnesium </= 1.6 Azithromycin 500 mg/ Dextrose 250 mls @ 250 mls/hr IV Q24H [facility]; Protocol Stop: 10/20/20 10:59 Last Admin: 10/18/20 10:03 Dose: 250 mls/hr Documented by: Piperacillin Sod/Tazobactam (Sod 3.375 gm/ Dextrose) 50 mls @ 100 mls/hr IV Q6H [facility]; Protocol Last Admin: 10/19/20 05:49 Dose: 100 mls/hr Documented by: Insulin Human Lispro (Humalog) 0 unit SQ ACHS [facility]; Protocol Last Admin: 10/18/20 20:46 Dose: 8 units Documented by: Lactobacillus Rhamnosus (Culturelle) 1 cap PO BID [facility] Last Admin: 10/18/20 20:48 Dose: 1 cap Documented by: Methylprednisolone Sodium Succinate (Solu-Medrol) 62.5 mg IV Q6H [facility] Last Admin: 10/19/20 05:49 Dose: 62.5 mg Documented by: Naproxen (Naprosyn) 500 mg PO BIDP PRN; Protocol PRN Reason: pain Nystatin (Nystatin) 1 dose TOPICAL BID [facility] Last Admin: 10/18/20 21:37 Dose: 1 dose Documented by: Omeprazole (Prilosec) 20 mg PO QAMAC [facility] Last Admin: 10/18/20 08:14 Dose: 20 mg Documented by: Ondansetron HCl (Zofran) 4 mg IV Q4HP PRN PRN Reason: Nausea And Vomiting Ondansetron HCl (Zofran Odt) 4 mg SL Q6HP PRN PRN Reason: nausea and vomiting Potassium Chloride (Kdur) 40 meq PO UD PRN PRN Reason: Potssium is 3-3.5 Potassium Chloride (Kdur) 40 meq PO UD PRN PRN Reason: Potassium < 3 Pregabalin (Lyrica) 75 mg PO BIDAC [facility] Last Admin: 10/18/20 16:46 Dose: 75 mg Documented by: Sodium Chloride (Saline Flush) 10 ml IV Q8 [facility] Last Admin: 10/19/20 05:49 Dose: 10 ml Documented by: Throat Lozenges (Cepacol) 1 lozenge PO PRN PRN PRN Reason: Sore Throat Last Admin: 10/18/20 20:47 Dose: 1 lozenge Documented by: Triamcinolone Acetonide (Kenalog Cream 0.1%) 1 dose TOPICAL BID [facility] Last Admin: 10/18/20 21:36 Dose: 1 dose Documented by: A/P Narrative A/P Narrative: A: *AECOPD(not on home O2)/mild fibrosis: -covid/rvp neg *PNA, b/l: failed outpt Abx on augmentin, -leukocytosis/crp improved -CT with several mass-like infiltrates and scattered regions of cavitation *Acute hypoxic respiratory failure: -on 1-3L NC *ATIF on CPAP: *Anxiety/depression: *HTN: *GERD: *chr back pain: *DM: P: -steroids(wean), nebs -supp O2 wean -IS/acapella -cont vanc/zosyn, mrsa screen positive -home cpap -SSI and home metformin -cont home psych, BP(restart ACEI based on bp), PPI meds -repeat chest CT in 3-4 weeks to evaluated mass-like infiltrates -ppx: lovenox DNR Time Spent With Patient Time: Total time spent is greater than 50% in coordination of care (as documented) at patient's floor/unit and/or counseling patient: QUALITY Stroke Symptom Onset Unknown: No VTE Deep Vein Thrombosis/Pulmonary Embolism Present on Admission: No
[2020-10-19] MEDS ORDERED: VANCOMYCIN PER PHARMACY IV SCH (07:37)
[2020-10-19] MEDS: FUROSEMIDE 20 MG TABLET PO SCH ×2 (07:46→16:24)
[2020-10-19] MEDS: PREGABALIN 75 MG CAPSULE PO SCH ×2 (07:46→17:47)
[2020-10-19] MEDS: OMEPRAZOLE 20 MG CAPSULE PO SCH (07:46)
[2020-10-19] MEDS: metFORMIN 500 MG TABLET PO SCH ×2 (08:35→17:47)
[2020-10-19] MEDS: INSULIN LISPRO 1 UNIT/0.01 ML UNIT SQ SCH ×4 (08:35→21:19)
[2020-10-19 09:45] LABS: Hemoglobin A1C 7.1 % Hgb (4.0-6.0)
[2020-10-19] MEDS: busPIRone 15 MG TABLET PO SCH ×3 (10:30→21:09)
[2020-10-19] MEDS: LACTOBACILLUS 1 CAPSULE PO SCH ×2 (10:30→21:08)
[2020-10-19] MEDS: FLUoxetine HCL 20 MG CAPSULE PO SCH (10:30)
[2020-10-19] MEDS: NAPROXEN 250 MG TABLET PO PRN ×2 (10:31→18:57)
[2020-10-19] MEDS: TRIAMCINOLONE CREAM 0.1% 15G 1 DOSE TUBE TOPICAL SCH ×2 (10:31→21:19)
[2020-10-19] MEDS: ENOXAPARIN 40 MG/0.4 ML SYRINGE SQ SCH (10:31)
[2020-10-19] MEDS: NYSTATIN POWDER BOTTLE 15GM TOPICAL SCH ×2 (10:32→21:19)
[2020-10-19] MEDS: VANCOMYCIN 1,000 MG in 0.9 % SODIUM CHLORIDE 250 ML IV SCH ×2 (10:32→21:15)
[2020-10-19] MEDS: AZITHROMYCIN 500 MG in DEXTROSE 5% IN WATER 250 ML IV SCH (11:53)
[2020-10-19] MEDS: methylPREDNISolone SOD SUCC 40 MG/ML VIAL IV SCH ×2 (13:40→21:17)
[2020-10-19] MEDS: BENZOCAINE/MENTHOL 1 LOZENGE PO PRN (18:57)
[2020-10-19] MEDS: MUPIROCIN OINT 2% 22GM NARES SCH (22:21)
[2020-10-20] MEDS: PIPERACILLIN SODIUM/TAZOBACTAM 3.375 GM in DEXTROSE 5% IN WATER 50 ML IV SCH ×4 (00:25→17:49)
[2020-10-20] MEDS: IPRATROPIUM/ALBUTEROL 3 ML AMPUL.NEB NEB SCH ×4 (00:39→19:17)
[2020-10-20] MEDS: ACETAMINOPHEN 500 MG TABLET PO PRN (04:53)
[2020-10-20 07:09] LABS: Blood Urea Nitrogen 33 mg/dL (8-23); Calcium 8.9 mg/dL (8.6-10.4); Carbon Dioxide 23 mmol/L (22-30); Chloride 100 mmol/L (96-108); Glomerular Filtration Rate 58; Glucose 217 mg/dL (70-105)
[2020-10-20] MEDS: methylPREDNISolone SOD SUCC 40 MG/ML VIAL IV SCH (07:34)
[2020-10-20] MEDS: FUROSEMIDE 20 MG TABLET PO SCH ×2 (07:34→16:35)
[2020-10-20] MEDS: 0.9 % SODIUM CHLORIDE 10 ML SYRINGE IV SCH ×3 (07:34→21:37)
[2020-10-20] MEDS: PREGABALIN 75 MG CAPSULE PO SCH ×2 (07:34→16:35)
[2020-10-20] MEDS: metFORMIN 500 MG TABLET PO SCH ×2 (07:35→17:49)
[2020-10-20] MEDS: OMEPRAZOLE 20 MG CAPSULE PO SCH (07:35)
[2020-10-20] MEDS: INSULIN LISPRO 1 UNIT/0.01 ML UNIT SQ SCH ×4 (07:35→21:28)
--- NOTE | 2020-10-20 07:45 | Internal Med Progress Note ---
SUBJECTIVE Subjective Patient information: Note initiated : 10/20/20 at 7:43 am Service Date, if different from initiated Date: [] Patient: Kenia Sandoval a 65 y/o F admitted on 10/17/20 for Shortness of Breath. Chief Complaint: [] Interval history: History of present illness: Ms. Sandoval is a 65 year old F Who presents from Dr. Gardner office for increased cough and shortness of breath. She was first seen in the ED October 04 and given antibiotics for appear to be pneumonia and as well as. Having a COPD exacerbation was given steroid taper. She was seen in Dr. Gardner office on the . She appeared to be improving. She was seen back in his office today where she complained of increased shortness of breath and productive cough of green sputum. He finished the 10- day course of Augmentin and finished her steroid taper a few days ago. She complains of headache and feeling wheezy. She complains of fatigue. She has a sore throat and occasional chest discomfort when she coughs. In the ED she is afebrile, had a mild leukocytosis at 11.8. She had a third Covid test which is negative. Chest x-ray did show improvement of the right base infiltrate. However she was hypoxic in the low 80s on room air. proBNP was 250 and she denies any lower extremity edema. She has been a smoker quit and then started about 6 months ago but quit again in September. She is however still exposed to smoke by her . 10/18 Slept okay. Feeling a little better today. Has productive cough and shortness of breath. 10/19 On 2 L this morning. Of oxygen. She is has decreased cough. Shortness of breath feels about the same as yesterday. She feels weak. MRSA screen was positive. And given the CT findings are covering with vancomycin. Procalcitonin improving. CRP improving. Awaiting sputum culture 10/20 Feeling and breathing better although still labored with exertion. Mild cough. Suspect MRSA pneumonia or at least MSSA PNA. did have some diarrhea this morning. Review of Systems: headache. denies fever/chills/nausea/vomiting/chest or abdominal pain/. Otherwise see above. Constitutional Vitals: Vital Signs Temp Pulse Resp BP Pulse Ox 98.0 F 97 H 20 149/77 97 10/20/20 04:00 10/20/20 04:09 10/20/20 04:00 10/20/20 04:01 10/20/20 04:09 Period Temp Pulse Resp BP Sys/Miranda Pulse Ox Last 24 Hr 97.8 F-98.8 F 93-111 16-22 132-150/71-81 94-97 Intake and Output 10/19/20 10/20/20 10/20/20 21:59 05:59 13:59 Intake Total 1300 1000 Output Total 400 600 Balance 900 400 Weight 71.123 kg Intake & Output: Intake & Output 10/19/20 10/20/20 10/20/20 21:59 05:59 13:59 Intake Total 1300 1000 Output Total 400 600 Balance 900 400 Weight 71.123 kg Intake: IV 100 300 Zosyn 3.375 gm In Dextrose 5% 100 50 in Water 50 ml @ 100 mls/hr IV Q6H [facility] Rx#:[id number] Vancomycin 1,000 mg In Sodium 250 Chloride 0.9% 250 ml @ 250 mls/ hr IV Q12H [facility] Rx#:[id number] Oral 1200 700 Output: Void Amount 400 600 Other: Meal Nourishment/Supplement Nourishment/Supplement Percent of Meal Consumed 100% 100% Feeding Ability Independent Assist with Tray Set Up Urine Appearance Clear Clear Urine Color Dark Sima Bright Yellow Urine Odor Normal Normal Stool Size Moderate Moderate Stool Color Brown Brown Stool Consistency Soft Soft # Bowel Movements 1 Exam: General: Alert, Awake, No acute Distress Eyes/N/T: EOMI, Head/Neck: neck supple, CV: RRR, No murmurs, Pulm: clear b/l, no wheezing Abd: soft, nontender, +BS x4 Ext: no clubbing/cyanosis/edema Neuro: Alert, no focal deficits, moves all extremities, Skin: warm/dry OBJ DATA Labs CBC & Chem 7: 10/18/20 06:00 10/20/20 05:36 Labs: Abnormal Lab Results 10/20/20 10/19/20 10/19/20 05:36 04:36 04:36 WBC Hgb Hct MCV MCH MCHC RDW MPV Neut % (Auto) Lymph % (Auto) Lymph # (Auto) Seg Neutrophils % Lymphocytes % Absolute Neutrophils RBC Morphology Hypochromasia Anisocytosis Microcytosis Carbon Dioxide Anion Gap BUN 33 H Glucose 217 H Hemoglobin A1c 7.1 H GGT AST C-Reactive Protein NT-Pro-B Natriuret Pep Globulin Albumin/Globulin Ratio Triglycerides Procalcitonin 0.16 H Urine Glucose (UA) Ur Leukocyte Esterase Urine Mucus 10/19/20 10/18/20 10/18/20 04:36 06:00 06:00 WBC Hgb 9.0 L Hct 30.3 L MCV 74.3 L MCH 22.1 L MCHC 29.7 L RDW 15.6 H MPV 10.6 H Neut % (Auto) 86.7 H Lymph % (Auto) 11.7 L Lymph # (Auto) 0.95 L Seg Neutrophils % Lymphocytes % Absolute Neutrophils RBC Morphology Hypochromasia Anisocytosis Microcytosis Carbon Dioxide Anion Gap BUN 32 H 27 H Glucose 285 H 203 H Hemoglobin A1c GGT 74 H 74 H AST 34 H C-Reactive Protein 4.00 H NT-Pro-B Natriuret Pep Globulin 3.8 H 4.0 H Albumin/Globulin Ratio 0.8 L 0.8 L Triglycerides 176 H Procalcitonin Urine Glucose (UA) Ur Leukocyte Esterase Urine Mucus 10/17/20 10/17/20 10/17/20 22:01 20:20 15:24 WBC Hgb Hct MCV MCH MCHC RDW MPV Neut % (Auto) Lymph % (Auto) Lymph # (Auto) Seg Neutrophils % 96 H Lymphocytes % 3 L Absolute Neutrophils RBC Morphology Abnormal A Hypochromasia 2+ A Anisocytosis 1+ A Microcytosis 1+ A Carbon Dioxide Anion Gap BUN Glucose Hemoglobin A1c GGT AST C-Reactive Protein NT-Pro-B Natriuret Pep Globulin Albumin/Globulin Ratio Triglycerides Procalcitonin 0.30 H Urine Glucose (UA) >=500 A Ur Leukocyte Esterase 25 A Urine Mucus Few A 10/17/20 10/17/20 10/17/20 15:24 15:24 15:24 WBC 11.8 H Hgb 9.1 L Hct 30.9 L MCV 73.6 L MCH 21.7 L MCHC 29.4 L RDW 15.8 H MPV 10.9 H Neut % (Auto) Lymph % (Auto) Lymph # (Auto) Seg Neutrophils % Lymphocytes % Absolute Neutrophils 8.67 H RBC Morphology Hypochromasia Anisocytosis Microcytosis Carbon Dioxide 21 L Anion Gap 19.0 H BUN Glucose 116 H Hemoglobin A1c GGT AST 42 H C-Reactive Protein 11.00 H NT-Pro-B Natriuret Pep 251.5 H Globulin 4.3 H Albumin/Globulin Ratio 0.8 L Triglycerides Procalcitonin Urine Glucose (UA) Ur Leukocyte Esterase Urine Mucus Meds: Medications Acetaminophen (Tylenol) 1,000 mg PO Q6HP PRN; Protocol PRN Reason: Per Pain Protocol Last Admin: 10/20/20 04:53 Dose: 1,000 mg Documented by: Albuterol/Ipratropium (Duoneb) 3 ml NEB Q6HRT [facility] Last Admin: 10/20/20 00:39 Dose: 3 ml Documented by: Albuterol/Ipratropium (Duoneb) 3 ml NEB Q4HP PRN PRN Reason: Shortness Of Breath Last Admin: 10/20/20 04:54 Dose: 3 ml Documented by: Budesonide (Pulmicort) 0.5 mg NEB Q12 [facility] Last Admin: 10/19/20 20:05 Dose: 0.5 mg Documented by: Buspirone HCl (Buspar) 15 mg PO TID [facility] Last Admin: 10/19/20 21:09 Dose: 15 mg Documented by: Dextrose (Dextrose 50%) 0 ml IV UD PRN PRN Reason: Hypoglycemia Diagnostic Test (Pha) (Accu-Chek) 1 each FS ACHS [facility] Last Admin: 10/20/20 07:35 Dose: 1 each Documented by: Enoxaparin Sodium (Lovenox) 40 mg SQ DAILY [facility] Last Admin: 10/19/20 10:31 Dose: 40 mg Documented by: Fluoxetine HCl (Prozac) 80 mg PO DAILY [facility] Last Admin: 10/19/20 10:30 Dose: 80 mg Documented by: Furosemide (Lasix) 20 mg PO BIDD [facility] Last Admin: 10/20/20 07:34 Dose: 20 mg Documented by: Glucose (Insta-Glucose) 15 gm PO PRN PRN PRN Reason: Hypoglycemia Potassium Chloride 40 meq/ (Dextrose) 520 mls @ 130 mls/hr IV UD PRN PRN Reason: Potassium < 3 Magnesium Sulfate (Magnesium Sulfate) 2 gm in 50 mls @ 50 mls/hr IV UD PRN PRN Reason: Magnesium </= 1.6 Azithromycin 500 mg/ Dextrose 250 mls @ 250 mls/hr IV Q24H [facility]; Protocol Stop: 10/20/20 10:59 Last Infusion: 10/19/20 12:53 Dose: Infused Documented by: Piperacillin Sod/Tazobactam (Sod 3.375 gm/ Dextrose) 50 mls @ 100 mls/hr IV Q6H [facility]; Protocol Last Admin: 10/20/20 07:34 Dose: 100 mls/hr Documented by: Vancomycin HCl 1,000 mg/ (Sodium Chloride) 250 mls @ 250 mls/hr IV Q12H [facility] Last Infusion: 10/19/20 22:15 Dose: Infused Documented by: Insulin Human Lispro (Humalog) 0 unit SQ ACHS [facility]; Protocol Last Admin: 10/20/20 07:35 Dose: 2 units Documented by: Lactobacillus Rhamnosus (Culturelle) 1 cap PO BID [facility] Last Admin: 10/19/20 21:08 Dose: 1 cap Documented by: Metformin HCl (Glucophage) 500 mg PO BIDCC [facility] Last Admin: 10/20/20 07:35 Dose: 500 mg Documented by: Methylprednisolone Sodium Succinate (Solu-Medrol) 40 mg IV Q8 [facility] Last Admin: 10/20/20 07:34 Dose: 40 mg Documented by: Mupirocin (Bactroban Oint 2%) 1 dose NARES BID [facility] Last Admin: 10/19/20 22:21 Dose: 1 dose Documented by: Naproxen (Naprosyn) 500 mg PO BIDP PRN; Protocol PRN Reason: pain Last Admin: 10/19/20 18:57 Dose: 500 mg Documented by: Nystatin (Nystatin) 1 dose TOPICAL BID [facility] Last Admin: 10/19/20 21:19 Dose: 1 dose Documented by: Omeprazole (Prilosec) 20 mg PO QAMAC [facility] Last Admin: 10/20/20 07:35 Dose: 20 mg Documented by: Ondansetron HCl (Zofran) 4 mg IV Q4HP PRN PRN Reason: Nausea And Vomiting Ondansetron HCl (Zofran Odt) 4 mg SL Q6HP PRN PRN Reason: nausea and vomiting Potassium Chloride (Kdur) 40 meq PO UD PRN PRN Reason: Potssium is 3-3.5 Potassium Chloride (Kdur) 40 meq PO UD PRN PRN Reason: Potassium < 3 Pregabalin (Lyrica) 75 mg PO BIDAC [facility] Last Admin: 10/20/20 07:34 Dose: 75 mg Documented by: Sodium Chloride (Saline Flush) 10 ml IV Q8 [facility] Last Admin: 10/20/20 07:34 Dose: 10 ml Documented by: Throat Lozenges (Cepacol) 1 lozenge PO PRN PRN PRN Reason: Sore Throat Last Admin: 10/19/20 18:57 Dose: 1 lozenge Documented by: Triamcinolone Acetonide (Kenalog Cream 0.1%) 1 dose TOPICAL BID [facility] Last Admin: 10/19/20 21:19 Dose: 1 dose Documented by: Vancomycin HCl (Vancomycin Per Pharmacy) 1 order IV UD [facility]; Protocol A/P Narrative A/P Narrative: A: *PNA (Staph, suspect MRSA), b/l: failed outpt Abx on augmentin, -leukocytosis/crp improved -CT with several mass-like infiltrates and scattered regions of cavitation *AECOPD(not on home O2)/mild fibrosis: -covid/rvp neg *Acute hypoxic respiratory failure: -on 1-2L NC *ATIF on CPAP: *Anxiety/depression: *HTN: *GERD: *chr back pain: *DM: P: -steroids(wean), nebs -supp O2 wean -IS/acapella -cont vanc/zosyn(d/c once final SC return), mrsa screen positive -home cpap -SSI and home metformin -cont home psych, BP, PPI meds -repeat chest CT in 3-4 weeks to evaluated mass-like infiltrates -ppx: lovenox DNR Time Spent With Patient Time: Total time spent is greater than 50% in coordination of care (as documented) at patient's floor/unit and/or counseling patient: QUALITY Stroke Symptom Onset Unknown: No VTE Deep Vein Thrombosis/Pulmonary Embolism Present on Admission: No
--- NOTE | 2020-10-20 09:40 | Discharge Summary ---
Discharge Provider Provider Patient information: Note initiated : 10/20/20 at 9:39 am Service Date, if different from initiated Date: [] Patient: Kenia Sandoval 65 y/o F admitted on 10/17/20 for Shortness of Breath. Chief Complaint: [] Date of admission: 10/17/20 21:28 Discharge date: 10/22/20 Primary care physician: Darleen Kemp Consults: 10/17/20 Consult to Physician [CONS] Stat Comment: Consulting Provider: Prince Liao Reason For Exam: Physician to Consult Discharge Meds Discharge Medications Home Medications buspirone 15 mg tablet 15 mg PO TID tab 04/17/15 [History Confirmed 10/20/20 Last Taken 10/04/17] alendronate 70 mg tablet 70 mg PO QWEEK 30 Days #5 tab 05/22/15 [Rx Confirmed 10/17/20 Last Taken 10/04/17] fenofibrate 160 mg tablet 160 mg PO QDAY #90 tab 05/23/15 [Rx Confirmed 10/17/20 Last Taken 10/05/17 08:00] fluoxetine 20 mg tablet 80 mg PO DAILY tab 06/18/15 [History Confirmed 10/20/20 Last Taken 10/05/17 08:00] omeprazole 20 mg capsule,delayed release 20 mg PO QDAY #90 cap 07/18/15 [Rx Confirmed 10/17/20 Last Taken 10/05/17 08:00] triamcinolone acetonide 0.1 % topical ointment 1 applic TOPICAL BID #30 g 07/18/15 [Rx Confirmed 10/17/20 Last Taken 10/04/17] potassium chloride 10 mEq capsule,extended release 20 meq PO QDAY 10/21/15 [History Confirmed 10/17/20 Last Taken 10/17/20 08:00] ipratropium bromide 18 mcg/actuation aerosol inhaler 2 puff INHALATION BID 06/10/20 [History Confirmed 10/17/20 Last Taken Unknown] naproxen 500 mg PO BID PRN #14 tab 06/22/20 [Rx Confirmed 10/20/20 Last Taken Unknown] ipratropium 0.5 mg-albuterol 3 mg (2.5 mg base)/3 mL nebulization soln 3 ml INHALATION Q6H PRN 10/10/20 [History Confirmed 10/17/20 Last Taken Unknown] Jardiance 10 mg PO DAILY 10/20/20 [History Confirmed 10/20/20 Last Taken Unknown] Lactobacillus acidophilus 2,000 mmu cells PO BID #60 cap 10/20/20 [Rx Last Taken Unknown] Prolia See Rx Instructions .ROUTE .COMPLEX 10/20/20 [History Confirmed 10/20/20 Last Taken Unknown] albuterol sulfate [Ventolin HFA] 2 puff INHALATION Q4-6HP PRN 10/20/20 [History Confirmed 10/20/20 Last Taken Unknown] budesonide-formoterol [Symbicort] 2 puff INHALATION BID 10/20/20 [History Confirmed 10/20/20 Last Taken Unknown] furosemide 40 mg PO BID 10/20/20 [History Confirmed 10/20/20 Last Taken Unknown] lisinopril 10 mg PO DAILY 10/20/20 [History Confirmed 10/20/20 Last Taken Unknown] metformin 1,000 mg PO BID 10/20/20 [History Confirmed 10/20/20 Last Taken Unknown] montelukast 10 mg PO DAILY 10/20/20 [History Confirmed 10/20/20 Last Taken Unknown] nortriptyline 25 mg PO HS 10/20/20 [History Confirmed 10/20/20 Last Taken Unknown] pregabalin 150 mg PO BID 10/20/20 [History Confirmed 10/20/20 Last Taken Unknown] calcium carbonate [Calcium 500] 1,250 mg PO DAILY 10/21/20 [History Confirmed 10/21/20 Last Taken Unknown] cholecalciferol (vitamin D3) [Vitamin D3] 125 mcg PO DAILY 10/21/20 [History Confirmed 10/21/20 Last Taken Unknown] prednisone 20 mg PO QDAY #3 tab 10/21/20 [Rx Last Taken Unknown] vancomycin 1 g IV Q12H #20 each 10/21/20 [Rx Last Taken Unknown] COURSE Hospital Course Hospital course: History of present illness: Ms. Sandoval is a 65 year old F Who presents from Dr. Gardner office for increased cough and shortness of breath. She was first seen in the ED October 04 and given antibiotics for appear to be pneumonia and as well as. Having a COPD exacerbation was given steroid taper. She was seen in Dr. Gardner office on the . She appeared to be improving. She was seen back in his office today where she complained of increased shortness of breath and productive cough of green sputum. He finished the 10- day course of Augmentin and finished her steroid taper a few days ago. She complains of headache and feeling wheezy. She complains of fatigue. She has a sore throat and occasional chest discomfort when she coughs. In the ED she is afebrile, had a mild leukocytosis at 11.8. She had a third Covid test which is negative. Chest x-ray did show improvement of the right base infiltrate. However she was hypoxic in the low 80s on room air. proBNP was 250 and she denies any lower extremity edema. She has been a smoker quit and then started about 6 months ago but quit again in September. She is however still exposed to smoke by her . 10/18 Slept okay. Feeling a little better today. Has productive cough and shortness of breath. 10/19 On 2 L this morning. Of oxygen. She is has decreased cough. Shortness of breath feels about the same as yesterday. She feels weak. MRSA screen was p ositive. And given the CT findings are covering with vancomycin. Procalcitonin improving. CRP improving. Awaiting sputum culture 10/20 Feeling and breathing better although still labored with exertion. Mild cough. Suspect MRSA pneumonia or at least MSSA PNA. did have some diarrhea this morning. *awaiting final SC, clindamycin if susceptible for total of 14-day course 10/21 Mildly productive cough and shortness of breath. Decreasing oxygen need but still requiring it, especially when she gets up and moves around. Sputum cultures growing staph but do not have the final identification and sensitivity. 10/22 Final sputum culture showing MRSA, existent clindamycin. Patient will be discharged on IV vancomycin doing well. Still requiring 1 L of oxygen with exertion. RT to assess for home oxygen given underlying COPD. Stable for discharge. A: *MRSA PNA: -blood cx negative *AECOPD(not on home O2)/mild fibrosis: -covid/rvp neg *Acute hypoxic respiratory failure: *ATIF on CPAP: *Anxiety/depression: *HTN: *GERD: *chr back pain: *DM: Discharge diagnosis: Staphylococcus pneumonia acute hypoxic respiratory failure COPD Secondary discharge diagnosis: ATIF anxiety depression GERD hypertension chronic back pain diabetes Time Spent with Patient Time attestation: Total time spent providing and/or coordinating discharge services: Time spent: Greater than 30 minutes EXAM Constitutional Vitals: Temp Pulse Resp BP Pulse Ox 98.0 F 97 H 20 149/77 97 10/20/20 04:00 10/20/20 04:09 10/20/20 04:00 10/20/20 04:01 10/20/20 04:09 Discharge Data Data Completed and Pending Labs on day of discharge: Labs from last 24 hours 10/20/20 10/20/20 10/19/20 07:57 05:36 04:36 Sodium 134 Potassium 4.5 Chloride 100 Carbon Dioxide 23 Anion Gap 11.0 BUN 33 H Creatinine 1.0 GFR Calculation 58 Glucose 217 H Hemoglobin A1c 7.1 H Estim Average Glucose 157 Calcium 8.9 Vancomycin Trough 14.3 Preliminary micro results at discharge 10/18/20 16:03 Gram Stain - Preliminary Sputum - Expectorated Sputum Culture - Preliminary Gram positive cocci 10/17/20 15:28 Blood Culture - Preliminary Blood 10/17/20 15:24 Blood Culture - Preliminary Blood 10/19/20 09:24 Fungal Culture - Preliminary Sputum - Expectorated Discharge Plan Patient/Caregiver Discharge Instructions Activity: increase activity as tolerated Diet: Consistent Carbohydrate Instructions: Prednisone (By mouth), Vancomycin (By injection), Probiotic (By mouth), Using Oxygen at Home (GEN), COPD (Chronic Obstructive Pulmonary Disease) (GEN), Pneumonia (GEN) Activity Restrictions/Additional Instructions: You are scheduled for outpatient IV Vancomycin antibiotics recommend f/u CT chest in 3-4weeks following resolution of MRSA pneumonia to evaluate mass-like infiltrates increase your activity as tolerated, continue with a consistent carbohydrate diet This discharge packet is provided to you to help keep you informed about your care. We want to ensure you get everything you need when you go home. You will also be receiving a call from us in a few days to follow up with you and see how you are doing since your discharge. This gives us a chance to listen to any concerns you maybe experiencing since you were discharged or any additional needs you may have, as well as providing us feedback on your care experience. We strive to always provide excellent care and thank you for your feedback and for choosing [facility]. Home oxygen per respiratory therapy. Prescriptions: New Lactobacillus acidophilus Capsule 2,000 mmu cells PO BID Qty: 60 RF: 0 prednisone 10 mg tablet 20 mg PO QDAY Qty: 3 RF: 0 vancomycin 1,000 mg recon soln 1 g IV Q12H Qty: 20 RF: 0 Continued alendronate 70 mg tablet 70 mg PO QWEEK 30 Days Qty: 5 RF: 0 fenofibrate 160 mg tablet 160 mg PO QDAY Qty: 90 RF: 3 buspirone 15 mg tablet 15 mg PO TID RF: 0 triamcinolone acetonide 0.1 % ointment 1 applic TOPICAL BID Qty: 30 RF: 3 omeprazole 20 MG capsule 20 mg PO QDAY Qty: 90 RF: 3 potassium chloride 10 mEq capsule, extended release 20 meq PO QDAY RF: 0 ipratropium bromide 18 mcg/actuation aerosol 2 puff INHALATION BID RF: 0 ipratropium-albuterol 0.5 mg-3 mg(2.5 mg base)/3 mL solution for nebulization 3 ml INHALATION Q6H PRN (Reason: Shortness Of Breath) RF: 0 fluoxetine 20 MG tablet 80 mg PO DAILY RF: 0 naproxen 500 mg tablet 500 mg PO BID PRN (Reason: pain) Qty: 14 RF: 0 metformin 500 mg tablet extended release 24 hr 1,000 mg PO BID RF: 0 Jardiance 10 mg tablet 10 mg PO DAILY RF: 0 budesonide-formoterol [Symbicort] 160-4.5 mcg/actuation HFA aerosol inhaler 2 puff INHALATION BID RF: 0 nortriptyline 25 mg capsule 25 mg PO HS RF: 0 lisinopril 10 mg tablet 10 mg PO DAILY RF: 0 montelukast 10 mg tablet 10 mg PO DAILY RF: 0 pregabalin 150 mg capsule 150 mg PO BID RF: 0 furosemide 40 mg tablet 40 mg PO BID RF: 0 albuterol sulfate [Ventolin HFA] 90 mcg/actuation HFA aerosol inhaler 2 puff INHALATION Q4-6HP PRN (Reason: Shortness Of Breath) RF: 0 Prolia 60 mg/mL Syringe See Rx Instructions .ROUTE .COMPLEX RF: 0 calcium carbonate [Calcium 500] 500 mg calcium (1,250 mg) Tablet 1,250 mg PO DAILY RF: 0 cholecalciferol (vitamin D3) [Vitamin D3] 125 mcg (5,000 unit) Tablet 125 mcg PO DAILY RF: 0 Follow Up Plan Follow up with: Toribio Gardner MD [Physician] - Darleen Kemp ARNP [Primary Care Provider] - Patient Disposition: Home, Self-Care Prognosis: Fair Overall status at discharge: patient is progressing back to baseline Discharge Orders: Discharge Order (Routine); Ordered 10/22/20 Ordered By: Prince Liao [facility] VTE Deep Vein Thrombosis/Pulmonary Embolism Present on Admission: No
[2020-10-20] MEDS: BUDESONIDE 0.5 MG/2 ML AMPUL.NEB NEB SCH ×2 (09:43→19:17)
[2020-10-20] MEDS: VANCOMYCIN 1,000 MG in 0.9 % SODIUM CHLORIDE 250 ML IV SCH ×2 (09:59→21:28)
[2020-10-20] MEDS: FLUoxetine HCL 20 MG CAPSULE PO SCH (10:03)
[2020-10-20] MEDS: NAPROXEN 250 MG TABLET PO PRN (10:03)
[2020-10-20] MEDS: LACTOBACILLUS 1 CAPSULE PO SCH ×2 (10:03→21:27)
[2020-10-20] MEDS: LISINOPRIL 10 MG TABLET PO SCH (10:04)
[2020-10-20] MEDS: ENOXAPARIN 40 MG/0.4 ML SYRINGE SQ SCH (10:04)
[2020-10-20] MEDS: TRIAMCINOLONE CREAM 0.1% 15G 1 DOSE TUBE TOPICAL SCH ×2 (10:04→21:30)
[2020-10-20] MEDS: NYSTATIN POWDER BOTTLE 15GM TOPICAL SCH ×2 (10:04→21:30)
[2020-10-20] MEDS: busPIRone 15 MG TABLET PO SCH ×3 (10:04→21:27)
[2020-10-20] MEDS: MUPIROCIN OINT 2% 22GM NARES SCH ×2 (11:31→21:28)
[2020-10-20] MEDS: AZITHROMYCIN 500 MG in DEXTROSE 5% IN WATER 250 ML IV SCH (11:31)
[2020-10-20] MEDS: BENZOCAINE/MENTHOL 1 LOZENGE PO PRN (12:56)
[2020-10-20] MEDS ORDERED: BENZOCAINE/MENTHOL 1 LOZENGE PO PRN (13:45)
[2020-10-20] MEDS: guaiFENesin/CODEINE 10 ML UDC PO PRN ×3 (14:48→22:44)
[2020-10-20] MEDS: LOPERAMIDE 2 MG CAPSULE PO PRN ×3 (14:48→22:45)
[2020-10-20] MEDS ORDERED: methylPREDNISolone SOD SUCC 40 MG/ML VIAL IV SCH (21:00)
[2020-10-21] MEDS: IPRATROPIUM/ALBUTEROL 3 ML AMPUL.NEB NEB SCH ×5 (00:21→22:01)
[2020-10-21] MEDS: guaiFENesin/CODEINE 10 ML UDC PO PRN ×2 (04:20→19:59)
[2020-10-21] MEDS: PIPERACILLIN SODIUM/TAZOBACTAM 3.375 GM in DEXTROSE 5% IN WATER 50 ML IV SCH ×2 (06:00)
[2020-10-21] MEDS: 0.9 % SODIUM CHLORIDE 10 ML SYRINGE IV SCH ×3 (06:01→20:02)
[2020-10-21] MEDS: OMEPRAZOLE 20 MG CAPSULE PO SCH (07:09)
[2020-10-21] MEDS: LOPERAMIDE 2 MG CAPSULE PO PRN ×2 (07:09→17:34)
[2020-10-21] MEDS: PREGABALIN 75 MG CAPSULE PO SCH (07:09)
[2020-10-21] MEDS: metFORMIN 500 MG TABLET PO SCH ×2 (07:09→17:35)
[2020-10-21] MEDS: FUROSEMIDE 20 MG TABLET PO SCH ×2 (07:09→15:22)
[2020-10-21] MEDS: BUDESONIDE 0.5 MG/2 ML AMPUL.NEB NEB SCH ×2 (07:15→22:01)
--- NOTE | 2020-10-21 07:23 | Internal Med Progress Note ---
SUBJECTIVE Subjective Patient information: Note initiated : 10/21/20 at 7:17 am Service Date, if different from initiated Date: [] Patient: Kenia Sandoval a 65 y/o F admitted on 10/17/20 for Shortness of Breath. Chief Complaint: [] Interval history: History of present illness: Ms. Sandoval is a 65 year old F Who presents from Dr. Gardner office for increased cough and shortness of breath. She was first seen in the ED October 04 and given antibiotics for appear to be pneumonia and as well as. Having a COPD exacerbation was given steroid taper. She was seen in Dr. Gardner office on the . She appeared to be improving. She was seen back in his office today where she complained of increased shortness of breath and productive cough of green sputum. He finished the 10- day course of Augmentin and finished her steroid taper a few days ago. She complains of headache and feeling wheezy. She complains of fatigue. She has a sore throat and occasional chest discomfort when she coughs. In the ED she is afebrile, had a mild leukocytosis at 11.8. She had a third Covid test which is negative. Chest x-ray did show improvement of the right base infiltrate. However she was hypoxic in the low 80s on room air. proBNP was 250 and she denies any lower extremity edema. She has been a smoker quit and then started about 6 months ago but quit again in September. She is however still exposed to smoke by her . 10/18 Slept okay. Feeling a little better today. Has productive cough and shortness of breath. 10/19 On 2 L this morning. Of oxygen. She is has decreased cough. Shortness of breath feels about the same as yesterday. She feels weak. MRSA screen was positive. And given the CT findings are covering with vancomycin. Procalcitonin improving. CRP improving. Awaiting sputum culture 10/20 Feeling and breathing better although still labored with exertion. Mild cough. Suspect MRSA pneumonia or at least MSSA PNA. did have some diarrhea this morning. 10/21 Mildly productive cough and shortness of breath. Decreasing oxygen need but still requiring it, especially when she gets up and moves around. Sputum cultures growing staph but do not have the final identification and sensitivity. Review of Systems: headache. denies fever/chills/nausea/vomiting/chest or abdominal pain/. Otherwise see above. Constitutional Vitals: Vital Signs Temp Pulse Resp BP Pulse Ox 98.0 F 99 H 22 137/79 94 10/21/20 04:00 10/21/20 04:24 10/21/20 04:00 10/21/20 04:00 10/21/20 07:16 Period Temp Pulse Resp BP Sys/Miranda Pulse Ox Last 24 Hr 97.4 F-98.1 F 94-107 - 127-166/67-89 90-97 Intake and Output 10/20/20 10/21/20 10/21/20 21:59 05:59 13:59 Intake Total 410 530 Output Total 1100 601 150 Balance -690 -71 -150 Weight 72.711 kg Intake & Output: Intake & Output 10/20/20 10/21/20 10/21/20 21:59 05:59 13:59 Intake Total 410 530 Output Total 1100 601 150 Balance -690 -71 -150 Weight 72.711 kg Intake: IV 50 50 Zosyn 3.375 gm In Dextrose 5% 50 50 in Water 50 ml @ 100 mls/hr IV Q6H [facility] Rx#:[id number] Oral 360 480 Output: Void Amount 1100 600 150 # of times incontinent of urine 1 Other: Meal Dinner Percent of Meal Consumed 100% Feeding Ability Independent Urine Appearance Clear Clear Clear Urine Color Bright Yellow Bright Yellow Bright Yellow Urine Odor Normal Normal Normal Stool Size Small Moderate Small Stool Color Brown Brown Brown Stool Consistency Soft Soft Loose Loose Loose # Bowel Movements 1 1 # of times incontinent of 0 Bowels Exam: General: Alert, Awake, No acute Distress Eyes/N/T: EOMI, Head/Neck: neck supple, CV: RRR, No murmurs, Pulm: no rhonchi but mild b/l wheezing Abd: soft, nontender, +BS x4 Ext: no clubbing/cyanosis/edema Neuro: Alert, no focal deficits, moves all extremities, Skin: warm/dry OBJ DATA Labs CBC & Chem 7: 10/18/20 06:00 10/20/20 05:36 Labs: Abnormal Lab Results 10/20/20 10/19/20 10/19/20 05:36 04:36 04:36 Hgb Hct MCV MCH MCHC RDW MPV Neut % (Auto) Lymph % (Auto) Lymph # (Auto) BUN 33 H Glucose 217 H Hemoglobin A1c 7.1 H GGT AST C-Reactive Protein Globulin Albumin/Globulin Ratio Triglycerides Procalcitonin 0.16 H 10/19/20 10/18/20 10/18/20 04:36 06:00 06:00 Hgb 9.0 L Hct 30.3 L MCV 74.3 L MCH 22.1 L MCHC 29.7 L RDW 15.6 H MPV 10.6 H Neut % (Auto) 86.7 H Lymph % (Auto) 11.7 L Lymph # (Auto) 0.95 L BUN 32 H 27 H Glucose 285 H 203 H Hemoglobin A1c GGT 74 H 74 H AST 34 H C-Reactive Protein 4.00 H Globulin 3.8 H 4.0 H Albumin/Globulin Ratio 0.8 L 0.8 L Triglycerides 176 H Procalcitonin Meds: Medications Acetaminophen (Tylenol) 1,000 mg PO Q6HP PRN; Protocol PRN Reason: Per Pain Protocol Last Admin: 10/20/20 04:53 Dose: 1,000 mg Documented by: Albuterol/Ipratropium (Duoneb) 3 ml NEB Q6HRT [facility] Last Admin: 10/21/20 07:15 Dose: 3 ml Documented by: Albuterol/Ipratropium (Duoneb) 3 ml NEB Q4HP PRN PRN Reason: Shortness Of Breath Last Admin: 10/20/20 04:54 Dose: 3 ml Documented by: Budesonide (Pulmicort) 0.5 mg NEB Q12 [facility] Last Admin: 10/21/20 07:15 Dose: 0.5 mg Documented by: Buspirone HCl (Buspar) 15 mg PO TID [facility] Last Admin: 10/20/20 21:27 Dose: 15 mg Documented by: Dextrose (Dextrose 50%) 0 ml IV UD PRN PRN Reason: Hypoglycemia Diagnostic Test (Pha) (Accu-Chek) 1 each FS ACHS [facility] Last Admin: 10/20/20 21:28 Dose: 1 each Documented by: Enoxaparin Sodium (Lovenox) 40 mg SQ DAILY [facility] Last Admin: 10/20/20 10:04 Dose: 40 mg Documented by: Fluoxetine HCl (Prozac) 80 mg PO DAILY [facility] Last Admin: 10/20/20 10:03 Dose: 80 mg Documented by: Furosemide (Lasix) 20 mg PO BIDD [facility] Last Admin: 10/21/20 07:09 Dose: 20 mg Documented by: Glucose (Insta-Glucose) 15 gm PO PRN PRN PRN Reason: Hypoglycemia Guaifenesin/Codeine Phosphate (Robitussin Ac) 5 ml PO Q4HP PRN PRN Reason: Cough Last Admin: 10/21/20 04:20 Dose: 5 ml Documented by: Potassium Chloride 40 meq/ (Dextrose) 520 mls @ 130 mls/hr IV UD PRN PRN Reason: Potassium < 3 Magnesium Sulfate (Magnesium Sulfate) 2 gm in 50 mls @ 50 mls/hr IV UD PRN PRN Reason: Magnesium </= 1.6 Piperacillin Sod/Tazobactam (Sod 3.375 gm/ Dextrose) 50 mls @ 100 mls/hr IV Q6H [facility]; Protocol Last Admin: 10/21/20 06:00 Dose: 100 mls/hr Documented by: Vancomycin HCl 1,000 mg/ (Sodium Chloride) 250 mls @ 250 mls/hr IV Q12H [facility] Last Admin: 10/20/20 21:28 Dose: 250 mls/hr Documented by: Insulin Human Lispro (Humalog) 0 unit SQ ACHS [facility]; Protocol Last Admin: 10/20/20 21:28 Dose: Not Given Documented by: Lactobacillus Rhamnosus (Culturelle) 1 cap PO BID [facility] Last Admin: 10/20/20 21:27 Dose: 1 cap Documented by: Lisinopril (Zestril) 10 mg PO DAILY [facility] Last Admin: 10/20/20 10:04 Dose: 10 mg Documented by: Loperamide HCl (Imodium) 2 mg PO PRN PRN PRN Reason: Diarrhea Last Admin: 10/21/20 07:09 Dose: 2 mg Documented by: Metformin HCl (Glucophage) 500 mg PO BIDCC [facility] Last Admin: 10/21/20 07:09 Dose: 500 mg Documented by: Methylprednisolone Sodium Succinate (Solu-Medrol) 40 mg IV Q12 [facility] Last Admin: 10/20/20 21:27 Dose: 40 mg Documented by: Mupirocin (Bactroban Oint 2%) 1 dose NARES BID [facility] Last Admin: 10/20/20 21:28 Dose: 1 dose Documented by: Naproxen (Naprosyn) 500 mg PO BIDP PRN; Protocol PRN Reason: pain Last Admin: 10/20/20 10:03 Dose: 500 mg Documented by: Nystatin (Nystatin) 1 dose TOPICAL BID [facility] Last Admin: 10/20/20 21:30 Dose: 1 dose Documented by: Omeprazole (Prilosec) 20 mg PO QAMAC [facility] Last Admin: 10/21/20 07:09 Dose: 20 mg Documented by: Ondansetron HCl (Zofran) 4 mg IV Q4HP PRN PRN Reason: Nausea And Vomiting Last Admin: 10/20/20 12:56 Dose: 4 mg Documented by: Ondansetron HCl (Zofran Odt) 4 mg SL Q6HP PRN PRN Reason: nausea and vomiting Potassium Chloride (Kdur) 40 meq PO UD PRN PRN Reason: Potssium is 3-3.5 Potassium Chloride (Kdur) 40 meq PO UD PRN PRN Reason: Potassium < 3 Pregabalin (Lyrica) 75 mg PO BIDAC [facility] Last Admin: 10/21/20 07:09 Dose: 75 mg Documented by: Sodium Chloride (Saline Flush) 10 ml IV Q8 [facility] Last Admin: 10/21/20 06:01 Dose: 10 ml Documented by: Throat Lozenges (Cepacol) 1 lozenge PO PRN PRN PRN Reason: Sore Throat Last Admin: 10/20/20 12:56 Dose: 1 lozenge Documented by: Throat Lozenges (Cepacol) 1 lozenge PO PRN PRN PRN Reason: Sore Throat Triamcinolone Acetonide (Kenalog Cream 0.1%) 1 dose TOPICAL BID [facility] Last Admin: 10/20/20 21:30 Dose: Not Given Documented by: Vancomycin HCl (Vancomycin Per Pharmacy) 1 order IV UD [facility]; Protocol A/P Narrative A/P Narrative: A: *PNA (Staph, suspect MRSA), b/l: failed outpt Abx on augmentin, -leukocytosis/crp improved -CT with several mass-like infiltrates and scattered regions of cavitation *AECOPD(not on home O2)/mild fibrosis: -covid/rvp neg *Acute hypoxic respiratory failure: -on 1-2L NC *ATIF on CPAP: *Anxiety/depression: *HTN: *GERD: *chr back pain: *DM: P: -steroids(wean), nebs -supp O2 wean -IS/acapella -cont vanc, d/c on likely clinda vs vanc, unable to give zyvox. awaiting final cx -home cpap -SSI and home metformin -cont home psych, BP, PPI meds -repeat chest CT in 3-4 weeks to evaluated mass-like infiltrates -hopefully d/c in morning, attempt to wean off O2, may need home O2 given underlying copd -ppx: lovenox DNR Time Spent With Patient Time: Total time spent is greater than 50% in coordination of care (as documented) at patient's floor/unit and/or counseling patient: QUALITY Stroke Symptom Onset Unknown: No VTE Deep Vein Thrombosis/Pulmonary Embolism Present on Admission: No
[2020-10-21] MEDS ORDERED: predniSONE 20 MG TABLET PO SCH ×2 (08:00→08:02)
[2020-10-21] MEDS: INSULIN LISPRO 1 UNIT/0.01 ML UNIT SQ SCH ×4 (08:14→21:31)
[2020-10-21] MEDS: predniSONE 20 MG TABLET PO SCH (10:08)
[2020-10-21] MEDS: MUPIROCIN OINT 2% 22GM NARES SCH ×2 (10:08→20:01)
[2020-10-21] MEDS: LACTOBACILLUS 1 CAPSULE PO SCH ×2 (10:09→20:02)
[2020-10-21] MEDS: busPIRone 15 MG TABLET PO SCH ×3 (10:09→20:01)
[2020-10-21] MEDS: NYSTATIN POWDER BOTTLE 15GM TOPICAL SCH ×2 (10:09→20:00)
[2020-10-21] MEDS: VANCOMYCIN 1,000 MG in 0.9 % SODIUM CHLORIDE 250 ML IV SCH ×2 (10:09→19:59)
[2020-10-21] MEDS: ENOXAPARIN 40 MG/0.4 ML SYRINGE SQ SCH (10:09)
[2020-10-21] MEDS: FLUoxetine HCL 20 MG CAPSULE PO SCH (10:09)
[2020-10-21] MEDS: LISINOPRIL 10 MG TABLET PO SCH (10:09)
[2020-10-21] MEDS: TRIAMCINOLONE CREAM 0.1% 15G 1 DOSE TUBE TOPICAL SCH ×2 (10:10→20:00)
[2020-10-21] MEDS: PREGABALIN 150 MG CAPSULE PO SCH (17:34)
[2020-10-21] MEDS ORDERED: NORTRIPTYLINE 25 MG CAPSULE PO SCH (21:00)
[2020-10-22] MEDS: ACETAMINOPHEN 500 MG TABLET PO PRN ×2 (00:03→08:01)
[2020-10-22] MEDS: 0.9 % SODIUM CHLORIDE 10 ML SYRINGE IV SCH (05:22)
[2020-10-22] MEDS: OMEPRAZOLE 20 MG CAPSULE PO SCH (06:50)
[2020-10-22] MEDS: INSULIN LISPRO 1 UNIT/0.01 ML UNIT SQ SCH ×2 (06:55→11:36)
[2020-10-22] MEDS: PREGABALIN 150 MG CAPSULE PO SCH (07:03)
[2020-10-22] MEDS: LOPERAMIDE 2 MG CAPSULE PO PRN ×3 (07:03→12:54)
[2020-10-22] MEDS: FUROSEMIDE 20 MG TABLET PO SCH (08:00)
[2020-10-22] MEDS: predniSONE 20 MG TABLET PO SCH (08:00)
[2020-10-22] MEDS: busPIRone 15 MG TABLET PO SCH (08:00)
[2020-10-22] MEDS: LACTOBACILLUS 1 CAPSULE PO SCH (08:00)
[2020-10-22] MEDS: FLUoxetine HCL 20 MG CAPSULE PO SCH (08:00)
[2020-10-22] MEDS: ENOXAPARIN 40 MG/0.4 ML SYRINGE SQ SCH (08:00)
[2020-10-22] MEDS: LISINOPRIL 10 MG TABLET PO SCH (08:01)
[2020-10-22] MEDS: metFORMIN 500 MG TABLET PO SCH (08:01)
[2020-10-22] MEDS: IPRATROPIUM/ALBUTEROL 3 ML AMPUL.NEB NEB SCH (08:35)
[2020-10-22] MEDS: BUDESONIDE 0.5 MG/2 ML AMPUL.NEB NEB SCH (08:35)
[2020-10-22] MEDS: NYSTATIN POWDER BOTTLE 15GM TOPICAL SCH (09:51)
[2020-10-22] MEDS: MUPIROCIN OINT 2% 22GM NARES SCH (09:51)
[2020-10-22] MEDS: VANCOMYCIN 1,000 MG in 0.9 % SODIUM CHLORIDE 250 ML IV SCH (09:51)
[2020-10-22] MEDS: TRIAMCINOLONE CREAM 0.1% 15G 1 DOSE TUBE TOPICAL SCH (09:51)
[2020-10-22] MEDS: guaiFENesin/CODEINE 10 ML UDC PO PRN (12:54)
== END 2020-10-22 13:25 | disposition home or self-care (01) | DRG 190 ==
LOC: ED 15:02 → ICU 21:28
PROVIDERS: ADMIT Internal Medicine; ATTEND Internal Medicine

== ENCOUNTER 2021-03-28 22:45 | Inpatient (IN) ==
[2021-03-28] MEDS ORDERED: cefTRIAXone 1 GM VIAL IV ONE (23:34)
--- NOTE | 2021-03-28 23:39 | Emergency Department Note ---
Fever HPI General Chief Complaint: Fever Stated Complaint: SOB and fever Time Seen by Provider: 03/28/21 23:23 Source: patient Mode of arrival: wheelchair Limitations: no limitations History of Present Illness HPI Narrative: Narrative: Presents to room E2 for evaluation of fever, bilateral flank pain and persistent cough. The patient has a past medical history of COPD. She states that she has had persistent cough over the last several weeks. Over the last 2 days she has had worsening flank pain and now developed fever. She reports history of kidney infections in the past. She denies any shaking chills. No chest pain. She denies dysuria, hematuria, frequency urgency. Symptoms are constant. She denies any exacerbating or alleviating factors. Related Data Home Medications Medication Instructions Recorded Confirmed buspirone 15 mg tablet 15 mg PO TID tab 04/17/15 03/27/21 fluoxetine 20 mg tablet 80 mg PO DAILY tab 06/18/15 03/27/21 potassium chloride 10 mEq 20 meq PO QDAY 10/21/15 03/27/21 capsule,extended release ipratropium bromide 18 2 puff INHALATION BID 06/10/20 03/27/21 mcg/actuation aerosol inhaler ipratropium 0.5 mg-albuterol 3 mg 3 ml INHALATION Q6H PRN 10/10/20 03/27/21 (2.5 mg base)/3 mL nebulization soln Jardiance 10 mg PO DAILY 10/20/20 03/27/21 Prolia See Rx Instructions .ROUTE .COMPLEX 10/20/20 03/27/21 albuterol sulfate [Ventolin HFA] 2 puff INHALATION Q4-6HP PRN 10/20/20 03/27/21 budesonide-formoterol [Symbicort] 2 puff INHALATION BID 10/20/20 03/27/21 furosemide 40 mg PO BID 10/20/20 03/27/21 metformin 1,000 mg PO BID 10/20/20 03/27/21 montelukast 10 mg PO DAILY 10/20/20 03/27/21 pregabalin 150 mg PO BID 10/20/20 03/27/21 calcium carbonate [Calcium 500] 1,250 mg PO DAILY 10/21/20 03/27/21 cholecalciferol (vitamin D3) 125 mcg PO DAILY 10/21/20 03/27/21 [Vitamin D3] denosumab 60 mg/mL subcutaneous 60 mg SUB-Q [id number] 11/11/20 03/27/21 syringe Previous Rx's Medication Instructions Recorded fenofibrate 160 mg tablet 160 mg PO QDAY #90 tab 05/23/15 omeprazole 20 mg capsule,delayed 20 mg PO QDAY #90 cap 07/18/15 release triamcinolone acetonide 0.1 % 1 applic TOPICAL BID #30 g 07/18/15 topical ointment Lactobacillus acidophilus 2,000 mmu cells PO BID #60 cap 10/20/20 codeine-guaifenesin 5 ml PO ONCE #473 ml 10/29/20 prednisone 50 mg PO QDAY #4 tab 03/25/21 azithromycin 250 mg tablet See Rx Instructions PO Q24H #6 tab 03/27/21 Allergies Allergy/AdvReac Type Severity Reaction Status Date / Time fluconazole [From Diflucan] Allergy Mild Hives Verified 03/28/21 22:57 bupropion AdvReac Intermediate psychotic Verified 03/28/21 22:57 episode diphenhydramine AdvReac Mild Vomiting Verified 03/28/21 22:57 [From Benadryl] guaifenesin [GUAIFENESIN] AdvReac Mild Itching Verified 03/28/21 22:57 sulfamethoxazole AdvReac Mild Flushing Verified 03/28/21 22:57 [From Sulfamethoprim] trimethoprim AdvReac Mild Flushing Verified 03/28/21 22:57 [From Sulfamethoprim] Review of Systems ROS ROS Narrative: Narrative: All systems ED: reviewed and negative except as stated. [facility] Narrative Patient History Narrative: Narrative: Medical/Surgical/Family History All Active Problems (Updated 03/29/21 @ 02:28 by Jeremy Calloway MD) Fever (Acute) Pneumonia (Acute) Severe sepsis (Acute) Bronchitis (Acute) Acute viral syndrome (Acute) Acute exacerbation of chronic obstructive pulmonary disease (Acute) Maxillary sinusitis, acute (Acute) Chronic bronchitis (Acute) Thyroid nodule (Acute) Nocturnal hypoxemia (Acute) Lung mass (Acute) Community acquired pneumonia (Acute) COPD (chronic obstructive pulmonary disease) (Chronic) Hypochromic microcytic anemia (Acute) Acute UTI (urinary tract infection) (Acute) DDD (degenerative disc disease), lumbar (Acute) Acute low back pain (Acute) Drug side effects (Acute) Open T12 vertebral fracture (Acute) Back pain (Acute) Acute viral syndrome (Acute) Bronchitis (Acute) History of asthma (Acute) Small bowel obstruction (Acute) Small bowel obstruction (Acute) Chronic diarrhea of unknown origin (Acute) Abdominal pain (Acute) Nausea (Acute) Diarrhea (Acute) Irritable bowel syndrome with diarrhea (Acute) Nausea with vomiting, unspecified (Acute) Right otitis media (Acute) COPD exacerbation (Acute) Bronchitis (Acute) Bilateral hip joint arthritis (Acute) Hyperglycemia (Acute) ATIF on CPAP (Chronic) Nausea and vomiting in adult (Acute) Upper respiratory infection (Acute) Gastroenteritis (Acute) Lumbar sprain (Chronic) Edema (Chronic) Nonallopathic lesion of cervical region (Chronic) Fibromyositis (Chronic) Eczema (Chronic) GERD (gastroesophageal reflux disease) (Chronic) Benign hypertension (Chronic) Chronic pain syndrome (Chronic) Generalized anxiety disorder (Chronic) Major depressive disorder (Chronic) Obesity (Chronic) Mixed hypercholesterolemia and hypertriglyceridemia (Chronic) Vitamin D deficiency (Chronic) Thrombocytosis (Chronic) Upper respiratory infection (Acute) COPD (chronic obstructive pulmonary disease) (Acute) COPD with exacerbation (Acute) Encounter for medication refill (Acute) Acute exacerbation of chronic obstructive airways disease (Acute) Acute bronchitis (Acute) Heart palpitations (Acute) Tension type headache (Chronic) COPD exacerbation (Chronic) Edema of foot (Chronic) Shortness of Breath (Chronic) Nummular eczema (Chronic) Marijuana smoker (Chronic) Tobacco abuse (Chronic) Stress incontinence in female (Chronic) Chronic pain (Chronic) Osteoporosis (Chronic) Osteoarthritis (Chronic) IBS (irritable bowel syndrome) (Chronic) Hypertension, essential (Chronic) Hyperlipidemia (Chronic) Heartburn (Chronic) Fibromyalgia (Chronic) Fatigue (Chronic) Depression (Chronic) COPD (chronic obstructive pulmonary disease) (Chronic) Bone spur of foot (Chronic) Back pain (Chronic) Asthma (Chronic) Anxiety (Chronic) Medical History Abdominal pain Acute exacerbation of chronic obstructive airways disease Anxiety 2012. PHQ 9=21 12/31/15. Apnea Asthma 1995 Back pain 1999 Benign hypertension Bone spur of foot 2009 Bronchitis given h/o copd, treat with zithromax. Bronchitis Bronchitis Cellulitis Cholecystitis 2011 Chronic pain 01/31/2014 - Etiology unknown. On Vicodin, for same will try alternative meds, wean off if tolerated Chronic pain syndrome COPD (chronic obstructive pulmonary disease) COPD (chronic obstructive pulmonary disease) COPD exacerbation COPD with exacerbation Depression severe acute worsening, on refer to Emergency. Eczema Edema Edema of foot acute bilateral, h/o copd, get echo, get bnp and d dmier, start on lasix 20mg qd and KCL supplements, if worsens or does not respond advise to call back. Encounter for medication refill Fatigue 1982 Fibromyalgia 01/31/2014 - Positive symptoms and tender points, need to rule out inflammatory conditions. Check ESR, CRP, ASHLIE, Uric Acid levels, CBC, CMP Fibromyositis Gastritis Generalized anxiety disorder GERD (gastroesophageal reflux disease) Heartburn doing wel with prilosec, Hyperlipidemia On fenofibrate, TG now 197 better , LDL is 83 which is also better, pt does not want to use statin, Hypertension, essential BP stable, Will review previous medical records, Monitor for now, stop ateno lol, given copd, and try amlodipine. IBS (irritable bowel syndrome) 1982 Lumbar sprain Lung mass Versus lung abscess, CT chest 10/18/2020. Major depressive disorder Marijuana smoker advised to quit. Maxillary sinusitis, acute Mixed hypercholesterolemia and hypertriglyceridemia Myalgia 1983 Nocturnal hypoxemia Nonallopathic lesion of cervical region Nummular eczema treat with triamcinolone Obesity ATIF on CPAP Osteoarthritis Osteoporosis 02/21/2015 Rib fracture 01/02/2015 - Dr. Holland Shortness of Breath chr in nature, mild worsening, 2 pillow at night at times. Stress incontinence in female 01/31/2014 - Urination on cough, will address this later Tension type headache Thrombocytosis Tinea corporis Tobacco abuse Smoking: Counseled to quit - 40 pack year history , tried chantix, pt self stopped Upper respiratory infection Vitamin D deficiency Surgical History History of cholecystectomy (06/09/15) Dr. Stacey Pringle History of cholecystectomy (06/09/15) History of colonoscopy (08/12/15) 1982 History of hysterectomy 1982 History of laparoscopy 1982 History of laparoscopy (~1982) History of tonsillectomy 1976 History of tonsillectomy (~1976) History of total abdominal hysterectomy (~1982) History of tubal ligation 1973 History of tubal ligation (~1973) Family History Father Carcinoma in situ of bladder Grandmother Cerebrovascular accident Arthritis Essential hypertension Maternal Myocardial Infarction Maternal Brother Type 2 diabetes mellitus Unknown Family history of throat cancer Mother Arthritis Social History Smoking Status: Former smoker Alcohol Intake Frequency: a few times a month Substance Use: marijuana Exam Narrative Narrative: Narrative: General Limitations: no limitations General appearance: Present alert and in no apparent distress Head Head: Present atraumatic, normocephalic and normal inspection Eye Eye: Present normal appearance and EOMI; Absent conjunctival injection ENT ENT: Present normal exam and mucous membranes moist Neck Neck: Present normal inspection and trachea midline Respiratory Respiratory: Present normal lung sounds bilaterally; Absent respiratory distress Cardiovascular Cardiovascular: Present regular rate, normal rhythm and normal heart sounds Adbominal Abdominal: Present soft; Absent distention, tenderness, guarding and rebound Extremities Extremities: Present normal inspection; Absent tenderness Back Back: Present normal inspection, CVA tenderness (R) and CVA tenderness (L); Absent tenderness Neurological Neurological: Present alert, oriented X3 and CN II-XII intact; Absent motor sensory deficit Psychiatric Psychiatric: Present normal affect and normal mood Skin Skin: Present warm (WNL) and dry; Absent rash Course Vital Signs Vital signs: Vital Signs Temperature 101.0 F H 03/28/21 22:46 Pulse Rate 115 H 03/28/21 22:46 Respiratory Rate 30 H 03/28/21 22:46 Blood Pressure 175/75 03/28/21 22:46 Pulse Oximetry (%) 91 03/28/21 22:46 Temperature 101.1 F H 03/29/21 00:20 Pulse Rate 116 H 03/29/21 02:01 Respiratory Rate 24 H 03/29/21 02:01 Blood Pressure 150/78 03/29/21 02:01 Pulse Oximetry (%) 92 03/29/21 02:01 MDM MDM Narrative Medical decision making narrative: Narrative: Lab Data Result diagrams: 03/28/21 23:27 03/28/21 22:37 Labs: Lab Results 03/28/21 03/28/21 03/28/21 Range/Units 00:26 22:37 23:27 WBC 14.9 H (4.5-11.0) K/mcL RBC 4.68 (4.00-5.20) M/mcL Hgb 9.8 L (12.0-15.0) g/dL Hct 33.5 L (36.0-48.0) % MCV 71.6 L (80.0-100.0) fL MCH 20.9 L (26.0-34.0) pg MCHC 29.3 L (31.0-36.0) g/dL RDW 18.7 H (11.5-14.5) % Plt Count 300 (140-440) K/mcL MPV 10.7 H (7.4-10.4) fL Seg Neutrophils % 77 (38-78) % Band Neutrophils % 1 (0-10) % Lymphocytes % 16 (15-49) % Monocytes % (Manual) 4 (1-12) % Eosinophils % (Manual) 1 (0-7) % Basophils % (Manual) 1 (0-2) % Platelet Estimate Normal (Normal) RBC Morphology Abnormal A (Normal) Anisocytosis 1+ A (None Seen) VBG Lactic Acid 3.3 H (0.5-2.0) mmol/L Sodium 136 (133-145) mmol/L Potassium 3.7 (3.3-5.1) mmol/L Chloride 98 (96-108) mmol/L Carbon Dioxide 24 (22-30) mmol/L Anion Gap 14.0 (8.0-16.0) BUN 20 (8-23) mg/dL Creatinine 0.8 (0.6-1.1) mg/dL GFR Calculation 76 Glucose 99 (70-105) mg/dL Calcium 10.4 (8.6-10.4) mg/dL Total Bilirubin 0.5 (0.1-1.0) mg/dL AST 59 H (<32) U/L ALT 38 (<40) U/L Alkaline Phosphatase 85 (39-117) U/L Troponin T (<0.03) ng/mL Total Protein 7.7 (5.9-8.4) gm/dL Albumin 4.0 (3.2-5.2) gm/dL Globulin 3.7 (2.2-3.7) gm/dL Albumin/Globulin Ratio 1.1 (1.0-2.3) Urine Color Urine Appearance (Clear) Urine pH (5.0-9.0) Ur Specific [place] (1.000-1.035) Urine Protein (Negative) mg/dL Urine Glucose (UA) (Negative) mg/dL Urine Ketones (Negative) mg/dL Urine Occult Blood (Negative) mg/dL Urine Nitrate (Negative) Urine Bilirubin (Negative) mg/dL Urine Urobilinogen mg/dL Ur Leukocyte Esterase (Negative) /ug Urine RBC (0-3) /hpf Urine WBC (0-4) /hpf Ur Squamous Epith Cells (0-4) /hpf Urine Bacteria (0) /hpf Hyaline Casts (0-2) /[facility] 03/28/21 03/29/21 Range/Units 23:27 00:30 WBC (4.5-11.0) K/mcL RBC (4.00-5.20) M/mcL Hgb (12.0-15.0) g/dL Hct (36.0-48.0) % MCV (80.0-100.0) fL MCH (26.0-34.0) pg MCHC (31.0-36.0) g/dL RDW (11.5-14.5) % Plt Count (140-440) K/mcL MPV (7.4-10.4) fL Seg Neutrophils % (38-78) % Band Neutrophils % (0-10) % Lymphocytes % (15-49) % Monocytes % (Manual) (1-12) % Eosinophils % (Manual) (0-7) % Basophils % (Manual) (0-2) % Platelet Estimate (Normal) RBC Morphology (Normal) Anisocytosis (None Seen) VBG Lactic Acid (0.5-2.0) mmol/L Sodium (133-145) mmol/L Potassium (3.3-5.1) mmol/L Chloride (96-108) mmol/L Carbon Dioxide (22-30) mmol/L Anion Gap (8.0-16.0) BUN (8-23) mg/dL Creatinine (0.6-1.1) mg/dL GFR Calculation Glucose (70-105) mg/dL Calcium (8.6-10.4) mg/dL Total Bilirubin (0.1-1.0) mg/dL AST (<32) U/L ALT (<40) U/L Alkaline Phosphatase (39-117) U/L Troponin T < 0.01 (<0.03) ng/mL Total Protein (5.9-8.4) gm/dL Albumin (3.2-5.2) gm/dL Globulin (2.2-3.7) gm/dL Albumin/Globulin Ratio (1.0-2.3) Urine Color Yellow Urine Appearance Clear (Clear) Urine pH 7.0 (5.0-9.0) Ur Specific [place] 1.021 (1.000-1.035) Urine Protein Neg (Negative) mg/dL Urine Glucose (UA) >=500 A (Negative) mg/dL Urine Ketones Neg (Negative) mg/dL Urine Occult Blood Neg (Negative) mg/dL Urine Nitrate Neg (Negative) Urine Bilirubin Neg (Negative) mg/dL Urine Urobilinogen Neg mg/dL Ur Leukocyte Esterase Neg (Negative) /ug Urine RBC 2 (0-3) /hpf Urine WBC < 1 (0-4) /hpf Ur Squamous Epith Cells 0 (0-4) /hpf Urine Bacteria None (0) /hpf Hyaline Casts 1 (0-2) /lph ED POC Tests ED POC Tests: ANJELICA - SARS Antigen Negative CC TIME Critical Care Time Critical Care Time: Yes Total Critical Care Time: 30 Attestation: Approximately 30 minutes of critical care time was used in order to assess and manage the high probability of imminent or life threatening deterioration which required my highest level of preparedness and interventions with frequent patient assessments. This time is excluding time spent on separately billable procedures. The patient presents for evaluation of tachypnea, tachycardia and fever. The patient had suspected infection and met SIRS criteria. The patient was given IV antibiotics after blood cultures. Chest x-ray and subsequent CT scan of the chest abdomen pelvis showed large consolidation in the right base consistent with pneumonia. The patient does have a leukocytosis. The patient also has an elevated lactic acid at 3.3 consistent with severe sepsis. The patient was given supplemental oxygen and IV fluid. The rest of the labs are unremarkable. Urinalysis is unremarkable. I did discuss the case with the admitting hospitalist. We will admit the patient to the PCU floor. Discharge Plan Patient/Caregiver Discharge Instructions Pt seen by FOOD MIXER/PA only: No Clinical Impression: Fever, Pneumonia, Severe sepsis Patient Disposition: Xfer As Inpt ([facility]) Follow up with: Darleen Kemp ARNP [Primary Care Provider] - Prescriptions: No Action fenofibrate 160 mg tablet 160 mg PO QDAY Qty: 90 RF: 3 buspirone 15 mg tablet 15 mg PO TID RF: 0 triamcinolone acetonide 0.1 % ointment 1 applic TOPICAL BID Qty: 30 RF: 3 omeprazole 20 MG capsule 20 mg PO QDAY Qty: 90 RF: 3 potassium chloride 10 mEq capsule, extended release 20 meq PO QDAY RF: 0 azithromycin 250 mg tablet See Rx Instructions PO Q24H Qty: 6 RF: 0 ipratropium bromide 18 mcg/actuation aerosol 2 puff INHALATION BID RF: 0 ipratropium-albuterol 0.5 mg-3 mg(2.5 mg base)/3 mL solution for nebulization 3 ml INHALATION Q6H PRN (Reason: Shortness Of Breath) RF: 0 Prolia 60 mg/mL syringe 60 mg SUB-Q [id number] RF: 0 fluoxetine 20 MG tablet 80 mg PO DAILY RF: 0 Lactobacillus acidophilus Capsule 2,000 mmu cells PO BID Qty: 60 RF: 0 metformin 500 mg tablet extended release 24 hr 1,000 mg PO BID RF: 0 Jardiance 10 mg tablet 10 mg PO DAILY RF: 0 budesonide-formoterol [Symbicort] 160-4.5 mcg/actuation HFA aerosol inhaler 2 puff INHALATION BID RF: 0 montelukast 10 mg tablet 10 mg PO DAILY RF: 0 pregabalin 150 mg capsule 150 mg PO BID RF: 0 furosemide 40 mg tablet 40 mg PO BID RF: 0 albuterol sulfate [Ventolin HFA] 90 mcg/actuation HFA aerosol inhaler 2 puff INHALATION Q4-6HP PRN (Reason: Shortness Of Breath) RF: 0 Prolia 60 mg/mL Syringe See Rx Instructions .ROUTE .COMPLEX RF: 0 calcium carbonate [Calcium 500] 500 mg calcium (1,250 mg) Tablet 1,250 mg PO DAILY RF: 0 cholecalciferol (vitamin D3) [Vitamin D3] 125 mcg (5,000 unit) Tablet 125 mcg PO DAILY RF: 0 codeine-guaifenesin 10-100 mg/5 mL liquid 5 ml PO ONCE Qty: 473 RF: 0 prednisone 50 mg tablet 50 mg PO QDAY Qty: 4 RF: 0
[2021-03-29] MEDS ORDERED: ACETAMINOPHEN 325 MG TABLET PO ONE (00:01)
[2021-03-29] MEDS ORDERED: 0.9 % SODIUM CHLORIDE 1,000 ML IV ONE (00:23)
[2021-03-29 00:40] LABS: Hematocrit 33.5 % (36.0-48.0); Hemoglobin 9.8 g/dL (12.0-15.0); Mean Cell Volume 71.6 fL (80.0-100.0); Mean Corpuscular HGB Conc 29.3 g/dL (31.0-36.0); Mean Platelet Volume 10.7 fL (7.4-10.4); Platelet Count 300 K/mcL (140-440); RBC 4.68 M/mcL (4.00-5.20); Red Cell Distribution Width 18.7 % (11.5-14.5); WBC 14.9 K/mcL (4.5-11.0)
[2021-03-29 01:29] LABS: Appearance,Urine CLEAR (Clear); Bilirubin,Urine NEG (Negative); Color,Urine YELLOW; Glucose,Urine (UA) >=500 mg/dL (Negative); Ketones,Urine NEG (Negative); Leukocyte Esterase,Urine NEG /ug (Negative); Nitrate,Urine NEG (Negative); Protein,Urine NEG (Negative); Specific Gravity,Urine 1.021 (1.000-1.035); Urine Blood NEG (Negative); Urine Hyaline Cast 1 /lph (0-2); Urine RBC 2 /hpf (0-3); Urine Squamous Epithelial Cell 0 /hpf (0-4); Urine WBC < 1 /hpf (0-4); Urobilinogen,Urine NEG
[2021-03-29 01:33] LABS: ALT/SGPT 38 U/L (<40); AST/SGOT 59 U/L (<32); Albumin/Globulin Ratio 1.1 (1.0-2.3); Alkaline Phosphatase 85 U/L (39-117); Bilirubin,Total 0.5 mg/dL (0.1-1.0); Blood Urea Nitrogen 20 mg/dL (8-23); Calcium 10.4 mg/dL (8.6-10.4); Carbon Dioxide 24 mmol/L (22-30); Chloride 98 mmol/L (96-108); Globulin 3.7 gm/dL (2.2-3.7); Glomerular Filtration Rate 76; Glucose 99 mg/dL (70-105)
[2021-03-29 01:51] LABS: Anisocytosis 1+ (None Seen); Band Neutrophils % 1 % (0-10); Basophils % (Manual) 1 % (0-2); Eosinophils % (Manual) 1 % (0-7); Lymphocytes % 16 % (15-49); Monocytes % (Manual) 4 % (1-12); Platelet Estimate NORMAL (Normal); RBC Morphology ABNORMAL (Normal); Segmented Neutrophils % 77 % (38-78)
[2021-03-29] MEDS: BENZONATATE 100 MG CAPSULE PO PRN ×3 (03:57→19:12)
[2021-03-29] MEDS: ONDANSETRON 4 MG/2 ML VIAL IV PRN (04:50)
[2021-03-29] MEDS ORDERED: ONDANSETRON 4 MG/2 ML VIAL ONE (04:52)
[2021-03-29] MEDS ORDERED: BUTALB/ACETAMINOPHEN/CAFFEINE 1 TABLET PO ONE (05:00)
[2021-03-29] MEDS ORDERED: HYDROcodone/APAP 5/325MG TABLET PO ONE (05:49)
[2021-03-29] MEDS: HYDROcodone/APAP 5/325MG TABLET PO PRN ×5 (05:50→23:11)
--- NOTE | 2021-03-29 06:45 | XRay Report ---
INDICATION: sob and cough, fever TECHNIQUE: AP portable semierect chest x-ray COMPARISON: Previous chest x-rays dated 03/25/2021 and 03/14/2021 FINDINGS: Lungs:No focal pulmonary parenchymal consolidation or mass Heart, vascular:Probable mild cardiomegaly. Pulmonary vascularity is prominent. There is peribronchial thickening. Appearance is worse than on previous examination. Congestive heart failure and interstitial edema are suspected. Interstitial pneumonia is possible. Clinical correlation follow-up radiographs recommended. Mediastinum, lluvia:No mediastinal widening. No hilar mass Pleura:No pleural fluid. No pleural-based mass or calcification Skeletal:Negative. IMPRESSION: 1. Interstitial abnormality most consistent with interstitial edema. 2. No focal parenchymal consolidation. Interpreted and Authenticated by: Gaurav Cole 03/29/21
[2021-03-29] MEDS ORDERED: VANCOMYCIN PER PHARMACY IV SCH (07:27)
--- NOTE | 2021-03-29 07:35 | Internal Med History&Physical ---
HPI History of Present Illness Patient information: Note initiated : 03/29/21 at 7:21 am Service Date, if different from initiated Date: [] Patient: Kenia Sandoval a 65 y/o F admitted on 03/29/21 for SOB and fever. Chief Complaint: [] History of present illness: Ms. Sandoval is a 65 year old F Presented to the ED with shortness of breath and fever and bilateral flank pain and cough. Also known history of COPD. Symptoms been going on for past several weeks but over the past couple days much worse. She complains of fever chills productive cough of green sputum. Nausea. Work-up in the ED revealed pneumonia with sepsis right side pneumonia. An e levated lactate of 3.3. Review of Systems: Pertinent positives as above. Denies headache/nausea/vomiting/chest or abdominal pain/diarrhea. Remaining 10 point review of system reviewed negative PFSH PFSH All Active Problems (Updated 03/29/21 @ 02:28 by Jeremy Calloway MD) Fever (Acute) Pneumonia (Acute) Severe sepsis (Acute) Bronchitis (Acute) Acute viral syndrome (Acute) Acute exacerbation of chronic obstructive pulmonary disease (Acute) Maxillary sinusitis, acute (Acute) Chronic bronchitis (Acute) Thyroid nodule (Acute) Nocturnal hypoxemia (Acute) Lung mass (Acute) Community acquired pneumonia (Acute) COPD (chronic obstructive pulmonary disease) (Chronic) Hypochromic microcytic anemia (Acute) Acute UTI (urinary tract infection) (Acute) DDD (degenerative disc disease), lumbar (Acute) Acute low back pain (Acute) Drug side effects (Acute) Open T12 vertebral fracture (Acute) Back pain (Acute) Acute viral syndrome (Acute) Bronchitis (Acute) History of asthma (Acute) Small bowel obstruction (Acute) Small bowel obstruction (Acute) Chronic diarrhea of unknown origin (Acute) Abdominal pain (Acute) Nausea (Acute) Diarrhea (Acute) Irritable bowel syndrome with diarrhea (Acute) Nausea with vomiting, unspecified (Acute) Right otitis media (Acute) COPD exacerbation (Acute) Bronchitis (Acute) Bilateral hip joint arthritis (Acute) Hyperglycemia (Acute) ATIF on CPAP (Chronic) Nausea and vomiting in adult (Acute) Upper respiratory infection (Acute) Gastroenteritis (Acute) Lumbar sprain (Chronic) Edema (Chronic) Nonallopathic lesion of cervical region (Chronic) Fibromyositis (Chronic) Eczema (Chronic) GERD (gastroesophageal reflux disease) (Chronic) Benign hypertension (Chronic) Chronic pain syndrome (Chronic) Generalized anxiety disorder (Chronic) Major depressive disorder (Chronic) Obesity (Chronic) Mixed hypercholesterolemia and hypertriglyceridemia (Chronic) Vitamin D deficiency (Chronic) Thrombocytosis (Chronic) Upper respiratory infection (Acute) COPD (chronic obstructive pulmonary disease) (Acute) COPD with exacerbation (Acute) Encounter for medication refill (Acute) Acute exacerbation of chronic obstructive airways disease (Acute) Acute bronchitis (Acute) Heart palpitations (Acute) Tension type headache (Chronic) COPD exacerbation (Chronic) Edema of foot (Chronic) Shortness of Breath (Chronic) Nummular eczema (Chronic) Marijuana smoker (Chronic) Tobacco abuse (Chronic) Stress incontinence in female (Chronic) Chronic pain (Chronic) Osteoporosis (Chronic) Osteoarthritis (Chronic) IBS (irritable bowel syndrome) (Chronic) Hypertension, essential (Chronic) Hyperlipidemia (Chronic) Heartburn (Chronic) Fibromyalgia (Chronic) Fatigue (Chronic) Depression (Chronic) COPD (chronic obstructive pulmonary disease) (Chronic) Bone spur of foot (Chronic) Back pain (Chronic) Asthma (Chronic) Anxiety (Chronic) Medical History Abdominal pain Acute exacerbation of chronic obstructive airways disease Anxiety 2012. PHQ 9=21 12/31/15. Apnea Asthma 1995 Back pain 1999 Benign hypertension Bone spur of foot 2009 Bronchitis given h/o copd, treat with zithromax. Bronchitis Bronchitis Cellulitis Cholecystitis 2011 Chronic pain 01/31/2014 - Etiology unknown. On Vicodin, for same will try alternative meds, wean off if tolerated Chronic pain syndrome COPD (chronic obstructive pulmonary disease) COPD (chronic obstructive pulmonary disease) COPD exacerbation COPD with exacerbation Depression severe acute worsening, on refer to Emergency. Eczema Edema Edema of foot acute bilateral, h/o copd, get echo, get bnp and d dmier, start on lasix 20mg qd and KCL supplements, if worsens or does not respond advise to call back. Encounter for medication refill Fatigue 1983 Fibromyalgia 01/31/2014 - Positive symptoms and tender points, need to rule out inflammatory conditions. Check ESR, CRP, ASHLIE, Uric Acid levels, CBC, CMP Fibromyositis Gastritis Generalized anxiety disorder GERD (gastroesophageal reflux disease) Heartburn doing wel with prilosec, Hyperlipidemia On fenofibrate, TG now 197 better , LDL is 83 which is also better, pt does not want to use statin, Hypertension, essential BP stable, Will review previous medical records, Monitor for now, stop atenolol, given copd, and try amlodipine. IBS (irritable bowel syndrome) 1982 Lumbar sprain Lung mass Versus lung abscess, CT chest 10/18/2020. Major depressive disorder Marijuana smoker advised to quit. Maxillary sinusitis, acute Mixed hypercholesterolemia and hypertriglyceridemia Myalgia 1982 Nocturnal hypoxemia Nonallopathic lesion of cervical region Nummular eczema treat with triamcinolone Obesity ATIF on CPAP Osteoarthritis Osteoporosis 02/21/2015 Rib fracture 01/02/2015 - Dr. Holland Shortness of Breath chr in nature, mild worsening, 2 pillow at night at times. Stress incontinence in female 01/31/2014 - Urination on cough, will address this later Tension type headache Thrombocytosis Tinea corporis Tobacco abuse Smoking: Counseled to quit - 40 pack year history , tried chantix, pt self stopped Upper respiratory infection Vitamin D deficiency Surgical History History of cholecystectomy (06/09/15) Dr. Stacey Pringle History of cholecystectomy (06/09/15) History of colonoscopy (08/12/15) 1982 History of hysterectomy 1982 History of laparoscopy 1982 History of laparoscopy (~1982) History of tonsillectomy 1976 History of tonsillectomy (~1976) History of total abdominal hysterectomy (~1982) History of tubal ligation 1973 History of tubal ligation (~1973) Family History Father Carcinoma in situ of bladder Grandmother Cerebrovascular accident Arthritis Essential hypertension Maternal Myocardial Infarction Maternal Brother Type 2 diabetes mellitus Unknown Family history of throat cancer Mother Arthritis Social History adopted: No caregiver/support person: No foster care: No household members: alone housing: house lives independently: Yes marital status: education level: high school service: No fci: No occupational 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 pets and animals: Yes pets and animals: cat(s) and dog(s) hx recent travel: No sexually active: No alcohol intake frequency: a few times a month substance use type: marijuana seatbelt use: always working smoke detector in home: Yes firearms in home: No MEDS/ALLERGIES Home Medications and Allergies Home Medications Medication Instructions Recorded Confirmed Type buspirone 15 mg tablet 15 mg PO TID tab 04/17/15 03/29/21 History fenofibrate 160 mg tablet 160 mg PO QDAY #90 tab 05/23/15 03/29/21 Rx fluoxetine 20 mg tablet 80 mg PO DAILY tab 06/18/15 03/29/21 History omeprazole 20 mg capsule,delayed 20 mg PO QDAY #90 cap 07/18/15 03/29/21 Rx release triamcinolone acetonide 0.1 % 1 applic TOPICAL BID #30 g 07/18/15 03/29/21 Rx topical ointment potassium chloride 10 mEq 20 meq PO QDAY 10/21/15 03/29/21 History capsule,extended release ipratropium bromide 18 2 puff INHALATION BID 06/10/20 03/29/21 History mcg/actuation aerosol inhaler ipratropium 0.5 mg-albuterol 3 mg 3 ml INHALATION Q6H PRN 10/10/20 03/29/21 History (2.5 mg base)/3 mL nebulization soln Jardiance 10 mg PO DAILY 10/20/20 03/29/21 History Lactobacillus acidophilus 2,000 mmu cells PO BID #60 cap 10/20/20 03/29/21 Rx albuterol sulfate [Ventolin HFA] 2 puff INHALATION Q4-6HP PRN 10/20/20 03/29/21 History furosemide 40 mg PO BID 10/20/20 03/29/21 History metformin 1,000 mg PO BID 10/20/20 03/29/21 History montelukast 10 mg PO DAILY 10/20/20 03/29/21 History pregabalin 150 mg PO BID 10/20/20 03/29/21 History calcium carbonate [Calcium 500] 1,250 mg PO DAILY 10/21/20 03/29/21 History cholecalciferol (vitamin D3) 125 mcg PO DAILY 10/21/20 03/29/21 History [Vitamin D3] denosumab 60 mg/mL subcutaneous 60 mg SUB-Q [id number] 11/11/20 03/29/21 History syringe prednisone 50 mg PO QDAY #4 tab 03/25/21 03/29/21 Rx azithromycin 250 mg tablet See Rx Instructions PO Q24H #6 tab 03/27/21 03/29/21 Rx Allergies Allergy/AdvReac Type Severity Reaction Status Date / Time fluconazole [From Diflucan] Allergy Mild Hives Verified 03/28/21 22:57 bupropion AdvReac Intermediate psychotic Verified 03/28/21 22:57 episode diphenhydramine AdvReac Mild Vomiting Verified 03/28/21 22:57 [From Benadryl] guaifenesin [GUAIFENESIN] AdvReac Mild Itching Verified 03/28/21 22:57 sulfamethoxazole AdvReac Mild Flushing Verified 03/28/21 22:57 [From Sulfamethoprim] trimethoprim AdvReac Mild Flushing Verified 03/28/21 22:57 [From Sulfamethoprim] EXAM Constitutional Vitals: Temp Pulse Resp BP Pulse Ox 100.0 F H 112 H 24 H 145/80 91 03/29/21 05:54 03/29/21 06:01 03/29/21 06:01 03/29/21 06:01 03/29/21 06:01 Exam: General: Alert, Awake, No acute Distress Eyes/N/T: EOMI, PERRL, dry MM Head/Neck: neck supple, normocephalic atraumatic CV: RRR, No murmurs, normal s1/s2 Pulm: Diminished right base, mild rhonchi right and mild wheezing right Abd: soft, nontender, +BS x4 Ext: no clubbing/cyanosis/edema Neuro: Alert, no focal deficits, moves all extremities, CN 2-12 grossly intact, symmetrical strength b/l upper/lower, sensations intact b/l upper/lower Skin: warm/dry DATA Data Completed and Pending Labs: Labs from last 24 hours 03/29/21 03/28/21 03/28/21 00:30 23:27 23:27 WBC 14.9 H RBC 4.68 Hgb 9.8 L Hct 33.5 L MCV 71.6 L MCH 20.9 L MCHC 29.3 L RDW 18.7 H Plt Count 300 MPV 10.7 H Seg Neutrophils % 77 Band Neutrophils % 1 Lymphocytes % 16 Monocytes % (Manual) 4 Eosinophils % (Manual) 1 Basophils % (Manual) 1 Platelet Estimate Normal RBC Morphology Abnormal A Anisocytosis 1+ A VBG Lactic Acid Sodium Potassium Chloride Carbon Dioxide Anion Gap BUN Creatinine GFR Calculation Glucose Calcium Total Bilirubin AST ALT Alkaline Phosphatase Troponin T < 0.01 Total Protein Albumin Globulin Albumin/Globulin Ratio Urine Color Yellow Urine Appearance Clear Urine pH 7.0 Ur Specific [place] 1.021 Urine Protein Neg Urine Glucose (UA) >=500 A Urine Ketones Neg Urine Occult Blood Neg Urine Nitrate Neg Urine Bilirubin Neg Urine Urobilinogen Neg Ur Leukocyte Esterase Neg Urine RBC 2 Urine WBC < 1 Ur Squamous Epith Cells 0 Urine Bacteria None Hyaline Casts 1 03/28/21 03/28/21 22:37 00:26 WBC RBC Hgb Hct MCV MCH MCHC RDW Plt Count MPV Seg Neutrophils % Band Neutrophils % Lymphocytes % Monocytes % (Manual) Eosinophils % (Manual) Basophils % (Manual) Platelet Estimate RBC Morphology Anisocytosis VBG Lactic Acid 3.3 H Sodium 136 Potassium 3.7 Chloride 98 Carbon Dioxide 24 Anion Gap 14.0 BUN 20 Creatinine 0.8 GFR Calculation 76 Glucose 99 Calcium 10.4 Total Bilirubin 0.5 AST 59 H ALT 38 Alkaline Phosphatase 85 Troponin T Total Protein 7.7 Albumin 4.0 Globulin 3.7 Albumin/Globulin Ratio 1.1 Urine Color Urine Appearance Urine pH Ur Specific [place] Urine Protein Urine Glucose (UA) Urine Ketones Urine Occult Blood Urine Nitrate Urine Bilirubin Urine Urobilinogen Ur Leukocyte Esterase Urine RBC Urine WBC Ur Squamous Epith Cells Urine Bacteria Hyaline Casts Preliminary micro results at discharge 03/28/21 00:30 Blood Culture - Preliminary Blood 03/28/21 00:26 Blood Culture - Preliminary Blood A/P Narrative A/P Narrative: A: *Sepsis: 2/2 PNA -lactic acidosis *PNA (RLL): h/o MRSA/Pseudomonas pna *Acute hypoxic respiratory failure: -on 2L NC *COPD(not on home O2)/mild fibrosis: follows with [facility] *ATIF on CPAP: *CKD II: *Anemia microcytic, chronic: *Anxiety/depression: *HTN: *GERD: *chr back pain: *DM: *Tobacco abuse: P: -vanc/cefepime -Pending BC/SC -IS/Acapella, as needed nebs -home CPAP -SSI, hold home metformin -cont home psych, BP, PPI meds -recently quit smoking last week -PT/OT -Smoking cessation counseling -ppx: lovenox/home ppi DNR Time Spent With Patient Time: Total time spent is greater than 50% in coordination of care (as documented) at patient's floor/unit and/or counseling patient: QUALITY Stroke Symptom Onset Unknown: No VTE Deep Vein Thrombosis/Pulmonary Embolism Present on Admission: No
--- NOTE | 2021-03-29 08:25 | Cat Scan Report ---
INDICATION: flank pain, fever COMPARISON: Previous chest CT scan dated 12/13/2020. Previous abdominal and pelvic CT scan dated 09/30/2017 TECHNIQUE: Axial images were obtained through the chest,abdomen and pelvis. Sagittally and coronally reformatted images. 80ml Isovue 370 injected intravenously. Oral contrast material was not given FINDINGS: Examination was initially interpreted by [facility] Chest CT: Lungs:Right lower lobe consolidation consistent with pneumonia. No other focal pulmonary parenchymal abnormality. Mediastinum:No pathologic mediastinal adenopathy. No hilar mass. Thoracic aorta is normal without aneurysmal dilatation Heart:No significant cardiomegaly. No pericardial effusion Pleura:No pleural fluid. No pleural-based mass. No pleural calcifications Axilla, supraclavicular regions, chest wall:No pathologic axillary or supraclavicular adenopathy. There are thyroid nodules consistent with multinodular goiter. Patient has undergone previous thyroid ultrasound dated 12/26/2020 Musculoskeletal: Mild superior endplate compression deformity at T5. Otherwise negative thoracic spine. No compression fractures. No lytic lesions. No paraspinal mass Abdomen/Pelvis: Liver:Micronodular hepatic contour. This is consistent with cirrhosis. There is a 9 mm low-density abnormality in the right lobe of the liver. This is considered benign and is stable since 2017. No other focal intrahepatic abnormality. No evidence for hepatocellular carcinoma Gallbladder, bilary:Previous cholecystectomy. Common bile and measures 9 mm. No intrahepatic bile duct dilatation Spleen:There is splenomegaly. Spleen measures 13.1 x 9.0 x 18.3 cm. This is new since 09/30/2017. Splenic and portal veins are opacified. Portal vein measures 16 mm in cross-sectional diameter. There are multiple perisplenic and intraperitoneal varices. There is a recanalized umbilical vein. There is an umbilical hernia containing mesenteric fat and multiple varices. There are abdominal wall varices. Findings are consistent with portal hypertension Pancreas:No pancreatic mass. No peripancreatic abnormality Adrenal glands:Negative Kidneys, ureters, bladder:No solid renal mass. No hydronephrosis. No hydroureter. No ureteral stones Bladder is grossly negative. No bladder calculi Gastrointestinal:No detectable colonic mass. There is mild diverticulosis, no diverticulitis. Small bowel is negative. No mechanical small bowel obstruction. Stomach and duodenum are within normal limits Appendix: The appendix is negative Vascular:There is calcification of abdominal aorta. No abdominal or aneurysm. Celiac trunk and superior mesenteric artery are negative Lymphatic:There are small nonspecific para-aortic retroperitoneal lymph nodes. No pelvic adenopathy. No pathologic inguinal adenopathy. Mesentery, peritoneum:No free intraperitoneal fluid. No intra-abdominal abscess. No pneumoperitoneum Reproductive:Uterus is not visualized. No adnexal mass Musculoskeletal:History of T12 burst fracture with retropulsed fragment. Spine has been fused from T10 through L2. There is degenerative disc disease at L2-L3, L3-L4, L4-L5, L5-S1. No acute compression fractures. Sacrum and pelvis are negative. Hips are negative. There is an umbilical hernia. Hernia defect measures approximately 4.5 cm in cross-sectional diameter. Hernia contains fat and prominent veins. IMPRESSION: 1. Right lower lobe consolidation consistent with pneumonia 2. Micronodular contour of the liver. Splenomegaly and multiple varices consistent with portal hypertension 3. Previous cholecystectomy and hysterectomy 4. Umbilical hernia containing fat and varices 5. History T12 burst fracture 6. Multinodular goiter The exam was performed using radiation dose optimization techniques including, but not limited to, automated exposure control, adjustment of the mA and/or kV according to patient size and use of iterative reconstruction technique. Interpreted and Authenticated by: Gaurav Cole 03/29/21
[2021-03-29] MEDS: VANCOMYCIN 1,000 MG in 0.9 % SODIUM CHLORIDE 250 ML IV SCH ×2 (08:29→21:04)
[2021-03-29] MEDS: CEFEPIME 2 GM VIAL IV SCH ×2 (08:35→21:04)
[2021-03-29] MEDS ORDERED: ONDANSETRON 4 MG/2 ML VIAL IV PRN (08:52)
[2021-03-29] MEDS ORDERED: POLYETHYLENE GLYCOL 3350 17 GM PACKET PO PRN (08:52)
[2021-03-29] MEDS ORDERED: POTASSIUM CHLORIDE 40 MEQ in DEXTROSE 5% IN WATER 500 ML IV PRN (08:52)
[2021-03-29] MEDS ORDERED: METOCLOPRAMIDE 10 MG/2 ML VIAL IV PRN (08:52)
[2021-03-29] MEDS ORDERED: DEXTROSE 31 GM ORAL.SUSP PO PRN (08:52)
[2021-03-29] MEDS ORDERED: POTASSIUM CHLORIDE 20 MEQ TABLET PO PRN ×2 (08:52)
[2021-03-29] MEDS ORDERED: DEXTROSE 50% 50 ML VIAL IV PRN (08:52)
[2021-03-29] MEDS ORDERED: SENNOSIDES 1 TABLET PO PRN (08:52)
[2021-03-29] MEDS ORDERED: MAGNESIUM SULFATE 2 GM/50 ML BAG IV PRN (08:52)
[2021-03-29] MEDS: DOCUSATE SODIUM 100 MG CAPSULE PO SCH ×2 (09:19→21:05)
[2021-03-29] MEDS: IPRATROPIUM/ALBUTEROL 3 ML AMPUL.NEB NEB SCH ×2 (09:27→19:42)
[2021-03-29] MEDS: ACETAMINOPHEN 325 MG TABLET PO PRN (09:29)
[2021-03-29] MEDS: ENOXAPARIN 40 MG/0.4 ML SYRINGE SQ SCH (09:30)
[2021-03-29] MEDS: INSULIN LISPRO 1 UNIT/0.01 ML UNIT SQ SCH ×3 (12:42→21:14)
[2021-03-29] MEDS: 0.9 % SODIUM CHLORIDE 10 ML SYRINGE IV SCH ×2 (12:43→21:05)
[2021-03-29] MEDS: IPRATROPIUM/ALBUTEROL 3 ML AMPUL.NEB NEB PRN (19:42)
[2021-03-30] MEDS: HYDROcodone/APAP 5/325MG TABLET PO PRN ×5 (02:48→20:42)
[2021-03-30] MEDS: IPRATROPIUM/ALBUTEROL 3 ML AMPUL.NEB NEB PRN ×3 (02:48→11:55)
[2021-03-30] MEDS: 0.9 % SODIUM CHLORIDE 10 ML SYRINGE IV SCH ×3 (05:19→20:41)
[2021-03-30 06:38] LABS: Hemoglobin 8.6 g/dL (12.0-15.0); Mean Cell Volume 72.5 fL (80.0-100.0); Mean Corpuscular HGB Conc 28.7 g/dL (31.0-36.0); Mean Platelet Volume 10.6 fL (7.4-10.4); Platelet Count 212 K/mcL (140-440); RBC 4.14 M/mcL (4.00-5.20); Red Cell Distribution Width 18.6 % (11.5-14.5); WBC 16.3 K/mcL (4.5-11.0)
[2021-03-30 07:02] LABS: Iron 14 ug/dL (37-145); TIBC Calculation 370 ug/dl (228-428); Transferrin % Saturation 4 % (15-50)
[2021-03-30 07:07] LABS: Ferritin 66.9 ng/mL (30.0-400.0)
[2021-03-30 07:08] LABS: ALT/SGPT 28 U/L (<40); AST/SGOT 28 U/L (<32); Albumin 3.1 gm/dL (3.2-5.2); Albumin/Globulin Ratio 0.9 (1.0-2.3); Alkaline Phosphatase 71 U/L (39-117); Bilirubin,Direct 0.3 mg/dL (<0.3); Bilirubin,Total 0.6 mg/dL (0.1-1.0); Blood Urea Nitrogen 12 mg/dL (8-23); Calcium 9.2 mg/dL (8.6-10.4); Carbon Dioxide 21 mmol/L (22-30); Chloride 101 mmol/L (96-108); Globulin 3.4 gm/dL (2.2-3.7); Glomerular Filtration Rate 94; Glucose 152 mg/dL (70-105); Lactate Dehydrogenase 168 U/L (135-225); Phosphorous 2.6 mg/dL (2.5-4.5); Triglycerides 169 mg/dL (<150); Uric Acid 4.5 mg/dL (2.5-8.0)
--- NOTE | 2021-03-30 07:42 | Internal Med Progress Note ---
SUBJECTIVE Subjective Patient information: Note initiated : 03/30/21 at 7:40 am Service Date, if different from initiated Date: [] Patient: Kenia Sandoval a 65 y/o F admitted on 03/29/21 for SOB and fever. Chief Complaint: [] Interval history: History of present illness: Ms. Sandoval is a 65 year old F Presented to the ED with shortness of breath and fever and bilateral flank pain and cough. Also known history of COPD. Symptoms been going on for past several weeks but over the past couple days much worse. She complains of fever chills productive cough of green sputum. Nausea. Work-up in the ED revealed pneumonia with sepsis right side pneumonia. An elevated lactate of 3.3. 03/30 Patient says poor sleep because of headache with neck pain. Her cough productive of sputum. Shortness of breath waxes and wanes. Still waiting for sputum culture. States antibiotics give her diarrhea and she has some diarrhea. Review of Systems: denies fever/chills/nausea/vomiting/chest or abdominal pain/. Otherwise see above. Constitutional Vitals: Vital Signs Temp Pulse Resp BP Pulse Ox 99.2 F H 103 H 23 H 136/77 92 03/30/21 04:01 03/30/21 06:00 03/30/21 06:00 03/30/21 06:00 03/30/21 06:00 Period Temp Pulse Resp BP Sys/Miranda Pulse Ox Last 24 Hr 98.8 F-100.0 F 97-110 15-37 125-159/61-89 90-97 Intake and Output 03/29/21 03/30/21 03/30/21 21:59 05:59 13:59 Intake Total 360 250 Output Total 2049 Balance -[id number] Weight 70.987 kg Intake & Output: Intake & Output 03/29/21 03/30/21 03/30/21 21:59 05:59 13:59 Intake Total 360 250 Output Total 2049 Balance -1689 Weight 70.987 kg Intake: IV 250 Vancomycin 1,000 mg In Sodium 250 Chloride 0.9% 250 ml @ 250 mls/ hr IV Q12H [facility] Rx#:[id number] Oral 360 Output: Void Amount 2049 Other: Meal Dinner Percent of Meal Consumed 75% Feeding Ability Independent Urine Appearance Clear Clear Urine Color Bright Yellow Bright Yellow Urine Odor Normal Normal Stool Size Moderate Small Stool Color Brown Brown Stool Consistency Loose Soft # Bowel Movements 1 1 Exam: General: Alert, Awake, No acute Distress Eyes/N/T: EOMI, Head/Neck: neck supple, CV: RRR, No murmurs, Pulm: Diminished right base, mild rhonchi right and mild wheezing b/l Abd: soft, nontender, +BS x4 Ext: no clubbing/cyanosis/edema Neuro: Alert, no focal deficits, moves all extremities, Skin: warm/dry OBJ DATA Labs CBC & Chem 7: 03/30/21 05:21 03/30/21 05:21 Labs: Abnormal Lab Results 03/30/21 03/30/21 03/29/21 05:21 05:21 07:48 WBC 16.3 H Hgb 8.6 L Hct 30.0 L MCV 72.5 L MCH 20.8 L MCHC 28.7 L RDW 18.6 H MPV 10.6 H RBC Morphology Anisocytosis VBG Lactic Acid Carbon Dioxide 21 L Glucose 152 H Iron 14 L Unsat Iron Binding 356 H Transferrin % Sat 4 L Direct Bilirubin 0.3 H GGT 82 H AST C-Reactive Protein 8.20 H Albumin 3.1 L Albumin/Globulin Ratio 0.9 L Triglycerides 169 H Procalcitonin Urine Glucose (UA) 03/29/21 03/29/21 03/28/21 07:48 00:30 23:27 WBC 14.9 H Hgb 9.8 L Hct 33.5 L MCV 71.6 L MCH 20.9 L MCHC 29.3 L RDW 18.7 H MPV 10.7 H RBC Morphology Abnormal A Anisocytosis 1+ A VBG Lactic Acid Carbon Dioxide Glucose Iron Unsat Iron Binding Transferrin % Sat Direct Bilirubin GGT AST C-Reactive Protein Albumin Albumin/Globulin Ratio Triglycerides Procalcitonin 0.76 H Urine Glucose (UA) >=500 A 03/28/21 03/28/21 22:37 00:26 WBC Hgb Hct MCV MCH MCHC RDW MPV RBC Morphology Anisocytosis VBG Lactic Acid 3.3 H Carbon Dioxide Glucose Iron Unsat Iron Binding Transferrin % Sat Direct Bilirubin GGT AST 59 H C-Reactive Protein Albumin Albumin/Globulin Ratio Triglycerides Procalcitonin Urine Glucose (UA) Meds: Medications Acetaminophen (Acetaminophen 325 Mg Tablet) 650 mg PO Q6HP PRN PRN Reason: PAIN/FEVER > 101 Last Admin: 03/29/21 09:29 Dose: 650 mg Documented by: Hydrocodone Bitart/Acetaminophen (Hydrocodone/Apap 5/325mg Tablet) 1 tab PO Q4HP PRN; Protocol PRN Reason: Per Pain Protocol Last Admin: 03/30/21 02:48 Dose: 1 tab Documented by: Albuterol/Ipratropium (Ipratropium/Albuterol 3 Ml Ampul.Neb) 3 ml NEB Q4HP PRN PRN Reason: Shortness Of Breath Last Admin: 03/30/21 02:48 Dose: 3 ml Documented by: Albuterol/Ipratropium (Ipratropium/Albuterol 3 Ml Ampul.Neb) 3 ml NEB Q12 ALEJANDRO Last Admin: 03/29/21 19:42 Dose: 3 ml Documented by: Benzonatate (Benzonatate 100 Mg Capsule) 200 mg PO TIDP PRN PRN Reason: Cough Last Admin: 03/29/21 19:12 Dose: 200 mg Documented by: Cefepime HCl (Cefepime 2 Gm Vial) 2 gm IV Q12H [facility]; Protocol Last Admin: 03/29/21 21:04 Dose: 2 gm Documented by: Dextrose (Dextrose 50% 50 Ml Vial) 0 ml IV UD PRN PRN Reason: Hypoglycemia Diagnostic Test (Pha) (Accu-Chek 1 Each Strip) 1 each FS ACHS [facility] Last Admin: 03/29/21 21:14 Dose: 1 each Documented by: Docusate Sodium (Docusate Sodium 100 Mg Capsule) 100 mg PO BID [facility] Last Admin: 03/29/21 21:05 Dose: Not Given Documented by: Enoxaparin Sodium (Enoxaparin 40 Mg/0.4 Ml Syringe) 40 mg SQ DAILY [facility] Last Admin: 03/29/21 09:30 Dose: 40 mg Documented by: Glucose (Dextrose 31 Gm Oral.Susp) 15 gm PO PRN PRN PRN Reason: Hypoglycemia Vancomycin HCl 1,000 mg/ (Sodium Chloride) 250 mls @ 250 mls/hr IV Q12H [facility] Last Infusion: 03/29/21 23:00 Dose: Infused Documented by: Potassium Chloride 40 meq/ (Dextrose) 520 mls @ 130 mls/hr IV UD PRN PRN Reason: Potassium < 3 Magnesium Sulfate (Magnesium Sulfate) 2 gm in 50 mls @ 50 mls/hr IV UD PRN PRN Reason: Magnesium </= 1.6 Insulin Human Lispro (Insulin Lispro 1 Unit/0.01 Ml Unit) 0 unit SQ ACHS [facility]; Protocol Last Admin: 03/29/21 21:14 Dose: 4 unit Documented by: Metoclopramide HCl (Metoclopramide 10 Mg/2 Ml Vial) 10 mg IV Q6HP PRN PRN Reason: Nausea And Vomiting Ondansetron HCl (Ondansetron 4 Mg/2 Ml Vial) 4 mg IV Q4HP PRN PRN Reason: Nausea And Vomiting Last Admin: 03/29/21 04:50 Dose: 4 mg Documented by: Ondansetron HCl (Ondansetron 4 Mg/2 Ml Vial) 4 mg IV Q4HP PRN PRN Reason: Nausea And Vomiting Polyethylene Glycol (Polyethylene Glycol 3350 17 Gm Packet) 17 gm PO DAILYP PRN PRN Reason: Constipation Potassium Chloride (Potassium Chloride 20 Meq Tablet) 40 meq PO UD PRN PRN Reason: Potssium is 3-3.5 Potassium Chloride (Potassium Chloride 20 Meq Tablet) 40 meq PO UD PRN PRN Reason: Potassium < 3 Senna (Sennosides 1 Tablet) 2 tab PO DAILYP PRN PRN Reason: Constipation Sodium Chloride (0.9 % Sodium Chloride 10 Ml Syringe) 10 ml IV Q8 ALEJANDRO Last Admin: 03/30/21 05:19 Dose: 10 ml Documented by: Vancomycin HCl (Vancomycin Per Pharmacy) 1 order IV UD [facility]; Protocol A/P Narrative A/P Narrative: A: *Sepsis: 2/2 PNA -with lactic acidosis *PNA (RLL): h/o MRSA/Pseudomonas pna *Acute hypoxic respiratory failure: -on 2-3L NC *COPD(not on home O2)/mild fibrosis: follows with Jj *ATIF on CPAP: *CKD II: *Anemia microcytic, chronic: SANTI *Anxiety/depression: *HTN: *GERD: *chr back pain: *DM: *Tobacco abuse: P: -vanc/cefepime, Pending BC/SC -IS/Acapella, as needed nebs -home CPAP -SSI, hold home metformin -cont home psych, BP, PPI meds -start iron supp -recently quit smoking last week -PT/OT -Smoking cessation counseling -ppx: lovenox/home ppi DNR Time Spent With Patient Time: Total time spent is greater than 50% in coordination of care (as doc umented) at patient's floor/unit and/or counseling patient: QUALITY Stroke Symptom Onset Unknown: No VTE Deep Vein Thrombosis/Pulmonary Embolism Present on Admission: No
[2021-03-30 07:57] LABS: Anisocytosis 1+ (None Seen); Band Neutrophils % 1 % (0-10); Eosinophils % (Manual) 1 % (0-7); Lymphocytes % 8 % (15-49); Monocytes % (Manual) 4 % (1-12); Platelet Estimate NORMAL (Normal); RBC Morphology ABNORMAL (Normal); Segmented Neutrophils % 86 % (38-78)
[2021-03-30] MEDS: BENZONATATE 100 MG CAPSULE PO PRN (08:20)
[2021-03-30] MEDS ORDERED: predniSONE 20 MG TABLET PO ONE (08:28)
[2021-03-30] MEDS: INSULIN LISPRO 1 UNIT/0.01 ML UNIT SQ SCH ×4 (08:47→20:54)
[2021-03-30] MEDS: DOCUSATE SODIUM 100 MG CAPSULE PO SCH ×2 (08:48→20:01)
[2021-03-30] MEDS: ONDANSETRON 4 MG/2 ML VIAL IV PRN ×2 (08:53→16:30)
[2021-03-30] MEDS: VANCOMYCIN 1,000 MG in 0.9 % SODIUM CHLORIDE 250 ML IV SCH ×2 (09:00→20:41)
[2021-03-30] MEDS: CEFEPIME 2 GM VIAL IV SCH ×2 (09:03→20:41)
[2021-03-30] MEDS: ENOXAPARIN 40 MG/0.4 ML SYRINGE SQ SCH (09:23)
[2021-03-30] MEDS: IRON POLYSACCHARIDE COMPLEX 150 MG CAPSULE PO SCH ×2 (09:26→20:41)
[2021-03-30] MEDS: BUTALB/ACETAMINOPHEN/CAFFEINE 1 TABLET PO PRN (11:40)
[2021-03-30] MEDS: IPRATROPIUM/ALBUTEROL 3 ML AMPUL.NEB NEB SCH ×2 (16:07→21:23)
[2021-03-31] MEDS: HYDROcodone/APAP 5/325MG TABLET PO PRN ×5 (01:03→20:18)
[2021-03-31] MEDS: 0.9 % SODIUM CHLORIDE 10 ML SYRINGE IV SCH ×3 (05:10→20:19)
[2021-03-31 06:39] LABS: Hematocrit 30.1 % (36.0-48.0); Hemoglobin 8.7 g/dL (12.0-15.0); Mean Cell Volume 71.7 fL (80.0-100.0); Mean Corpuscular HGB Conc 28.9 g/dL (31.0-36.0); Mean Platelet Volume 10.4 fL (7.4-10.4); Platelet Count 237 K/mcL (140-440); Red Cell Distribution Width 18.4 % (11.5-14.5); WBC 12.6 K/mcL (4.5-11.0)
[2021-03-31 06:57] LABS: ALT/SGPT 26 U/L (<40); AST/SGOT 35 U/L (<32); Albumin 3.1 gm/dL (3.2-5.2); Albumin/Globulin Ratio 0.9 (1.0-2.3); Alkaline Phosphatase 84 U/L (39-117); Bilirubin,Total 0.4 mg/dL (0.1-1.0); Blood Urea Nitrogen 13 mg/dL (8-23); Calcium 8.9 mg/dL (8.6-10.4); Carbon Dioxide 23 mmol/L (22-30); Chloride 104 mmol/L (96-108); Globulin 3.6 gm/dL (2.2-3.7); Glomerular Filtration Rate 100; Glucose 122 mg/dL (70-105); Iron 19 ug/dL (37-145); TIBC Calculation 339 ug/dl (228-428); Transferrin % Saturation 6 % (15-50)
[2021-03-31] MEDS: IPRATROPIUM/ALBUTEROL 3 ML AMPUL.NEB NEB SCH ×3 (07:28→23:23)
[2021-03-31 07:57] LABS: Anisocytosis 1+ (None Seen); Hypochromasia 1+ (None Seen); Lymphocytes % 10 % (15-49); Microcytosis 1+ (None Seen); Monocytes % (Manual) 6 % (1-12); Platelet Estimate NORMAL (Normal); RBC Morphology ABNORMAL (Normal); Segmented Neutrophils % 84 % (38-78)
[2021-03-31] MEDS: INSULIN LISPRO 1 UNIT/0.01 ML UNIT SQ SCH ×4 (08:29→20:44)
[2021-03-31] MEDS: DOCUSATE SODIUM 100 MG CAPSULE PO SCH ×2 (08:30→20:15)
[2021-03-31] MEDS: VANCOMYCIN 1,000 MG in 0.9 % SODIUM CHLORIDE 250 ML IV SCH ×2 (08:42→20:19)
[2021-03-31] MEDS: CEFEPIME 2 GM VIAL IV SCH ×2 (08:43→20:17)
[2021-03-31] MEDS: ACETAMINOPHEN 325 MG TABLET PO PRN (08:43)
[2021-03-31] MEDS: ENOXAPARIN 40 MG/0.4 ML SYRINGE SQ SCH (08:43)
[2021-03-31] MEDS: IRON POLYSACCHARIDE COMPLEX 150 MG CAPSULE PO SCH ×2 (08:48→20:17)
[2021-03-31] MEDS: BENZONATATE 100 MG CAPSULE PO PRN ×2 (08:48→17:44)
[2021-03-31] MEDS: BUTALB/ACETAMINOPHEN/CAFFEINE 1 TABLET PO PRN ×2 (08:48→17:44)
--- NOTE | 2021-03-31 18:48 | Internal Med Progress Note ---
SUBJECTIVE Subjective Patient information: Note initiated : 03/31/21 at 6:29 pm Service Date, if different from initiated Date: [] Patient: Kenia Sandoval a 65 y/o F admitted on 03/29/21 for SOB and fever. Chief Complaint: [Pneumonia] History of present illness: Ms. Sandoval is a 65 year old F Presented to the ED with shortness of breath and fever and bilateral flank pain and cough. Also known history of COPD. Symptoms been going on for past several weeks but over the past couple days much worse. She complains of fever chills productive cough of green sputum. Nausea. Work-up in the ED revealed pneumonia with sepsis right side pneumonia. An elevated lactate of 3.3. 03/30 Patient says poor sleep because of headache with neck pain. Her cough productive of sputum. Shortness of breath waxes and wanes. Still waiting for sputum culture. States antibiotics give her diarrhea and she has some diarrhea. 03/31: Afebrile. Been on supplemental oxygen, 2.5L today. c/o shortness of breath. c/o wheezing. c/o productive cough. c/o fever and chills. Constitutional Vitals: Vital Signs Temp Pulse Resp BP Pulse Ox 37.1 C 98 H 24 H 135/73 95 03/31/21 16:01 03/31/21 14:25 03/31/21 18:03 03/31/21 18:01 03/31/21 18:03 Period Temp Pulse Resp BP Sys/Miranda Pulse Ox Last 24 Hr 36.2 C-37.1 C 86-98 16-27 106-162/57-98 91-97 Intake and Output 03/31/21 03/31/21 03/31/21 05:59 13:59 21:59 Intake Total 650 610 240 Output Total 575 850 450 Balance 75 -240 -210 Intake & Output: Intake & Output 03/31/21 03/31/21 03/31/21 05:59 13:59 21:59 Intake Total 650 610 240 Output Total 575 850 450 Balance 75 -240 -210 Intake: IV 250 250 Vancomycin 1,000 mg In Sodium 250 250 Chloride 0.9% 250 ml @ 250 mls/ hr IV Q12H ALEJANDRO Rx#:[id number] Oral 400 360 240 Output: Void Amount 575 850 450 Other: Meal Breakfast Lunch Percent of Meal Consumed 50% 100% Feeding Ability Independent Urine Appearance Clear Clear Clear Urine Color Bright Yellow Dark Yellow Dark Yellow Urine Odor Strong Strong Stool Size Small Small Stool Color Brown Brown Stool Consistency Soft Soft Formed # Bowel Movements 1 3 General appearance: cooperative and no acute distress Head Head exam: Present atraumatic and normocephalic Eye Eye exam: Present EOMI and PERRL ENT ENT exam: Present mucous membranes moist, normal exam and normal external ear exam Additional comments: Nasal cannula in place Neck Neck exam: Present normal inspection; Absent lymphadenopathy, tenderness and thyromegaly Respiratory Respiratory exam: Present wheezes; Absent accessory muscle use and respiratory distress Additional comments: Expiratory wheezing bilateral apexes Decreased breath sound bilateral lung bases Cardiovascular Cardiovascular exam: Present normal rate and rhythm; Absent JVD GI/Abdominal GI/Abdominal exam: Present normal bowel sounds and soft; Absent organomegaly and tenderness Extremities Exam Extremities exam: Present full ROM, normal capillary refill and normal inspection; Absent tenderness Neurological Exam Neurological exam: Present alert, CN II-XII intact and oriented X3; Absent motor sensory deficit Psychiatric Psychiatric exam: Present normal affect and normal mood; Absent anxious and depressed Skin Skin exam: Present dry and intact OBJ DATA Labs CBC & Chem 7: 03/31/21 05:35 03/31/21 05:35 Labs: Abnormal Lab Results 03/31/21 03/31/21 03/31/21 05:36 05:35 05:35 WBC 12.6 H Hgb 8.7 L Hct 30.1 L MCV 71.7 L MCH 20.7 L MCHC 28.9 L RDW 18.4 H MPV Seg Neutrophils % 84 H Lymphocytes % 10 L RBC Morphology Abnormal A Hypochromasia 1+ A Anisocytosis 1+ A Microcytosis 1+ A VBG Lactic Acid Carbon Dioxide Creatinine 0.5 L Glucose 122 H Iron 19 L Unsat Iron Binding Transferrin % Sat 6 L Direct Bilirubin GGT AST 35 H C-Reactive Protein 13.90 H Albumin 3.1 L Albumin/Globulin Ratio 0.9 L Triglycerides Procalcitonin Urine Glucose (UA) 03/31/21 03/30/21 03/30/21 05:35 05:21 05:21 WBC 16.3 H Hgb 8.6 L Hct 30.0 L MCV 72.5 L MCH 20.8 L MCHC 28.7 L RDW 18.6 H MPV 10.6 H Seg Neutrophils % 86 H Lymphocytes % 8 L RBC Morphology Abnormal A Hypochromasia Anisocytosis 1+ A Microcytosis VBG Lactic Acid Carbon Dioxide 21 L Creatinine Glucose 152 H Iron 14 L Unsat Iron Binding 356 H Transferrin % Sat 4 L Direct Bilirubin 0.3 H GGT 82 H AST C-Reactive Protein Albumin 3.1 L Albumin/Globulin Ratio 0.9 L Triglycerides 169 H Procalcitonin 0.49 H Urine Glucose (UA) 03/29/21 03/29/21 03/29/21 07:48 07:48 00:30 WBC Hgb Hct MCV MCH MCHC RDW MPV Seg Neutrophils % Lymphocytes % RBC Morphology Hypochromasia Anisocytosis Microcytosis VBG Lactic Acid Carbon Dioxide Creatinine Glucose Iron Unsat Iron Binding Transferrin % Sat Direct Bilirubin GGT AST C-Reactive Protein 8.20 H Albumin Albumin/Globulin Ratio Triglycerides Procalcitonin 0.76 H Urine Glucose (UA) >=500 A 03/28/21 03/28/21 03/28/21 23:27 22:37 00:26 WBC 14.9 H Hgb 9.8 L Hct 33.5 L MCV 71.6 L MCH 20.9 L MCHC 29.3 L RDW 18.7 H MPV 10.7 H Seg Neutrophils % Lymphocytes % RBC Morphology Abnormal A Hypochromasia Anisocytosis 1+ A Microcytosis VBG Lactic Acid 3.3 H Carbon Dioxide Creatinine Glucose Iron Unsat Iron Binding Transferrin % Sat Direct Bilirubin GGT AST 59 H C-Reactive Protein Albumin Albumin/Globulin Ratio Triglycerides Procalcitonin Urine Glucose (UA) Meds: Medications Acetaminophen (Acetaminophen 325 Mg Tablet) 650 mg PO Q6HP PRN PRN Reason: PAIN/FEVER > 101 Last Admin: 03/31/21 08:43 Dose: 650 mg Documented by: Acetaminophen/Butalbital/Caffeine (Butalb/Acetaminophen/Caffeine 1 Tablet) 1 tab PO Q6HP PRN PRN Reason: Headache Last Admin: 03/31/21 17:44 Dose: 1 tab Documented by: Hydrocodone Bitart/Acetaminophen (Hydrocodone/Apap 5/325mg Tablet) 1 tab PO Q4HP PRN; Protocol PRN Reason: Per Pain Protocol Last Admin: 03/31/21 14:40 Dose: 1 tab Documented by: Albuterol/Ipratropium (Ipratropium/Albuterol 3 Ml Ampul.Neb) 3 ml NEB Q4HP PRN PRN Reason: Shortness Of Breath Last Admin: 03/30/21 11:55 Dose: 3 ml Documented by: Albuterol/Ipratropium (Ipratropium/Albuterol 3 Ml Ampul.Neb) 3 ml NEB Q8H ALEJANDRO Last Admin: 03/31/21 14:25 Dose: 3 ml Documented by: Benzonatate (Benzonatate 100 Mg Capsule) 200 mg PO TIDP PRN PRN Reason: Cough Last Admin: 03/31/21 17:44 Dose: 200 mg Documented by: Cefepime HCl (Cefepime 2 Gm Vial) 2 gm IV Q12H [facility]; Protocol Last Admin: 03/31/21 08:43 Dose: 2 gm Documented by: Dextrose (Dextrose 50% 50 Ml Vial) 0 ml IV UD PRN PRN Reason: Hypoglycemia Diagnostic Test (Pha) (Accu-Chek 1 Each Strip) 1 each FS [facility] Last Admin: 03/31/21 17:44 Dose: 1 each Documented by: Docusate Sodium (Docusate Sodium 100 Mg Capsule) 100 mg PO BID [facility] Last Admin: 03/31/21 08:30 Dose: Not Given Documented by: Enoxaparin Sodium (Enoxaparin 40 Mg/0.4 Ml Syringe) 40 mg SQ DAILY [facility] Last Admin: 03/31/21 08:43 Dose: 40 mg Documented by: Glucose (Dextrose 31 Gm Oral.Susp) 15 gm PO PRN PRN PRN Reason: Hypoglycemia Vancomycin HCl 1,000 mg/ (Sodium Chloride) 250 mls @ 250 mls/hr IV Q12H [facility] Last Infusion: 03/31/21 09:55 Dose: Infused Documented by: Potassium Chloride 40 meq/ (Dextrose) 520 mls @ 130 mls/hr IV UD PRN PRN Reason: Potassium < 3 Magnesium Sulfate (Magnesium Sulfate) 2 gm in 50 mls @ 50 mls/hr IV UD PRN PRN Reason: Magnesium </= 1.6 Insulin Human Lispro (Insulin Lispro 1 Unit/0.01 Ml Unit) 0 unit SQ [facility]; Protocol Last Admin: 03/31/21 17:45 Dose: Not Given Documented by: Metoclopramide HCl (Metoclopramide 10 Mg/2 Ml Vial) 10 mg IV Q6HP PRN PRN Reason: Nausea And Vomiting Ondansetron HCl (Ondansetron 4 Mg/2 Ml Vial) 4 mg IV Q4HP PRN PRN Reason: Nausea And Vomiting Last Admin: 03/30/21 16:30 Dose: 4 mg Documented by: Ondansetron HCl (Ondansetron 4 Mg/2 Ml Vial) 4 mg IV Q4HP PRN PRN Reason: Nausea And Vomiting Polyethylene Glycol (Polyethylene Glycol 3350 17 Gm Packet) 17 gm PO DAILYP PRN PRN Reason: Constipation Polysaccharide Iron Complex (Iron Polysaccharide Complex 150 Mg Capsule) 150 mg PO BID [facility] Last Admin: 03/31/21 08:48 Dose: 150 mg Documented by: Potassium Chloride (Potassium Chloride 20 Meq Tablet) 40 meq PO UD PRN PRN Reason: Potssium is 3-3.5 Last Admin: 03/30/21 14:37 Dose: 40 meq Documented by: Potassium Chloride (Potassium Chloride 20 Meq Tablet) 40 meq PO UD PRN PRN Reason: Potassium < 3 Senna (Sennosides 1 Tablet) 2 tab PO DAILYP PRN PRN Reason: Constipation Sodium Chloride (0.9 % Sodium Chloride 10 Ml Syringe) 10 ml IV Q8 [facility] Last Admin: 03/31/21 14:45 Dose: 10 ml Documented by: Vancomycin HCl (Vancomycin Per Pharmacy) 1 order IV UD [facility]; Protocol A/P Assessment and plan (1) Pneumonia: Status: Acute (2) Acute exacerbation of chronic obstructive pulmonary disease: Status: Acute (3) Acute on chronic respiratory failure with hypoxia: Status: Acute (4) Tobacco abuse: Status: Chronic Comment: Smoking: Counseled to quit - 40 pack year history , tried chantix, pt self stopped (5) ATIF on CPAP: Status: Chronic (6) Benign hypertension: Status: Chronic (7) Mixed hypercholesterolemia and hypertriglyceridemia: Status: Chronic (8) GERD (gastroesophageal reflux disease): Status: Chronic Qualifiers: Esophagitis presence: esophagitis presence not specified Qualified Code(s): K21.9 - Gastro-esophageal reflux disease without esophagitis (9) Generalized anxiety disorder: Status: Chronic (10) Major depressive disorder: Status: Chronic Qualifiers: Major depression recurrence: recurrent Active/Remission status: currently active Major depression episode severity: moderate Qualified Code(s): F33.1 - Major depressive disorder, recurrent, moderate; F33.1 - Major depressive disorder, recurrent, moderate; F33.1 - Major depressive disorder, recurrent, moderate; F33.1 - Major depressive disorder, recurrent, moderate Narrative A/P Narrative: 1. Acute on chronic respiratory failure, secondary to pneumonia and COPD exacerbation: Transfer from inpatient PCU to med surg Sputum culture and blood cultures pending h/o pneumonia with positive sputum culture of k pneumoniae and pseudomonas 2 weeks ago Currently on 2.5L supplemental oxygen via nasal cannula-->likely will need home oxygen. Will prescribe home oxygen upon hospital discharge Currently on Vancomycin and Cefepime. Will need to check with pharmacy upon discharge for any options for oral antibiotics; if not, will need PICC/midline placement for half-way IV antibiotics therapy Prednisone and bronchodilators for COPD exacerbation cbc w/ auto diff in the morning to trend WBC Patient refuses SNF placement 2. Microcytic and hypochromic anemia associated with iron deficiency: Continue iron oral replacement cbc w/ auto diff in the morning to trend H/H; transfuse pRBC if hemoglobin <7.0, active bleeding, or symptomatic 3. Current tobacco use: Nicotine replacement therapy available for cigarette craving Advise patient to quit cigarette smoking 4. ATIF on CPAP: CPAP at night while sleeping 5. Essential HTN: Lasix PO 6. Mixed dyslipidemia: Fenofibrate 7. GERD: Continue oral PPI from home regimen 8. Anxiety with depression: Buspirone Fluoxetine GI ppx: Continue oral PPI from home regimen DVT ppx: Lovenox Code status: DNI DNR Prognosis: stable Disposition: transfer to inpatient med surg Time Spent With Patient Time: Total time spent is greater than 50% in coordination of care (as documented) at patient's floor/unit and/or counseling patient: Total time spent with greater than 50% in coordination of care (as documented) at patient's floor/unit and/or counseling patient:: 25 - 35 minutes QUALITY Stroke Symptom Onset Unknown: No VTE Deep Vein Thrombosis/Pulmonary Embolism Present on Admission: No
[2021-03-31] MEDS ORDERED: IPRATROPIUM/ALBUTEROL 3 ML AMPUL.NEB NEB PRN (18:57)
[2021-03-31] MEDS ORDERED: POTASSIUM CHLORIDE 20 MEQ TABLET PO PRN ×2 (18:57)
[2021-03-31] MEDS ORDERED: DEXTROSE 50% 50 ML VIAL IV PRN (18:57)
[2021-03-31] MEDS ORDERED: DENOSUMAB 60 MG/ML SYRINGE SQ SCH (18:57)
[2021-03-31] MEDS ORDERED: METOCLOPRAMIDE 10 MG/2 ML VIAL IV PRN (18:57)
[2021-03-31] MEDS ORDERED: ONDANSETRON 4 MG/2 ML VIAL IV PRN (18:57)
[2021-03-31] MEDS ORDERED: DEXTROSE 31 GM ORAL.SUSP PO PRN (18:57)
[2021-03-31] MEDS ORDERED: BUTALB/ACETAMINOPHEN/CAFFEINE 1 TABLET PO PRN (18:57)
[2021-03-31] MEDS ORDERED: POTASSIUM CHLORIDE 40 MEQ in DEXTROSE 5% IN WATER 500 ML IV PRN (18:57)
[2021-03-31] MEDS ORDERED: MAGNESIUM SULFATE 2 GM/50 ML BAG IV PRN (18:57)
[2021-03-31] MEDS ORDERED: ALBUTEROL SULFATE 200 PUFF INHALER INH PRN (18:57)
[2021-03-31] MEDS ORDERED: VANCOMYCIN PER PHARMACY IV SCH (18:57)
[2021-03-31] MEDS ORDERED: SENNOSIDES 1 TABLET PO PRN (18:57)
[2021-03-31] MEDS ORDERED: BENZONATATE 100 MG CAPSULE PO PRN (18:57)
[2021-03-31] MEDS ORDERED: ACETAMINOPHEN 325 MG TABLET PO PRN (18:57)
[2021-03-31] MEDS ORDERED: POLYETHYLENE GLYCOL 3350 17 GM PACKET PO PRN (18:57)
[2021-03-31] MEDS: PREGABALIN 150 MG CAPSULE PO SCH (20:17)
[2021-03-31] MEDS: FUROSEMIDE 40 MG TABLET PO SCH ×2 (20:17→20:46)
[2021-03-31] MEDS: LACTOBACILLUS 1 CAPSULE PO SCH (20:17)
[2021-03-31] MEDS: busPIRone 15 MG TABLET PO SCH (20:18)
[2021-03-31] MEDS: TRIAMCINOLONE CREAM 0.1% 15G 1 DOSE TUBE TOPICAL SCH (20:19)
[2021-04-01] MEDS: HYDROcodone/APAP 5/325MG TABLET PO PRN ×3 (00:06→11:16)
[2021-04-01] MEDS: 0.9 % SODIUM CHLORIDE 10 ML SYRINGE IV SCH ×2 (05:42→12:32)
[2021-04-01] MEDS: IPRATROPIUM/ALBUTEROL 3 ML AMPUL.NEB NEB SCH (07:04)
[2021-04-01] MEDS: INSULIN LISPRO 1 UNIT/0.01 ML UNIT SQ SCH ×2 (07:16→12:44)
[2021-04-01] MEDS ORDERED: OMEPRAZOLE 20 MG CAPSULE PO SCH (07:30)
[2021-04-01] MEDS ORDERED: PREDNISONE 50 MG PO SCH (09:00)
[2021-04-01] MEDS ORDERED: CALCIUM W/VIT D3 500 MG TABLET PO SCH (09:00)
[2021-04-01] MEDS ORDERED: MONTELUKAST 10 MG TABLET PO SCH (09:00)
[2021-04-01] MEDS ORDERED: FLUoxetine HCL 20 MG CAPSULE PO SCH (09:00)
[2021-04-01] MEDS ORDERED: FENOFIBRATE 43 MG CAPSULE PO SCH (09:00)
[2021-04-01] MEDS ORDERED: ENOXAPARIN 40 MG/0.4 ML SYRINGE SQ SCH (09:00)
[2021-04-01 10:02] LABS: Basophils # (Auto) 0.06 K/mcL (0.00-0.20); Basophils % (Auto) 0.7 % (0.0-2.0); Eosinophils # (Auto) 0.65 K/mcL (0.00-0.70); Eosinophils % (Auto) 7.7 % (0.0-7.0); Hematocrit 28.8 % (36.0-48.0); Hemoglobin 8.2 g/dL (12.0-15.0); Lymphocytes # (Auto) 1.26 K/mcL (1.50-4.80); Lymphocytes % (Auto) 14.9 % (15.0-49.0); Mean Cell Volume 72.4 fL (80.0-100.0); Mean Corpuscular HGB Conc 28.5 g/dL (31.0-36.0); Mean Platelet Volume 11.2 fL (7.4-10.4); Monocytes # (Auto) 0.83 K/mcL (0.10-0.90); Monocytes % (Auto) 9.8 % (1.0-12.0); Neutrophils % (Auto) 66.9 % (38.0-78.0); Platelet Count 217 K/mcL (140-440); RBC 3.98 M/mcL (4.00-5.20); Red Cell Distribution Width 18.2 % (11.5-14.5); WBC 8.5 K/mcL (4.5-11.0)
[2021-04-01] MEDS: DOCUSATE SODIUM 100 MG CAPSULE PO SCH (10:09)
[2021-04-01] MEDS: TRIAMCINOLONE CREAM 0.1% 15G 1 DOSE TUBE TOPICAL SCH ×2 (10:10→11:13)
[2021-04-01 10:12] LABS: ALT/SGPT 26 U/L (<40); AST/SGOT 44 U/L (<32); Albumin 3.2 gm/dL (3.2-5.2); Alkaline Phosphatase 84 U/L (39-117); Bilirubin,Total 0.4 mg/dL (0.1-1.0); Blood Urea Nitrogen 10 mg/dL (8-23); Calcium 8.7 mg/dL (8.6-10.4); Carbon Dioxide 23 mmol/L (22-30); Chloride 103 mmol/L (96-108); Globulin 3.3 gm/dL (2.2-3.7); Glomerular Filtration Rate 94; Glucose 105 mg/dL (70-105)
[2021-04-01] MEDS: VANCOMYCIN 1,000 MG in 0.9 % SODIUM CHLORIDE 250 ML IV SCH (11:14)
[2021-04-01] MEDS: CEFEPIME 2 GM VIAL IV SCH (11:15)
[2021-04-01] MEDS: FUROSEMIDE 40 MG TABLET PO SCH (11:16)
[2021-04-01] MEDS: busPIRone 15 MG TABLET PO SCH (11:24)
[2021-04-01] MEDS: IRON POLYSACCHARIDE COMPLEX 150 MG CAPSULE PO SCH (11:24)
[2021-04-01] MEDS: LACTOBACILLUS 1 CAPSULE PO SCH (11:25)
[2021-04-01] MEDS: PREGABALIN 150 MG CAPSULE PO SCH (11:25)
--- NOTE | 2021-04-01 11:26 | Discharge Summary ---
Discharge Provider Provider Patient information: Note initiated : 04/01/21 at 11:24 am Service Date, if different from initiated Date: [] Patient: Kenia Sandoval a 65 y/o F admitted on 03/29/21 for SOB and fever. Chief Complaint: [shortness of breath] History of present illness: Ms. Sandoval is a 65 year old F Presented to the ED with shortness of breath and fever and bilateral flank pain and cough. Also known history of COPD. Symptoms been going on for past several weeks but over the past couple days much worse. She complains of fever chills productive cough of green sputum. Nausea. Work-up in the ED revealed pneumonia with sepsis right side pneumonia. An elevated lactate of 3.3. 03/30 Patient says poor sleep because of headache with neck pain. Her cough productive of sputum. Shortness of breath waxes and wanes. Still waiting for sputum culture. States antibiotics give her diarrhea and she has some diarrhea. 03/31: Afebrile. Been on supplemental oxygen, 2.5L today. c/o shortness of breath. c/o wheezing. c/o productive cough. c/o fever and chills. Date of admission: 03/29/21 03:29 Discharge date: 04/01/21 Primary care physician: Darleen Kemp Consults: 03/29/21 Consult to Physician [CONS] Stat Comment: Consulting Provider: Prince Liao Reason For Exam: Physician to Consult Discharge Meds Discharge Medications Home Medications buspirone 15 mg tablet 15 mg PO TID tab 04/17/15 [History Confirmed 03/29/21 Last Taken 03/28/21 18:00] fenofibrate 160 mg tablet 160 mg PO QDAY #90 tab 05/23/15 [Rx Confirmed 03/29/21 Last Taken 03/27/21 23:00] fluoxetine 20 mg tablet 80 mg PO DAILY tab 06/18/15 [History Confirmed 03/29/21 Last Taken 03/28/21 12:00] omeprazole 20 mg capsule,delayed release 20 mg PO QDAY #90 cap 07/18/15 [Rx Confirmed 03/29/21 Last Taken 03/28/21 08:00] triamcinolone acetonide 0.1 % topical ointment 1 applic TOPICAL BID #30 g 07/18/15 [Rx Confirmed 03/29/21 Last Taken 03/28/21 08:00] potassium chloride 10 mEq capsule,extended release 20 meq PO QDAY 10/21/15 [History Confirmed 03/29/21 Last Taken 03/28/21 08:00] ipratropium bromide 18 mcg/actuation aerosol inhaler 2 puff INHALATION BID 06/10/20 [History Confirmed 03/29/21 Last Taken 03/28/21 18:00] Jardiance 10 mg PO DAILY 10/20/20 [History Confirmed 03/29/21 Last Taken 03/28/21 08:00] Lactobacillus acidophilus 2,000 mmu cells PO BID #60 cap 10/20/20 [Rx Confirmed 03/29/21 Last Taken 03/28/21 08:00] furosemide 40 mg PO BID 10/20/20 [History Confirmed 03/29/21 Last Taken 03/28/21 12:00] metformin 1,000 mg PO BID 10/20/20 [History Confirmed 03/29/21 Last Taken 03/28/21 18:00] montelukast 10 mg PO DAILY 10/20/20 [History Confirmed 03/29/21 Last Taken 03/28/21 08:00] denosumab 60 mg/mL subcutaneous syringe 60 mg SUB-Q [id number] 11/11/20 [History Confirmed 03/29/21 Last Taken 11/04/20] prednisone 50 mg PO QDAY #4 tab 03/25/21 [Rx Confirmed 03/29/21 Last Taken 03/28/21 08:00] azithromycin 250 mg tablet See Rx Instructions PO Q24H #6 tab 03/27/21 [Rx Confirmed 03/29/21 Last Taken 03/28/21] calcium carbonate-vitamin D3 [Calcium with Vitamin D] 1 tab PO QDAY 03/29/21 [History Confirmed 03/29/21 Last Taken 03/28/21] albuterol sulfate [Ventolin HFA] 2 puff INHALATION Q4-6HP PRN #1 g 04/01/21 [Rx Last Taken Unknown] ciprofloxacin HCl 500 mg PO BID #20 tab 04/01/21 [Rx Last Taken Unknown] hydrocodone-acetaminophen 1 tab PO Q4HP PRN #10 tab 04/01/21 [Rx Last Taken Unknown] ipratropium-albuterol 3 ml INHALATION Q6H PRN #1 ml 04/01/21 [Rx Last Taken Unknown] pregabalin 150 mg PO BID #14 cap 04/01/21 [Rx Last Taken Unknown] COURSE Hospital Course Hospital course: Patient was admitted on 03/29/21 for pneumonia. After blood and sputum cultures were collected, antibiotics including Vancomycin and Cefepime were provided. They were chosen base on the sputum culture results from previous admission which grew K pneumoniae and pseudomonas. Supplemental oxygen was provided to her as well. Bronchodilators including Albuterol and DuoNeb were also continued for COPD. By 04/01/21, patient had reached clinical stability and the decision was made to discharge her home with Rx of home oxygen, Ciprofloxacin, Albuterol, DuoNEB, Lyrica, and Ruby sent to pharmacy. 1 week PCP follow up appointment made for her. All questions were answered prior to patient being physically discharged. Discharge diagnosis: pneumonia Time Spent with Patient Time attestation: Total time spent providing and/or coordinating discharge services: EXAM Constitutional Vitals: Temp Pulse Resp BP Pulse Ox 37.4 C H 99 H 21 138/65 92 04/01/21 08:00 04/01/21 08:00 04/01/21 08:00 04/01/21 08:00 04/01/21 08:00 General appearance: cooperative and no acute distress Head Head exam: Present atraumatic and normocephalic Eye Eye exam: Present EOMI and PERRL ENT ENT exam: Present mucous membranes moist, normal exam and normal external ear exam Additional comments: Supplemental oxygen in place Neck Neck exam: Present normal inspection; Absent lymphadenopathy, tenderness and thyromegaly Respiratory Respiratory exam: Present rhonchi and wheezes; Absent accessory muscle use and respiratory distress Cardiovascular Cardiovascular exam: Present normal rate and rhythm; Absent JVD GI/Abdominal GI/Abdominal exam: Present normal bowel sounds and soft; Absent organomegaly and tenderness Extremities Exam Extremities exam: Present full ROM, normal capillary refill and normal inspection; Absent tenderness Neurological Exam Neurological exam: Present alert, CN II-XII intact and oriented X3; Absent motor sensory deficit Psychiatric Psychiatric exam: Present normal affect and normal mood; Absent anxious and depressed Skin Skin exam: Present dry and intact Discharge Data Data Completed and Pending Labs on day of discharge: Labs from last 24 hours 04/01/21 04/01/21 04/01/21 08:27 05:10 05:09 WBC 8.5 RBC 3.98 L Hgb 8.2 L Hct 28.8 L MCV 72.4 L MCH 20.6 L MCHC 28.5 L RDW 18.2 H Plt Count 217 MPV 11.2 H Neut % (Auto) 66.9 Lymph % (Auto) 14.9 L [place] % (Auto) 9.8 Eos % (Auto) 7.7 H Baso % (Auto) 0.7 Lymph # (Auto) 1.26 L [place] # (Auto) 0.83 Eos # (Auto) 0.65 Baso # (Auto) 0.06 Absolute Neutrophils 5.66 Sodium 136 Potassium 4.3 Chloride 103 Carbon Dioxide 23 Anion Gap 10.0 BUN 10 Creatinine 0.6 GFR Calculation 94 Glucose 105 Calcium 8.7 Total Bilirubin 0.4 AST 44 H ALT 26 Alkaline Phosphatase 84 Total Protein 6.5 Albumin 3.2 Globulin 3.3 Albumin/Globulin Ratio 1.0 Vancomycin Trough 11.5 Preliminary micro results at discharge 03/28/21 00:30 Blood Culture - Preliminary Blood 03/28/21 00:26 Blood Culture - Preliminary Blood 03/30/21 12:13 Gram Stain - Preliminary Sputum source - Nasal Trachea Suctioned Sputum Culture - Preliminary Discharge Plan Patient/Caregiver Discharge Instructions Activity: increase activity as tolerated Diet: Regular Diet Instructions: How to Stop Smoking (GEN), Cigarette Smoking and Your Health (GEN), Using Oxygen at Home (GEN), Sepsis (GEN), How to Use a Nebulizer (GEN), Pneumonia (GEN) Activity Restrictions/Additional Instructions: Your Home oxygen will be provided through [facility], if any questions call This discharge packet is provided to you to help keep you informed about your care. We want to ensure you get everything you need when you go home. You will also be receiving a call from us in a few days to follow up with you and see how you are doing since your discharge. This gives us a chance to listen to any concerns you maybe experiencing since you were discharged or any additional needs you may have, as well as providing us feedback on your care experience. We strive to always provide excellent care and thank you for your feedback and for choosing [facility]. Prescriptions: New hydrocodone-acetaminophen 5-325 mg Tablet 1 tab PO Q4HP PRN (Reason: Per Pain Protocol) Qty: 10 RF: 0 ciprofloxacin HCl 500 mg tablet 500 mg PO BID Qty: 20 RF: 0 Continued ipratropium-albuterol 0.5 mg-3 mg(2.5 mg base)/3 mL solution for nebulization 3 ml INHALATION Q6H PRN (Reason: Shortness Of Breath) Qty: 1 RF: 0 albuterol sulfate [Ventolin HFA] 90 mcg/actuation HFA aerosol inhaler 2 puff INHALATION Q4-6HP PRN (Reason: Shortness Of Breath) Qty: 1 RF: 0 pregabalin 150 mg capsule 150 mg PO BID Qty: 14 RF: 0 No Action fenofibrate 160 mg tablet 160 mg PO QDAY Qty: 90 RF: 3 buspirone 15 mg tablet 15 mg PO TID RF: 0 triamcinolone acetonide 0.1 % ointment 1 applic TOPICAL BID Qty: 30 RF: 3 omeprazole 20 MG capsule 20 mg PO QDAY Qty: 90 RF: 3 potassium chloride 10 mEq capsule, extended release 20 meq PO QDAY RF: 0 azithromycin 250 mg tablet See Rx Instructions PO Q24H Qty: 6 RF: 0 ipratropium bromide 18 mcg/actuation aerosol 2 puff INHALATION BID RF: 0 Prolia 60 mg/mL syringe 60 mg SUB-Q [id number] RF: 0 fluoxetine 20 MG tablet 80 mg PO DAILY RF: 0 Lactobacillus acidophilus Capsule 2,000 mmu cells PO BID Qty: 60 RF: 0 metformin 500 mg tablet extended release 24 hr 1,000 mg PO BID RF: 0 Jardiance 10 mg tablet 10 mg PO DAILY RF: 0 montelukast 10 mg tablet 10 mg PO DAILY RF: 0 furosemide 40 mg tablet 40 mg PO BID RF: 0 prednisone 50 mg tablet 50 mg PO QDAY Qty: 4 RF: 0 calcium carbonate-vitamin D3 [Calcium with Vitamin D] 600 mg(1,500mg) -400 unit Tablet 1 tab PO QDAY RF: 0 Follow Up Plan Follow up with: Darleen Kemp ARNP [Primary Care Provider] - 04/07/21 10:00 am Patient Disposition: Home, Self-Care Hospital Course: Patient was admitted on 03/29/21 for pneumonia. After blood and sputum cultures were collected, antibiotics including Vancomycin and Cefepime were provided. They were chosen base on the sputum culture results from previous admission which grew K pneumoniae and pseudomonas. Supplemental oxygen was provided to her as well. Bronchodilators including Albuterol and DuoNeb were also continued for COPD. By 04/01/21, patient had reached clinical stability and the decision was made to discharge her home with Rx of home oxygen, Ciprofloxacin, Albuterol, DuoNEB, Lyrica, and Ruby sent to pharmacy. 1 week PCP follow up appointment made for her. All questions were answered prior to patient being physically discharged. Rehab Potential: Undetermined Overall status at discharge: patient is progressing back to baseline Discharge Orders: Discharge Order (Routine); Ordered 04/01/21 Ordered By: Constantino JAMES VTE Deep Vein Thrombosis/Pulmonary Embolism Present on Admission: No
--- NOTE | 2021-04-01 17:33 | EKG ---
[facility] Test Date: 2021-03-29 Pat Name: Kenia Sandoval Department: ED Room: Gender: Female [employer]: : 1955 Requested By: Jeremy Calloway Order Number: [id number] Reading MD: Torey Guevara M.D. Measurements Intervals [place] Rate: 115 P: 52 IN: 125 QRS: 38 QRSD: 86 T: 54 QT: 342 QTc: 473 Interpretive Statements Sinus tachycardia NO PRIOR TRACING FOR COMPARISON OTHERWISE NORMAL TRACING Electronically Signed On 04-01-2021 17:32:41 PDT by Torey Guevara M.D. /[email or web address]/[id number]
== END 2021-04-01 14:43 | disposition home or self-care (01) | DRG 871 ==
LOC: ED 22:45 → ICU 03-29 02:43 → ED 03-29 03:28 → ICU 03-29 03:29
PROVIDERS: ADMIT Internal Medicine; ATTEND Internal Medicine

== ENCOUNTER 2021-10-22 12:07 | Inpatient (IN) ==
--- NOTE | 2021-10-22 12:26 | Emergency Department Note ---
Fever HPI <Chele Espinosa PA-C - Last Filed: 10/22/21 18:43> General Chief Complaint: Fever Stated Complaint: Fever, weakness Time Seen by Provider: 10/22/21 12:18 Source: patient Mode of arrival: wheelchair Limitations: no limitations History of Present Illness HPI Narrative: Narrative: Related Data Home Medications Medication Instructions Recorded Confirmed buspirone 15 mg tablet 15 mg PO TID tab 04/17/15 10/23/21 fluoxetine 20 mg tablet 80 mg PO DAILY tab 06/18/15 10/23/21 potassium chloride 10 mEq 20 meq PO QDAY 10/21/15 10/23/21 capsule,extended release ipratropium bromide 18 2 puff INHALATION BID 06/10/20 10/23/21 mcg/actuation aerosol inhaler empagliflozin 10 mg tablet 10 mg PO DAILY 10/20/20 10/23/21 (Jardiance) furosemide 40 mg tablet 40 mg PO BID 10/20/20 10/23/21 metformin 500 mg tablet,extended 1,000 mg PO BID 10/20/20 10/23/21 release 24 hr montelukast 10 mg tablet 10 mg PO DAILY 10/20/20 10/23/21 (Singulair) denosumab 60 mg/mL subcutaneous 60 mg SUB-Q [id number] 11/11/20 10/23/21 syringe (Prolia) calcium carbonate 600 mg-vitamin 1 tab PO QDAY 03/29/21 10/23/21 D3 10 mcg (400 unit) tablet (Calcium with Vitamin D) albuterol sulfate 2.5 mg INHALATION Q6H PRN 07/02/21 10/23/21 budesonide-formoterol HFA 160 2 puff INHALATION BID 07/02/21 10/23/21 mcg-4.5 mcg/actuation aerosol inhaler (Symbicort) denosumab 60 mg/mL subcutaneous 60 mg SUBCUT [id number] 07/02/21 10/23/21 syringe (Prolia) lidocaine 5 % topical ointment 1 applic TOPICAL .1-4xDAY PRN g 07/02/21 10/23/21 melatonin PO 07/02/21 09/23/21 mirtazapine 15 mg tablet (Remeron) 15 mg PO QDAY 07/02/21 10/23/21 mupirocin 2 % topical ointment 1 applic TOPICAL .Unknown g 07/02/21 10/23/21 nystatin 100,000 unit/gram topical 1 applic TOPICAL BID 07/02/21 10/23/21 powder nystatin 100,000 unit/mL oral 1 ml PO QID ml 07/02/21 10/23/21 suspension ondansetron 4 mg disintegrating 4 mg PO .Q4-6H PRN tab 07/02/21 10/23/21 tablet polyethylene glycol 3350 17 17 g PO QDAY PRN 07/02/21 10/23/21 gram/dose oral powder (Miralax) triamcinolone acetonide 0.1 % 1 applic DENTAL TID 07/02/21 09/23/21 dental paste Lactobacillus acidophilus 2,000 mmu cells PO BID 10/23/21 10/23/21 (Acidophilus) lactulose 10 gram/15 mL oral 15 ml PO DAILY 10/23/21 10/23/21 solution pregabalin 150 mg capsule (Lyrica) 150 mg PO BID 10/23/21 10/23/21 Previous Rx's Medication Instructions Recorded fenofibrate 160 mg tablet 160 mg PO QDAY #90 tab 05/23/15 omeprazole 20 mg capsule,delayed 20 mg PO QDAY #90 cap 07/18/15 release triamcinolone acetonide 0.1 % 1 applic TOPICAL BID #30 g 07/18/15 topical ointment albuterol sulfate 90 mcg/actuation 2 puff INHALATION Q4-6HP PRN #1 g 04/01/21 aerosol inhaler (Ventolin HFA) ipratropium 0.5 mg-albuterol 3 mg 3 ml INHALATION Q6H PRN #1 ml 04/01/21 (2.5 mg base)/3 mL nebulization soln Disabled Parking Placard #1 ea 05/26/21 Allergies Allergy/AdvReac Type Severity Reaction Status Date / Time fluconazole [From Diflucan] Allergy Mild Hives Verified 10/01/21 15:25 bupropion AdvReac Intermediate psychotic Verified 10/01/21 15:25 episode diphenhydramine AdvReac Mild Vomiting Verified 10/01/21 15:25 [From Benadryl] guaifenesin [GUAIFENESIN] AdvReac Mild Itching Verified 10/01/21 15:25 sulfamethoxazole AdvReac Mild Flushing Verified 10/01/21 15:25 [From Sulfamethoprim] trimethoprim AdvReac Mild Flushing Verified 10/01/21 15:25 [From Sulfamethoprim] Review of Systems <Chele Espinosa PA-C - Last Filed: 10/22/21 18:43> ROS ROS Narrative: Narrative: PFSH <Chele Espinosa PA-C - Last Filed: 10/22/21 18:43> Narrative Patient History Narrative: Narrative: Medical/Surgical/Family History All Active Problems (Updated 10/22/21 @ 17:34 by Familia Sauer MD) Atypical chest pain (Acute) Altered mental status (Acute) Acute UTI (Acute) Nausea & vomiting (Acute) Acute hepatic encephalopathy (Acute) Cirrhosis, non-alcoholic (Acute) Acute dehydration (Acute) Other low back pain (Chronic) Postoperative hematoma (Acute) Hemorrhage complicating a procedure (Acute) Thoracic radiculopathy (Acute) Thoracic back pain (Acute) Elevated liver enzymes (Chronic) Partial obstruction of small intestine (Chronic) Cannabis dependence (Chronic) Telogen effluvium (Chronic) Body mass index exceeds 30 (Chronic) Diabetes mellitus (Chronic) Degeneration of intervertebral disc (Chronic) Arthritis of hip (Chronic) Chronic kidney disease (Chronic) Allergic rhinitis (Chronic) Nausea and vomiting in adult (Chronic) Hyperglycemia (Chronic) Bilateral hip joint arthritis (Chronic) Bronchitis (Chronic) COPD exacerbation (Chronic) Nausea with vomiting, unspecified (Chronic) Irritable bowel syndrome with diarrhea (Chronic) Abdominal pain (Chronic) Chronic diarrhea of unknown origin (Chronic) Small bowel obstruction (Chronic) History of asthma (Chronic) Bronchitis (Chronic) Acute viral syndrome (Chronic) Back pain (Chronic) Open T12 vertebral fracture (Chronic) Drug side effects (Chronic) Acute low back pain (Chronic) DDD (degenerative disc disease), lumbar (Chronic) Acute UTI (urinary tract infection) (Chronic) Hypochromic microcytic anemia (Chronic) COPD (chronic obstructive pulmonary disease) (Chronic) Community acquired pneumonia (Chronic) Thyroid nodule (Chronic) Acute exacerbation of chronic obstructive pulmonary disease (Chronic) Bronchitis (Chronic) Severe sepsis (Chronic) Pneumonia (Chronic) Fever (Chronic) Acute on chronic respiratory failure with hypoxia (Chronic) Volume overload (Chronic) Aphthous stomatitis (Chronic) Thoracic compression fracture (Chronic) Obstructive sleep apnea (Chronic) Hypoxia (Chronic) Acute viral syndrome (Chronic) Maxillary sinusitis, acute (Chronic) Chronic bronchitis (Chronic) Nocturnal hypoxemia (Chronic) Lung mass (Chronic) Small bowel obstruction (Acute) Nausea (Chronic) Diarrhea (Chronic) Right otitis media (Chronic) ATIF on CPAP (Chronic) Upper respiratory infection (Acute) Gastroenteritis (Acute) Lumbar sprain (Chronic) Edema (Chronic) Nonallopathic lesion of cervical region (Chronic) Fibromyositis (Chronic) Eczema (Chronic) GERD (gastroesophageal reflux disease) (Chronic) Benign hypertension (Chronic) Chronic pain syndrome (Chronic) Generalized anxiety disorder (Chronic) Major depressive disorder (Chronic) Obesity (Chronic) Mixed hypercholesterolemia and hypertriglyceridemia (Chronic) Vitamin D deficiency (Chronic) Thrombocytosis (Chronic) Upper respiratory infection (Acute) COPD (chronic obstructive pulmonary disease) (Acute) COPD with exacerbation (Acute) Encounter for medication refill (Acute) Acute exacerbation of chronic obstructive airways disease (Acute) Acute bronchitis (Acute) Heart palpitations (Acute) Tension type headache (Chronic) COPD exacerbation (Chronic) Edema of foot (Chronic) Shortness of Breath (Chronic) Nummular eczema (Chronic) Marijuana smoker (Chronic) Tobacco abuse (Chronic) Stress incontinence in female (Chronic) Chronic pain (Chronic) Osteoporosis (Chronic) Osteoarthritis (Chronic) IBS (irritable bowel syndrome) (Chronic) Hypertension, essential (Chronic) Hyperlipidemia (Chronic) Heartburn (Chronic) Fibromyalgia (Chronic) Fatigue (Chronic) Depression (Chronic) COPD (chronic obstructive pulmonary disease) (Chronic) Bone spur of foot (Chronic) Asthma (Chronic) Anxiety (Chronic) Medical History Abdominal pain Abdominal pain Acute exacerbation of chronic obstructive airways disease Acute exacerbation of chronic obstructive pulmonary disease Acute low back pain Acute on chronic respiratory failure with hypoxia Acute UTI (urinary tract infection) Acute viral syndrome Allergic rhinitis Anxiety 2012. PHQ 9=21 12/31/15. Aphthous stomatitis Apnea Arthritis of hip Asthma 1995 Back pain Benign hypertension Bilateral hip joint arthritis Body mass index exceeds 30 Bone spur of foot 2010 Bronchitis given h/o copd, treat with zithromax. Bronchitis Bronchitis Bronchitis Bronchitis Bronchitis Cannabis dependence Cellulitis Cholecystitis 2010 Chronic diarrhea of unknown origin Chronic kidney disease Chronic pain 01/31/2014 - Etiology unknown. On Vicodin, for same will try alternative meds, wean off if tolerated Chronic pain syndrome Community acquired pneumonia COPD (chronic obstructive pulmonary disease) COPD (chronic obstructive pulmonary disease) COPD (chronic obstructive pulmonary disease) COPD exacerbation COPD exacerbation COPD with exacerbation DDD (degenerative disc disease), lumbar Degeneration of intervertebral disc Depression severe acute worsening, on refer to Emergency. Diabetes mellitus Drug side effects Eczema Edema Edema of foot acute bilateral, h/o copd, get echo, get bnp and d dmier, start on lasix 20mg qd and KCL supplements, if worsens or does not respond advise to call back. Elevated liver enzymes Encounter for medication refill Fatigue 1983 Fever Fibromyalgia 01/31/2014 - Positive symptoms and tender points, need to rule out inflammatory conditions. Check ESR, CRP, ASHLIE, Uric Acid levels, CBC, CMP Fibromyositis Gastritis Generalized anxiety disorder GERD (gastroesophageal reflux disease) Heartburn doing wel with prilosec, History of asthma Hyperglycemia Hyperlipidemia On fenofibrate, TG now 197 better , LDL is 83 which is also better, pt does not want to use statin, Hypertension, essential BP stable, Will review previous medical records, Monitor for now, stop atenolol, given copd, and try amlodipine. Hypochromic microcytic anemia Hypoxia IBS (irritable bowel syndrome) 1982 Irritable bowel syndrome with diarrhea Lumbar sprain Lung mass Versus lung abscess, CT chest 10/18/2020. Major depressive disorder Marijuana smoker advised to quit. Maxillary sinusitis, acute Mixed hypercholesterolemia and hypertriglyceridemia Myalgia 1982 Nausea and vomiting in adult nausea and vomiting appears to be functional and related more to her anxiety with depression then actual GI source Nausea with vomiting, unspecified Nocturnal hypoxemia Nonallopathic lesion of cervical region Nummular eczema treat with triamcinolone Obesity Obstructive sleep apnea Open T12 vertebral fracture ATIF on CPAP Osteoarthritis Osteoporosis 02/21/2015 Other low back pain Partial obstruction of small intestine Pneumonia Rib fracture 01/02/2015 - Dr. Holland Severe sepsis Shortness of Breath chr in nature, mild worsening, 2 pillow at night at times. Small bowel obstruction Stress incontinence in female 01/31/2014 - Urination on cough, will address this later Telogen effluvium Tension type headache Thoracic back pain Thoracic compression fracture Chronic Thoracic radiculopathy Thrombocytosis Thyroid nodule Tinea corporis Tobacco abuse Smoking: Counseled to quit - 40 pack year history , tried chantix, pt self stopped Upper respiratory infection Vitamin D deficiency Volume overload Surgical History History of cholecystectomy (06/09/15) Dr. Stacey Pringle History of cholecystectomy (06/09/15) History of colonoscopy (08/12/15) 1982 History of esophagogastroduodenoscopy (EGD) (11/17/18) History of hysterectomy 1982 History of laparoscopy 1982 History of laparoscopy (~1982) History of oophorectomy (11/01/82) History of tonsillectomy 1976 History of tonsillectomy (~1976) History of total abdominal hysterectomy (~1982) History of tubal ligation 1973 History of tubal ligation (~1973) Family History Father Carcinoma in situ of bladder Grandmother Cerebrovascular accident Arthritis Essential hypertension Maternal Myocardial Infarction Maternal Brother Type 2 diabetes mellitus Unknown Family history of throat cancer Mother Arthritis Family history of throat cancer Social History Smoking Status: Former smoker Alcohol Intake Frequency: does not drink Substance Use: marijuana Exam <Chele Espinosa PA-C - Last Filed: 10/22/21 18:43> Narrative Narrative: Narrative: General Limitations: no limitations Course <Chele Espinosa PA-C - Last Filed: 10/22/21 18:43> Vital Signs Vital signs: Vital Signs Temperature 99.4 F H 10/22/21 12:08 Pulse Rate 97 H 10/22/21 12:08 Respiratory Rate 24 H 10/22/21 12:08 Blood Pressure 137/87 10/22/21 12:08 Pulse Oximetry (%) 96 10/22/21 12:08 Temperature 97.3 F 10/23/21 11:00 Pulse Rate 76 10/23/21 11:00 Respiratory Rate 18 10/23/21 11:00 Blood Pressure 125/81 10/23/21 11:00 Pulse Oximetry (%) 97 10/23/21 11:00 MDM <Chele Espinosa PA-C - Last Filed: 10/22/21 18:43> MDM Narrative Medical decision making narrative: Narrative: Dr. Lincoln saw this patient before I got into see the patient and he took care of the patient. I was not the provider to take care of this patient employed no part in their care. Please disregard to this note and erase it from patient's chart. Lab Data Result diagrams: 10/23/21 05:10 12/23/21 05:10 Labs: Lab Results 10/22/21 10/22/21 10/22/21 Range/Units 12:40 12:40 12:40 WBC 10.6 (4.5-11.0) K/mcL RBC 5.84 H (3.59-5.38) M/mcL Hgb 16.0 H (11.2-15.7) g/dL Hct 48.0 H (34.1-44.9) % MCV 82.2 (80.0-100.0) fL MCH 27.4 (26.0-34.0) pg MCHC 33.3 (31.0-36.0) g/dL RDW 14.9 H (11.5-14.5) % Plt Count 285 (140-440) K/mcL MPV 9.4 (7.4-10.4) fL Neut % (Auto) 69.4 (38.0-78.0) % Lymph % (Auto) 17.5 (15.5-49.0) % [place] % (Auto) 7.6 (1.0-12.0) % Eos % (Auto) 4.6 (0.0-7.0) % Baso % (Auto) 0.9 (0.0-2.0) % Lymph # (Auto) 1.85 (1.50-4.80) K/mcL [place] # (Auto) 0.80 (0.10-0.90) K/mcL Eos # (Auto) 0.49 (0.00-0.70) K/mcL Baso # (Auto) 0.10 (0.00-0.30) K/mcL Absolute Neutrophils 7.34 (1.80-8.00) K/mcL PT (11.9-14.5) sec INR (0.9-1.1) Sodium 131 L (133-145) mmol/L Potassium 4.7 (3.3-5.1) mmol/L Chloride 95 L (96-108) mmol/L Carbon Dioxide 20 L (22-30) mmol/L Anion Gap 16.0 (8.0-16.0) BUN 28 H (8-23) mg/dL Creatinine 0.9 (0.6-1.1) mg/dL GFR Calculation 66 Glucose 157 H (70-105) mg/dL Hemoglobin A1c (4.0-6.0) % Hgb Estim Average Glucose mg/dL Calcium 11.6 H (8.6-10.4) mg/dL Magnesium 2.4 (1.6-2.5) mg/dL Total Bilirubin 1.2 H (0.1-1.0) mg/dL AST 41 H (<32) U/L ALT 40 H (<40) U/L Alkaline Phosphatase 73 (39-117) U/L Ammonia (11-51) umol/L Troponin T (<0.03) ng/mL NT-Pro-B Natriuret Pep 141.1 H (<125.0) pg/mL Total Protein 8.2 (5.9-8.4) gm/dL Albumin 4.4 (3.2-5.2) gm/dL Globulin 3.8 H (2.2-3.7) gm/dL Albumin/Globulin Ratio 1.2 (1.0-2.3) Procalcitonin 0.16 H (<0.10) ng/mL Urine Color Urine Appearance (Clear) Urine pH (5.0-9.0) Ur Specific [place] (1.000-1.035) Urine Protein (Negative) mg/dL Urine Glucose (UA) (Negative) mg/dL Urine Ketones (Negative) mg/dL Urine Occult Blood (Negative) mg/dL Urine Nitrate (Negative) Urine Bilirubin (Negative) mg/dL Urine Urobilinogen mg/dL Ur Leukocyte Esterase (Negative) /uL Urine RBC (0-3) /hpf Urine WBC (0-4) /hpf Ur Squamous Epith Cells (0-4) /hpf Urine Bacteria (0) /hpf Ur Culture Indicated? 10/22/21 10/22/21 10/22/21 Range/Units 12:40 12:40 12:40 WBC (4.5-11.0) K/mcL RBC (3.59-5.38) M/mcL Hgb (11.2-15.7) g/dL Hct (34.1-44.9) % MCV (80.0-100.0) fL MCH (26.0-34.0) pg MCHC (31.0-36.0) g/dL RDW (11.5-14.5) % Plt Count (140-440) K/mcL MPV (7.4-10.4) fL Neut % (Auto) (38.0-78.0) % Lymph % (Auto) (15.5-49.0) % [place] % (Auto) (1.0-12.0) % Eos % (Auto) (0.0-7.0) % Baso % (Auto) (0.0-2.0) % Lymph # (Auto) (1.50-4.80) K/mcL [place] # (Auto) (0.10-0.90) K/mcL Eos # (Auto) (0.00-0.70) K/mcL Baso # (Auto) (0.00-0.30) K/mcL Absolute Neutrophils (1.80-8.00) K/mcL PT (11.9-14.5) sec INR (0.9-1.1) Sodium (133-145) mmol/L Potassium (3.3-5.1) mmol/L Chloride (96-108) mmol/L Carbon Dioxide (22-30) mmol/L Anion Gap (8.0-16.0) BUN (8-23) mg/dL Creatinine (0.6-1.1) mg/dL GFR Calculation Glucose (70-105) mg/dL Hemoglobin A1c 5.9 (4.0-6.0) % Hgb Estim Average Glucose 123 mg/dL Calcium (8.6-10.4) mg/dL Magnesium (1.6-2.5) mg/dL Total Bilirubin (0.1-1.0) mg/dL AST (<32) U/L ALT (<40) U/L Alkaline Phosphatase (39-117) U/L Ammonia 101 H (11-51) umol/L Troponin T < 0.01 (<0.03) ng/mL NT-Pro-B Natriuret Pep (<125.0) pg/mL Total Protein (5.9-8.4) gm/dL Albumin (3.2-5.2) gm/dL Globulin (2.2-3.7) gm/dL Albumin/Globulin Ratio (1.0-2.3) Procalcitonin (<0.10) ng/mL Urine Color Urine Appearance (Clear) Urine pH (5.0-9.0) Ur Specific [place] (1.000-1.035) Urine Protein (Negative) mg/dL Urine Glucose (UA) (Negative) mg/dL Urine Ketones (Negative) mg/dL Urine Occult Blood (Negative) mg/dL Urine Nitrate (Negative) Urine Bilirubin (Negative) mg/dL Urine Urobilinogen mg/dL Ur Leukocyte Esterase (Negative) /uL Urine RBC (0-3) /hpf Urine WBC (0-4) /hpf Ur Squamous Epith Cells (0-4) /hpf Urine Bacteria (0) /hpf Ur Culture Indicated? 10/22/21 10/22/21 Range/Units 12:40 14:16 WBC (4.5-11.0) K/mcL RBC (3.59-5.38) M/mcL Hgb (11.2-15.7) g/dL Hct (34.1-44.9) % MCV (80.0-100.0) fL MCH (26.0-34.0) pg MCHC (31.0-36.0) g/dL RDW (11.5-14.5) % Plt Count (140-440) K/mcL MPV (7.4-10.4) fL Neut % (Auto) (38.0-78.0) % Lymph % (Auto) (15.5-49.0) % [place] % (Auto) (1.0-12.0) % Eos % (Auto) (0.0-7.0) % Baso % (Auto) (0.0-2.0) % Lymph # (Auto) (1.50-4.80) K/mcL [place] # (Auto) (0.10-0.90) K/mcL Eos # (Auto) (0.00-0.70) K/mcL Baso # (Auto) (0.00-0.30) K/mcL Absolute Neutrophils (1.80-8.00) K/mcL PT 15.5 H (11.9-14.5) sec INR 1.2 H (0.9-1.1) Sodium (133-145) mmol/L Potassium (3.3-5.1) mmol/L Chloride (96-108) mmol/L Carbon Dioxide (22-30) mmol/L Anion Gap (8.0-16.0) BUN (8-23) mg/dL Creatinine (0.6-1.1) mg/dL GFR Calculation Glucose (70-105) mg/dL Hemoglobin A1c (4.0-6.0) % Hgb Estim Average Glucose mg/dL Calcium (8.6-10.4) mg/dL Magnesium (1.6-2.5) mg/dL Total Bilirubin (0.1-1.0) mg/dL AST (<32) U/L ALT (<40) U/L Alkaline Phosphatase (39-117) U/L Ammonia (11-51) umol/L Troponin T (<0.03) ng/mL NT-Pro-B Natriuret Pep (<125.0) pg/mL Total Protein (5.9-8.4) gm/dL Albumin (3.2-5.2) gm/dL Globulin (2.2-3.7) gm/dL Albumin/Globulin Ratio (1.0-2.3) Procalcitonin (<0.10) ng/mL Urine Color Yellow Urine Appearance Hazy A (Clear) Urine pH 7.0 (5.0-9.0) Ur Specific [place] 1.027 (1.000-1.035) Urine Protein Negative (Negative) mg/dL Urine Glucose (UA) >=500 A (Negative) mg/dL Urine Ketones Negative (Negative) mg/dL Urine Occult Blood Negative (Negative) mg/dL Urine Nitrate Negative (Negative) Urine Bilirubin Negative (Negative) mg/dL Urine Urobilinogen 4.0 A mg/dL Ur Leukocyte Esterase Negative (Negative) /uL Urine RBC < 1 (0-3) /hpf Urine WBC 1 (0-4) /hpf Ur Squamous Epith Cells 2 (0-4) /hpf Urine Bacteria None (0) /hpf Ur Culture Indicated? No ED POC Tests ED POC Tests: ANJELICA - Influenza A Negative ANJELICA - Influenza B Negative ANJELICA - SARS Antigen Negative Discharge Plan Patient/Caregiver Discharge Instructions Pt seen by [employer]/PA only: No Clinical Impression: Acute hepatic encephalopathy, Cirrhosis, non-alcoholic, Acute dehydration Patient Disposition: Xfer As Inpt ([facility]) Discharge Date/Time: 10/22/21 17:34
--- NOTE | 2021-10-22 12:42 | Emergency Department Note ---
Fever HPI General Chief Complaint: Fever Stated Complaint: Fever, weakness Time Seen by Provider: 10/22/21 12:18 Source: patient Mode of arrival: wheelchair Limitations: no limitations History of Present Illness HPI Narrative: Narrative: 66-year-old female presents emerged department complaining that she has not felt well for a month. States that she is dizzy whenever she gets up. She denies having any pain. She states that she is able to walk around her house without a walker but when she leaves how she requires a walker. Has been inclined to stay in bed most days. Was diagnosed with a urinary tract infection 3 weeks ago here in the emergency department. States that she has had fever but low-grade. States that she has had runny nose sore throat cough congestion. /ex- provides significant history. He advises that the patient has cirrhosis and was started on lactulose 2 to 3 weeks ago because of confusion. States that the patient's had nausea. States that she tends to stay in bed and less push to get out. Nothing is making her better. Symptoms are constant. No associated trauma. May be associated with the cirrhosis which is nonalcoholic. MD complaint: fever Related Data Home Medications Medication Instructions Recorded Confirmed buspirone 15 mg tablet 15 mg PO TID tab 04/17/15 09/23/21 fluoxetine 20 mg tablet 80 mg PO DAILY tab 06/18/15 09/23/21 potassium chloride 10 mEq 20 meq PO QDAY 10/21/15 09/23/21 capsule,extended release ipratropium bromide 18 2 puff INHALATION BID 06/10/20 09/23/21 mcg/actuation aerosol inhaler empagliflozin 10 mg tablet 10 mg PO DAILY 10/20/20 09/23/21 (Jardiance) furosemide 40 mg tablet 40 mg PO BID 10/20/20 09/23/21 metformin 500 mg tablet,extended 1,000 mg PO BID 10/20/20 09/23/21 release 24 hr montelukast 10 mg tablet 10 mg PO DAILY 10/20/20 09/23/21 denosumab 60 mg/mL subcutaneous 60 mg SUB-Q [id number] 11/11/20 09/23/21 syringe (Prolia) calcium carbonate 600 mg-vitamin 1 tab PO QDAY 03/29/21 09/23/21 D3 10 mcg (400 unit) tablet (Calcium with Vitamin D) albuterol sulfate 2.5 mg INHALATION Q6H PRN 07/02/21 09/23/21 budesonide-formoterol HFA 160 2 puff INHALATION BID 07/02/21 09/23/21 mcg-4.5 mcg/actuation aerosol inhaler (Symbicort) denosumab 60 mg/mL subcutaneous 60 mg SUBCUT [id number] 07/02/21 09/23/21 syringe (Prolia) lactobacillus rhamnosus R0011 20 cell PO QDAY cap 07/02/21 09/23/21 billion cell capsule (Probiotic Digestive Care) lidocaine 5 % topical ointment 1 applic TOPICAL .1-4xDAY PRN g 07/02/21 09/23/21 loperamide 2 mg capsule 2 mg PO ONCE PRN cap 07/02/21 09/23/21 melatonin PO 07/02/21 09/23/21 mirtazapine 15 mg tablet 15 mg PO QDAY 07/02/21 09/23/21 mupirocin 2 % topical ointment 1 applic TOPICAL .Unknown g 07/02/21 09/23/21 nystatin 100,000 unit/gram topical 1 applic TOPICAL BID 07/02/21 09/23/21 powder nystatin 100,000 unit/mL oral 1 ml PO QID ml 07/02/21 09/23/21 suspension ondansetron 4 mg disintegrating 4 mg PO .Q4-6H PRN tab 07/02/21 09/23/21 tablet polyethylene glycol 3350 17 17 g PO QDAY PRN 07/02/21 09/23/21 gram/dose oral powder (Miralax) triamcinolone acetonide 0.1 % 1 applic DENTAL TID 07/02/21 09/23/21 dental paste Previous Rx's Medication Instructions Recorded fenofibrate 160 mg tablet 160 mg PO QDAY #90 tab 05/23/15 omeprazole 20 mg capsule,delayed 20 mg PO QDAY #90 cap 07/18/15 release triamcinolone acetonide 0.1 % 1 applic TOPICAL BID #30 g 07/18/15 topical ointment Lactobacillus acidophilus 2,000 mmu cells PO BID #60 cap 10/20/20 albuterol sulfate 90 mcg/actuation 2 puff INHALATION Q4-6HP PRN #1 g 06/01/21 aerosol inhaler (Ventolin HFA) ipratropium 0.5 mg-albuterol 3 mg 3 ml INHALATION Q6H PRN #1 ml 04/01/21 (2.5 mg base)/3 mL nebulization soln pregabalin 150 mg capsule 150 mg PO BID #14 cap 04/01/21 Disabled Parking Placard #1 ea 05/26/21 Allergies Allergy/AdvReac Type Severity Reaction Status Date / Time fluconazole [From Diflucan] Allergy Mild Hives Verified 10/01/21 15:25 bupropion AdvReac Intermediate psychotic Verified 10/01/21 15:25 episode diphenhydramine AdvReac Mild Vomiting Verified 10/01/21 15:25 [From Benadryl] guaifenesin [GUAIFENESIN] AdvReac Mild Itching Verified 10/01/21 15:25 sulfamethoxazole AdvReac Mild Flushing Verified 10/01/21 15:25 [From Sulfamethoprim] trimethoprim AdvReac Mild Flushing Verified 10/01/21 15:25 [From Sulfamethoprim] Review of Systems ROS ROS Narrative: Narrative: Constitutional: Reports fever Eyes: Denies eye discharge ENT ED: Reports throat pain and rhinorrhea Cardiovascular: Denies chest pain Respiratory: Reports shortness of breath and cough Gastrointestinal: Reports nausea and vomiting Genitourinary: Denies dysuria Integumentary: Denies rash Neurological: Reports headache Psychiatric: Reports anxiety and depression Endocrine: Reports fatigue Hematological/Lymphatic: Denies easy bleeding PFSH Narrative Patient History Narrative: Narrative: Medical/Surgical/Family History All Active Problems (Updated 10/22/21 @ 17:34 by Familia Sauer MD) Atypical chest pain (Acute) Altered mental status (Acute) Acute UTI (Acute) Nausea & vomiting (Acute) Acute hepatic encephalopathy (Acute) Cirrhosis, non-alcoholic (Acute) Acute dehydration (Acute) Other low back pain (Chronic) Postoperative hematoma (Acute) Hemorrhage complicating a procedure (Acute) Thoracic radiculopathy (Acute) Thoracic back pain (Acute) Elevated liver enzymes (Chronic) Partial obstruction of small intestine (Chronic) Cannabis dependence (Chronic) Telogen effluvium (Chronic) Body mass index exceeds 30 (Chronic) Diabetes mellitus (Chronic) Degeneration of intervertebral disc (Chronic) Arthritis of hip (Chronic) Chronic kidney disease (Chronic) Allergic rhinitis (Chronic) Nausea and vomiting in adult (Chronic) Hyperglycemia (Chronic) Bilateral hip joint arthritis (Chronic) Bronchitis (Chronic) COPD exacerbation (Chronic) Nausea with vomiting, unspecified (Chronic) Irritable bowel syndrome with diarrhea (Chronic) Abdominal pain (Chronic) Chronic diarrhea of unknown origin (Chronic) Small bowel obstruction (Chronic) History of asthma (Chronic) Bronchitis (Chronic) Acute viral syndrome (Chronic) Back pain (Chronic) Open T12 vertebral fracture (Chronic) Drug side effects (Chronic) Acute low back pain (Chronic) DDD (degenerative disc disease), lumbar (Chronic) Acute UTI (urinary tract infection) (Chronic) Hypochromic microcytic anemia (Chronic) COPD (chronic obstructive pulmonary disease) (Chronic) Community acquired pneumonia (Chronic) Thyroid nodule (Chronic) Acute exacerbation of chronic obstructive pulmonary disease (Chronic) Bronchitis (Chronic) Severe sepsis (Chronic) Pneumonia (Chronic) Fever (Chronic) Acute on chronic respiratory failure with hypoxia (Chronic) Volume overload (Chronic) Aphthous stomatitis (Chronic) Thoracic compression fracture (Chronic) Obstructive sleep apnea (Chronic) Hypoxia (Chronic) Acute viral syndrome (Chronic) Maxillary sinusitis, acute (Chronic) Chronic bronchitis (Chronic) Nocturnal hypoxemia (Chronic) Lung mass (Chronic) Small bowel obstruction (Acute) Nausea (Chronic) Diarrhea (Chronic) Right otitis media (Chronic) ATIF on CPAP (Chronic) Upper respiratory infection (Acute) Gastroenteritis (Acute) Lumbar sprain (Chronic) Edema (Chronic) Nonallopathic lesion of cervical region (Chronic) Fibromyositis (Chronic) Eczema (Chronic) GERD (gastroesophageal reflux disease) (Chronic) Benign hypertension (Chronic) Chronic pain syndrome (Chronic) Generalized anxiety disorder (Chronic) Major depressive disorder (Chronic) Obesity (Chronic) Mixed hypercholesterolemia and hypertriglyceridemia (Chronic) Vitamin D deficiency (Chronic) Thrombocytosis (Chronic) Upper respiratory infection (Acute) COPD (chronic obstructive pulmonary disease) (Acute) COPD with exacerbation (Acute) Encounter for medication refill (Acute) Acute exacerbation of chronic obstructive airways disease (Acute) Acute bronchitis (Acute) Heart palpitations (Acute) Tension type headache (Chronic) COPD exacerbation (Chronic) Edema of foot (Chronic) Shortness of Breath (Chronic) Nummular eczema (Chronic) Marijuana smoker (Chronic) Tobacco abuse (Chronic) Stress incontinence in female (Chronic) Chronic pain (Chronic) Osteoporosis (Chronic) Osteoarthritis (Chronic) IBS (irritable bowel syndrome) (Chronic) Hypertension, essential (Chronic) Hyperlipidemia (Chronic) Heartburn (Chronic) Fibromyalgia (Chronic) Fatigue (Chronic) Depression (Chronic) COPD (chronic obstructive pulmonary disease) (Chronic) Bone spur of foot (Chronic) Asthma (Chronic) Anxiety (Chronic) Medical History Abdominal pain Abdominal pain Acute exacerbation of chronic obstructive airways disease Acute exacerbation of chronic obstructive pulmonary disease Acute low back pain Acute on chronic respiratory failure with hypoxia Acute UTI (urinary tract infection) Acute viral syndrome Allergic rhinitis Anxiety 2012. PHQ 9=21 12/31/15. Aphthous stomatitis Apnea Arthritis of hip Asthma 1994 Back pain Benign hypertension Bilateral hip joint arthritis Body mass index exceeds 30 Bone spur of foot 2009 Bronchitis given h/o copd, treat with zithromax. Bronchitis Bronchitis Bronchitis Bronchitis Bronchitis Cannabis dependence Cellulitis Cholecystitis 2010 Chronic diarrhea of unknown origin Chronic kidney disease Chronic pain 01/31/2014 - Etiology unknown. On Vicodin, for same will try alternative meds, wean off if tolerated Chronic pain syndrome Community acquired pneumonia COPD (chronic obstructive pulmonary disease) COPD (chronic obstructive pulmonary disease) COPD (chronic obstructive pulmonary disease) COPD exacerbation COPD exacerbation COPD with exacerbation DDD (degenerative disc disease), lumbar Degeneration of intervertebral disc Depression severe acute worsening, on refer to Emergency. Diabetes mellitus Drug side effects Eczema Edema Edema of foot acute bilateral, h/o copd, get echo, get bnp and d dmier, start on lasix 20mg qd and KCL supplements, if worsens or does not respond advise to call back. Elevated liver enzymes Encounter for medication refill Fatigue 1983 Fever Fibromyalgia 01/31/2014 - Positive symptoms and tender points, need to rule out inflammatory conditions. Check ESR, CRP, ASHLIE, Uric Acid levels, CBC, CMP Fibromyositis Gastritis Generalized anxiety disorder GERD (gastroesophageal reflux disease) Heartburn doing wel with prilosec, History of asthma Hyperglycemia Hyperlipidemia On fenofibrate, TG now 197 better , LDL is 83 which is also better, pt does not want to use statin, Hypertension, essential BP stable, Will review previous medical records, Monitor for now, stop a tenolol, given copd, and try amlodipine. Hypochromic microcytic anemia Hypoxia IBS (irritable bowel syndrome) 1982 Irritable bowel syndrome with diarrhea Lumbar sprain Lung mass Versus lung abscess, CT chest 10/18/2020. Major depressive disorder Marijuana smoker advised to quit. Maxillary sinusitis, acute Mixed hypercholesterolemia and hypertriglyceridemia Myalgia 1982 Nausea and vomiting in adult nausea and vomiting appears to be functional and related more to her anxiety with depression then actual GI source Nausea with vomiting, unspecified Nocturnal hypoxemia Nonallopathic lesion of cervical region Nummular eczema treat with triamcinolone Obesity Obstructive sleep apnea Open T12 vertebral fracture ATIF on CPAP Osteoarthritis Osteoporosis 02/21/2015 Other low back pain Partial obstruction of small intestine Pneumonia Rib fracture 01/02/2015 - Dr. Holland Severe sepsis Shortness of Breath chr in nature, mild worsening, 2 pillow at night at times. Small bowel obstruction Stress incontinence in female 01/31/2014 - Urination on cough, will address this later Telogen effluvium Tension type headache Thoracic back pain Thoracic compression fracture Chronic Thoracic radiculopathy Thrombocytosis Thyroid nodule Tinea corporis Tobacco abuse Smoking: Counseled to quit - 40 pack year history , tried chantix, pt self stopped Upper respiratory infection Vitamin D deficiency Volume overload Surgical History History of cholecystectomy (06/09/15) Dr. Stacey Pringle History of cholecystectomy (06/09/15) History of colonoscopy (08/12/15) 1982 History of esophagogastroduodenoscopy (EGD) (11/17/18) History of hysterectomy 1982 History of laparoscopy 1982 History of laparoscopy (~1982) History of oophorectomy (11/01/82) History of tonsillectomy 1976 History of tonsillectomy (~1976) History of total abdominal hysterectomy (~1982) History of tubal ligation 1973 History of tubal ligation (~1973) Family History Father Carcinoma in situ of bladder Grandmother Cerebrovascular accident Arthritis Essential hypertension Maternal Myocardial Infarction Maternal Brother Type 2 diabetes mellitus Unknown Family history of throat cancer Mother Arthritis Family history of throat cancer Social History Smoking Status: Former smoker Alcohol Intake Frequency: does not drink Substance Use: marijuana Exam Narrative Narrative: Narrative: General Limitations: no limitations General appearance: Present alert, in no apparent distress and other (Appears tired) Head Head: Present atraumatic and normocephalic Eye Eye: Present normal appearance and EOMI Neck Neck: Present normal inspection and trachea midline Respiratory Respiratory: Present normal lung sounds bilaterally; Absent respiratory distress Cardiovascular Cardiovascular: Present regular rate (Low to mid 90s) and normal rhythm Adbominal Abdominal: Present soft; Absent tenderness Back Back: Absent tenderness (To percussion) Neurological Neurological: Present alert and oriented X3 Psychiatric Psychiatric: Present depressed Skin Skin: Present warm (WNL) and dry Course Vital Signs Vital signs: Vital Signs Temperature 99.4 F H 10/22/21 12:08 Pulse Rate 97 H 10/22/21 12:08 Respiratory Rate 24 H 10/22/21 12:08 Blood Pressure 137/87 10/22/21 12:08 Pulse Oximetry (%) 96 10/22/21 12:08 Temperature 99.4 F H 10/22/21 12:08 Pulse Rate 96 H 10/22/21 17:16 Respiratory Rate 24 H 10/22/21 12:08 Blood Pressure 157/86 10/22/21 17:16 Pulse Oximetry (%) 95 10/22/21 17:16 MDM MDM Narrative Medical decision making narrative: Narrative: Elderly female presents emerged department complaining of fever and malaise and dizziness. Differential includes urinary tract infection, viral illness, Covid, influenza, depression, encephalopathy, sepsis, other Ammonia level will be checked to rule out encephalopathy. Patient has nonalcoholic cirrhosis and is on lactulose. Temperature was checked and it was 99.4. Pulse ox was 96% on 3 L which is the normal amount of oxygen she uses at home. Patient has COPD. EKG was unchanged and showed a normal sinus rhythm without acute pathology. Urinalysis will be obtained to evaluate for UTI. Blood work is pending as is chest x-ray. Ammonia level elevated at 101 compatible with hepatic encephalopathy. Chest x- ray was unremarkable. Troponin was less than 0.01. BNP was 141. Electrolytes were normal. BUN was 28 with a creatinine of 0.9 suggesting possible dehydration. Glucose elevated at 157. White count was normal at 10.6 with a hemoglobin of 16. Bilirubin was elevated at 1.2 which was not seen in the previous lab results. I am concerned about dehydration in view of the BUN/creatinine ratio of 30:1. I bolused the patient a liter of normal saline. Dehydration can be a cause that exacerbates hepatic encephalopathy. Influenza test was negative and Covid test were negative. The patient was unable to to state what the date was though she did know the president and her location. I discussed the case with our hospital ist Dr. Liao who has accepted the patient for admission for hepatic encephalopathy Lab Data Result diagrams: 10/22/21 12:40 10/22/21 12:40 Labs: Lab Results 10/22/21 10/22/21 10/22/21 Range/Units 12:40 12:40 12:40 WBC 10.6 (4.5-11.0) K/mcL RBC 5.84 H (3.59-5.38) M/mcL Hgb 16.0 H (11.2-15.7) g/dL Hct 48.0 H (34.1-44.9) % MCV 82.2 (80.0-100.0) fL MCH 27.4 (26.0-34.0) pg MCHC 33.3 (31.0-36.0) g/dL RDW 14.9 H (11.5-14.5) % Plt Count 285 (140-440) K/mcL MPV 9.4 (7.4-10.4) fL Neut % (Auto) 69.4 (38.0-78.0) % Lymph % (Auto) 17.5 (15.5-49.0) % [place] % (Auto) 7.6 (1.0-12.0) % Eos % (Auto) 4.6 (0.0-7.0) % Baso % (Auto) 0.9 (0.0-2.0) % Lymph # (Auto) 1.85 (1.50-4.80) K/mcL [place] # (Auto) 0.80 (0.10-0.90) K/mcL Eos # (Auto) 0.49 (0.00-0.70) K/mcL Baso # (Auto) 0.10 (0.00-0.30) K/mcL Absolute Neutrophils 7.34 (1.80-8.00) K/mcL PT (11.9-14.5) sec INR (0.9-1.1) Sodium 131 L (133-145) mmol/L Potassium 4.7 (3.3-5.1) mmol/L Chloride 95 L (96-108) mmol/L Carbon Dioxide 20 L (22-30) mmol/L Anion Gap 16.0 (8.0-16.0) BUN 28 H (8-23) mg/dL Creatinine 0.9 (0.6-1.1) mg/dL GFR Calculation 66 Glucose 157 H (70-105) mg/dL Calcium 11.6 H (8.6-10.4) mg/dL Magnesium 2.4 (1.6-2.5) mg/dL Total Bilirubin 1.2 H (0.1-1.0) mg/dL AST 41 H (<32) U/L ALT 40 H (<40) U/L Alkaline Phosphatase 73 (39-117) U/L Ammonia (11-51) umol/L Troponin T (<0.03) ng/mL NT-Pro-B Natriuret Pep 141.1 H (<125.0) pg/mL Total Protein 8.2 (5.9-8.4) gm/dL Albumin 4.4 (3.2-5.2) gm/dL Globulin 3.8 H (2.2-3.7) gm/dL Albumin/Globulin Ratio 1.2 (1.0-2.3) Procalcitonin 0.16 H (<0.10) ng/mL Urine Color Urine Appearance (Clear) Urine pH (5.0-9.0) Ur Specific [place] (1.000-1.035) Urine Protein (Negative) mg/dL Urine Glucose (UA) (Negative) mg/dL Urine Ketones (Negative) mg/dL Urine Occult Blood (Negative) mg/dL Urine Nitrate (Negative) Urine Bilirubin (Negative) mg/dL Urine Urobilinogen mg/dL Ur Leukocyte Esterase (Negative) /uL Urine RBC (0-3) /hpf Urine WBC (0-4) /hpf Ur Squamous Epith Cells (0-4) /hpf Urine Bacteria (0) /hpf Ur Culture Indicated? 10/22/21 10/22/21 10/22/21 Range/Units 12:40 12:40 12:40 WBC (4.5-11.0) K/mcL RBC (3.59-5.38) M/mcL Hgb (11.2-15.7) g/dL Hct (34.1-44.9) % MCV (80.0-100.0) fL MCH (26.0-34.0) pg MCHC (31.0-36.0) g/dL RDW (11.5-14.5) % Plt Count (140-440) K/mcL MPV (7.4-10.4) fL Neut % (Auto) (38.0-78.0) % Lymph % (Auto) (15.5-49.0) % [place] % (Auto) (1.0-12.0) % Eos % (Auto) (0.0-7.0) % Baso % (Auto) (0.0-2.0) % Lymph # (Auto) (1.50-4.80) K/mcL [place] # (Auto) (0.10-0.90) K/mcL Eos # (Auto) (0.00-0.70) K/mcL Baso # (Auto) (0.00-0.30) K/mcL Absolute Neutrophils (1.80-8.00) K/mcL PT 15.5 H (11.9-14.5) sec INR 1.2 H (0.9-1.1) Sodium (133-145) mmol/L Potassium (3.3-5.1) mmol/L Chloride (96-108) mmol/L Carbon Dioxide (22-30) mmol/L Anion Gap (8.0-16.0) BUN (8-23) mg/dL Creatinine (0.6-1.1) mg/dL GFR Calculation Glucose (70-105) mg/dL Calcium (8.6-10.4) mg/dL Magnesium (1.6-2.5) mg/dL Total Bilirubin (0.1-1.0) mg/dL AST (<32) U/L ALT (<40) U/L Alkaline Phosphatase (39-117) U/L Ammonia 101 H (11-51) umol/L Troponin T < 0.01 (<0.03) ng/mL NT-Pro-B Natriuret Pep (<125.0) pg/mL Total Protein (5.9-8.4) gm/dL Albumin (3.2-5.2) gm/dL Globulin (2.2-3.7) gm/dL Albumin/Globulin Ratio (1.0-2.3) Procalcitonin (<0.10) ng/mL Urine Color Urine Appearance (Clear) Urine pH (5.0-9.0) Ur Specific [place] (1.000-1.035) Urine Protein (Negative) mg/dL Urine Glucose (UA) (Negative) mg/dL Urine Ketones (Negative) mg/dL Urine Occult Blood (Negative) mg/dL Urine Nitrate (Negative) Urine Bilirubin (Negative) mg/dL Urine Urobilinogen mg/dL Ur Leukocyte Esterase (Negative) /uL Urine RBC (0-3) /hpf Urine WBC (0-4) /hpf Ur Squamous Epith Cells (0-4) /hpf Urine Bacteria (0) /hpf Ur Culture Indicated? 10/22/21 Range/Units 14:16 WBC (4.5-11.0) K/mcL RBC (3.59-5.38) M/mcL Hgb (11.2-15.7) g/dL Hct (34.1-44.9) % MCV (80.0-100.0) fL MCH (26.0-34.0) pg MCHC (31.0-36.0) g/dL RDW (11.5-14.5) % Plt Count (140-440) K/mcL MPV (7.4-10.4) fL Neut % (Auto) (38.0-78.0) % Lymph % (Auto) (15.5-49.0) % [place] % (Auto) (1.0-12.0) % Eos % (Auto) (0.0-7.0) % Baso % (Auto) (0.0-2.0) % Lymph # (Auto) (1.50-4.80) K/mcL [place] # (Auto) (0.10-0.90) K/mcL Eos # (Auto) (0.00-0.70) K/mcL Baso # (Auto) (0.00-0.30) K/mcL Absolute Neutrophils (1.80-8.00) K/mcL PT (11.9-14.5) sec INR (0.9-1.1) Sodium (133-145) mmol/L Potassium (3.3-5.1) mmol/L Chloride (96-108) mmol/L Carbon Dioxide (22-30) mmol/L Anion Gap (8.0-16.0) BUN (8-23) mg/dL Creatinine (0.6-1.1) mg/dL GFR Calculation Glucose (70-105) mg/dL Calcium (8.6-10.4) mg/dL Magnesium (1.6-2.5) mg/dL Total Bilirubin (0.1-1.0) mg/dL AST (<32) U/L ALT (<40) U/L Alkaline Phosphatase (39-117) U/L Ammonia (11-51) umol/L Troponin T (<0.03) ng/mL NT-Pro-B Natriuret Pep (<125.0) pg/mL Total Protein (5.9-8.4) gm/dL Albumin (3.2-5.2) gm/dL Globulin (2.2-3.7) gm/dL Albumin/Globulin Ratio (1.0-2.3) Procalcitonin (<0.10) ng/mL Urine Color Yellow Urine Appearance Hazy A (Clear) Urine pH 7.0 (5.0-9.0) Ur Specific [place] 1.027 (1.000-1.035) Urine Protein Negative (Negative) mg/dL Urine Glucose (UA) >=500 A (Negative) mg/dL Urine Ketones Negative (Negative) mg/dL Urine Occult Blood Negative (Negative) mg/dL Urine Nitrate Negative (Negative) Urine Bilirubin Negative (Negative) mg/dL Urine Urobilinogen 4.0 A mg/dL Ur Leukocyte Esterase Negative (Negative) /uL Urine RBC < 1 (0-3) /hpf Urine WBC 1 (0-4) /hpf Ur Squamous Epith Cells 2 (0-4) /hpf Urine Bacteria None (0) /hpf Ur Culture Indicated? No ED POC Tests ED POC Tests: ANJELICA - Influenza A Negative ANJELICA - Influenza B Negative ANJELICA - SARS Antigen Negative Discharge Plan Patient/Caregiver Discharge Instructions Pt seen by STATE TROOPER/PA only: No Clinical Impression: Acute hepatic encephalopathy, Cirrhosis, non-alcoholic, Acute dehydration Patient Disposition: Xfer As Inpt ([facility]) Follow up with: Darleen Kemp ARNP [Primary Care Provider] - Prescriptions: No Action albuterol sulfate 2.5 mg /3 mL (0.083 %) solution for nebulization 2.5 mg inhalation Q6H PRN0RF lidocaine 5 % ointment 1 applic topical .1-4xDAY PRN0RF loperamide 2 mg capsule 2 mg PO ONCE PRN0RF Rx Instructions: Take 2 capsules at onset of symptoms followed by one capsule after each loose stool. melatonin PO 0RF polyethylene glycol 3350 [Miralax] 17 gram/dose powder 17 g PO QDAY PRN0RF mirtazapine 15 mg tablet 15 mg PO QDAY 0RF mupirocin 2 % ointment 1 applic topical .Unknown 0RF nystatin 100,000 unit/gram powder 1 applic topical BID 0RF nystatin 100,000 unit/mL suspension 1 ml PO QID 0RF Rx Instructions: swish and swallow ondansetron 4 mg tablet,disintegrating 4 mg PO .Q4-6H PRN0RF Probiotic Digestive Care 20 billion cell capsule PO QDAY 0RF Prolia 60 mg/mL syringe 60 mg subcut [id number] 0RF budesonide-formoterol [Symbicort] 160-4.5 mcg/actuation HFA aerosol inhaler 2 puff inhalation BID 0RF triamcinolone acetonide 0.1 % paste 1 applic dental TID 0RF Rx Instructions: use after food and/or drink and/or oral hygiene fenofibrate 160 mg tablet 160 mg PO QDAY Qty: 90 3RF buspirone 15 mg tablet 15 mg PO TID 0RF triamcinolone acetonide 0.1 % ointment 1 applic TOPICAL BID Qty: 30 3RF omeprazole 20 MG capsule 20 mg PO QDAY Qty: 90 3RF potassium chloride 10 mEq capsule, extended release 20 meq PO QDAY 0RF ipratropium bromide 18 mcg/actuation aerosol 2 puff INHALATION BID 0RF (DME) Disabled Parking Placard See Rx Instructions .Route .MEDSUPPLY Qty: 1 0RF Rx Instructions: This patient has a lung disease that requires the use of portable oxygen and can not ambulate more than 150 feet without rest Prolia 60 mg/mL syringe 60 mg SUB-Q [id number] 0RF Rx Instructions: Next dose due in April fluoxetine 20 MG tablet 80 mg PO DAILY 0RF Lactobacillus acidophilus Capsule 2,000 mmu cells PO BID Qty: 60 0RF Rx Instructions: give with food (meal/snack) metformin 500 mg tablet extended release 24 hr 1,000 mg PO BID 0RF Jardiance 10 mg tablet 10 mg PO DAILY 0RF montelukast 10 mg tablet 10 mg PO DAILY 0RF furosemide 40 mg tablet 40 mg PO BID 0RF calcium carbonate-vitamin D3 [Calcium with Vitamin D] 600 mg(1,500mg) -400 unit Tablet 1 tab PO QDAY 0RF ipratropium-albuterol 0.5 mg-3 mg(2.5 mg base)/3 mL solution for nebulization 3 ml INHALATION Q6H PRN (Reason: Shortness Of Breath) Qty: 1 0RF albuterol sulfate [Ventolin HFA] 90 mcg/actuation HFA aerosol inhaler 2 puff INHALATION Q4-6HP PRN (Reason: Shortness Of Breath) Qty: 1 0RF pregabalin 150 mg capsule 150 mg PO BID Qty: 14 0RF
--- NOTE | 2021-10-22 12:55 | XRay Report ---
HISTORY: Fever, weakness, smoker, history of breast cancer FINDINGS: The lungs are clear. The streaky infiltrates seen in both lower lobes on the prior chest CT done on 09/30/21 have resolved. There is no evidence of mass, congestive heart failure or air trapping. The heart size and pulmonary vasculature are normal. Patient had prior fusion in the lower thoracic and upper lumbar spine using pedicle screws and rods. No lytic or blastic lesion are detected. There has been little change from the prior chest x-ray done on 10/14/21. IMPRESSION: No acute abnormality Interpreted and Authenticated by: Dariel Singh 10/22/21
[2021-10-22 13:37] LABS: Basophils % (Auto) 0.9 % (0.0-2.0); Eosinophils # (Auto) 0.49 K/mcL (0.00-0.70); Eosinophils % (Auto) 4.6 % (0.0-7.0); Lymphocytes # (Auto) 1.85 K/mcL (1.50-4.80); Lymphocytes % (Auto) 17.5 % (15.5-49.0); Mean Cell Volume 82.2 fL (80.0-100.0); Mean Corpuscular HGB Conc 33.3 g/dL (31.0-36.0); Mean Platelet Volume 9.4 fL (7.4-10.4); Monocytes % (Auto) 7.6 % (1.0-12.0); Neutrophils % (Auto) 69.4 % (38.0-78.0); Platelet Count 285 K/mcL (140-440); RBC 5.84 M/mcL (3.59-5.38); Red Cell Distribution Width 14.9 % (11.5-14.5); WBC 10.6 K/mcL (4.5-11.0)
[2021-10-22 14:05] LABS: proBNP 141.1 pg/mL (<125.0)
[2021-10-22 14:26] LABS: ALT/SGPT 40 U/L (<40); AST/SGOT 41 U/L (<32); Albumin 4.4 gm/dL (3.2-5.2); Albumin/Globulin Ratio 1.2 (1.0-2.3); Alkaline Phosphatase 73 U/L (39-117); Bilirubin,Total 1.2 mg/dL (0.1-1.0); Blood Urea Nitrogen 28 mg/dL (8-23); Calcium 11.6 mg/dL (8.6-10.4); Carbon Dioxide 20 mmol/L (22-30); Chloride 95 mmol/L (96-108); Globulin 3.8 gm/dL (2.2-3.7); Glomerular Filtration Rate 66; Glucose 157 mg/dL (70-105)
[2021-10-22] MEDS ORDERED: 0.9 % SODIUM CHLORIDE 1,000 ML IV ONE (15:03)
[2021-10-22 15:20] LABS: Appearance,Urine HAZY (Clear); Bilirubin,Urine Negative (Negative); Color,Urine YELLOW; Culture Indicated,Urine No; Glucose,Urine (UA) >=500 mg/dL (Negative); Ketones,Urine Negative (Negative); Leukocyte Esterase,Urine Negative /uL (Negative); Nitrate,Urine Negative (Negative); Protein,Urine Negative (Negative); Specific Gravity,Urine 1.027 (1.000-1.035); Urine Blood Negative (Negative); Urine RBC < 1 /hpf (0-3); Urine Squamous Epithelial Cell 2 /hpf (0-4); Urine WBC 1 /hpf (0-4)
--- NOTE | 2021-10-22 15:45 | Internal Med Progress Note ---
SUBJECTIVE Subjective Patient information: Note initiated : 10/22/21 at 3:37 pm Service Date, if different from initiated Date: [] Patient: Kenia Sandoval 66 y/o F admitted on for Fever, weakness. Chief Complaint: [] Interval history: Patient presents the ED with generalized weakness lethargy sleeping more some nausea feeling dizzy when she gets up. Patient says she been feeling ill for a month and saw her primary care doctor a few weeks ago and started on lactulose. Patient has not felt much better. She says she takes lactulose once a day and has a bowel movement once a day. Feels little foggy and confused at times. Says she has a sinus congestion runny nose and a sore throat. Patient on room air and chest x-ray was unremarkable. Ammonia was 101. She was hypercalcemic 11.6 and she does take vitamin D and calcium supplements and has a history of osteoporosis. CBC showed hemoconcentration and she had a sodium of 131 and a BUN of 28 over creatinine 0.9. Calcitonin unremarkable. Review of Systems: Pertinent positives as above plus headache. Denies chills/vomiting/chest or abdominal pain/cough/dyspnea/diarrhea. Many 10 point review of system reviewed negative Constitutional Vitals: Vital Signs Temp Pulse Resp BP Pulse Ox 99.4 F H 97 H 24 H 139/87 95 10/22/21 12:08 10/22/21 14:45 10/22/21 12:08 10/22/21 14:31 10/22/21 14:45 Period Temp Pulse Resp BP Sys/Miranda Pulse Ox Last 24 Hr 99.4 F 93-101 24 122-156/68-87 92-99 Intake and Output 10/22/21 10/22/21 10/22/21 05:59 13:59 21:59 Weight 61.915 kg Patient Weight 10/23/21 05:59 Weight 61.915 kg Intake & Output: Intake & Output 10/22/21 10/22/21 10/22/21 05:59 13:59 21:59 Weight 61.915 kg Exam: General: Appears quite fatigued and weak, awake, No acute Distress Eyes/N/T: EOMI, PERRL, dry MM Head/Neck: neck supple, normocephalic atraumatic CV: RRR, No murmurs, normal s1/s2 Pulm: Clear b/l, no wheezing/rhonchi/rales Abd: soft, nontender, +BS x4 Ext: no clubbing/cyanosis/edema Neuro: Alert, no focal deficits, moves all extremities, CN 2-12 grossly intact, symmetrical strength b/l upper/lower, sensations intact b/l upper/lower Skin: warm/dry OBJ DATA Labs CBC & Chem 7: 10/22/21 12:40 10/22/21 12:40 Labs: Abnormal Lab Results 10/22/21 10/22/21 10/22/21 14:16 12:40 12:40 RBC Hgb Hct RDW Sodium Chloride Carbon Dioxide BUN Glucose Calcium Total Bilirubin AST ALT Ammonia 101 H NT-Pro-B Natriuret Pep Globulin Procalcitonin 0.16 H Urine Appearance Hazy A Urine Glucose (UA) >=500 A Urine Urobilinogen 4.0 A 10/22/21 10/22/21 12:40 12:40 RBC 5.84 H Hgb 16.0 H Hct 48.0 H RDW 14.9 H Sodium 131 L Chloride 95 L Carbon Dioxide 20 L BUN 28 H Glucose 157 H Calcium 11.6 H Total Bilirubin 1.2 H AST 41 H ALT 40 H Ammonia NT-Pro-B Natriuret Pep 141.1 H Globulin 3.8 H Procalcitonin Urine Appearance Urine Glucose (UA) Urine Urobilinogen A/P Narrative A/P Narrative: A: *Hepatic Encephalopathy, mild: 2/2 volume depletion +/- viral illness *Cirrhosis: -on lasix 40 bid *Volume depletion w/hemoconcentration: *Hyponatremia: *Hypercalcemia: on vit D/Lake supp, has h/o osteoporosis *Generalized weakness/deconditioning: *DM: *COPD: *ATIF not compliant with CPAP: *GERD: *CKD II: *Anemia, chronic: *Anxiety/depression: *URI: check rvp P: -lactulose -IVF, f/u Na/Ca -hold home lasix -hold home vit D/Lake supp until seen by pcp -SSI -Home medication reconciliation -pt/ot -ppx: lovenox / home ppi DNR Time Spent With Patient Time: Total time spent is greater than 50% in coordination of care (as documented) at patient's floor/unit and/or counseling patient:
[2021-10-22 16:18] LABS: INR 1.2 (0.9-1.1); Prothrombin Time 15.5 sec (11.9-14.5)
--- NOTE | 2021-10-22 17:48 | Emergency Department Note ---
ED Note Addendum Note Addendum: EKG interpreted by me, Dr. Lincoln. Normal sinus rhythm at a rate of 94. No acute ST elevation. No acute ST depression. Normal QRS complexes. Normal axis. No arrhythmias. Impression normal EKG.
[2021-10-22] MEDS ORDERED: POTASSIUM CHLORIDE 20 MEQ TABLET PO PRN ×2 (17:52)
[2021-10-22] MEDS ORDERED: MAGNESIUM SULFATE 2 GM/50 ML BAG IV PRN (17:52)
[2021-10-22] MEDS ORDERED: ACETAMINOPHEN 325 MG TABLET PO PRN (17:52)
[2021-10-22] MEDS ORDERED: DEXTROSE 31 GM ORAL.SUSP PO PRN (17:52)
[2021-10-22] MEDS ORDERED: DEXTROSE 50% 50 ML VIAL IV PRN (17:52)
[2021-10-22] MEDS ORDERED: ONDANSETRON 4 MG/2 ML VIAL IV PRN (17:52)
[2021-10-22] MEDS ORDERED: LACTULOSE 20 GM/30 ML ORAL.SOL PO PRN (17:52)
[2021-10-22] MEDS ORDERED: 0.9 % SODIUM CHLORIDE 1,500 ML IV SCH (17:52)
[2021-10-22] MEDS ORDERED: POTASSIUM CHLORIDE 40 MEQ in DEXTROSE 5% IN WATER 500 ML IV PRN (17:52)
[2021-10-22] MEDS ORDERED: IPRATROPIUM/ALBUTEROL 3 ML AMPUL.NEB NEB PRN (17:52)
[2021-10-22] MEDS ORDERED: SENNOSIDES 1 TABLET PO PRN (17:52)
[2021-10-22 17:56] LABS: Hemoglobin A1C 5.9 % Hgb (4.0-6.0)
[2021-10-22] MEDS: INSULIN LISPRO 1 UNIT/0.01 ML UNIT SQ SCH ×2 (18:04→22:19)
[2021-10-22] MEDS ORDERED: ASPIRIN 325 MG ENTERIC COATED TABLET PO SCH (21:30)
[2021-10-22] MEDS ORDERED: morphine 2 MG/ML VIAL IV PRN (21:31)
--- NOTE | 2021-10-22 21:32 | Internal Med History&Physical ---
HPI History of Present Illness Patient information: Note initiated : 10/22/21 at 9:30 pm Service Date, if different from initiated Date: [] Patient: Kenia Sandoval a 66 y/o F admitted on 10/22/21 for Fever, weakness. Chief Complaint: [] History of present illness: Ms. Sandoval is a 66 year old F Chief Complaint: [] Interval history: Patient presents the ED with generalized weakness lethargy sleeping more some nausea feeling dizzy when she gets up. Patient says she been feeling ill for a month and saw her primary care doctor a few weeks ago and started on lactulose. Patient has not felt much better. She says she takes lactulose once a day and has a bowel movement once a day. Feels little foggy and confused at times. Says she has a sinus congestion runny nose and a sore throat. Patient on room air and chest x-ray was unremarkable. Ammonia was 101. She was hypercalcemic 11.6 and she does take vitamin D and calcium supplements and has a history of osteoporosis. CBC showed hemoconcentration and she had a sodium of 131 and a BUN of 28 over creatinine 0.9. Calcitonin unremarkable. Review of Systems: Pertinent positives as above plus headache. Denies chills/vomiting/chest or abdominal pain/cough/dyspnea/diarrhea. Many 10 point review of system reviewed negative PFSH PFSH All Active Problems (Updated 10/22/21 @ 17:34 by Familia Sauer MD) Atypical chest pain (Acute) Altered mental status (Acute) Acute UTI (Acute) Nausea & vomiting (Acute) Acute hepatic encephalopathy (Acute) Cirrhosis, non-alcoholic (Acute) Acute dehydration (Acute) Other low back pain (Chronic) Postoperative hematoma (Acute) Hemorrhage complicating a procedure (Acute) Thoracic radiculopathy (Acute) Thoracic back pain (Acute) Elevated liver enzymes (Chronic) Partial obstruction of small intestine (Chronic) Cannabis dependence (Chronic) Telogen effluvium (Chronic) Body mass index exceeds 30 (Chronic) Diabetes mellitus (Chronic) Degeneration of intervertebral disc (Chronic) Arthritis of hip (Chronic) Chronic kidney disease (Chronic) Allergic rhinitis (Chronic) Nausea and vomiting in adult (Chronic) Hyperglycemia (Chronic) Bilateral hip joint arthritis (Chronic) Bronchitis (Chronic) COPD exacerbation (Chronic) Nausea with vomiting, unspecified (Chronic) Irritable bowel syndrome with diarrhea (Chronic) Abdominal pain (Chronic) Chronic diarrhea of unknown origin (Chronic) Small bowel obstruction (Chronic) History of asthma (Chronic) Bronchitis (Chronic) Acute viral syndrome (Chronic) Back pain (Chronic) Open T12 vertebral fracture (Chronic) Drug side effects (Chronic) Acute low back pain (Chronic) DDD (degenerative disc disease), lumbar (Chronic) Acute UTI (urinary tract infection) (Chronic) Hypochromic microcytic anemia (Chronic) COPD (chronic obstructive pulmonary disease) (Chronic) Community acquired pneumonia (Chronic) Thyroid nodule (Chronic) Acute exacerbation of chronic obstructive pulmonary disease (Chronic) Bronchitis (Chronic) Severe sepsis (Chronic) Pneumonia (Chronic) Fever (Chronic) Acute on chronic respiratory failure with hypoxia (Chronic) Volume overload (Chronic) Aphthous stomatitis (Chronic) Thoracic compression fracture (Chronic) Obstructive sleep apnea (Chronic) Hypoxia (Chronic) Acute viral syndrome (Chronic) Maxillary sinusitis, acute (Chronic) Chronic bronchitis (Chronic) Nocturnal hypoxemia (Chronic) Lung mass (Chronic) Small bowel obstruction (Acute) Nausea (Chronic) Diarrhea (Chronic) Right otitis media (Chronic) ATIF on CPAP (Chronic) Upper respiratory infection (Acute) Gastroenteritis (Acute) Lumbar sprain (Chronic) Edema (Chronic) Nonallopathic lesion of cervical region (Chronic) Fibromyositis (Chronic) Eczema (Chronic) GERD (gastroesophageal reflux disease) (Chronic) Benign hypertension (Chronic) Chronic pain syndrome (Chronic) Generalized anxiety disorder (Chronic) Major depressive disorder (Chronic) Obesity (Chronic) Mixed hypercholesterolemia and hypertriglyceridemia (Chronic) Vitamin D deficiency (Chronic) Thrombocytosis (Chronic) Upper respiratory infection (Acute) COPD (chronic obstructive pulmonary disease) (Acute) COPD with exacerbation (Acute) Encounter for medication refill (Acute) Acute exacerbation of chronic obstructive airways disease (Acute) Acute bronchitis (Acute) Heart palpitations (Acute) Tension type headache (Chronic) COPD exacerbation (Chronic) Edema of foot (Chronic) Shortness of Breath (Chronic) Nummular eczema (Chronic) Marijuana smoker (Chronic) Tobacco abuse (Chronic) Stress incontinence in female (Chronic) Chronic pain (Chronic) Osteoporosis (Chronic) Osteoarthritis (Chronic) IBS (irritable bowel syndrome) (Chronic) Hypertension, essential (Chronic) Hyperlipidemia (Chronic) Heartburn (Chronic) Fibromyalgia (Chronic) Fatigue (Chronic) Depression (Chronic) COPD (chronic obstructive pulmonary disease) (Chronic) Bone spur of foot (Chronic) Asthma (Chronic) Anxiety (Chronic) Medical History Abdominal pain Abdominal pain Acute exacerbation of chronic obstructive airways disease Acute exacerbation of chronic obstructive pulmonary disease Acute low back pain Acute on chronic respiratory failure with hypoxia Acute UTI (urinary tract infection) Acute viral syndrome Allergic rhinitis Anxiety 2012. PHQ 9=21 12/31/15. Aphthous stomatitis Apnea Arthritis of hip Asthma 1995 Back pain Benign hypertension Bilateral hip joint arthritis Body mass index exceeds 30 Bone spur of foot 2009 Bronchitis given h/o copd, treat with zithromax. Bronchitis Bronchitis Bronchitis Bronchitis Bronchitis Cannabis dependence Cellulitis Cholecystitis 2010 Chronic diarrhea of unknown origin Chronic kidney disease Chronic pain 01/31/2014 - Etiology unknown. On Vicodin, for same will try alternative meds, wean off if tolerated Chronic pain syndrome Community acquired pneumonia COPD (chronic obstructive pulmonary disease) COPD (chronic obstructive pulmonary disease) COPD (chronic obstructive pulmonary disease) COPD exacerbation COPD exacerbation COPD with exacerbation DDD (degenerative disc disease), lumbar Degeneration of intervertebral disc Depression severe acute worsening, on refer to Emergency. Diabetes mellitus Drug side effects Eczema Edema Edema of foot acute bilateral, h/o copd, get echo, get bnp and d dmier, start on lasix 20mg qd and KCL supplements, if worsens or does not respond advise to call back. Elevated liver enzymes Encounter for medication refill Fatigue 1983 Fever Fibromyalgia 01/31/2014 - Positive symptoms and tender points, need to rule out inflammatory conditions. Check ESR, CRP, ASHLIE, Uric Acid levels, CBC, CMP Fibromyositis Gastritis Generalized anxiety disorder GERD (gastroesophageal reflux disease) Heartburn doing wel with prilosec, History of asthma Hyperglycemia Hyperlipidemia On fenofibrate, TG now 197 better , LDL is 83 which is also better, pt does not want to use statin, Hypertension, essential BP stable, Will review previous medical records, Monitor for now, stop atenolol, given copd, and try amlodipine. Hypochromic microcytic anemia Hypoxia IBS (irritable bowel syndrome) 1982 Irritable bowel syndrome with diarrhea Lumbar sprain Lung mass Versus lung abscess, CT chest 10/18/2020. Major depressive disorder Marijuana smoker advised to quit. Maxillary sinusitis, acute Mixed hypercholesterolemia and hypertriglyceridemia Myalgia 1982 Nausea and vomiting in adult nausea and vomiting appears to be functional and related more to her anxiety with depression then actual GI source Nausea with vomiting, unspecified Nocturnal hypoxemia Nonallopathic lesion of cervical region Nummular eczema treat with triamcinolone Obesity Obstructive sleep apnea Open T12 vertebral fracture ATIF on CPAP Osteoarthritis Osteoporosis 02/21/2015 Other low back pain Partial obstruction of small intestine Pneumonia Rib fracture 01/02/2015 - Dr. Holland Severe sepsis Shortness of Breath chr in nature, mild worsening, 2 pillow at night at times. Small bowel obstruction Stress incontinence in female 01/31/2014 - Urination on cough, will address this later Telogen effluvium Tension type headache Thoracic back pain Thoracic compression fracture Chronic Thoracic radiculopathy Thrombocytosis Thyroid nodule Tinea corporis Tobacco abuse Smoking: Counseled to quit - 40 pack year history , tried chantix, pt self stopped Upper respiratory infection Vitamin D deficiency Volume overload Surgical History History of cholecystectomy (06/09/15) Dr. Stacey Pringle History of cholecystectomy (06/09/15) History of colonoscopy (08/12/15) 1982 History of esophagogastroduodenoscopy (EGD) (11/17/18) History of hysterectomy 1982 History of laparoscopy 1982 History of laparoscopy (~1982) History of oophorectomy (11/01/82) History of tonsillectomy 1976 History of tonsillectomy (~1976) History of total abdominal hysterectomy (~1982) History of tubal ligation 1973 History of tubal ligation (~1973) Family History Father Carcinoma in situ of bladder Grandmother Cerebrovascular accident Arthritis Essential hypertension Maternal Myocardial Infarction Maternal Brother Type 2 diabetes mellitus Unknown Family history of throat cancer Mother Arthritis Family history of throat cancer Social History adopted: No caregiver/support person: No foster care: No household members: alone housing: house lives independently: Yes marital status: education level: high school service: No jail: No occupational 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 pets and animals: Yes pets and animals: cat(s) and dog(s) hx recent travel: No sexually active: No smoking status: Former smoker quit date: 03/01/17 pack-years: 40 alcohol intake frequency: does not drink substance use type: marijuana seatbelt use: always working smoke detector in home: Yes firearms in home: No MEDS/ALLERGIES Home Medications and Allergies Home Medications Medication Instructions Recorded Confirmed Type buspirone 15 mg tablet 15 mg PO TID tab 04/17/15 09/23/21 History fenofibrate 160 mg tablet 160 mg PO QDAY #90 tab 05/23/15 09/23/21 Rx fluoxetine 20 mg tablet 80 mg PO DAILY tab 06/18/15 09/23/21 History omeprazole 20 mg capsule,delayed 20 mg PO QDAY #90 cap 07/18/15 09/23/21 Rx release triamcinolone acetonide 0.1 % 1 applic TOPICAL BID #30 g 07/18/15 09/23/21 Rx topical ointment potassium chloride 10 mEq 20 meq PO QDAY 10/21/15 09/23/21 History capsule,extended release ipratropium bromide 18 2 puff INHALATION BID 06/10/20 09/23/21 History mcg/actuation aerosol inhaler Lactobacillus acidophilus 2,000 mmu cells PO BID #60 cap 10/20/20 09/23/21 Rx empagliflozin 10 mg tablet 10 mg PO DAILY 10/20/20 09/23/21 History (Jardiance) furosemide 40 mg tablet 40 mg PO BID 10/20/20 09/23/21 History metformin 500 mg tablet,extended 1,000 mg PO BID 10/20/20 09/23/21 History release 24 hr montelukast 10 mg tablet 10 mg PO DAILY 10/20/20 09/23/21 History denosumab 60 mg/mL subcutaneous 60 mg SUB-Q [id number] 11/11/20 09/23/21 History syringe (Prolia) calcium carbonate 600 mg-vitamin 1 tab PO QDAY 03/29/21 09/23/21 History D3 10 mcg (400 unit) tablet (Calcium with Vitamin D) albuterol sulfate 90 mcg/actuation 2 puff INHALATION Q4-6HP PRN #1 g 04/01/21 09/23/21 Rx aerosol inhaler (Ventolin HFA) ipratropium 0.5 mg-albuterol 3 mg 3 ml INHALATION Q6H PRN #1 ml 04/01/21 09/23/21 Rx (2.5 mg base)/3 mL nebulization soln pregabalin 150 mg capsule 150 mg PO BID #14 cap 04/01/21 09/23/21 Rx Disabled Parking Placard #1 ea 05/26/21 09/23/21 Rx albuterol sulfate 2.5 mg INHALATION Q6H PRN 07/02/21 09/23/21 History budesonide-formoterol HFA 160 2 puff INHALATION BID 07/02/21 09/23/21 History mcg-4.5 mcg/actuation aerosol inhaler (Symbicort) denosumab 60 mg/mL subcutaneous 60 mg SUBCUT [id number] 07/02/21 09/23/21 History syringe (Prolia) lactobacillus rhamnosus R0011 20 cell PO QDAY cap 07/02/21 09/23/21 History billion cell capsule (Probiotic Digestive Care) lidocaine 5 % topical ointment 1 applic TOPICAL .1-4xDAY PRN g 07/02/21 09/23/21 History loperamide 2 mg capsule 2 mg PO ONCE PRN cap 07/02/21 09/23/21 History melatonin PO 07/02/21 09/23/21 History mirtazapine 15 mg tablet 15 mg PO QDAY 07/02/21 09/23/21 History mupirocin 2 % topical ointment 1 applic TOPICAL .Unknown g 07/02/21 09/23/21 History nystatin 100,000 unit/gram topical 1 applic TOPICAL BID 07/02/21 09/23/21 History powder nystatin 100,000 unit/mL oral 1 ml PO QID ml 07/02/21 09/23/21 History suspension ondansetron 4 mg disintegrating 4 mg PO .Q4-6H PRN tab 07/02/21 09/23/21 History tablet polyethylene glycol 3350 17 17 g PO QDAY PRN 07/02/21 09/23/21 History gram/dose oral powder (Miralax) triamcinolone acetonide 0.1 % 1 applic DENTAL TID 07/02/21 09/23/21 History dental paste Allergies Allergy/AdvReac Type Severity Reaction Status Date / Time fluconazole [From Diflucan] Allergy Mild Hives Verified 10/01/21 15:25 bupropion AdvReac Intermediate psychotic Verified 10/01/21 15:25 episode diphenhydramine AdvReac Mild Vomiting Verified 10/01/21 15:25 [From Benadryl] guaifenesin [GUAIFENESIN] AdvReac Mild Itching Verified 10/01/21 15:25 sulfamethoxazole AdvReac Mild Flushing Verified 10/01/21 15:25 [From Sulfamethoprim] trimethoprim AdvReac Mild Flushing Verified 10/01/21 15:25 [From Sulfamethoprim] EXAM Constitutional Vitals: Temp Pulse Resp BP Pulse Ox 99.6 F H 105 H 24 H 126/80 96 10/22/21 19:24 10/22/21 19:24 10/22/21 19:24 10/22/21 19:24 10/22/21 19:24 Exam: General: Appears quite fatigued and weak, awake, No acute Distress Eyes/N/T: EOMI, PERRL, dry MM Head/Neck: neck supple, normocephalic atraumatic CV: RRR, No murmurs, normal s1/s2 Pulm: Clear b/l, no wheezing/rhonchi/rales Abd: soft, nontender, +BS x4 Ext: no clubbing/cyanosis/edema Neuro: Alert, no focal deficits, moves all extremities, CN 2-12 grossly intact, symmetrical strength b/l upper/lower, sensations intact b/l upper/lower Skin: warm/dry DATA Data Completed and Pending Labs: Labs from last 24 hours 10/22/21 10/22/21 10/22/21 14:16 12:40 12:40 WBC RBC Hgb Hct MCV MCH MCHC RDW Plt Count MPV Neut % (Auto) Lymph % (Auto) [place] % (Auto) Eos % (Auto) Baso % (Auto) Lymph # (Auto) [place] # (Auto) Eos # (Auto) Baso # (Auto) Absolute Neutrophils PT 15.5 H INR 1.2 H Sodium Potassium Chloride Carbon Dioxide Anion Gap BUN Creatinine GFR Calculation Glucose Hemoglobin A1c 5.9 Estim Average Glucose 123 Calcium Magnesium Total Bilirubin AST ALT Alkaline Phosphatase Ammonia Troponin T NT-Pro-B Natriuret Pep Total Protein Albumin Globulin Albumin/Globulin Ratio Procalcitonin Urine Color Yellow Urine Appearance Hazy A Urine pH 7.0 Ur Specific [place] 1.027 Urine Protein Negative Urine Glucose (UA) >=500 A Urine Ketones Negative Urine Occult Blood Negative Urine Nitrate Negative Urine Bilirubin Negative Urine Urobilinogen 4.0 A Ur Leukocyte Esterase Negative Urine RBC < 1 Urine WBC 1 Ur Squamous Epith Cells 2 Urine Bacteria None Ur Culture Indicated? No 10/22/21 10/22/21 10/22/21 12:40 12:40 12:40 WBC RBC Hgb Hct MCV MCH MCHC RDW Plt Count MPV Neut % (Auto) Lymph % (Auto) [place] % (Auto) Eos % (Auto) Baso % (Auto) Lymph # (Auto) [place] # (Auto) Eos # (Auto) Baso # (Auto) Absolute Neutrophils PT INR Sodium Potassium Chloride Carbon Dioxide Anion Gap BUN Creatinine GFR Calculation Glucose Hemoglobin A1c Estim Average Glucose Calcium Magnesium Total Bilirubin AST ALT Alkaline Phosphatase Ammonia 101 H Troponin T < 0.01 NT-Pro-B Natriuret Pep Total Protein Albumin Globulin Albumin/Globulin Ratio Procalcitonin 0.16 H Urine Color Urine Appearance Urine pH Ur Specific [place] Urine Protein Urine Glucose (UA) Urine Ketones Urine Occult Blood Urine Nitrate Urine Bilirubin Urine Urobilinogen Ur Leukocyte Esterase Urine RBC Urine WBC Ur Squamous Epith Cells Urine Bacteria Ur Culture Indicated? 10/22/21 10/22/21 12:40 12:40 WBC 10.6 RBC 5.84 H Hgb 16.0 H Hct 48.0 H MCV 82.2 MCH 27.4 MCHC 33.3 RDW 14.9 H Plt Count 285 MPV 9.4 Neut % (Auto) 69.4 Lymph % (Auto) 17.5 [place] % (Auto) 7.6 Eos % (Auto) 4.6 Baso % (Auto) 0.9 Lymph # (Auto) 1.85 [place] # (Auto) 0.80 Eos # (Auto) 0.49 Baso # (Auto) 0.10 Absolute Neutrophils 7.34 PT INR Sodium 131 L Potassium 4.7 Chloride 95 L Carbon Dioxide 20 L Anion Gap 16.0 BUN 28 H Creatinine 0.9 GFR Calculation 66 Glucose 157 H Hemoglobin A1c Estim Average Glucose Calcium 11.6 H Magnesium 2.4 Total Bilirubin 1.2 H AST 41 H ALT 40 H Alkaline Phosphatase 73 Ammonia Troponin T NT-Pro-B Natriuret Pep 141.1 H Total Protein 8.2 Albumin 4.4 Globulin 3.8 H Albumin/Globulin Ratio 1.2 Procalcitonin Urine Color Urine Appearance Urine pH Ur Specific [place] Urine Protein Urine Glucose (UA) Urine Ketones Urine Occult Blood Urine Nitrate Urine Bilirubin Urine Urobilinogen Ur Leukocyte Esterase Urine RBC Urine WBC Ur Squamous Epith Cells Urine Bacteria Ur Culture Indicated? A/P Narrative A/P Narrative: A: *Hepatic Encephalopathy, mild: 2/2 volume depletion +/- viral illness *Cirrhosis: -on lasix 40 bid *Volume depletion w/hemoconcentration: *Hyponatremia: *Hypercalcemia: on vit D/Lake supp, has h/o osteoporosis *Generalized weakness/deconditioning: *DM: *COPD: *ATIF not compliant with CPAP: *GERD: *CKD II: *Anemia, chronic: *Anxiety/depression: *Chronic LBP *URI: check rvp P: -lactulose -IVF, f/u Na/Ca -hold home lasix -hold home vit D/Lake supp until seen by pcp -SSI -Home medication reconciliation -pt/ot -ppx: lovenox / home ppi DNR Time Spent With Patient Time: Total time spent is greater than 50% in coordination of care (as documented) at patient's floor/unit and/or counseling patient: QUALITY VTE Deep Vein Thrombosis/Pulmonary Embolism Present on Admission: No
[2021-10-22] MEDS: ASPIRIN 325 MG ENTERIC COATED TABLET PO PRN (22:15)
[2021-10-22] MEDS: MELATONIN 3 MG TABLET PO SCH (22:15)
[2021-10-22] MEDS: LIDOCAINE PATCH TOPICAL SCH (22:15)
[2021-10-22] MEDS: LACTULOSE 20 GM/30 ML ORAL.SOL PO SCH (22:16)
[2021-10-22] MEDS: 0.9 % SODIUM CHLORIDE 10 ML SYRINGE IV SCH (22:20)
[2021-10-23] MEDS: ASPIRIN 325 MG ENTERIC COATED TABLET PO PRN ×3 (04:19→16:43)
[2021-10-23] MEDS: 0.9 % SODIUM CHLORIDE 10 ML SYRINGE IV SCH ×3 (05:51→20:59)
[2021-10-23 06:18] LABS: Basophils # (Auto) 0.08 K/mcL (0.00-0.30); Basophils % (Auto) 0.9 % (0.0-2.0); Eosinophils # (Auto) 0.56 K/mcL (0.00-0.70); Eosinophils % (Auto) 6.3 % (0.0-7.0); Hematocrit 42.1 % (34.1-44.9); Hemoglobin 14.2 g/dL (11.2-15.7); Lymphocytes # (Auto) 2.27 K/mcL (1.50-4.80); Lymphocytes % (Auto) 25.4 % (15.5-49.0); Mean Cell Volume 82.5 fL (80.0-100.0); Mean Corpuscular HGB Conc 33.7 g/dL (31.0-36.0); Mean Platelet Volume 9.7 fL (7.4-10.4); Monocytes # (Auto) 0.77 K/mcL (0.10-0.90); Monocytes % (Auto) 8.6 % (1.0-12.0); Neutrophils % (Auto) 58.8 % (38.0-78.0); Platelet Count 210 K/mcL (140-440); Red Cell Distribution Width 14.9 % (11.5-14.5); WBC 8.9 K/mcL (4.5-11.0)
[2021-10-23 06:46] LABS: ALT/SGPT 30 U/L (<40); AST/SGOT 33 U/L (<32); Albumin 3.7 gm/dL (3.2-5.2); Albumin/Globulin Ratio 1.2 (1.0-2.3); Alkaline Phosphatase 64 U/L (39-117); Bilirubin,Direct 0.3 mg/dL (<0.3); Bilirubin,Total 0.8 mg/dL (0.1-1.0); Blood Urea Nitrogen 28 mg/dL (8-23); Carbon Dioxide 22 mmol/L (22-30); Chloride 101 mmol/L (96-108); Globulin 3.1 gm/dL (2.2-3.7); Glomerular Filtration Rate 58; Glucose 122 mg/dL (70-105); Lactate Dehydrogenase 216 U/L (135-225); Phosphorous 3.7 mg/dL (2.5-4.5); Triglycerides 148 mg/dL (<150); Uric Acid 5.9 mg/dL (2.5-8.0)
[2021-10-23] MEDS: INSULIN LISPRO 1 UNIT/0.01 ML UNIT SQ SCH ×4 (07:27→20:58)
--- NOTE | 2021-10-23 07:32 | Internal Med Progress Note ---
SUBJECTIVE Subjective Patient information: Note initiated : 10/23/21 at 7:30 am Service Date, if different from initiated Date: [] Patient: Kenia Sandoval 66 y/o F admitted on 10/22/21 for Fever, weakness. Chief Complaint: [] Interval history: Patient presents the ED with generalized weakness lethargy sleeping more some nausea feeling dizzy when she gets up. Patient says she been feeling ill for a month and saw her primary care doctor a few weeks ago and started on lactulose. Patient has not felt much better. She says she takes lactulose once a day and has a bowel movement once a day. Feels little foggy and confused at times. Says she has a sinus congestion runny nose and a sore throat. Patient on room air and chest x-ray was unremarkable. Ammonia was 101. She was hypercalcemic 11.6 and she does take vitamin D and calcium supplements and has a history of osteoporosis. CBC showed hemoconcentration and she had a sodium of 131 and a BUN of 28 over creatinine 0.9. Calcitonin unremarkable. 10/24 Mentation feels little bit more clear in the mind. Good BMs of lactulose overnight. No new complaints. She feels sinus congestion sore throat improving. Review of Systems: denies headache/fever/chills/nausea/vomiting/chest or abdominal pain/cough/dyspnea/diarrhea. Otherwise see above. Constitutional Vitals: Vital Signs Temp Pulse Resp BP Pulse Ox 98.1 F 79 20 118/74 96 10/23/21 03:56 10/23/21 03:56 10/23/21 03:56 10/23/21 03:56 10/23/21 03:56 Period Temp Pulse Resp BP Sys/Miranda Pulse Ox Last 24 Hr 97.1 F-99.6 F 79-105 20-24 107-159/68-91 92-99 Intake and Output 10/22/21 10/23/21 10/23/21 21:59 05:59 13:59 Intake Total 1300 450 Output Total 250 325 Balance 1050 125 Weight 62.46 kg Intake & Output: Intake & Output 10/22/21 10/23/21 10/23/21 21:59 05:59 13:59 Intake Total 1300 450 Output Total 250 325 Balance 1050 125 Weight 62.46 kg Intake: IV 1000 Sodium Chloride 0.9% 1,000 ml @ 1000 Wide Open IV BOLUS ONE Rx#: [id number] Oral 300 450 Output: Void Amount 250 Urine/Stool Mix 325 Other: Meal Dinner Percent of Meal Consumed 50% Feeding Ability Independent Urine Appearance Clear Urine Color Bright Yellow Stool Color Brown Stool Consistency Liquid Watery # Voids 1 # Bowel Movements 2 Exam: General: awake, No acute Distress Eyes/N/T: EOMI, PERRL, Head/Neck: neck supple, CV: RRR, No murmurs, Pulm: Clear b/l, no wheezing/rhonchi/rales Abd: soft, nontender, +BS x4 Ext: no clubbing/cyanosis/edema Neuro: Alert, no focal deficits, moves all extremities, Skin: warm/dry OBJ DATA Labs CBC & Chem 7: 10/23/21 05:10 10/23/21 05:10 Labs: Abnormal Lab Results 10/23/21 10/23/21 10/22/21 05:10 05:10 14:16 RBC Hgb Hct RDW 14.9 H PT INR Sodium Chloride Carbon Dioxide BUN 28 H Glucose 122 H Calcium Total Bilirubin Direct Bilirubin 0.3 H GGT 53 H AST 33 H ALT Ammonia NT-Pro-B Natriuret Pep Globulin Procalcitonin Urine Appearance Hazy A Urine Glucose (UA) >=500 A Urine Urobilinogen 4.0 A 10/22/21 10/22/21 10/22/21 12:40 12:40 12:40 RBC Hgb Hct RDW PT 15.5 H INR 1.2 H Sodium Chloride Carbon Dioxide BUN Glucose Calcium Total Bilirubin Direct Bilirubin GGT AST ALT Ammonia 101 H NT-Pro-B Natriuret Pep Globulin Procalcitonin 0.16 H Urine Appearance Urine Glucose (UA) Urine Urobilinogen 10/22/21 10/22/21 12:40 12:40 RBC 5.84 H Hgb 16.0 H Hct 48.0 H RDW 14.9 H PT INR Sodium 131 L Chloride 95 L Carbon Dioxide 20 L BUN 28 H Glucose 157 H Calcium 11.6 H Total Bilirubin 1.2 H Direct Bilirubin GGT AST 41 H ALT 40 H Ammonia NT-Pro-B Natriuret Pep 141.1 H Globulin 3.8 H Procalcitonin Urine Appearance Urine Glucose (UA) Urine Urobilinogen Meds: Medications Acetaminophen (Acetaminophen 325 Mg Tablet) 650 mg PO Q6HP PRN; Protocol PRN Reason: Per Pain Protocol/Fever > 101 Albuterol/Ipratropium (Ipratropium/Albuterol 3 Ml Ampul.Neb) 3 ml NEB Q4HP PRN PRN Reason: Shortness Of Breath Aspirin (Aspirin 325 Mg Enteric Coated Tablet) 325 mg PO Q6HP PRN PRN Reason: Pain Last Admin: 10/23/21 04:19 Dose: 325 mg Documented by: Dextrose (Dextrose 50% 50 Ml Vial) 0 ml IV UD PRN PRN Reason: Hypoglycemia Diagnostic Test (Pha) (Accu-Chek 1 Each Strip) 1 each FS ACHS [facility] Last Admin: 10/23/21 07:27 Dose: 1 each Documented by: Enoxaparin Sodium (Enoxaparin 40 Mg/0.4 Ml Syringe) 40 mg SQ DAILY ALEJANDRO Glucose (Dextrose 31 Gm Oral.Susp) 15 gm PO PRN PRN PRN Reason: Hypoglycemia Potassium Chloride 40 meq/ (Dextrose) 520 mls @ 130 mls/hr IV UD PRN PRN Reason: Potassium < 3 Magnesium Sulfate (Magnesium Sulfate) 2 gm in 50 mls @ 50 mls/hr IV UD PRN PRN Reason: Magnesium </= 1.6 Sodium Chloride (Sodium Chloride 0.9%) 1,500 mls @ 75 mls/hr IV .Q20H [facility] Stop: 10/23/21 13:51 Last Admin: 10/22/21 17:56 Dose: 75 mls/hr Documented by: Insulin Human Lispro (Insulin Lispro 1 Unit/0.01 Ml Unit) 0 unit SQ [facility]; Protocol Last Admin: 10/23/21 07:27 Dose: Not Given Documented by: Lactulose (Lactulose 20 Gm/30 Ml Oral.Rose) 20 gm PO DAILYP PRN PRN Reason: Constipation Lactulose (Lactulose 20 Gm/30 Ml Oral.Rose) 30 gm PO TID [facility] Last Admin: 10/22/21 22:16 Dose: 30 gm Documented by: Lidocaine (Lidocaine Patch) 1 patch TOPICAL DAILY@1000 ALEJANDRO Last Admin: 10/22/21 22:15 Dose: 1 patch Documented by: Melatonin (Melatonin 3 Mg Tablet) 9 mg PO HS [facility] Last Admin: 10/22/21 22:15 Dose: 9 mg Documented by: Morphine Sulfate (Morphine 2 Mg/Ml Vial) 1 - 3 mg IV Q3HP PRN; Protocol PRN Reason: Per Pain Protocol Ondansetron HCl (Ondansetron 4 Mg/2 Ml Vial) 4 mg IV Q4HP PRN PRN Reason: Nausea And Vomiting Last Admin: 10/22/21 22:14 Dose: 4 mg Documented by: Potassium Chloride (Potassium Chloride 20 Meq Tablet) 40 meq PO UD PRN PRN Reason: Potssium is 3-3.5 Potassium Chloride (Potassium Chloride 20 Meq Tablet) 40 meq PO UD PRN PRN Reason: Potassium < 3 Senna (Sennosides 1 Tablet) 2 tab PO DAILYP PRN PRN Reason: Constipation Sodium Chloride (0.9 % Sodium Chloride 10 Ml Syringe) 10 ml IV Q8 ALEJANDRO Last Admin: 10/23/21 05:51 Dose: Not Given Documented by: A/P Narrative A/P Narrative: A: *Hepatic Encephalopathy, mild: 2/2 volume depletion +/- viral illness *Cirrhosis: -has been on lasix 40 bid *Volume depletion w/hemoconcentration: improving *Hyponatremia: improved *Hypercalcemia: on vit D/Lake supp, has h/o osteoporosis. Resolved *Generalized weakness/deconditioning: *DM: *COPD: *ATIF not compliant with CPAP: *GERD: *CKD II: *Anemia, chronic: *Anxiety/depression: *Chronic LBP *URI: P: -lactulose titrate to 2-3 soft BM's/day -IVF, f/u Na/Ca -hold home lasix -hold home vit D/Lake supp until seen by pcp -[facility] -Home medication reconciliation -pt/ot -ppx: lovenox / home ppi DNR Time Spent With Patient Time: Total time spent is greater than 50% in coordination of care (as documented) at patient's floor/unit and/or counseling patient: QUALITY VTE Deep Vein Thrombosis/Pulmonary Embolism Present on Admission: No
--- NOTE | 2021-10-23 09:31 | EKG ---
Formerly [facility] Test Date: 2021-10-22 Pat Name: Kenia Sandoval Department: ED Room: Gender: Female Repatcher: dorian : 1955 Requested By: Chele Espinosa Order Number: [id number] Reading MD: Robbi Stone Measurements Intervals [place] Rate: 94 P: 49 NM: 126 QRS: 21 QRSD: 88 T: 60 QT: 372 QTc: 466 Interpretive Statements Sinus rhythm Baseline wander in lead(s) V5 Electronically Signed On 10-23-2021 9:31:38 PST by Robbi Stone /store/M0/[id number]/[id number]
[2021-10-23] MEDS: LACTULOSE 20 GM/30 ML ORAL.SOL PO SCH ×3 (10:30→20:58)
[2021-10-23] MEDS: LIDOCAINE PATCH TOPICAL SCH (10:30)
[2021-10-23] MEDS: ENOXAPARIN 40 MG/0.4 ML SYRINGE SQ SCH (10:31)
[2021-10-23] MEDS: busPIRone 15 MG TABLET PO SCH ×2 (15:26→20:58)
[2021-10-23] MEDS: metFORMIN 500 MG TAB.XL.24H PO SCH (16:48)
[2021-10-23] MEDS: PREGABALIN 150 MG CAPSULE PO SCH (20:58)
[2021-10-23] MEDS: MELATONIN 3 MG TABLET PO SCH (20:58)
[2021-10-23] MEDS: IPRATROPIUM BROMIDE INH SCH (20:59)
[2021-10-24] MEDS: 0.9 % SODIUM CHLORIDE 10 ML SYRINGE IV SCH (04:57)
[2021-10-24 06:34] LABS: Basophils # (Auto) 0.06 K/mcL (0.00-0.30); Basophils % (Auto) 0.9 % (0.0-2.0); Eosinophils # (Auto) 0.55 K/mcL (0.00-0.70); Eosinophils % (Auto) 8.1 % (0.0-7.0); Hematocrit 39.2 % (34.1-44.9); Hemoglobin 12.7 g/dL (11.2-15.7); Lymphocytes # (Auto) 1.53 K/mcL (1.50-4.80); Lymphocytes % (Auto) 22.5 % (15.5-49.0); Mean Cell Volume 84.8 fL (80.0-100.0); Mean Corpuscular HGB Conc 32.4 g/dL (31.0-36.0); Mean Platelet Volume 9.7 fL (7.4-10.4); Monocytes # (Auto) 0.58 K/mcL (0.10-0.90); Monocytes % (Auto) 8.5 % (1.0-12.0); Platelet Count 167 K/mcL (140-440); RBC 4.62 M/mcL (3.59-5.38); Red Cell Distribution Width 14.9 % (11.5-14.5); WBC 6.8 K/mcL (4.5-11.0)
[2021-10-24] MEDS: metFORMIN 500 MG TAB.XL.24H PO SCH (07:09)
[2021-10-24 07:11] LABS: ALT/SGPT 26 U/L (<40); AST/SGOT 27 U/L (<32); Albumin 3.5 gm/dL (3.2-5.2); Albumin/Globulin Ratio 1.3 (1.0-2.3); Alkaline Phosphatase 57 U/L (39-117); Bilirubin,Total 0.4 mg/dL (0.1-1.0); Blood Urea Nitrogen 22 mg/dL (8-23); Calcium 9.1 mg/dL (8.6-10.4); Carbon Dioxide 22 mmol/L (22-30); Chloride 102 mmol/L (96-108); Globulin 2.7 gm/dL (2.2-3.7); Glomerular Filtration Rate 89; Glucose 140 mg/dL (70-105)
[2021-10-24] MEDS: ASPIRIN 325 MG ENTERIC COATED TABLET PO PRN (07:11)
[2021-10-24] MEDS: INSULIN LISPRO 1 UNIT/0.01 ML UNIT SQ SCH ×2 (07:11→11:29)
[2021-10-24] MEDS ORDERED: OMEPRAZOLE 20 MG CAPSULE PO SCH (07:30)
[2021-10-24] MEDS: LACTULOSE 20 GM/30 ML ORAL.SOL PO SCH (08:21)
[2021-10-24] MEDS: IPRATROPIUM BROMIDE INH SCH (08:22)
[2021-10-24] MEDS: PREGABALIN 150 MG CAPSULE PO SCH (08:22)
[2021-10-24] MEDS: ENOXAPARIN 40 MG/0.4 ML SYRINGE SQ SCH (08:22)
[2021-10-24] MEDS: busPIRone 15 MG TABLET PO SCH (08:22)
[2021-10-24] MEDS ORDERED: MIRTAZAPINE 15 MG TABLET PO SCH (09:00)
[2021-10-24] MEDS ORDERED: FLUoxetine HCL 20 MG CAPSULE PO SCH (09:00)
[2021-10-24] MEDS ORDERED: MONTELUKAST 10 MG TABLET PO SCH (09:00)
[2021-10-24] MEDS: LIDOCAINE PATCH TOPICAL SCH (10:58)
--- NOTE | 2021-10-24 11:13 | Discharge Summary ---
Discharge Provider Provider Patient information: Note initiated : 10/24/21 at 11:11 am Service Date, if different from initiated Date: [] Patient: Kenia Sandoval 66 y/o F admitted on 10/22/21 for Fever, weakness. Chief Complaint: [] Date of admission: 10/22/21 17:31 Discharge date: 10/24/21 Primary care physician: Darleen Kemp Attending physician on admission: Prince Liao Consults: 10/22/21 Consult to Physician [CONS] Stat Comment: Consulting Provider: Prince Liao Reason For Exam: Physician to Consult Attending physician on discharge: Constantino Whitlock Pui Discharge Meds Discharge Medications Home Medications buspirone 15 mg tablet 15 mg PO TID tab 04/17/15 [History Confirmed 10/23/21 Last Taken 10/22/21] fenofibrate 160 mg tablet 160 mg PO QDAY #90 tab 05/23/15 [Rx Confirmed 10/23/21 Last Taken 03/27/21 23:00] fluoxetine 20 mg tablet 80 mg PO DAILY tab 06/18/15 [History Confirmed 10/23/21 Last Taken 03/28/21 12:00] omeprazole 20 mg capsule,delayed release 20 mg PO QDAY #90 cap 07/18/15 [Rx Confirmed 10/23/21 Last Taken 03/28/21 08:00] triamcinolone acetonide 0.1 % topical ointment 1 applic TOPICAL BID #30 g 07/18/15 [Rx Confirmed 10/24/21 Last Taken 03/28/21 08:00] potassium chloride 10 mEq capsule,extended release 20 meq PO QDAY 10/21/15 [History Confirmed 10/23/21 Last Taken 03/28/21 08:00] ipratropium bromide 18 mcg/actuation aerosol inhaler 2 puff INHALATION BID 06/10/20 [History Confirmed 10/23/21 Last Taken 03/28/21 18:00] empagliflozin 10 mg tablet (Jardiance) 10 mg PO DAILY 10/20/20 [History Confirmed 10/23/21 Last Taken 03/28/21 08:00] furosemide 40 mg tablet 40 mg PO BID 10/20/20 [History Confirmed 10/23/21 Last Taken 03/28/21 12:00] metformin 500 mg tablet,extended release 24 hr 1,000 mg PO BID 10/20/20 [History Confirmed 10/23/21 Last Taken 03/28/21 18:00] montelukast 10 mg tablet (Singulair) 10 mg PO DAILY 10/20/20 [History Confirmed 10/23/21 Last Taken 03/28/21 08:00] denosumab 60 mg/mL subcutaneous syringe (Prolia) 60 mg SUB-Q [id number] 11/11/20 [History Confirmed 10/23/21 Last Taken 11/04/20] calcium carbonate 600 mg-vitamin D3 10 mcg (400 unit) tablet (Calcium with Vitamin D) 1 tab PO QDAY 03/29/21 [History Confirmed 10/23/21 Last Taken 03/28/21] albuterol sulfate 90 mcg/actuation aerosol inhaler (Ventolin HFA) 2 puff INHALATION Q4-6HP PRN #1 g 04/01/21 [Rx Confirmed 10/23/21 Last Taken Unknown] ipratropium 0.5 mg-albuterol 3 mg (2.5 mg base)/3 mL nebulization soln 3 ml INHALATION Q6H PRN #1 ml 04/01/21 [Rx Confirmed 10/23/21 Last Taken Unknown] Disabled Parking Placard #1 ea 05/26/21 [Rx Confirmed 10/24/21 Last Taken Unknown] albuterol sulfate 2.5 mg INHALATION Q6H PRN 07/02/21 [History Confirmed 10/23/21 Last Taken Unknown] budesonide-formoterol HFA 160 mcg-4.5 mcg/actuation aerosol inhaler (Symbicort) 2 puff INHALATION BID 07/02/21 [History Confirmed 10/23/21 Last Taken Unknown] denosumab 60 mg/mL subcutaneous syringe (Prolia) 60 mg SUBCUT [id number] 07/02/21 [History Confirmed 10/23/21 Last Taken Unknown] lidocaine 5 % topical ointment 1 applic TOPICAL .1-4xDAY PRN g 07/02/21 [History Confirmed 10/23/21 Last Taken Unknown] melatonin 3 mg PO HS PRN 07/02/21 [History Confirmed 10/23/21 Last Taken Unknown] mirtazapine 15 mg tablet (Remeron) 15 mg PO QDAY 07/02/21 [History Confirmed 10/23/21 Last Taken Unknown] mupirocin 2 % topical ointment 1 applic TOPICAL .Unknown g 07/02/21 [History Confirmed 10/23/21 Last Taken Unknown] nystatin 100,000 unit/gram topical powder 1 applic TOPICAL BID 07/02/21 [History Confirmed 10/23/21 Last Taken Unknown] nystatin 100,000 unit/mL oral suspension 1 ml PO QID ml 07/02/21 [History Confirmed 10/23/21 Last Taken Unknown] ondansetron 4 mg disintegrating tablet 4 mg PO .Q4-6H PRN tab 07/02/21 [History Confirmed 10/23/21 Last Taken Unknown] polyethylene glycol 3350 17 gram/dose oral powder (Miralax) 17 g PO QDAY PRN 07/02/21 [History Confirmed 10/23/21 Last Taken Unknown] triamcinolone acetonide 0.1 % dental paste 1 applic DENTAL TID 07/02/21 [History Confirmed 10/23/21 Last Taken Unknown] Lactobacillus acidophilus (Acidophilus) 2,000 mmu cells PO BID 10/23/21 [History Confirmed 10/23/21 Last Taken Unknown] pregabalin 150 mg capsule (Lyrica) 150 mg PO BID 10/23/21 [History Confirmed 10/23/21 Last Taken Unknown] lactulose 20 gram/30 mL oral solution 30 ml PO TID 30 Days #2700 ml 10/24/21 [Rx Last Taken Unknown] COURSE Hospital Course Hospital course: Patient presents the ED with generalized weakness lethargy sleeping more some nausea feeling dizzy when she gets up. Patient says she been feeling ill for a month and saw her primary care doctor a few weeks ago and started on lactulose. Patient has not felt much better. She says she takes lactulose once a day and has a bowel movement once a day. Feels little foggy and confused at times. Says she has a sinus congestion runny nose and a sore throat. Patient on room air and chest x-ray was unremarkable. Ammonia was 101. She was hypercalcemic 11.6 and she does take vitamin D and calcium supplements and has a history of osteoporosis. CBC showed hemoconcentration and she had a sodium of 131 and a BUN of 28 over creatinine 0.9. Calcitonin unremarkable. 10/23 Mentation feels little bit more clear in the mind. Good BMs of lactulose overnight. No new complaints. She feels sinus congestion sore throat improving. 10/24: Reached clinical stability. Discharged home with Lactulose. Discharge diagnosis: Hepatic encephalopathy Time Spent with Patient Time attestation: Total time spent providing and/or coordinating discharge services: Time spent: Less than 30 minutes EXAM Constitutional Vitals: Temp Pulse Resp BP Pulse Ox 36.1 C L 74 16 125/76 96 10/24/21 07:00 10/24/21 07:00 10/24/21 07:19 10/24/21 07:00 10/24/21 07:00 General appearance: cooperative and no acute distress Head Head exam: Present atraumatic and normocephalic Eye Eye exam: Present EOMI and PERRL ENT ENT exam: Present mucous membranes moist, normal exam and normal external ear exam Neck Neck exam: Present normal inspection; Absent lymphadenopathy, tenderness or thyromegaly Respiratory Respiratory exam: Absent accessory muscle use, respiratory distress or wheezes Cardiovascular Cardiovascular exam: Present normal rate and rhythm; Absent JVD GI/Abdominal GI/Abdominal exam: Present normal bowel sounds and soft; Absent organomegaly or tenderness Extremities Exam Extremities exam: Present full ROM, normal capillary refill and normal inspection; Absent tenderness Neurological Exam Neurological exam: Present alert, CN II-XII intact and oriented X3; Absent motor sensory deficit Psychiatric Psychiatric exam: Present normal affect and normal mood; Absent anxious or depressed Skin Skin exam: Present dry and intact Discharge Data Data Completed and Pending Labs on day of discharge: Labs from last 24 hours 10/24/21 10/24/21 05:03 05:03 WBC 6.8 RBC 4.62 Hgb 12.7 Hct 39.2 MCV 84.8 MCH 27.5 MCHC 32.4 RDW 14.9 H Plt Count 167 MPV 9.7 Neut % (Auto) 60.0 Lymph % (Auto) 22.5 [place] % (Auto) 8.5 Eos % (Auto) 8.1 H Baso % (Auto) 0.9 Lymph # (Auto) 1.53 [place] # (Auto) 0.58 Eos # (Auto) 0.55 Baso # (Auto) 0.06 Absolute Neutrophils 4.08 Sodium 133 Potassium 4.1 Chloride 102 Carbon Dioxide 22 Anion Gap 9.0 BUN 22 Creatinine 0.7 GFR Calculation 89 Glucose 140 H Calcium 9.1 Total Bilirubin 0.4 AST 27 ALT 26 Alkaline Phosphatase 57 Total Protein 6.2 Albumin 3.5 Globulin 2.7 Albumin/Globulin Ratio 1.3 Preliminary micro results at discharge 10/22/21 12:50 Blood Culture - Preliminary Blood 10/22/21 12:40 Blood Culture - Preliminary Blood Discharge Plan Patient/Caregiver Discharge Instructions Activity: increase activity as tolerated Diet: Consistent Carbohydrate Prescriptions: New lactulose 20 gram/30 mL Solution 30 ml PO TID 30 Days Qty: 2700 0RF Continued albuterol sulfate 2.5 mg /3 mL (0.083 %) solution for nebulization 2.5 mg inhalation Q6H PRN (Reason: Adequate Ventilation) 0RF lidocaine 5 % ointment 1 applic topical .1-4xDAY PRN (Reason: pain) 0RF melatonin 3 mg PO HS PRN (Reason: Insomnia) 0RF polyethylene glycol 3350 [Miralax] 17 gram/dose powder 17 g PO QDAY PRN (Reason: Constipation) 0RF mirtazapine [Remeron] 15 mg tablet 15 mg PO QDAY 0RF mupirocin 2 % ointment 1 applic topical .Unknown 0RF nystatin 100,000 unit/gram powder 1 applic topical BID 0RF nystatin 100,000 unit/mL suspension 1 ml PO QID 0RF Rx Instructions: swish and swallow ondansetron 4 mg tablet,disintegrating 4 mg PO .Q4-6H PRN (Reason: Nausea) 0RF Prolia 60 mg/mL syringe 60 mg subcut [id number] 0RF budesonide-formoterol [Symbicort] 160-4.5 mcg/actuation HFA aerosol inhaler 2 puff inhalation BID 0RF triamcinolone acetonide 0.1 % paste 1 applic dental TID 0RF Rx Instructions: use after food and/or drink and/or oral hygiene fenofibrate 160 mg tablet 160 mg PO QDAY Qty: 90 3RF buspirone 15 mg tablet 15 mg PO TID 0RF triamcinolone acetonide 0.1 % ointment 1 applic TOPICAL BID Qty: 30 3RF omeprazole 20 MG capsule 20 mg PO QDAY Qty: 90 3RF potassium chloride 10 mEq capsule, extended release 20 meq PO QDAY 0RF ipratropium bromide 18 mcg/actuation aerosol 2 puff INHALATION BID 0RF (DME) Disabled Parking Placard See Rx Instructions .Route .MEDSUPPLY Qty: 1 0RF Rx Instructions: This patient has a lung disease that requires the use of portable oxygen and can not ambulate more than 150 feet without rest Prolia 60 mg/mL syringe 60 mg SUB-Q [id number] 0RF Rx Instructions: Next dose due in April fluoxetine 20 MG tablet 80 mg PO DAILY 0RF metformin 500 mg tablet extended release 24 hr 1,000 mg PO BID 0RF Jardiance 10 mg tablet 10 mg PO DAILY 0RF montelukast [Singulair] 10 mg tablet 10 mg PO DAILY 0RF furosemide 40 mg tablet 40 mg PO BID 0RF calcium carbonate-vitamin D3 [Calcium with Vitamin D] 600 mg(1,500mg) -400 unit Tablet 1 tab PO QDAY 0RF ipratropium-albuterol 0.5 mg-3 mg(2.5 mg base)/3 mL solution for nebulization 3 ml INHALATION Q6H PRN (Reason: Shortness Of Breath) Qty: 1 0RF albuterol sulfate [Ventolin HFA] 90 mcg/actuation HFA aerosol inhaler 2 puff INHALATION Q4-6HP PRN (Reason: Shortness Of Breath) Qty: 1 0RF pregabalin [Lyrica] 150 mg capsule 150 mg PO BID 0RF Acidophilus Capsule 2,000 mmu cells PO BID 0RF Rx Instructions: give with food (meal/snack) Discontinued lactulose 10 gram/15 mL solution 15 ml PO DAILY 0RF Follow Up Plan Follow up with: Darleen Kemp ARNP [Primary Care Provider] - Patient Disposition: Home, Self-Care Rehab Potential: Good I certify that the patient requires SNF services: No Overall status at discharge: patient is back to baseline Discharge Orders: Discharge Order (Routine); Ordered 10/24/21 Ordered By: Constantino JAMES VTE Deep Vein Thrombosis/Pulmonary Embolism Present on Admission: No
== END 2021-10-24 13:53 | disposition home or self-care (01) | DRG 442 ==
LOC: ED 12:07 → MEDSUR 17:34
PROVIDERS: ADMIT Internal Medicine; ATTEND Internal Medicine

== ENCOUNTER 2022-08-04 11:07 | Inpatient (IN) ==
[2022-08-04] MEDS ORDERED: LACTATED RINGERS 1,000 ML IV ONE ×2 (11:37→13:38)
[2022-08-04 11:46] LABS: POC Calcium, Ionized 1.19 (1.16-1.32); POC Potassium 3.8 (3.3-5.1)
--- NOTE | 2022-08-04 12:01 | XRay Report ---
INDICATION: sob TECHNIQUE: AP portable semierect upright chest x-ray COMPARISON: Previous chest x-rays dated 06/27/2022, 06/25/2022 FINDINGS: Patient has undergone previous thoracolumbar posterior spinal fusion. There are spinal cord stimulator leads in the mid thoracic spine. Healing or healed fractures of the right fifth through ninth ribs. There are bilateral pulmonary parenchymal infiltrates. Right midlung infiltrate is dominant. There is mild parenchymal infiltrate at the left lung base. Pneumonia is suspected. Clinical correlation and follow-up radiographs are recommended. No evidence for congestive heart failure IMPRESSION: 1. Bilateral infiltrates consistent with pneumonia. Follow-up recommended 2. Healing or healed right-sided rib fractures as above Interpreted and Authenticated by: Gaurav Cole 08/04/22
[2022-08-04] MEDS ORDERED: IPRATROPIUM/ALBUTEROL 3 ML AMPUL.NEB NEB ONE (12:11)
[2022-08-04 13:28] LABS: Basophils # (Auto) 0.07 K/mcL (0.00-0.30); Basophils % (Auto) 0.4 % (0.0-2.0); Eosinophils % (Auto) 0.6 % (0.0-7.0); Hematocrit 39.3 % (34.1-44.9); Hemoglobin 12.6 g/dL (11.2-15.7); Lymphocytes # (Auto) 0.84 K/mcL (1.50-4.80); Mean Cell Volume 82.9 fL (80.0-100.0); Mean Corpuscular HGB Conc 32.1 g/dL (31.0-36.0); Mean Platelet Volume 10.3 fL (8.8-12.5); Monocytes # (Auto) 1.16 K/mcL (0.10-0.90); Monocytes % (Auto) 6.9 % (1.0-12.0); Neutrophils % (Auto) 86.7 % (38.0-78.0); Platelet Count 224 K/mcL (140-440); RBC 4.74 M/mcL (3.59-5.38); Red Cell Distribution Width 15.2 % (11.5-14.5); WBC 16.9 K/mcL (4.5-11.0)
--- NOTE | 2022-08-04 13:32 | Cat Scan Report ---
INDICATION: ams, possible fall COMPARISON: Previous CT scans dated 10/01/2021, 06/02/2022 TECHNIQUE: Axial noncontrast-enhanced images through the brain. Sagittally and coronally reformatted images. FINDINGS: Cerebral hemispheres:No acute intra-axial hemorrhage. No focal attenuation abnormality or localized mass effect. No midline shift. There is a 2 mm subcortical calcification at the left central sulcus. This is unchanged and benign There is mild bifrontal cerebral atrophy Brainstem and cerebellum:No intra-axial abnormality Extra-axial:No acute hemorrhage. No subdural or epidural hematoma. No subarachnoid hemorrhage. Basilar cisterns are normal Calvarial:No calvarial fracture. No lytic lesion Temporal bones are negative. No destructive lesions Soft tissue, orbits, sinuses:Mild inflammatory mucosal thickening in the posterior left ethmoid sinuses IMPRESSION: No acute abnormality. No intracranial hemorrhage The exam was performed using radiation dose optimization techniques including, but not limited to, automated exposure control, adjustment of the mA and/or kV according to patient size and use of iterative reconstruction technique. Interpreted and Authenticated by: Gaurav Cole 08/04/22
[2022-08-04] MEDS ORDERED: VANCOMYCIN 1,000 MG in 0.9 % SODIUM CHLORIDE 250 ML IV ONE (13:38)
[2022-08-04] MEDS ORDERED: PIPERACILLIN SODIUM/TAZOBACTAM 3.375 GM in DEXTROSE 5% IN WATER 50 ML IV ONE (13:38)
[2022-08-04 13:52] LABS: ALT/SGPT 28 U/L (<40); AST/SGOT 42 U/L (<32); Albumin 3.4 gm/dL (3.2-5.2); Alkaline Phosphatase 119 U/L (39-117); Bilirubin,Direct 0.6 mg/dL (<0.3); Globulin 3.6 gm/dL (2.2-3.7)
[2022-08-04] MEDS ORDERED: 0.9 % SODIUM CHLORIDE 250 ML ONE (13:54)
[2022-08-04 14:34] LABS: Appearance,Urine HAZY (Clear); Bilirubin,Urine Negative (Negative); Color,Urine YELLOW; Culture Indicated,Urine yes; Glucose,Urine (UA) 150 mg/dL (Negative); Ketones,Urine Negative (Negative); Leukocyte Esterase,Urine 250 /uL (Negative); Mucus,Urine FEW /hpf; Nitrate,Urine POS (Negative); Protein,Urine Negative (Negative); Specific Gravity,Urine 1.031 (1.000-1.035); Urine Blood Negative (Negative); Urine RBC 4 /hpf (0-3); Urine Squamous Epithelial Cell 4 /hpf (0-4); Urine WBC 58 /hpf (0-4)
--- NOTE | 2022-08-04 15:40 | Emergency Department Note ---
Altered Mental Status HPI General Chief Complaint: Altered Mental Status Stated Complaint: weak and confused Time Seen by Provider: 08/04/22 11:20 Source: patient Mode of arrival: wheelchair History of Present Illness HPI Narrative: Narrative: This is a 66-year-old female who presents to the emergency department with confusion, diffuse weakness, fevers. Patient does have a history of COPD she wears 3 L nasal cannula at baseline. Patient was unsure if she had had any falls she just thinks several weeks ago she did have a fall and broke some ribs. She reports other falls but is unsure if she has hit her head. She denies any abdominal pain obvious urinary changes or new productive cough from her baseline. Her significant other notes that she has been more clumsy, saying things that do not make sense. The patient denies any focal weakness or visual changes. No headache. Related Data Home Medications Medication Instructions Recorded Confirmed buspirone 15 mg tablet 15 mg PO TID 04/17/15 08/04/22 fluoxetine 20 mg tablet 80 mg PO DAILY 06/18/15 08/04/22 potassium chloride 10 mEq 20 meq PO QDAY 10/21/15 08/04/22 capsule,extended release furosemide 40 mg tablet 40 mg PO BID 10/20/20 08/04/22 metformin 500 mg tablet,extended 1,000 mg PO BID 10/20/20 08/04/22 release 24 hr montelukast 10 mg tablet 10 mg PO DAILY 10/20/20 08/04/22 (Singulair) calcium carbonate 600 mg-vitamin 1 tab PO QDAY 03/29/21 08/04/22 D3 10 mcg (400 unit) tablet (Calcium with Vitamin D) albuterol sulfate 2.5 mg/3 mL 2.5 mg inhalation Q6H PRN Adequate 07/02/21 08/04/22 (0.083 %) solution for nebulization Ventilation denosumab 60 mg/mL subcutaneous 60 mg subcut [id number] 07/02/21 08/04/22 syringe (Prolia) nystatin 100,000 unit/gram topical 1 applic topical BID 07/02/21 08/04/22 powder nystatin 100,000 unit/mL oral 1 ml PO QID 07/02/21 08/04/22 suspension ondansetron 4 mg disintegrating 4 mg PO .Q4-6H PRN Nausea 07/02/21 08/04/22 tablet polyethylene glycol 3350 17 17 g PO QDAY PRN Constipation 07/02/21 08/04/22 gram/dose oral powder (Miralax) pregabalin 150 mg capsule (Lyrica) 150 mg PO BID 10/23/21 08/04/22 cyclobenzaprine 10 mg tablet 10 mg PO TID 07/21/22 08/04/22 etodolac 400 mg tablet 400 mg PO BID 07/21/22 08/04/22 lidocaine HCl 2 % mucosal solution 1 applic mucous membrane BID 07/21/22 08/04/22 melatonin 10 mg PO HS PRN Insomnia 07/21/22 08/04/22 spironolactone 100 mg tablet 200 mg PO QAM 07/21/22 08/04/22 oxycodone 5 mg tablet 5 mg PO Q8HP PRN pain 08/04/22 08/04/22 triamcinolone acetonide 0.1 % 1 applic dental TID 08/04/22 08/04/22 dental paste Previous Rx's Medication Instructions Recorded fenofibrate 160 mg tablet 160 mg PO QDAY #90 tabs 05/23/15 omeprazole 20 mg capsule,delayed 20 mg PO QDAY #90 caps 07/18/15 release albuterol sulfate 90 mcg/actuation 2 puff inhalation Q4-6HP PRN 04/01/21 aerosol inhaler (Ventolin HFA) Shortness Of Breath #1 g ipratropium 0.5 mg-albuterol 3 mg 3 ml inhalation Q6H PRN Shortness 04/01/21 (2.5 mg base)/3 mL nebulization Of Breath #1 mL soln Disabled Parking Placard #1 ea 05/26/21 Trelegy Ellipta 100 mcg-62.5 1 inh inhalation Q24H #60 ea 06/09/22 mcg-25 mcg powder for inhalation ([id number]) Allergies Allergy/AdvReac Type Severity Reaction Status Date / Time fluconazole [From Diflucan] Allergy Mild Hives Verified 08/04/22 11:13 bupropion AdvReac Intermediate psychotic Verified 08/04/22 11:13 episode diphenhydramine AdvReac Mild Vomiting Verified 08/04/22 11:13 [From Benadryl] guaifenesin [GUAIFENESIN] AdvReac Mild Itching Verified 08/04/22 11:13 sulfamethoxazole AdvReac Mild Flushing Verified 08/04/22 11:13 [From Sulfamethoprim] trimethoprim AdvReac Mild Flushing Verified 08/04/22 11:13 [From Sulfamethoprim] Review of Systems ROS ROS Narrative: Narrative: All systems ED: reviewed and negative except as stated. FORMERLY [facility] Narrative Patient History Narrative: Narrative: Medical/Surgical/Family History All Active Problems (Updated 08/05/22 @ 07:40 by Kailash Rutledge MD) Acute paronychia of right thumb (Acute) Pneumonia (Acute) Acute paronychia of right thumb (Acute) Acute UTI (Acute) Acute hepatic encephalopathy (Acute) Sepsis (Acute) Lower back pain (Acute) Chronic bilateral low back pain (Acute) Closed fracture of seven ribs of left side (Acute) Lumbar back pain (Acute) Sacroiliitis (Acute) Chronic SI joint pain (Acute) Rib pain on right side (Chronic) Chronic thoracic back pain (Acute) Thoracic spondylosis with radiculopathy (Chronic) Multiple rib fractures (Acute) COPD (chronic obstructive pulmonary disease) (Chronic) Fracture, ribs (Acute) Failed back syndrome (Chronic) Canker sores oral (Acute) Abscess (Acute) Hyponatremia (Acute) Abdominal pain (Acute) T2DM (type 2 diabetes mellitus) (Acute) Atypical chest pain (Acute) Altered mental status (Acute) Acute UTI (Acute) Acute hepatic encephalopathy (Acute) Cirrhosis, non-alcoholic (Acute) Acute dehydration (Acute) Other low back pain (Chronic) Postoperative hematoma (Acute) Hemorrhage complicating a procedure (Acute) Thoracic radiculopathy (Acute) Thoracic back pain (Acute) Elevated liver enzymes (Chronic) Partial obstruction of small intestine (Chronic) Cannabis dependence (Chronic) Telogen effluvium (Chronic) Body mass index exceeds 30 (Chronic) Diabetes mellitus (Chronic) Degeneration of intervertebral disc (Chronic) Arthritis of hip (Chronic) Chronic kidney disease (Chronic) Allergic rhinitis (Chronic) Nausea and vomiting in adult (Chronic) Hyperglycemia (Chronic) Bilateral hip joint arthritis (Chronic) Irritable bowel syndrome with diarrhea (Chronic) Abdominal pain (Chronic) Chronic diarrhea of unknown origin (Chronic) Small bowel obstruction (Chronic) History of asthma (Chronic) Back pain (Chronic) Open T12 vertebral fracture (Chronic) Drug side effects (Chronic) Acute low back pain (Chronic) DDD (degenerative disc disease), lumbar (Chronic) Acute UTI (urinary tract infection) (Chronic) Hypochromic microcytic anemia (Chronic) Community acquired pneumonia (Chronic) Thyroid nodule (Chronic) Severe sepsis (Chronic) Fever (Chronic) Acute on chronic respiratory failure with hypoxia (Chronic) Volume overload (Chronic) Aphthous stomatitis (Chronic) Thoracic compression fracture (Chronic) Obstructive sleep apnea (Chronic) Hypoxia (Chronic) Maxillary sinusitis, acute (Chronic) Lung mass (Chronic) Small bowel obstruction (Acute) Diarrhea (Chronic) Right otitis media (Chronic) Gastroenteritis (Acute) Lumbar sprain (Chronic) Edema (Chronic) Nonallopathic lesion of cervical region (Chronic) Fibromyositis (Chronic) Eczema (Chronic) GERD (gastroesophageal reflux disease) (Chronic) Benign hypertension (Chronic) Chronic pain syndrome (Chronic) Generalized anxiety disorder (Chronic) Major depressive disorder (Chronic) Obesity (Chronic) Mixed hypercholesterolemia and hypertriglyceridemia (Chronic) Vitamin D deficiency (Chronic) Thrombocytosis (Chronic) Encounter for medication refill (Acute) Heart palpitations (Acute) Tension type headache (Chronic) Edema of foot (Chronic) Shortness of Breath (Chronic) Nummular eczema (Chronic) Marijuana smoker (Chronic) Tobacco abuse (Chronic) Stress incontinence in female (Chronic) Chronic pain (Chronic) Osteoporosis (Chronic) Osteoarthritis (Chronic) IBS (irritable bowel syndrome) (Chronic) Hypertension, essential (Chronic) Hyperlipidemia (Chronic) Fibromyalgia (Chronic) Fatigue (Chronic) Depression (Chronic) Bone spur of foot (Chronic) Asthma (Chronic) Anxiety (Chronic) Medical History Abdominal pain Abdominal pain Acute low back pain Acute on chronic respiratory failure with hypoxia Acute UTI (urinary tract infection) Allergic rhinitis Anxiety 2012. PHQ 9=21 12/31/15. Aphthous stomatitis Apnea Arthritis of hip Asthma 1995 Back pain Benign hypertension Bilateral hip joint arthritis Body mass index exceeds 30 Bone spur of foot 2010 Bronchitis given h/o copd, treat with zithromax. Bronchitis Bronchitis Canker sores oral Cannabis dependence Cellulitis Cholecystitis 2010 Chronic diarrhea of unknown origin Chronic kidney disease Chronic pain 01/31/2014 - Etiology unknown. On Vicodin, for same will try alternative meds, wean off if tolerated Chronic pain syndrome Community acquired pneumonia DDD (degenerative disc disease), lumbar Degeneration of intervertebral disc Depression severe acute worsening, on refer to Emergency. Diabetes mellitus Drug side effects Eczema Edema Edema of foot acute bilateral, h/o copd, get echo, get bnp and d dmier, start on lasix 20mg qd and KCL supplements, if worsens or does not respond advise to call back. Elevated liver enzymes Encounter for medication refill Failed back syndrome Fatigue 1983 Fever Fibromyalgia 01/31/2014 - Positive symptoms and tender points, need to rule out inflammatory conditions. Check ESR, CRP, ASHLIE, Uric Acid levels, CBC, CMP Fibromyositis Gastritis Generalized anxiety disorder GERD (gastroesophageal reflux disease) History of asthma Hyperglycemia Hyperlipidemia On fenofibrate, TG now 197 better , LDL is 83 which is also better, pt does not want to use statin, Hypertension, essential BP stable, Will review previous medical records, Monitor for now, stop atenolol, given copd, and try amlodipine. Hypochromic microcytic anemia Hypoxia IBS (irritable bowel syndrome) 1982 Irritable bowel syndrome with diarrhea Lumbar sprain Lung mass Versus lung abscess, CT chest 10/18/2020. Major depressive disorder Marijuana smoker advised to quit. Maxillary sinusitis, acute Mixed hypercholesterolemia and hypertriglyceridemia Myalgia 1982 Nausea and vomiting in adult nausea and vomiting appears to be functional and related more to her anxiety with depression then actual GI source Nonallopathic lesion of cervical region Nummular eczema treat with triamcinolone Obesity Obstructive sleep apnea Does not use therapy Open T12 vertebral fracture Osteoarthritis Osteoporosis 02/21/2015 Other low back pain Partial obstruction of small intestine Rib fracture 01/02/2015 - Dr. Holland Rib pain on right side Severe sepsis Shortness of Breath chr in nature, mild worsening, 2 pillow at night at times. Small bowel obstruction Stress incontinence in female 01/31/2014 - Urination on cough, will address this later Telogen effluvium Tension type headache Thoracic back pain Thoracic compression fracture Chronic Thoracic radiculopathy Thoracic spondylosis with radiculopathy Thrombocytosis Thyroid nodule Tinea corporis Tobacco abuse Smoking: Counseled to quit - 40 pack year history , tried chantix, pt self stopped Vitamin D deficiency Volume overload Surgical History History of cholecystectomy (06/09/15) Dr. Stacey Pringle History of cholecystectomy (06/09/15) History of colonoscopy (08/12/15) 1983 History of esophagogastroduodenoscopy (EGD) (11/17/18) History of hysterectomy 1982 History of laparoscopy 1982 History of laparoscopy (~1982) History of oophorectomy (11/01/82) History of tonsillectomy 1976 History of tonsillectomy (~1976) History of total abdominal hysterectomy (~1982) History of tubal ligation 1973 History of tubal ligation (~1973) Family History Father Carcinoma in situ of bladder Grandmother Cerebrovascular accident Arthritis Essential hypertension Maternal Myocardial Infarction Maternal Brother Type 2 diabetes mellitus Unknown Family history of throat cancer Mother Arthritis Family history of throat cancer Social History Smoking Status: Former smoker Alcohol Intake Frequency: does not drink Exam Narrative Narrative: Narrative: Vital signs noted General: Awake. Alert. HEENT: NCAT PERRL EOMI. No conjunctivitis. Membranes moist. Neck: Supple, trachea midline Cardiovascular: Tachycardic. No murmur. No rubs. No gallops. Respiratory: Diffuse end expiratory wheezing worse on the base Gastrointestinal: Soft. No tenderness Musculoskeletal: No pain. No soft tissue swelling. Good ROM. No signs injury Skin: Warm. Dry. No rash Neurologic: Alert moves all extremities equally and fully, speech is fluent face is symmetric, normal [id number] no pronator drift Course Vital Signs Vital signs: Vital Signs Temperature 97.9 F 08/04/22 11:09 Pulse Rate 116 H 08/04/22 11:09 Respiratory Rate 22 08/04/22 11:09 Blood Pressure 120/61 08/04/22 11:09 Pulse Oximetry (%) 94 08/04/22 11:09 Oxygen Delivery Method 08/04/22 11:09 Oxygen Flow Rate (L/min) 3 08/04/22 11:09 Temperature 98.2 F 08/05/22 04:16 Pulse Rate 98 H 08/05/22 06:07 Respiratory Rate 20 08/05/22 06:07 Blood Pressure 114/53 08/05/22 06:01 Pulse Oximetry (%) 92 08/05/22 06:07 Oxygen Delivery Method 08/05/22 06:07 Oxygen Flow Rate (L/min) 2 08/05/22 06:07 MDM MDM Narrative Medical decision making narrative: Narrative: Patient presents to the emergency department with confusion, clumsiness and decline in overall functional status for the last couple days. Patient is febrile upon arrival she is unable to me to elicit any other specific complaints or specific pains that she is having. History is mostly obtained by the patient's . Viral testing was negative. Chest x-ray shows possible bibasilar infiltrates. Patient does have coarse breath sounds some scattered wheezes on examination but the patient is nonhypoxic and is denying any new cough other than her baseline. Patient's urinalysis is obviously concerning for an infection. Patient has elevated lactate she is tachypneic tachycardic concerning for sepsis. Blood cultures were drawn and patient was started on Vanco and Zosyn. Lab Data Result diagrams: 08/04/22 11:40 08/05/22 05:59 Labs: Lab Results 08/04/22 08/04/22 08/04/22 Range/Units 11:40 11:40 11:40 WBC 16.9 H (4.5-11.0) K/mcL RBC 4.74 (3.59-5.38) M/mcL Hgb 12.6 (11.2-15.7) g/dL Hct 39.3 (34.1-44.9) % POC Hct (36-48) MCV 82.9 (80.0-100.0) fL MCH 26.6 (26.0-34.0) pg MCHC 32.1 (31.0-36.0) g/dL RDW 15.2 H (11.5-14.5) % Plt Count 224 (140-440) K/mcL MPV 10.3 (8.8-12.5) fL Immature Gran % (Auto) 0.4 (0.0-0.5) % Neut % (Auto) 86.7 H (38.0-78.0) % Lymph % (Auto) 5.0 L (15.5-49.0) % [place] % (Auto) 6.9 (1.0-12.0) % Eos % (Auto) 0.6 (0.0-7.0) % Baso % (Auto) 0.4 (0.0-2.0) % Lymph # (Auto) 0.84 L (1.50-4.80) K/mcL [place] # (Auto) 1.16 H (0.10-0.90) K/mcL Eos # (Auto) 0.10 (0.00-0.70) K/mcL Baso # (Auto) 0.07 (0.00-0.30) K/mcL Immature Gran # 0.06 H (0.00-0.05) K/mcl Absolute Neutrophils 14.62 H (1.80-8.00) K/mcL POC VBG pH (7.32-7.42) POC VBG pCO2 at Temp (41-51) POC VBG pO2 (25-40) POC VBG HCO3 (24-28) POC VBG Total CO2 (25-29) POC Venous O2 Sat (40-70) POC VBG Base Excess (-2-2) VBG Lactic Acid (0.5-2) POC Sodium (133-145) POC Potassium (3.3-5.1) POC Chloride (96-108) POC Total CO2 (22-30) POC BUN (6-20) POC Creatinine (0.6-1.2) POC Glucose (70-105) POC WB Ioniz Calcium (1.16-1.32) Total Bilirubin 1.0 (0.1-1.0) mg/dL Direct Bilirubin 0.6 H (<0.3) mg/dL AST 42 H (<32) U/L ALT 28 (<40) U/L Alkaline Phosphatase 119 H (39-117) U/L Ammonia (11-51) umol/L Total Protein 7.0 (5.9-8.4) gm/dL Albumin 3.4 (3.2-5.2) gm/dL Globulin 3.6 (2.2-3.7) gm/dL Procalcitonin 0.31 H (<0.10) ng/mL Urine Color Urine Appearance (Clear) Urine pH (5.0-9.0) Ur Specific [place] (1.000-1.035) Urine Protein (Negative) mg/dL Urine Glucose (UA) (Negative) mg/dL Urine Ketones (Negative) mg/dL Urine Occult Blood (Negative) mg/dL Urine Nitrate (Negative) Urine Bilirubin (Negative) mg/dL Urine Urobilinogen mg/dL Ur Leukocyte Esterase (Negative) /uL Urine RBC (0-3) /hpf Urine WBC (0-4) /hpf Ur Squamous Epith Cells (0-4) /hpf Urine Bacteria (0) /hpf Urine Mucus (None) /hpf Ur Culture Indicated? POC Troponin I (0.00-0.08) 08/04/22 08/04/22 08/04/22 Range/Units 11:41 11:52 12:25 WBC (4.5-11.0) K/mcL RBC (3.59-5.38) M/mcL Hgb (11.2-15.7) g/dL Hct (34.1-44.9) % POC Hct 39.0 (36-48) MCV (80.0-100.0) fL MCH (26.0-34.0) pg MCHC (31.0-36.0) g/dL RDW (11.5-14.5) % Plt Count (140-440) K/mcL MPV (8.8-12.5) fL Immature Gran % (Auto) (0.0-0.5) % Neut % (Auto) (38.0-78.0) % Lymph % (Auto) (15.5-49.0) % [place] % (Auto) (1.0-12.0) % Eos % (Auto) (0.0-7.0) % Baso % (Auto) (0.0-2.0) % Lymph # (Auto) (1.50-4.80) K/mcL [place] # (Auto) (0.10-0.90) K/mcL Eos # (Auto) (0.00-0.70) K/mcL Baso # (Auto) (0.00-0.30) K/mcL Immature Gran # (0.00-0.05) K/mcl Absolute Neutrophils (1.80-8.00) K/mcL POC VBG pH (7.32-7.42) POC VBG pCO2 at Temp (41-51) POC VBG pO2 (25-40) POC VBG HCO3 (24-28) POC VBG Total CO2 (25-29) POC Venous O2 Sat (40-70) POC VBG Base Excess (-2-2) VBG Lactic Acid (0.5-2) POC Sodium 134 (133-145) POC Potassium 3.8 (3.3-5.1) POC Chloride 100 (96-108) POC Total CO2 21.0 L (22-30) POC BUN 21 H (6-20) POC Creatinine 1.0 (0.6-1.2) POC Glucose 264 H (70-105) POC WB Ioniz Calcium 1.19 (1.16-1.32) Total Bilirubin (0.1-1.0) mg/dL Direct Bilirubin (<0.3) mg/dL AST (<32) U/L ALT (<40) U/L Alkaline Phosphatase (39-117) U/L Ammonia 114 H (11-51) umol/L Total Protein (5.9-8.4) gm/dL Albumin (3.2-5.2) gm/dL Globulin (2.2-3.7) gm/dL Procalcitonin (<0.10) ng/mL Urine Color Urine Appearance (Clear) Urine pH (5.0-9.0) Ur Specific [place] (1.000-1.035) Urine Protein (Negative) mg/dL Urine Glucose (UA) (Negative) mg/dL Urine Ketones (Negative) mg/dL Urine Occult Blood (Negative) mg/dL Urine Nitrate (Negative) Urine Bilirubin (Negative) mg/dL Urine Urobilinogen mg/dL Ur Leukocyte Esterase (Negative) /uL Urine RBC (0-3) /hpf Urine WBC (0-4) /hpf Ur Squamous Epith Cells (0-4) /hpf Urine Bacteria (0) /hpf Urine Mucus (None) /hpf Ur Culture Indicated? POC Troponin I 0.03 (0.00-0.08) 08/04/22 08/04/22 Range/Units 12:51 13:14 WBC (4.5-11.0) K/mcL RBC (3.59-5.38) M/mcL Hgb (11.2-15.7) g/dL Hct (34.1-44.9) % POC Hct (36-48) MCV (80.0-100.0) fL MCH (26.0-34.0) pg MCHC (31.0-36.0) g/dL RDW (11.5-14.5) % Plt Count (140-440) K/mcL MPV (8.8-12.5) fL Immature Gran % (Auto) (0.0-0.5) % Neut % (Auto) (38.0-78.0) % Lymph % (Auto) (15.5-49.0) % [place] % (Auto) (1.0-12.0) % Eos % (Auto) (0.0-7.0) % Baso % (Auto) (0.0-2.0) % Lymph # (Auto) (1.50-4.80) K/mcL [place] # (Auto) (0.10-0.90) K/mcL Eos # (Auto) (0.00-0.70) K/mcL Baso # (Auto) (0.00-0.30) K/mcL Immature Gran # (0.00-0.05) K/mcl Absolute Neutrophils (1.80-8.00) K/mcL POC VBG pH 7.48 H (7.32-7.42) POC VBG pCO2 at Temp 28.3 L (41-51) POC VBG pO2 65 H (25-40) POC VBG HCO3 21.3 L (24-28) POC VBG Total CO2 22.0 L (25-29) POC Venous O2 Sat 94.0 H (40-70) POC VBG Base Excess -2.0 (-2-2) VBG Lactic Acid 5.1 H* (0.5-2) POC Sodium (133-145) POC Potassium (3.3-5.1) POC Chloride (96-108) POC Total CO2 (22-30) POC BUN (6-20) POC Creatinine (0.6-1.2) POC Glucose (70-105) POC WB Ioniz Calcium (1.16-1.32) Total Bilirubin (0.1-1.0) mg/dL Direct Bilirubin (<0.3) mg/dL AST (<32) U/L ALT (<40) U/L Alkaline Phosphatase (39-117) U/L Ammonia (11-51) umol/L Total Protein (5.9-8.4) gm/dL Albumin (3.2-5.2) gm/dL Globulin (2.2-3.7) gm/dL Procalcitonin (<0.10) ng/mL Urine Color Yellow Urine Appearance Hazy A (Clear) Urine pH 5.0 (5.0-9.0) Ur Specific [place] 1.031 (1.000-1.035) Urine Protein Negative (Negative) mg/dL Urine Glucose (UA) 150 A (Negative) mg/dL Urine Ketones Negative (Negative) mg/dL Urine Occult Blood Negative (Negative) mg/dL Urine Nitrate Pos A (Negative) Urine Bilirubin Negative (Negative) mg/dL Urine Urobilinogen 4.0 A mg/dL Ur Leukocyte Esterase 250 A (Negative) /uL Urine RBC 4 H (0-3) /hpf Urine WBC 58 H (0-4) /hpf Ur Squamous Epith Cells 4 (0-4) /hpf Urine Bacteria None (0) /hpf Urine Mucus Few A (None) /hpf Ur Culture Indicated? yes POC Troponin I (0.00-0.08) ED POC Tests ED POC Tests: ANJELICA - Influenza A Negative ANJELICA - Influenza B Negative ANJELICA - SARS Antigen Negative Discharge Plan Patient/Caregiver Discharge Instructions Pt seen by [employer]BOUND CUST[employer]ER SERVICE AGENT/PA only: No Clinical Impression: Acute UTI, Acute hepatic encephalopathy, Sepsis Patient Disposition: Xfer As Outpt/Obs ([facility]) Condition: Serious Discharge Date/Time: 08/04/22 17:10
--- NOTE | 2022-08-04 16:33 | Internal Med History&Physical ---
HPI History of Present Illness Patient information: Note initiated : 08/04/22 at 4:26 pm Service Date, if different from initiated Date: [] Patient: Kenia Sandoval a 66 y/o F admitted on for weak and confused. Chief Complaint: [] History of present illness: Ms. Sandoval is a 66 year old F Patient presents the ED for increased confusion and weakness. Her symptoms have been going on for several days and worsening over that time period. Lives on with her . He has a history of cirrhosis and is on lactulose. She does complain of having some fevers recently. Denies diarrhea abdominal pain any chest pain or shortness of breath. In the ED she was febrile and had a tachycardia and mild tachypnea. She was found to have a lactic acidosis and leukocytosis as well as elevated ammonia. Urine was dirty consistent with UTI. Blood cultures were obtained and patient was put on antibiotics. IV fluids started in the ED. Blood pressure stable at this time. Review of Systems: Pertinent positives as above. Denies headache//nausea/vomiting/chest or abdominal pain/cough/dyspnea/diarrhea. Many 10 point review of system reviewed negative PFSH PFSH All Active Problems (Updated 06/29/22 @ 21:48 by Nhan Collins DO) Acute paronychia of right thumb (Acute) Pneumonia (Acute) Acute paronychia of right thumb (Acute) Lower back pain (Acute) Chronic bilateral low back pain (Acute) Closed fracture of seven ribs of left side (Acute) Lumbar back pain (Acute) Sacroiliitis (Acute) Chronic SI joint pain (Acute) Rib pain on right side (Chronic) Chronic thoracic back pain (Acute) Thoracic spondylosis with radiculopathy (Chronic) Multiple rib fractures (Acute) COPD (chronic obstructive pulmonary disease) (Chronic) Fracture, ribs (Acute) Failed back syndrome (Chronic) Canker sores oral (Acute) Abscess (Acute) Hyponatremia (Acute) Abdominal pain (Acute) T2DM (type 2 diabetes mellitus) (Acute) Atypical chest pain (Acute) Altered mental status (Acute) Acute UTI (Acute) Acute hepatic encephalopathy (Acute) Cirrhosis, non-alcoholic (Acute) Acute dehydration (Acute) Other low back pain (Chronic) Postoperative hematoma (Acute) Hemorrhage complicating a procedure (Acute) Thoracic radiculopathy (Acute) Thoracic back pain (Acute) Elevated liver enzymes (Chronic) Partial obstruction of small intestine (Chronic) Cannabis dependence (Chronic) Telogen effluvium (Chronic) Body mass index exceeds 30 (Chronic) Diabetes mellitus (Chronic) Degeneration of intervertebral disc (Chronic) Arthritis of hip (Chronic) Chronic kidney disease (Chronic) Allergic rhinitis (Chronic) Nausea and vomiting in adult (Chronic) Hyperglycemia (Chronic) Bilateral hip joint arthritis (Chronic) Irritable bowel syndrome with diarrhea (Chronic) Abdominal pain (Chronic) Chronic diarrhea of unknown origin (Chronic) Small bowel obstruction (Chronic) History of asthma (Chronic) Back pain (Chronic) Open T12 vertebral fracture (Chronic) Drug side effects (Chronic) Acute low back pain (Chronic) DDD (degenerative disc disease), lumbar (Chronic) Acute UTI (urinary tract infection) (Chronic) Hypochromic microcytic anemia (Chronic) Community acquired pneumonia (Chronic) Thyroid nodule (Chronic) Severe sepsis (Chronic) Fever (Chronic) Acute on chronic respiratory failure with hypoxia (Chronic) Volume overload (Chronic) Aphthous stomatitis (Chronic) Thoracic compression fracture (Chronic) Obstructive sleep apnea (Chronic) Hypoxia (Chronic) Maxillary sinusitis, acute (Chronic) Lung mass (Chronic) Small bowel obstruction (Acute) Diarrhea (Chronic) Right otitis media (Chronic) Gastroenteritis (Acute) Lumbar sprain (Chronic) Edema (Chronic) Nonallopathic lesion of cervical region (Chronic) Fibromyositis (Chronic) Eczema (Chronic) GERD (gastroesophageal reflux disease) (Chronic) Benign hypertension (Chronic) Chronic pain syndrome (Chronic) Generalized anxiety disorder (Chronic) Major depressive disorder (Chronic) Obesity (Chronic) Mixed hypercholesterolemia and hypertriglyceridemia (Chronic) Vitamin D deficiency (Chronic) Thrombocytosis (Chronic) Encounter for medication refill (Acute) Heart palpitations (Acute) Tension type headache (Chronic) Edema of foot (Chronic) Shortness of Breath (Chronic) Nummular eczema (Chronic) Marijuana smoker (Chronic) Tobacco abuse (Chronic) Stress incontinence in female (Chronic) Chronic pain (Chronic) Osteoporosis (Chronic) Osteoarthritis (Chronic) IBS (irritable bowel syndrome) (Chronic) Hypertension, essential (Chronic) Hyperlipidemia (Chronic) Fibromyalgia (Chronic) Fatigue (Chronic) Depression (Chronic) Bone spur of foot (Chronic) Asthma (Chronic) Anxiety (Chronic) Medical History Abdominal pain Abdominal pain Acute low back pain Acute on chronic respiratory failure with hypoxia Acute UTI (urinary tract infection) Allergic rhinitis Anxiety 2012. PHQ 9=21 12/31/15. Aphthous stomatitis Apnea Arthritis of hip Asthma 1995 Back pain Benign hypertension Bilateral hip joint arthritis Body mass index exceeds 30 Bone spur of foot 2010 Bronchitis given h/o copd, treat with zithromax. Bronchitis Bronchitis Canker sores oral Cannabis dependence Cellulitis Cholecystitis 2010 Chronic diarrhea of unknown origin Chronic kidney disease Chronic pain 01/31/2014 - Etiology unknown. On Vicodin, for same will try alternative meds, wean off if tolerated Chronic pain syndrome Community acquired pneumonia DDD (degenerative disc disease), lumbar Degeneration of intervertebral disc Depression severe acute worsening, on refer to Emergency. Diabetes mellitus Drug side effects Eczema Edema Edema of foot acute bilateral, h/o copd, get echo, get bnp and d dmier, start on lasix 20mg qd and KCL supplements, if worsens or does not respond advise to call back. Elevated liver enzymes Encounter for medication refill Failed back syndrome Fatigue 1983 Fever Fibromyalgia 01/31/2014 - Positive symptoms and tender points, need to rule out inflammatory conditions. Check ESR, CRP, ASHLIE, Uric Acid levels, CBC, CMP Fibromyositis Gastritis Generalized anxiety disorder GERD (gastroesophageal reflux disease) History of asthma Hyperglycemia Hyperlipidemia On fenofibrate, TG now 197 better , LDL is 83 which is also better, pt does not want to use statin, Hypertension, essential BP stable, Will review previous medical records, Monitor for now, stop atenolol, given copd, and try amlodipine. Hypochromic microcytic anemia Hypoxia IBS (irritable bowel syndrome) 1983 Irritable bowel syndrome with diarrhea Lumbar sprain Lung mass Versus lung abscess, CT chest 10/18/2020. Major depressive disorder Marijuana smoker advised to quit. Maxillary sinusitis, acute Mixed hypercholesterolemia and hypertriglyceridemia Myalgia 1983 Nausea and vomiting in adult nausea and vomiting appears to be functional and related more to her anxiety with depression then actual GI source Nonallopathic lesion of cervical region Nummular eczema treat with triamcinolone Obesity Obstructive sleep apnea Does not use therapy Open T12 vertebral fracture Osteoarthritis Osteoporosis 02/21/2015 Other low back pain Partial obstruction of small intestine Rib fracture 01/02/2015 - Dr. Holland Rib pain on right side Severe sepsis Shortness of Breath chr in nature, mild worsening, 2 pillow at night at times. Small bowel obstruction Stress incontinence in female 01/31/2014 - Urination on cough, will address this later Telogen effluvium Tension type headache Thoracic back pain Thoracic compression fracture Chronic Thoracic radiculopathy Thoracic spondylosis with radiculopathy Thrombocytosis Thyroid nodule Tinea corporis Tobacco abuse Smoking: Counseled to quit - 40 pack year history , tried chantix, pt self stopped Vitamin D deficiency Volume overload Surgical History History of cholecystectomy (06/09/15) Dr. Stacey Pringle History of cholecystectomy (06/09/15) History of colonoscopy (08/12/15) 1982 History of esophagogastroduodenoscopy (EGD) (11/17/18) History of hysterectomy 1982 History of laparoscopy 1982 History of laparoscopy (~1982) History of oophorectomy (11/01/82) History of tonsillectomy 1976 History of tonsillectomy (~1976) History of total abdominal hysterectomy (~1982) History of tubal ligation 1973 History of tubal ligation (~1973) Family History Father Carcinoma in situ of bladder Grandmother Cerebrovascular accident Arthritis Essential hypertension Maternal Myocardial Infarction Maternal Brother Type 2 diabetes mellitus Unknown Family history of throat cancer Mother Arthritis Family history of throat cancer Social History adopted: No caregiver/support person: No foster care: No household members: alone housing: house lives independently: Yes marital status: education level: high school service: No usp: No occupational 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 pets and animals: Yes pets and animals: cat(s) and dog(s) hx recent travel: No sexually active: No smoking status: Former smoker quit date: 03/01/17 pack-years: 40 alcohol intake frequency: does not drink seatbelt use: always working smoke detector in home: Yes firearms in home: No MEDS/ALLERGIES Home Medications and Allergies Home Medications Medication Instructions Recorded Confirmed Type buspirone 15 mg tablet 15 mg PO TID 04/17/15 07/21/22 History fenofibrate 160 mg tablet 160 mg PO QDAY #90 tabs 05/23/15 07/21/22 Rx fluoxetine 20 mg tablet 80 mg PO DAILY 06/18/15 07/21/22 History omeprazole 20 mg capsule,delayed 20 mg PO QDAY #90 caps 07/18/15 07/21/22 Rx release potassium chloride 10 mEq 20 meq PO QDAY 10/21/15 07/21/22 History capsule,extended release furosemide 40 mg tablet 40 mg PO BID 10/20/20 07/21/22 History metformin 500 mg tablet,extended 1,000 mg PO BID 10/20/20 07/21/22 History release 24 hr montelukast 10 mg tablet 10 mg PO DAILY 10/20/20 07/21/22 History (Singulair) calcium carbonate 600 mg-vitamin 1 tab PO QDAY 03/29/21 07/21/22 History D3 10 mcg (400 unit) tablet (Calcium with Vitamin D) albuterol sulfate 90 mcg/actuation 2 puff inhalation Q4-6HP PRN 04/01/21 07/21/22 Rx aerosol inhaler (Ventolin HFA) Shortness Of Breath #1 g ipratropium 0.5 mg-albuterol 3 mg 3 ml inhalation Q6H PRN Shortness 04/01/21 07/21/22 Rx (2.5 mg base)/3 mL nebulization Of Breath #1 mL soln Disabled Parking Placard #1 ea 05/26/21 07/21/22 Rx albuterol sulfate 2.5 mg/3 mL 2.5 mg inhalation Q6H PRN Adequate 07/02/21 07/21/22 History (0.083 %) solution for nebulization Ventilation denosumab 60 mg/mL subcutaneous 60 mg subcut [id number] 07/02/21 07/21/22 History syringe (Prolia) mupirocin 2 % topical ointment 1 applic topical .Unknown 07/02/21 07/21/22 History nystatin 100,000 unit/gram topical 1 applic topical BID 07/02/21 07/21/22 History powder nystatin 100,000 unit/mL oral 1 ml PO QID 07/02/21 07/21/22 History suspension ondansetron 4 mg disintegrating 4 mg PO .Q4-6H PRN Nausea 07/02/21 07/21/22 History tablet polyethylene glycol 3350 17 17 g PO QDAY PRN Constipation 07/02/21 07/21/22 History gram/dose oral powder (Miralax) Lactobacillus acidophilus 2,000 mmu cells PO BID 10/23/21 07/21/22 History (Acidophilus capsule) pregabalin 150 mg capsule (Lyrica) 150 mg PO BID 10/23/21 07/21/22 History triamcinolone acetonide 0.1 % 1 applic dental BID PRN mouth 12/25/21 07/21/22 Rx dental paste irritation #5 grams oxycodone 5 mg tablet 2.5 mg PO BID PRN pain #20 tabs 06/04/22 07/21/22 Rx Trelegy Ellipta 100 mcg-62.5 1 inh inhalation Q24H #60 ea 06/09/22 07/21/22 Rx mcg-25 mcg powder for inhalation (caagpkyrgqi-wevojclkc-bvsfbowu) cyclobenzaprine 10 mg tablet 10 mg PO HS 07/21/22 07/21/22 History etodolac 400 mg tablet 400 mg PO BID 07/21/22 07/21/22 History lidocaine HCl 2 % mucosal solution 1 applic mucous membrane BID 07/21/22 07/21/22 History melatonin 10 mg PO HS PRN Insomnia 07/21/22 07/21/22 History spironolactone 100 mg tablet 100 mg PO QAM 07/21/22 07/21/22 History Allergies Allergy/AdvReac Type Severity Reaction Status Date / Time fluconazole [From Diflucan] Allergy Mild Hives Verified 08/04/22 11:13 bupropion AdvReac Intermediate psychotic Verified 08/04/22 11:13 episode diphenhydramine AdvReac Mild Vomiting Verified 08/04/22 11:13 [From Benadryl] guaifenesin [GUAIFENESIN] AdvReac Mild Itching Verified 08/04/22 11:13 sulfamethoxazole AdvReac Mild Flushing Verified 08/04/22 11:13 [From Sulfamethoprim] trimethoprim AdvReac Mild Flushing Verified 08/04/22 11:13 [From Sulfamethoprim] EXAM Constitutional Vitals: Temp Pulse Resp BP Pulse Ox O2 Del Method O2 Flow Rate 101.5 F H 95 H 29 H 108/56 93 3 08/04/22 11:32 08/04/22 16:19 08/04/22 16:19 08/04/22 16:16 08/04/22 16:19 08/04/22 11:09 08/04/22 11:09 Exam: General: Alert, Awake, No acute Distress Eyes/N/T: EOMI, PERRL, dry MM Head/Neck: neck supple, normocephalic atraumatic CV: RRR upon my exam, No murmurs, normal s1/s2 Pulm: Clear b/l, no wheezing/rhonchi/rales Abd: soft, protuberant, nontender, +BS x4 Ext: no clubbing/cyanosis/edema Neuro: Alert, no focal deficits, moves all extremities, CN 2-12 grossly intact, symmetrical strength b/l upper/lower, sensations intact b/l upper/lower Skin: warm/dry DATA Data Completed and Pending Labs: Labs from last 24 hours 08/04/22 08/04/22 08/04/22 13:14 12:51 12:25 WBC RBC Hgb Hct POC Hct MCV MCH MCHC RDW Plt Count MPV Immature Gran % (Auto) Neut % (Auto) Lymph % (Auto) [place] % (Auto) Eos % (Auto) Baso % (Auto) Lymph # (Auto) [place] # (Auto) Eos # (Auto) Baso # (Auto) Immature Gran # Absolute Neutrophils POC VBG pH 7.48 H POC VBG pCO2 at Temp 28.3 L POC VBG pO2 65 H POC VBG HCO3 21.3 L POC VBG Total CO2 22.0 L POC Venous O2 Sat 94.0 H POC VBG Base Excess -2.0 VBG Lactic Acid 5.1 H* POC Sodium POC Potassium POC Chloride POC Total CO2 POC BUN POC Creatinine POC Glucose POC WB Ioniz Calcium Total Bilirubin Direct Bilirubin AST ALT Alkaline Phosphatase Ammonia 114 H Total Protein Albumin Globulin Procalcitonin Urine Color Yellow Urine Appearance Hazy A Urine pH 5.0 Ur Specific [place] 1.031 Urine Protein Negative Urine Glucose (UA) 150 A Urine Ketones Negative Urine Occult Blood Negative Urine Nitrate Pos A Urine Bilirubin Negative Urine Urobilinogen 4.0 A Ur Leukocyte Esterase 250 A Urine RBC 4 H Urine WBC 58 H Ur Squamous Epith Cells 4 Urine Bacteria None Urine Mucus Few A Ur Culture Indicated? yes POC Troponin I 08/04/22 08/04/22 08/04/22 11:52 11:41 11:40 WBC RBC Hgb Hct POC Hct 39.0 MCV MCH MCHC RDW Plt Count MPV Immature Gran % (Auto) Neut % (Auto) Lymph % (Auto) [place] % (Auto) Eos % (Auto) Baso % (Auto) Lymph # (Auto) [place] # (Auto) Eos # (Auto) Baso # (Auto) Immature Gran # Absolute Neutrophils POC VBG pH POC VBG pCO2 at Temp POC VBG pO2 POC VBG HCO3 POC VBG Total CO2 POC Venous O2 Sat POC VBG Base Excess VBG Lactic Acid POC Sodium 134 POC Potassium 3.8 POC Chloride 100 POC Total CO2 21.0 L POC BUN 21 H POC Creatinine 1.0 POC Glucose 264 H POC WB Ioniz Calcium 1.19 Total Bilirubin Direct Bilirubin AST ALT Alkaline Phosphatase Ammonia Total Protein Albumin Globulin Procalcitonin 0.31 H Urine Color Urine Appearance Urine pH Ur Specific [place] Urine Protein Urine Glucose (UA) Urine Ketones Urine Occult Blood Urine Nitrate Urine Bilirubin Urine Urobilinogen Ur Leukocyte Esterase Urine RBC Urine WBC Ur Squamous Epith Cells Urine Bacteria Urine Mucus Ur Culture Indicated? POC Troponin I 0.03 08/04/22 08/04/22 11:40 11:40 WBC 16.9 H RBC 4.74 Hgb 12.6 Hct 39.3 POC Hct MCV 82.9 MCH 26.6 MCHC 32.1 RDW 15.2 H Plt Count 224 MPV 10.3 Immature Gran % (Auto) 0.4 Neut % (Auto) 86.7 H Lymph % (Auto) 5.0 L [place] % (Auto) 6.9 Eos % (Auto) 0.6 Baso % (Auto) 0.4 Lymph # (Auto) 0.84 L [place] # (Auto) 1.16 H Eos # (Auto) 0.10 Baso # (Auto) 0.07 Immature Gran # 0.06 H Absolute Neutrophils 14.62 H POC VBG pH POC VBG pCO2 at Temp POC VBG pO2 POC VBG HCO3 POC VBG Total CO2 POC Venous O2 Sat POC VBG Base Excess VBG Lactic Acid POC Sodium POC Potassium POC Chloride POC Total CO2 POC BUN POC Creatinine POC Glucose POC WB Ioniz Calcium Total Bilirubin 1.0 Direct Bilirubin 0.6 H AST 42 H ALT 28 Alkaline Phosphatase 119 H Ammonia Total Protein 7.0 Albumin 3.4 Globulin 3.6 Procalcitonin Urine Color Urine Appearance Urine pH Ur Specific [place] Urine Protein Urine Glucose (UA) Urine Ketones Urine Occult Blood Urine Nitrate Urine Bilirubin Urine Urobilinogen Ur Leukocyte Esterase Urine RBC Urine WBC Ur Squamous Epith Cells Urine Bacteria Urine Mucus Ur Culture Indicated? POC Troponin I Pending A/P Narrative A/P Narrative: A: *UTI: *Severe sepsis w/ lactic acidosis: *Hepatic Encephalopathy: *Cirrhosis: On Aldactone/Lasix *DM: On metformin CKD III: *Anemia, chronic: *COPD(3L home O2): *ATIF: *Depression/anxiety: *Chronic LBP: *GERD: * P: -IV abx, pending UC/BC -IVF, follow-up lactate -lactulose titrate to 2-3 soft BM's/day -hold home lasix -SSI, hold metformin for now -Home medication reconciliation -pt/ot -ppx: lovenox / home ppi Time Spent With Patient Time: Total time spent is greater than 50% in coordination of care (as documented) at patient's floor/unit and/or counseling patient: Total time spent with greater than 50% in coordination of care (as documented) at patient's floor/unit and/or counseling patient:: Greater than 70 minutes
[2022-08-04] MEDS ORDERED: DEXTROSE 50% 50 ML VIAL IV PRN (17:15)
[2022-08-04] MEDS ORDERED: LACTULOSE 20 GM/30 ML ORAL.SOL PO PRN (17:15)
[2022-08-04] MEDS ORDERED: ONDANSETRON 4 MG/2 ML VIAL IV PRN (17:15)
[2022-08-04] MEDS ORDERED: 0.9 % SODIUM CHLORIDE 1,000 ML IV SCH (17:15)
[2022-08-04] MEDS ORDERED: SENNOSIDES 1 TABLET PO PRN (17:15)
[2022-08-04] MEDS ORDERED: DEXTROSE 31 GM ORAL.SUSP PO PRN (17:15)
[2022-08-04] MEDS ORDERED: MAGNESIUM SULFATE 2 GM/50 ML BAG IV PRN (17:15)
[2022-08-04] MEDS ORDERED: POTASSIUM CHLORIDE 20 MEQ TABLET PO PRN ×2 (17:15)
[2022-08-04] MEDS ORDERED: POTASSIUM CHLORIDE 40 MEQ in DEXTROSE 5% IN WATER 500 ML IV PRN (17:15)
[2022-08-04] MEDS ORDERED: cefTRIAXone 1 GM in DEXTROSE 5% IN WATER 50 ML IV SCH (17:15)
[2022-08-04] MEDS ORDERED: VANCOMYCIN PER PHARMACY IV ONE (17:15)
[2022-08-04] MEDS: INSULIN LISPRO 1 UNIT/0.01 ML UNIT SQ SCH ×2 (17:42→21:45)
[2022-08-04] MEDS: LACTULOSE 20 GM/30 ML ORAL.SOL PO SCH ×2 (17:42→21:30)
[2022-08-04] MEDS ORDERED: VANCOMYCIN PER PHARMACY IV SCH (17:45)
[2022-08-04] MEDS: ACETAMINOPHEN 325 MG TABLET PO PRN (18:46)
[2022-08-04] MEDS ORDERED: cefTRIAXone 1 GM VIAL ONE (19:53)
[2022-08-04] MEDS ORDERED: NON FORMULARY MEDICATION 1 DOSE MISCELL (Fluticasone-Umeclidin-Vilanter [Trelegy Ellipta] INHALATION SCH (20:00)
[2022-08-04] MEDS: oxyCODONE HCL 5 MG TABLET PO PRN (21:28)
[2022-08-04] MEDS: busPIRone 15 MG TABLET PO SCH (21:30)
[2022-08-04] MEDS: PREGABALIN 150 MG CAPSULE PO SCH (21:30)
[2022-08-04] MEDS: NYSTATIN POWDER BOTTLE 15GM TOPICAL SCH (21:45)
[2022-08-04] MEDS: 0.9 % SODIUM CHLORIDE 10 ML SYRINGE IV SCH (21:54)
[2022-08-05] MEDS: oxyCODONE HCL 5 MG TABLET PO PRN ×3 (07:40→23:35)
--- NOTE | 2022-08-05 07:40 | Internal Med Progress Note ---
SUBJECTIVE Subjective Patient information: Note initiated : 08/05/22 at 7:35 am Service Date, if different from initiated Date: [] Patient: Kenia Sandoval a 66 y/o F admitted on 08/04/22 for weak and co nfused/severe sepsis, UTI,. Chief Complaint: [] Interval history: History of present illness: Ms. Sandoval is a 66 year old F Patient presents the ED for increased confusion and weakness. Her symptoms have been going on for several days and worsening over that time period. Lives on with her . He has a history of cirrhosis and is on lactulose. She does complain of having some fevers recently. Denies diarrhea abdominal pain any chest pain or shortness of breath. In the ED she was febrile and had a tachycardia and mild tachypnea. She was found to have a lactic acidosis and leukocytosis as well as elevated ammonia. Urine was dirty consistent with UTI. Blood cultures were obtained and patient was put on antibiotics. IV fluids started in the ED. Blood pressure stable at this time. 08/05 Patient says she does not feel any better than yesterday. She appears anxious. Does complain of headache and then some sharp pleuritic left chest wall pain which is made worse by cough and palpation. Leukocytosis slightly worse, will get manual differential. Fever curve improving. INR pending. Lactic acidosis resolved. Review of Systems: denies fever/chills/nausea/vomitingabdominal pain/dyspnea/diarrhea. Otherwise see above. Constitutional Vitals: Vital Signs Temp Pulse Resp BP Pulse Ox O2 Del Method O2 Flow Rate 98.2 F 98 H 20 114/53 92 2 08/05/22 04:16 08/05/22 06:07 08/05/22 06:07 08/05/22 06:01 08/05/22 06:07 08/05/22 06:07 08/05/22 06:07 Period Temp Pulse Resp BP Sys/Miranda Pulse Ox O2 Del Method O2 Flow Rate Last 24 Hr 97.9 F-101.5 F 94-116 18-30 96-141/42-80 88-96 Nasal Cannula- Nasal Cannula 2-3 Intake and Output 08/04/22 08/05/22 08/05/22 21:59 05:59 13:59 Intake Total 2470 360 Output Total 150 225 300 Balance 2320 135 -300 Weight 58.786 kg Intake & Output: Intake & Output 08/04/22 08/05/22 08/05/22 21:59 05:59 13:59 Intake Total 2470 360 Output Total 150 225 300 Balance 2320 135 -300 Weight 58.786 kg Intake: IV 2350 Lactated Ringers 1,000 ml @ 2000 Wide Open IV [facility] Rx#: [id number] Zosyn 3.375 gm In Dextrose 5% 50 in Water 50 ml @ 100 mls/hr IV ONCE ONE Rx#:[id number] Vancomycin 1,000 mg In Sodium 250 Chloride 0.9% 250 ml @ 250 mls/ hr IV ONCE ONE Rx#:[id number] Rocephin 1 gm In Dextrose 5% in 50 Water 50 ml @ 100 mls/hr IV Q24H [facility] Rx#:[id number] Oral 120 360 Output: Void Amount 150 225 300 Other: Meal Fruit cup, tuna salad with crackers Percent of Meal Consumed 100% Feeding Ability Independent Urine Appearance Clear Clear Clear Urine Color Dark Yellow Dark Yellow Bright Yellow Urine Odor Normal Normal Stool Size Moderate Small Small Stool Color Brown Brown Brown Green Stool Consistency Soft Loose Soft Formed Formed Katie # Bowel Movements 1 Exam: General: Alert, Awake, anxious Eyes/N/T: EOMI, Head/Neck: neck supple, CV: RRR, No murmurs, Pulm: wheezing b/l, no rales Abd: soft, protuberant, nontender, +BS x4 Ext: no clubbing/cyanosis, trace-1+ edema Neuro: Alert, no focal deficits, moves all extremities, Skin: warm/dry OBJ DATA Labs CBC & Chem 7: 08/05/22 08:03 08/05/22 05:59 Labs: Abnormal Lab Results 08/04/22 08/04/22 08/04/22 17:35 13:14 12:51 WBC RDW Neut % (Auto) Lymph % (Auto) Lymph # (Auto) [place] # (Auto) Immature Gran # Absolute Neutrophils POC VBG pH 7.48 H POC VBG pCO2 at Temp 28.3 L POC VBG pO2 65 H POC VBG HCO3 21.3 L POC VBG Total CO2 22.0 L POC Venous O2 Sat 94.0 H VBG Lactic Acid 3.0 H 5.1 H* POC Total CO2 POC BUN POC Glucose Direct Bilirubin AST Alkaline Phosphatase Ammonia Procalcitonin Urine Appearance Hazy A Urine Glucose (UA) 150 A Urine Nitrate Pos A Urine Urobilinogen 4.0 A Ur Leukocyte Esterase 250 A Urine RBC 4 H Urine WBC 58 H Urine Mucus Few A 08/04/22 08/04/22 08/04/22 12:25 11:41 11:40 WBC RDW Neut % (Auto) Lymph % (Auto) Lymph # (Auto) [place] # (Auto) Immature Gran # Absolute Neutrophils POC VBG pH POC VBG pCO2 at Temp POC VBG pO2 POC VBG HCO3 POC VBG Total CO2 POC Venous O2 Sat VBG Lactic Acid POC Total CO2 21.0 L POC BUN 21 H POC Glucose 264 H Direct Bilirubin AST Alkaline Phosphatase Ammonia 114 H Procalcitonin 0.31 H Urine Appearance Urine Glucose (UA) Urine Nitrate Urine Urobilinogen Ur Leukocyte Esterase Urine RBC Urine WBC Urine Mucus 08/04/22 08/04/22 11:40 11:40 WBC 16.9 H RDW 15.2 H Neut % (Auto) 86.7 H Lymph % (Auto) 5.0 L Lymph # (Auto) 0.84 L [place] # (Auto) 1.16 H Immature Gran # 0.06 H Absolute Neutrophils 14.62 H POC VBG pH POC VBG pCO2 at Temp POC VBG pO2 POC VBG HCO3 POC VBG Total CO2 POC Venous O2 Sat VBG Lactic Acid POC Total CO2 POC BUN POC Glucose Direct Bilirubin 0.6 H AST 42 H Alkaline Phosphatase 119 H Ammonia Procalcitonin Urine Appearance Urine Glucose (UA) Urine Nitrate Urine Urobilinogen Ur Leukocyte Esterase Urine RBC Urine WBC Urine Mucus Meds: Medications Acetaminophen (Acetaminophen 325 Mg Tablet) 650 mg PO Q6HP PRN; Protocol PRN Reason: Per Pain Protocol/Fever > 101 Last Admin: 08/04/22 18:46 Dose: 650 mg Albuterol/Ipratropium (Ipratropium/Albuterol 3 Ml Ampul.Neb) 3 ml NEB Q4HP PRN PRN Reason: Shortness Of Breath Buspirone HCl (Buspirone 15 Mg Tablet) 15 mg PO TID [facility] Last Admin: 08/04/22 21:30 Dose: 15 mg Ceftriaxone Sodium (Ceftriaxone 1 Gm Vial) 1 gm IV Q24H [facility] Cyclobenzaprine HCl (Cyclobenzaprine 10 Mg Tablet) 10 mg PO TIDP PRN PRN Reason: Muscle Spasm Dextrose (Dextrose 50% 50 Ml Vial) 0 ml IV UD PRN PRN Reason: Per Sliding Scale Diagnostic Test (Pha) (Accu-Chek 1 Each Strip) 1 each FS ACHS [facility] Last Admin: 08/04/22 21:30 Dose: 1 each Fenofibrate (Fenofibrate 43 Mg Capsule) 129 mg PO DAILY [facility]AN[facility] Fluoxetine HCl (Fluoxetine Hcl 20 Mg Capsule) 80 mg PO DAILY [facility] Glucose (Dextrose 31 Gm Oral.Susp) 15 gm PO PRN PRN PRN Reason: Hypoglycemia Potassium Chloride 40 meq/ (Dextrose) 520 mls @ 130 mls/hr IV UD PRN PRN Reason: Potassium < 3 Magnesium Sulfate (Magnesium Sulfate) 2 gm in 50 mls @ 50 mls/hr IV UD PRN PRN Reason: Magnesium </= 1.6 Sodium Chloride (Sodium Chloride 0.9%) 1,000 mls @ 65 mls/hr IV .[id number] [facility] Stop: 08/05/22 08:38 Last Admin: 08/04/22 17:32 Dose: 65 mls/hr Vancomycin HCl 1,000 mg/ (Sodium Chloride) 250 mls @ 250 mls/hr IV Q12H [facility] Insulin Human Lispro (Insulin Lispro 1 Unit/0.01 Ml Unit) 0 unit SQ [facility]; Protocol Last Admin: 08/04/22 21:45 Dose: 4 unit Lactulose (Lactulose 20 Gm/30 Ml Oral.Rose) 20 gm PO DAILYP PRN PRN Reason: Constipation Lactulose (Lactulose 20 Gm/30 Ml Oral.Rose) 20 gm PO TID [facility] Last Admin: 08/04/22 21:30 Dose: 20 gm Melatonin (Melatonin 3 Mg Tablet) 9 mg PO HSP PRN PRN Reason: Insomnia Montelukast Sodium (Montelukast 10 Mg Tablet) 10 mg PO DAILY [facility] Nystatin (Nystatin Powder Bottle 15gm) 1 dose TOPICAL BID [facility] Last Admin: 08/04/22 21:45 Dose: Not Given Omeprazole (Omeprazole 20 Mg Capsule) 20 mg PO QDAY [facility] Ondansetron HCl (Ondansetron 4 Mg/2 Ml Vial) 4 mg IV Q4HP PRN PRN Reason: Nausea And Vomiting Oxycodone HCl (Oxycodone Hcl 5 Mg Tablet) 5 mg PO Q8HP PRN; Protocol PRN Reason: pain Last Admin: 08/04/22 21:28 Dose: 5 mg Fluticasone- Umeclidin-Vilanter [ Trelegy Ellipta] Inhaler 1 dose INH DAILY [facility]AN[facility] Potassium Chloride (Potassium Chloride 20 Meq Tablet) 40 meq PO UD PRN PRN Reason: Potssium is 3-3.5 Potassium Chloride (Potassium Chloride 20 Meq Tablet) 40 meq PO UD PRN PRN Reason: Potassium < 3 Pregabalin (Pregabalin 150 Mg Capsule) 150 mg PO BID [facility] Last Admin: 08/04/22 21:30 Dose: 150 mg Senna (Sennosides 1 Tablet) 2 tab PO DAILYP PRN PRN Reason: Constipation Sodium Chloride (0.9 % Sodium Chloride 10 Ml Syringe) 10 ml IV Q8 [facility] Last Admin: 08/04/22 21:54 Dose: Not Given Vancomycin HCl (Vancomycin Per Pharmacy) 1 order IV UD [facility]; Protocol A/P Narrative A/P Narrative: A: *UTI: *?PNA: *Severe sepsis w/lactic acidosis(resolved): 2/2 above -tmax 101.5 on admit, leukocytosis remains. Mildly tachycardic. *Hepatic Encephalopathy: *Cirrhosis: On Aldactone/Lasix *DM: On metformin *CKD III: *Anemia, chronic: *COPD(3L home O2): *ATIF: *Depression/anxiety: *Chronic LBP: *GERD: P: -IV abx, pending UC/BC -IVF, follow-up lactate -lactulose titrate to 2-3 soft BM's/day -hold home lasix for now -SSI, hold metformin for now -cont home IH's, IS -pt/ot -ppx: lovenox / home ppi Time Spent With Patient Time: Total time spent is greater than 50% in coordination of care (as documented) at patient's floor/unit and/or counseling patient: Total time spent with greater than 50% in coordination of care (as documented) at patient's floor/unit and/or counseling patient:: 35 - 50 minutes QUALITY VTE Deep Vein Thrombosis/Pulmonary Embolism Present on Admission: No
[2022-08-05] MEDS: 0.9 % SODIUM CHLORIDE 10 ML SYRINGE IV SCH ×3 (08:43→22:45)
[2022-08-05] MEDS: INSULIN LISPRO 1 UNIT/0.01 ML UNIT SQ SCH ×4 (08:43→21:37)
[2022-08-05 08:56] LABS: ALT/SGPT 26 U/L (<40); AST/SGOT 47 U/L (<32); Albumin 2.7 gm/dL (3.2-5.2); Albumin/Globulin Ratio 0.8 (1.0-2.3); Alkaline Phosphatase 106 U/L (39-117); Bilirubin,Direct 0.6 mg/dL (<0.3); Bilirubin,Total 1.1 mg/dL (0.1-1.0); Blood Urea Nitrogen 15 mg/dL (8-23); Calcium 9.3 mg/dL (8.6-10.4); Carbon Dioxide 18 mmol/L (22-30); Chloride 105 mmol/L (96-108); Globulin 3.4 gm/dL (2.2-3.7); Glomerular Filtration Rate 75; Glucose 125 mg/dL (70-105); Lactate Dehydrogenase 279 U/L (135-225); Triglycerides 134 mg/dL (<150); Uric Acid 4.1 mg/dL (2.5-8.0)
[2022-08-05] MEDS ORDERED: VANCOMYCIN 1,000 MG in 0.9 % SODIUM CHLORIDE 250 ML IV SCH (09:00)
[2022-08-05] MEDS ORDERED: cefTRIAXone 1 GM VIAL IV SCH ×2 (09:00)
[2022-08-05 09:11] LABS: Basophils # (Auto) 0.11 K/mcL (0.00-0.30); Basophils % (Auto) 0.6 % (0.0-2.0); Eosinophils # (Auto) 0.26 K/mcL (0.00-0.70); Eosinophils % (Auto) 1.4 % (0.0-7.0); Hematocrit 39.5 % (34.1-44.9); Hemoglobin 12.1 g/dL (11.2-15.7); Lymphocytes # (Auto) 1.39 K/mcL (1.50-4.80); Lymphocytes % (Auto) 7.5 % (15.5-49.0); Mean Cell Volume 86.8 fL (80.0-100.0); Mean Corpuscular HGB Conc 30.6 g/dL (31.0-36.0); Mean Platelet Volume 10.3 fL (8.8-12.5); Neutrophils % (Auto) 83.9 % (38.0-78.0); Platelet Count 169 K/mcL (140-440); RBC 4.55 M/mcL (3.59-5.38); Red Cell Distribution Width 15.5 % (11.5-14.5); WBC 18.5 K/mcL (4.5-11.0)
[2022-08-05] MEDS: PREGABALIN 150 MG CAPSULE PO SCH ×2 (09:31→21:33)
[2022-08-05] MEDS: FLUoxetine HCL 20 MG CAPSULE PO SCH (09:31)
[2022-08-05] MEDS: FENOFIBRATE 43 MG CAPSULE PO SCH (09:32)
[2022-08-05] MEDS: OMEPRAZOLE 20 MG CAPSULE PO SCH (09:32)
[2022-08-05] MEDS: busPIRone 15 MG TABLET PO SCH ×3 (09:32→21:33)
[2022-08-05] MEDS: CYCLOBENZAPRINE 10 MG TABLET PO PRN ×2 (09:32→21:33)
[2022-08-05] MEDS: ACETAMINOPHEN 325 MG TABLET PO PRN ×2 (09:32→15:42)
[2022-08-05] MEDS: MONTELUKAST 10 MG TABLET PO SCH (09:32)
[2022-08-05] MEDS: cefTRIAXone 2 GM in DEXTROSE 5% IN WATER 50 ML IV SCH (09:32)
[2022-08-05 09:45] LABS: INR 1.5 (0.9-1.1); Prothrombin Time 18.5 sec (11.9-14.5)
[2022-08-05] MEDS: IPRATROPIUM/ALBUTEROL 3 ML AMPUL.NEB NEB PRN ×2 (09:45→18:41)
[2022-08-05] MEDS: NYSTATIN POWDER BOTTLE 15GM TOPICAL SCH ×2 (09:50→21:36)
[2022-08-05] MEDS: LACTULOSE 20 GM/30 ML ORAL.SOL PO SCH ×3 (09:50→21:36)
[2022-08-05] MEDS: AZITHROMYCIN 500 MG in DEXTROSE 5% IN WATER 250 ML IV SCH (10:55)
[2022-08-05] MEDS ORDERED: VANCOMYCIN PER PHARMACY IV SCH (10:59)
[2022-08-05] MEDS: VANCOMYCIN 1,000 MG in 0.9 % SODIUM CHLORIDE 250 ML IV SCH ×2 (12:59→21:38)
--- NOTE | 2022-08-05 13:25 | Internal Med Progress Note ---
SUBJECTIVE Subjective Patient information: Note initiated : 08/05/22 at 1:23 pm Service Date, if different from initiated Date: [] Patient: Kenia Sandoval a 66 y/o F admitted on 08/04/22 for weak and co nfused/severe sepsis, UTI,. Chief Complaint: [] Interval history: History of present illness: Ms. Sandoval is a 66 year old F Patient presents the ED for increased confusion and weakness. Her symptoms have been going on for several days and worsening over that time period. Lives on with her . He has a history of cirrhosis and is on lactulose. She does complain of having some fevers recently. Denies diarrhea abdominal pain any chest pain or shortness of breath. In the ED she was febrile and had a tachycardia and mild tachypnea. She was found to have a lactic acidosis and leukocytosis as well as elevated ammonia. Urine was dirty consistent with UTI. Blood cultures were obtained and patient was put on antibiotics. IV fluids started in the ED. Blood pressure stable at this time. 08/05 Patient says she does not feel any better than yesterday. She appears anxious. Does complain of headache and then some sharp pleuritic left chest wall pain which is made worse by cough and palpation. Leukocytosis slightly worse, will get manual differential. Fever curve improving. INR pending. Lactic acidosis resolved. 08/06 Continues to have a cough, pleuritic chest pain with coughing. MRSA nasal PCR negative. 1 out of 2 blood cultures grew staph aureus. Urine culture growing Citrobacter resistant to multiple cephalosporins, sensitive to fluoroquinolones. Discontinued vancomycin IV, ceftriaxone and azithromycin. Started levofl oxacin 750 mg IV daily to cover for pneumonia and UTI. Started Solu-Medrol IV for possible COPD exacerbation, scheduled duo nebs. Started Lantus 10 units at bedtime, increased sliding scale Humalog to high-dose. Speech therapy consulted, recommended dysphagia level 6 diet. Mental status has improved since admission. Added morphine IV as needed and Toradol IV as needed for pleuritic chest pain. We will continue in PCU today, possibly transition to MedSurg tomorrow if the patient continues to improve. Physical exam Head: Atraumatic, normal inspection. Eyes: normal appearance, no scleral icterus. Neck: full ROM Respiratory: Nasal cannula oxygen, respiratory rate in the mid 20s, bilateral lower extremity crackles, wheezes. Cardiovascular: Regular tachycardia, S1, S2. GI/Abdominal: soft, nontender, no guarding. Extremities: full range of motion, nontender. Neurological: CN II-XII intact, intact motor, intact sensation. Psychiatric: normal mood. Skin: warm, normal color Constitutional Vitals: Vital Signs Temp Pulse Resp BP Pulse Ox O2 Del Method O2 Flow Rate 97.4 F 95 H 25 H 112/65 94 3 08/05/22 12:01 08/05/22 10:23 08/05/22 12:01 08/05/22 12:01 08/05/22 12:01 08/05/22 12:01 08/05/22 12:01 Period Temp Pulse Resp BP Sys/Miranda Pulse Ox O2 Del Method O2 Flow Rate Last 24 Hr 97.4 F-101.5 F 94-113 20-30 96-129/42-74 88-94 Nasal Cannula- Nasal Cannula 2-3 Intake and Output 08/04/22 08/05/22 08/05/22 21:59 05:59 13:59 Intake Total 2470 360 1660 Output Total 150 225 700 Balance 2320 135 960 Weight 58.786 kg 58.786 kg Patient Weight 08/06/22 05:59 Weight 58.786 kg Intake & Output: Intake & Output 08/04/22 08/05/22 08/05/22 21:59 05:59 13:59 Intake Total 2470 360 1660 Output Total 150 225 700 Balance 2320 135 960 Weight 58.786 kg 58.786 kg Intake: IV 2350 1300 Sodium Chloride 0.9% 1,000 ml @ 1000 65 mls/hr IV .[id number] [facility] Rx#: [id number] Zithromax 500 mg In Dextrose 5% 250 in Water 250 ml @ 250 mls/hr IV Q24H [facility] Rx#:[id number] Lactated Ringers 1,000 ml @ 2000 Wide Open IV [facility] Rx#: [id number] Zosyn 3.375 gm In Dextrose 5% 50 in Water 50 ml @ 100 mls/hr IV ONCE ONE Rx#:[id number] Vancomycin 1,000 mg In Sodium 250 Chloride 0.9% 250 ml @ 250 mls/ hr IV ONCE ONE Rx#:[id number] Rocephin 1 gm In Dextrose 5% in 50 Water 50 ml @ 100 mls/hr IV Q24H [facility] Rx#:[id number] Rocephin 2 gm In Dextrose 5% in 50 Water 50 ml @ 100 mls/hr IV Q24H [facility] Rx#:[id number] Oral 120 360 360 Output: Void Amount 150 225 700 Other: Meal Fruit cup, tuna salad with crackers Percent of Meal Consumed 100% Feeding Ability Independent Urine Appearance Clear Clear Clear Urine Color Dark Yellow Dark Yellow Bright Yellow Urine Odor Normal Normal Stool Size Moderate Small Small Stool Color Brown Brown Brown Green Stool Consistency Soft Loose Soft Formed Loose # Bowel Movements 1 OBJ DATA Labs CBC & Chem 7: 08/06/22 11:43 08/06/22 11:43 Labs: Abnormal Lab Results 08/05/22 08/05/22 08/05/22 08:05 08:03 05:59 WBC 18.5 H MCHC 30.6 L RDW 15.5 H Immature Gran % (Auto) 0.6 H Neut % (Auto) 83.9 H Lymph % (Auto) 7.5 L Lymph # (Auto) 1.39 L [place] # (Auto) 1.10 H Immature Gran # 0.12 H Absolute Neutrophils 15.50 H PT 18.5 H INR 1.5 H POC VBG pH POC VBG pCO2 at Temp POC VBG pO2 POC VBG HCO3 POC VBG Total CO2 POC Venous O2 Sat VBG Lactic Acid Carbon Dioxide 18 L POC Total CO2 Anion Gap 18.0 H POC BUN Glucose 125 H POC Glucose Total Bilirubin 1.1 H Direct Bilirubin 0.6 H GGT 40 H AST 47 H Alkaline Phosphatase Ammonia Lactate Dehydrogenase 279 H Albumin 2.7 L Albumin/Globulin Ratio 0.8 L Procalcitonin Urine Appearance Urine Glucose (UA) Urine Nitrate Urine Urobilinogen Ur Leukocyte Esterase Urine RBC Urine WBC Urine Mucus 08/04/22 08/04/22 08/04/22 17:35 13:14 12:51 WBC MCHC RDW Immature Gran % (Auto) Neut % (Auto) Lymph % (Auto) Lymph # (Auto) [place] # (Auto) Immature Gran # Absolute Neutrophils PT INR POC VBG pH 7.48 H POC VBG pCO2 at Temp 28.3 L POC VBG pO2 65 H POC VBG HCO3 21.3 L POC VBG Total CO2 22.0 L POC Venous O2 Sat 94.0 H VBG Lactic Acid 3.0 H 5.1 H* Carbon Dioxide POC Total CO2 Anion Gap POC BUN Glucose POC Glucose Total Bilirubin Direct Bilirubin GGT AST Alkaline Phosphatase Ammonia Lactate Dehydrogenase Albumin Albumin/Globulin Ratio Procalcitonin Urine Appearance Hazy A Urine Glucose (UA) 150 A Urine Nitrate Pos A Urine Urobilinogen 4.0 A Ur Leukocyte Esterase 250 A Urine RBC 4 H Urine WBC 58 H Urine Mucus Few A 08/04/22 08/04/22 08/04/22 12:25 11:41 11:40 WBC MCHC RDW Immature Gran % (Auto) Neut % (Auto) Lymph % (Auto) Lymph # (Auto) [place] # (Auto) Immature Gran # Absolute Neutrophils PT INR POC VBG pH POC VBG pCO2 at Temp POC VBG pO2 POC VBG HCO3 POC VBG Total CO2 POC Venous O2 Sat VBG Lactic Acid Carbon Dioxide POC Total CO2 21.0 L Anion Gap POC BUN 21 H Glucose POC Glucose 264 H Total Bilirubin Direct Bilirubin GGT AST Alkaline Phosphatase Ammonia 114 H Lactate Dehydrogenase Albumin Albumin/Globulin Ratio Procalcitonin 0.31 H Urine Appearance Urine Glucose (UA) Urine Nitrate Urine Urobilinogen Ur Leukocyte Esterase Urine RBC Urine WBC Urine Mucus 08/04/22 08/04/22 11:40 11:40 WBC 16.9 H MCHC RDW 15.2 H Immature Gran % (Auto) Neut % (Auto) 86.7 H Lymph % (Auto) 5.0 L Lymph # (Auto) 0.84 L [place] # (Auto) 1.16 H Immature Gran # 0.06 H Absolute Neutrophils 14.62 H PT INR POC VBG pH POC VBG pCO2 at Temp POC VBG pO2 POC VBG HCO3 POC VBG Total CO2 POC Venous O2 Sat VBG Lactic Acid Carbon Dioxide POC Total CO2 Anion Gap POC BUN Glucose POC Glucose Total Bilirubin Direct Bilirubin 0.6 H GGT AST 42 H Alkaline Phosphatase 119 H Ammonia Lactate Dehydrogenase Albumin Albumin/Globulin Ratio Procalcitonin Urine Appearance Urine Glucose (UA) Urine Nitrate Urine Urobilinogen Ur Leukocyte Esterase Urine RBC Urine WBC Urine Mucus Meds: Medications Acetaminophen (Acetaminophen 325 Mg Tablet) 650 mg PO Q6HP PRN; Protocol PRN Reason: Per Pain Protocol/Fever > 101 Last Admin: 08/05/22 09:32 Dose: 650 mg Albuterol/Ipratropium (Ipratropium/Albuterol 3 Ml Ampul.Neb) 3 ml NEB Q4HP PRN PRN Reason: Shortness Of Breath Last Admin: 08/05/22 09:45 Dose: 3 ml Buspirone HCl (Buspirone 15 Mg Tablet) 15 mg PO TID [facility] Last Admin: 08/05/22 09:32 Dose: 15 mg Cyclobenzaprine HCl (Cyclobenzaprine 10 Mg Tablet) 10 mg PO TIDP PRN PRN Reason: Muscle Spasm Last Admin: 08/05/22 09:32 Dose: 10 mg Dextrose (Dextrose 50% 50 Ml Vial) 0 ml IV UD PRN PRN Reason: Per Sliding Scale Diagnostic Test (Pha) (Accu-Chek 1 Each Strip) 1 each FS ACHS [facility] Last Admin: 08/05/22 13:07 Dose: 1 each Fenofibrate (Fenofibrate 43 Mg Capsule) 129 mg PO DAILY ALEJANDRO Last Admin: 08/05/22 09:32 Dose: 129 mg Fluoxetine HCl (Fluoxetine Hcl 20 Mg Capsule) 80 mg PO DAILY [facility]LE[facility]AN[facility] Last Admin: 08/05/22 09:31 Dose: 80 mg Glucose (Dextrose 31 Gm Oral.Susp) 15 gm PO PRN PRN PRN Reason: Hypoglycemia Potassium Chloride 40 meq/ (Dextrose) 520 mls @ 130 mls/hr IV UD PRN PRN Reason: Potassium < 3 Magnesium Sulfate (Magnesium Sulfate) 2 gm in 50 mls @ 50 mls/hr IV UD PRN PRN Reason: Magnesium </= 1.6 Azithromycin 500 mg/ Dextrose 250 mls @ 250 mls/hr IV Q24H [facility]; Protocol Stop: 08/07/22 10:59 Last Infusion: 08/05/22 11:55 Dose: Infused Ceftriaxone Sodium 2 gm/ (Dextrose) 50 mls @ 100 mls/hr IV Q24H [facility] Last Infusion: 08/05/22 10:02 Dose: Infused Vancomycin HCl 1,000 mg/ (Sodium Chloride) 250 mls @ 250 mls/hr IV Q12H [facility] Last Admin: 08/05/22 12:59 Dose: 250 mls/hr Insulin Human Lispro (Insulin Lispro 1 Unit/0.01 Ml Unit) 0 unit SQ ACHS [facility]; Protocol Last Admin: 08/05/22 13:07 Dose: Not Given Lactulose (Lactulose 20 Gm/30 Ml Oral.Rose) 20 gm PO DAILYP PRN PRN Reason: Constipation Lactulose (Lactulose 20 Gm/30 Ml Oral.Rose) 20 gm PO TID [facility] Last Admin: 08/05/22 09:50 Dose: Not Given Lorazepam (Lorazepam 2 Mg/Ml Vial) 0.5 mg IV Q6HP PRN PRN Reason: ANXIETY/SEDATION Melatonin (Melatonin 3 Mg Tablet) 9 mg PO HSP PRN PRN Reason: Insomnia Montelukast Sodium (Montelukast 10 Mg Tablet) 10 mg PO DAILY [facility] Last Admin: 08/05/22 09:32 Dose: 10 mg Nystatin (Nystatin Powder Bottle 15gm) 1 dose TOPICAL BID [facility] Last Admin: 08/05/22 09:50 Dose: 1 dose Omeprazole (Omeprazole 20 Mg Capsule) 20 mg PO QDAY [facility] Last Admin: 08/05/22 09:32 Dose: 20 mg Ondansetron HCl (Ondansetron 4 Mg/2 Ml Vial) 4 mg IV Q4HP PRN PRN Reason: Nausea And Vomiting Oxycodone HCl (Oxycodone Hcl 5 Mg Tablet) 5 mg PO Q8HP PRN; Protocol PRN Reason: pain Last Admin: 08/05/22 07:40 Dose: 5 mg Fluticasone- Umeclidin-Vilanter [ Trelegy Ellipta] Inhaler 1 dose INH DAILY [facility] Potassium Chloride (Potassium Chloride 20 Meq Tablet) 40 meq PO UD PRN PRN Reason: Potssium is 3-3.5 Potassium Chloride (Potassium Chloride 20 Meq Tablet) 40 meq PO UD PRN PRN Reason: Potassium < 3 Pregabalin (Pregabalin 150 Mg Capsule) 150 mg PO BID [facility] Last Admin: 08/05/22 09:31 Dose: 150 mg Senna (Sennosides 1 Tablet) 2 tab PO DAILYP PRN PRN Reason: Constipation Sodium Chloride (0.9 % Sodium Chloride 10 Ml Syringe) 10 ml IV Q8 [facility] Last Admin: 08/05/22 08:43 Dose: Not Given Vancomycin HCl (Vancomycin Per Pharmacy) 1 order IV UD [facility]; Protocol A/P Narrative A/P Narrative: Assessment: 66-year-old female with a history of decompensated liver cirrhosis, type 2 diabetes mellitus, chronic kidney disease stage III, COPD on 3 L home oxygen, depression, anxiety, GERD, obstructive sleep apnea admitted for severe sepsis felt to be secondary to UTI versus pneumonia. 1 out of 2 blood cultures are growing gram-positive cocci. *Severe sepsis: Resolving *UTI secondary to Citrobacter *Community-acquired pneumonia *COPD exacerbation *1 out of 2 positive blood culture staph aureus *Hepatic Encephalopathy: Improved *Cirrhosis: On Aldactone/Lasix *DM: On metformin *CKD III: *Anemia, chronic: *COPD(3L home O2): *ATIF: *Depression/anxiety: *Chronic LBP: *GERD: *Dysphagia P: -Zosyn 4.5 mg IV Q 6 hours and azithromycin 500 mg IV every 24 hours. -Solu-Medrol IV every 24 hours. -Duo nebs and as needed albuterol inhaler. -Oxygen supplementation as needed. -Analgesics as needed. -Follow-up all culture results. -lactulose titrate to 2-3 soft BM's/day -hold home lasix for now -Lantus and SSI, hold metformin for now -cont home IH's, IS -PT, OT, speech therapy -pt/ot -ppx: lovenox / home ppi -CODE STATUS: Limited code Time Spent With Patient Time: Total time spent is greater than 50% in coordination of care (as documented) at patient's floor/unit and/or counseling patient: QUALITY VTE Deep Vein Thrombosis/Pulmonary Embolism Present on Admission: No
[2022-08-05 14:02] LABS: Anisocytosis 1+ (None Seen); Band Neutrophils % 11 % (0-10); Dohle Bodies FEW (None Seen); Eosinophils % (Manual) 1 % (0-7); Lymphocytes % 2 % (15-49); Monocytes % (Manual) 3 % (1-12); Platelet Estimate NORMAL (Normal); RBC Morphology ABNORMAL (Normal); Segmented Neutrophils % 83 % (38-78); Toxic Granulation 1+ (None Seen)
[2022-08-05] MEDS: Fluticasone-Umeclidin-Vilanter [Trelegy Ellipta] Inhaler INH SCH (16:35)
[2022-08-05] MEDS: BENZONATATE 100 MG CAPSULE PO PRN ×2 (19:29→23:35)
[2022-08-05] MEDS: MELATONIN 3 MG TABLET PO PRN (21:33)
[2022-08-05] MEDS: CLOTRIMAZOLE 10 MG TROCHE PO SCH (21:33)
[2022-08-06] MEDS: IPRATROPIUM/ALBUTEROL 3 ML AMPUL.NEB NEB PRN ×3 (00:17→10:22)
[2022-08-06] MEDS: ACETAMINOPHEN 325 MG TABLET PO PRN ×3 (02:02→14:17)
[2022-08-06] MEDS: 0.9 % SODIUM CHLORIDE 10 ML SYRINGE IV SCH ×3 (05:07→21:07)
[2022-08-06] MEDS: NYSTATIN POWDER BOTTLE 15GM TOPICAL SCH ×4 (06:31→21:06)
[2022-08-06 07:12] LABS: Hematocrit 36.7 % (34.1-44.9); Hemoglobin 11.4 g/dL (11.2-15.7); Mean Cell Volume 86.6 fL (80.0-100.0); Mean Corpuscular HGB Conc 31.1 g/dL (31.0-36.0); Mean Platelet Volume 10.5 fL (8.8-12.5); Platelet Count 147 K/mcL (140-440); RBC 4.24 M/mcL (3.59-5.38); Red Cell Distribution Width 15.4 % (11.5-14.5); WBC 13.7 K/mcL (4.5-11.0)
[2022-08-06 07:14] LABS: ALT/SGPT 21 U/L (<40); AST/SGOT 31 U/L (<32); Albumin 2.2 gm/dL (3.2-5.2); Albumin/Globulin Ratio 0.6 (1.0-2.3); Alkaline Phosphatase 101 U/L (39-117); Bilirubin,Direct 0.3 mg/dL (<0.3); Bilirubin,Total 0.6 mg/dL (0.1-1.0); Blood Urea Nitrogen 10 mg/dL (8-23); Calcium 8.8 mg/dL (8.6-10.4); Carbon Dioxide 18 mmol/L (22-30); Chloride 100 mmol/L (96-108); Globulin 3.6 gm/dL (2.2-3.7); Glomerular Filtration Rate 93; Glucose 141 mg/dL (70-105); Lactate Dehydrogenase 252 U/L (135-225); Triglycerides 153 mg/dL (<150)
[2022-08-06] MEDS: BENZONATATE 100 MG CAPSULE PO PRN ×2 (07:26→14:17)
[2022-08-06] MEDS: CYCLOBENZAPRINE 10 MG TABLET PO PRN ×3 (07:27→20:14)
[2022-08-06] MEDS: oxyCODONE HCL 5 MG TABLET PO PRN ×2 (07:27→15:39)
[2022-08-06] MEDS: INSULIN LISPRO 1 UNIT/0.01 ML UNIT SQ SCH ×4 (07:34→21:05)
[2022-08-06] MEDS: FLUoxetine HCL 20 MG CAPSULE PO SCH (08:33)
[2022-08-06] MEDS: busPIRone 15 MG TABLET PO SCH ×3 (08:33→21:06)
[2022-08-06] MEDS: FENOFIBRATE 43 MG CAPSULE PO SCH (08:33)
[2022-08-06] MEDS: PREGABALIN 150 MG CAPSULE PO SCH ×2 (08:33→21:06)
[2022-08-06] MEDS: OMEPRAZOLE 20 MG CAPSULE PO SCH (08:33)
[2022-08-06] MEDS: MONTELUKAST 10 MG TABLET PO SCH (08:33)
--- NOTE | 2022-08-06 08:46 | EKG ---
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 Measurements Intervals [place] Rate: 99 P: 39 MN: 133 QRS: 27 QRSD: 90 T: 35 QT: 372 QTc: 478 Interpretive Statements Sinus rhythm Borderline prolonged QT interval Electronically Signed On 08-06-2022 8:46:12 PDT by Ken Lerma D.O. /store/TR/[id number]
[2022-08-06] MEDS: Fluticasone-Umeclidin-Vilanter [Trelegy Ellipta] Inhaler INH SCH (08:47)
[2022-08-06] MEDS: cefTRIAXone 2 GM in DEXTROSE 5% IN WATER 50 ML IV SCH (08:53)
[2022-08-06] MEDS: AZITHROMYCIN 500 MG in DEXTROSE 5% IN WATER 250 ML IV SCH (09:30)
[2022-08-06 09:50] LABS: Anisocytosis RARE (None Seen); Band Neutrophils % 4 % (0-10); Dohle Bodies FEW (None Seen); Eosinophils % (Manual) 3 % (0-7); Lymphocytes % 11 % (15-49); Monocytes % (Manual) 1 % (1-12); Platelet Estimate NORMAL (Normal); RBC Morphology ABNORMAL (Normal); Segmented Neutrophils % 81 % (38-78); Toxic Granulation RARE (None Seen)
[2022-08-06] MEDS: LACTULOSE 20 GM/30 ML ORAL.SOL PO SCH ×3 (10:17→20:32)
[2022-08-06] MEDS: CLOTRIMAZOLE 10 MG TROCHE PO SCH (10:17)
[2022-08-06] MEDS ORDERED: ALBUTEROL SULFATE 200 PUFF INHALER INH PRN (10:42)
[2022-08-06] MEDS ORDERED: LEVOFLOXACIN 750 MG/150 ML BAG IV SCH (11:30)
[2022-08-06] MEDS: guaiFENesin/DEXTROMETHORPHAN ORAL SOL PO PRN ×3 (11:53→20:14)
[2022-08-06] MEDS: methylPREDNISolone SOD SUCC 125 MG/2 ML VIAL IV SCH (12:04)
[2022-08-06] MEDS: LIDOCAINE VISCOUS 2% 15 ML UNIT DOSE CUP PO PRN (12:09)
[2022-08-06 12:11] LABS: Basophils # (Auto) 0.06 K/mcL (0.00-0.30); Basophils % (Auto) 0.5 % (0.0-2.0); Eosinophils # (Auto) 0.29 K/mcL (0.00-0.70); Eosinophils % (Auto) 2.3 % (0.0-7.0); Hematocrit 35.1 % (34.1-44.9); Hemoglobin 11.3 g/dL (11.2-15.7); Lymphocytes # (Auto) 0.94 K/mcL (1.50-4.80); Lymphocytes % (Auto) 7.4 % (15.5-49.0); Mean Cell Volume 83.4 fL (80.0-100.0); Mean Corpuscular HGB Conc 32.2 g/dL (31.0-36.0); Mean Platelet Volume 10.6 fL (8.8-12.5); Monocytes # (Auto) 0.65 K/mcL (0.10-0.90); Monocytes % (Auto) 5.1 % (1.0-12.0); Neutrophils % (Auto) 83.5 % (38.0-78.0); Platelet Count 160 K/mcL (140-440); RBC 4.21 M/mcL (3.59-5.38); Red Cell Distribution Width 15.1 % (11.5-14.5); WBC 12.7 K/mcL (4.5-11.0)
[2022-08-06 12:36] LABS: ALT/SGPT 22 U/L (<40); AST/SGOT 26 U/L (<32); Albumin 2.3 gm/dL (3.2-5.2); Albumin/Globulin Ratio 0.6 (1.0-2.3); Alkaline Phosphatase 107 U/L (39-117); Bilirubin,Direct 0.3 mg/dL (<0.3); Bilirubin,Total 0.5 mg/dL (0.1-1.0); Blood Urea Nitrogen 9 mg/dL (8-23); Calcium 8.8 mg/dL (8.6-10.4); Carbon Dioxide 18 mmol/L (22-30); Chloride 101 mmol/L (96-108); Globulin 3.9 gm/dL (2.2-3.7); Glomerular Filtration Rate 93; Glucose 273 mg/dL (70-105); Lactate Dehydrogenase 166 U/L (135-225); Phosphorous 2.1 mg/dL (2.5-4.5); Triglycerides 261 mg/dL (<150); Uric Acid 2.9 mg/dL (2.5-8.0)
[2022-08-06] MEDS: VANCOMYCIN 1,000 MG in 0.9 % SODIUM CHLORIDE 250 ML IV SCH (12:56)
[2022-08-06] MEDS ORDERED: IPRATROPIUM/ALBUTEROL 3 ML AMPUL.NEB NEB SCH (13:00)
[2022-08-06] MEDS: LORazepam 2 MG/ML VIAL IV PRN (14:01)
[2022-08-06] MEDS: IPRATROPIUM/ALBUTEROL 3 ML AMPUL.NEB NEB SCH ×3 (14:21→22:28)
[2022-08-06] MEDS: morphine 2 MG/ML VIAL IV PRN (14:35)
[2022-08-06] MEDS ORDERED: AZITHROMYCIN 500 MG in DEXTROSE 5% IN WATER 250 ML IV SCH (15:30)
[2022-08-06] MEDS ORDERED: PIPERACILLIN SODIUM/TAZOBACTAM 4.5 GM in DEXTROSE 5% IN WATER 50 ML IV SCH (15:30)
[2022-08-06] MEDS: PIPERACILLIN SODIUM/TAZOBACTAM 4.5 GM in DEXTROSE 5% IN WATER 50 ML IV SCH ×2 (16:19→20:14)
[2022-08-06] MEDS: MELATONIN 3 MG TABLET PO PRN (21:04)
[2022-08-06] MEDS: INSULIN GLARGINE, HUMAN 1 UNIT/0.01 ML SQ SCH (21:04)
[2022-08-07] MEDS: PIPERACILLIN SODIUM/TAZOBACTAM 4.5 GM in DEXTROSE 5% IN WATER 50 ML IV SCH ×5 (00:10→23:41)
[2022-08-07] MEDS: oxyCODONE HCL 5 MG TABLET PO PRN ×4 (00:37→18:39)
[2022-08-07] MEDS: guaiFENesin/DEXTROMETHORPHAN ORAL SOL PO PRN ×5 (00:38→18:39)
[2022-08-07] MEDS: BENZONATATE 100 MG CAPSULE PO PRN ×3 (00:38→16:06)
[2022-08-07] MEDS: IPRATROPIUM/ALBUTEROL 3 ML AMPUL.NEB NEB SCH ×6 (02:58→22:26)
[2022-08-07] MEDS: LIDOCAINE VISCOUS 2% 15 ML UNIT DOSE CUP PO PRN ×2 (03:20→18:40)
[2022-08-07] MEDS: 0.9 % SODIUM CHLORIDE 10 ML SYRINGE IV SCH ×3 (05:28→21:26)
[2022-08-07 06:25] LABS: Basophils # (Auto) 0.02 K/mcL (0.00-0.30); Basophils % (Auto) 0.2 % (0.0-2.0); Eosinophils # (Auto) 0 K/mcL (0.00-0.70); Eosinophils % (Auto) 0 % (0.0-7.0); Hematocrit 34.4 % (34.1-44.9); Hemoglobin 10.9 g/dL (11.2-15.7); Mean Cell Volume 82.7 fL (80.0-100.0); Mean Corpuscular HGB Conc 31.7 g/dL (31.0-36.0); Mean Platelet Volume 10.9 fL (8.8-12.5); Monocytes # (Auto) 0.52 K/mcL (0.10-0.90); Monocytes % (Auto) 5.2 % (1.0-12.0); Neutrophils % (Auto) 87.8 % (38.0-78.0); Platelet Count 139 K/mcL (140-440); RBC 4.16 M/mcL (3.59-5.38)
[2022-08-07 06:40] LABS: ALT/SGPT 19 U/L (<40); AST/SGOT 25 U/L (<32); Albumin 2.6 gm/dL (3.2-5.2); Albumin/Globulin Ratio 0.7 (1.0-2.3); Alkaline Phosphatase 100 U/L (39-117); Bilirubin,Direct 0.3 mg/dL (<0.3); Bilirubin,Total 0.5 mg/dL (0.1-1.0); Blood Urea Nitrogen 13 mg/dL (8-23); Calcium 8.8 mg/dL (8.6-10.4); Carbon Dioxide 21 mmol/L (22-30); Chloride 99 mmol/L (96-108); Globulin 3.7 gm/dL (2.2-3.7); Glomerular Filtration Rate 99; Glucose 174 mg/dL (70-105); Lactate Dehydrogenase 187 U/L (135-225); Phosphorous 2.6 mg/dL (2.5-4.5); Triglycerides 127 mg/dL (<150); Uric Acid 2.3 mg/dL (2.5-8.0)
[2022-08-07] MEDS: KETOROLAC 30 MG/ML VIAL IV PRN (06:45)
[2022-08-07] MEDS: INSULIN LISPRO 1 UNIT/0.01 ML UNIT SQ SCH ×4 (08:01→21:25)
[2022-08-07] MEDS: FENOFIBRATE 43 MG CAPSULE PO SCH (08:42)
[2022-08-07] MEDS: LACTULOSE 20 GM/30 ML ORAL.SOL PO SCH ×3 (08:42→21:19)
[2022-08-07] MEDS: MONTELUKAST 10 MG TABLET PO SCH (08:43)
[2022-08-07] MEDS: OMEPRAZOLE 20 MG CAPSULE PO SCH (08:43)
[2022-08-07] MEDS: busPIRone 15 MG TABLET PO SCH ×3 (08:43→21:24)
[2022-08-07] MEDS: PREGABALIN 150 MG CAPSULE PO SCH ×2 (08:43→21:24)
[2022-08-07] MEDS: FLUoxetine HCL 20 MG CAPSULE PO SCH (08:43)
[2022-08-07] MEDS: Fluticasone-Umeclidin-Vilanter [Trelegy Ellipta] Inhaler INH SCH (08:45)
[2022-08-07] MEDS: NYSTATIN POWDER BOTTLE 15GM TOPICAL SCH ×2 (08:59→21:25)
[2022-08-07] MEDS ORDERED: AZITHROMYCIN 500 MG in DEXTROSE 5% IN WATER 250 ML IV SCH (09:00)
[2022-08-07] MEDS: LORazepam 2 MG/ML VIAL IV PRN (11:15)
[2022-08-07] MEDS: methylPREDNISolone SOD SUCC 125 MG/2 ML VIAL IV SCH (11:31)
--- NOTE | 2022-08-07 14:13 | Internal Med Progress Note ---
SUBJECTIVE Subjective Patient information: Note initiated : 08/07/22 at 2:12 pm Service Date, if different from initiated Date: [] Patient: Kenia Sandoval a 66 y/o F admitted on 08/04/22 for weak and co nfused/severe sepsis, UTI,. Chief Complaint: [] Interval history: History of present illness: Ms. Sandoval is a 66 year old F Patient presents the ED for increased confusion and weakness. Her symptoms have been going on for several days and worsening over that time period. Lives on with her . He has a history of cirrhosis and is on lactulose. She does complain of having some fevers recently. Denies diarrhea abdominal pain any chest pain or shortness of breath. In the ED she was febrile and had a tachycardia and mild tachypnea. She was found to have a lactic acidosis and leukocytosis as well as elevated ammonia. Urine was dirty consistent with UTI. Blood cultures were obtained and patient was put on antibiotics. IV fluids started in the ED. Blood pressure stable at this time. 08/05 Patient says she does not feel any better than yesterday. She appears anxious. Does complain of headache and then some sharp pleuritic left chest wall pain which is made worse by cough and palpation. Leukocytosis slightly worse, will get manual differential. Fever curve improving. INR pending. Lactic acidosis resolved. 08/06 Continues to have a cough, pleuritic chest pain with coughing. MRSA nasal PCR negative. 1 out of 2 blood cultures grew staph aureus. Urine culture growing Citrobacter resistant to multiple cephalosporins, sensitive to fluoroquinolones. Discontinued vancomycin IV, ceftriaxone and azithromycin. Started Zosyn mg IV daily to cover for pneumonia and UTI, continue azithromycin. Started Solu- Medrol IV for possible COPD exacerbation, scheduled duo nebs. Started Lantus 10 units at bedtime, increased sliding scale Humalog to high-dose. Speech therapy consulted, recommended dysphagia level 6 diet. Mental status has improved since admission. Added morphine IV as needed and Toradol IV as needed for pleuritic chest pain. We will continue in PCU today, possibly transition to MedSurg tomorrow if the patient continues to improve. 08/07 Patient still has a cough cough however pleuritic chest pain has improved, Blood cultures continue to show 1 out of 2 results positive for staph aureus. Suspect this to be a skin contaminant. Procalcitonin has improved. Ammonia normal. Respiratory panel 1 2 and Bordetella pertussis panel obtained for persistent coughing. Physical exam Head: Atraumatic, normal inspection. Eyes: normal appearance, no scleral icterus. Neck: full ROM Respiratory: Nasal cannula oxygen, respiratory rate in the mid 20s, bilateral lower extremity crackles, wheezes. Cardiovascular: Regular tachycardia, S1, S2. GI/Abdominal: soft, nontender, no guarding. Extremities: full range of motion, nontender. Neurological: CN II-XII intact, intact motor, intact sensation. Psychiatric: normal mood. Skin: warm, normal color Constitutional Vitals: Vital Signs Temp Pulse Resp BP Pulse Ox O2 Del Method O2 Flow Rate 97.7 F 110 H 20 105/65 96 3.5 08/07/22 12:01 08/07/22 12:18 08/07/22 12:18 08/07/22 12:01 08/07/22 12:01 08/07/22 12:18 08/07/22 12:18 Period Temp Pulse Resp BP Sys/Miranda Pulse Ox O2 Del Method O2 Flow Rate Last 24 Hr 97.0 F-98.9 F 87-110 16-26 104-138/60-72 90-97 Nasal Cannula- Nasal Cannula 3-5 Intake and Output 08/07/22 08/07/22 08/07/22 05:59 13:59 21:59 Intake Total 550 590 Output Total 375 Balance 175 590 Intake & Output: Intake & Output 08/07/22 08/07/22 08/07/22 05:59 13:59 21:59 Intake Total 550 590 Output Total 375 Balance 175 590 Intake: IV 50 350 Zithromax 500 mg In Dextrose 5% 250 in Water 250 ml @ 250 mls/hr IV Q24H ALEJANDRO Rx#:[id number] Zosyn 4.5 gm In Dextrose 5% in 50 100 Water 50 ml @ 100 mls/hr IV Q6H ALEJANDRO Rx#:[id number] Oral 500 240 Output: Void Amount 375 Other: Meal Lunch Percent of Meal Consumed 100% Feeding Ability Independent Nourishment/Supplement name ice cream,applesauce Urine Appearance Clear Urine Color Yellow Urine Odor Normal Stool Size Moderate Stool Color Brown Stool Consistency Soft OBJ DATA Labs CBC & Chem 7: 08/07/22 05:14 10/07/22 05:14 Labs: Abnormal Lab Results 08/07/22 08/07/22 08/07/22 05:14 05:14 05:14 WBC Hgb 10.9 L MCHC RDW 15.0 H Plt Count 139 L Immature Gran % (Auto) 0.8 H Neut % (Auto) 87.8 H Lymph % (Auto) 6.0 L Lymph # (Auto) 0.60 L Eagle # (Auto) Seg Neutrophils % Band Neutrophils % Lymphocytes % Immature Gran # 0.08 H Absolute Neutrophils 8.75 H WBC Morphology Vacuolated Neuts Toxic Granulation Dohle Bodies RBC Morphology Anisocytosis PT INR VBG Lactic Acid Sodium 131 L Carbon Dioxide 21 L Anion Gap Creatinine 0.5 L Glucose 174 H Uric Acid 2.3 L Phosphorus Total Bilirubin Direct Bilirubin 0.3 H GGT 39 H AST Lactate Dehydrogenase Total Protein Albumin 2.6 L Globulin Albumin/Globulin Ratio 0.7 L Triglycerides Procalcitonin 0.45 H Urine Appearance Urine Glucose (UA) Urine Nitrate Urine Urobilinogen Ur Leukocyte Esterase Urine RBC Urine WBC Urine Mucus 08/06/22 08/06/22 08/06/22 11:43 11:43 05:17 WBC 12.7 H Hgb MCHC RDW 15.1 H Plt Count Immature Gran % (Auto) 1.2 H Neut % (Auto) 83.5 H Lymph % (Auto) 7.4 L Lymph # (Auto) 0.94 L Eagle # (Auto) Seg Neutrophils % Band Neutrophils % Lymphocytes % Immature Gran # 0.15 H Absolute Neutrophils 10.61 H WBC Morphology Vacuolated Neuts Toxic Granulation Dohle Bodies RBC Morphology Anisocytosis PT INR VBG Lactic Acid Sodium 132 L Carbon Dioxide 18 L Anion Gap Creatinine Glucose 273 H Uric Acid Phosphorus 2.1 L Total Bilirubin Direct Bilirubin 0.3 H GGT 38 H AST Lactate Dehydrogenase Total Protein Albumin 2.3 L Globulin 3.9 H Albumin/Globulin Ratio 0.6 L Triglycerides 261 H Procalcitonin 0.65 H Urine Appearance Urine Glucose (UA) Urine Nitrate Urine Urobilinogen Ur Leukocyte Esterase Urine RBC Urine WBC Urine Mucus 08/06/22 08/06/22 08/05/22 05:17 05:17 08:05 WBC 13.7 H Hgb MCHC RDW 15.4 H Plt Count Immature Gran % (Auto) Neut % (Auto) Lymph % (Auto) Lymph # (Auto) Eagle # (Auto) Seg Neutrophils % 81 H Band Neutrophils % Lymphocytes % 11 L Immature Gran # Absolute Neutrophils WBC Morphology Abnormal A Vacuolated Neuts Rare A Toxic Granulation Rare A Dohle Bodies Few A RBC Morphology Abnormal A Anisocytosis Rare A PT 18.5 H INR 1.5 H VBG Lactic Acid Sodium 132 L Carbon Dioxide 18 L Anion Gap Creatinine Glucose 141 H Uric Acid Phosphorus 2.0 L Total Bilirubin Direct Bilirubin 0.3 H GGT AST Lactate Dehydrogenase 252 H Total Protein 5.8 L Albumin 2.2 L Globulin Albumin/Globulin Ratio 0.6 L Triglycerides 153 H Procalcitonin Urine Appearance Urine Glucose (UA) Urine Nitrate Urine Urobilinogen Ur Leukocyte Esterase Urine RBC Urine WBC Urine Mucus 08/05/22 08/05/22 08/05/22 08:03 08:03 05:59 WBC 18.5 H Hgb MCHC 30.6 L RDW 15.5 H Plt Count Immature Gran % (Auto) 0.6 H Neut % (Auto) 83.9 H Lymph % (Auto) 7.5 L Lymph # (Auto) 1.39 L Eagle # (Auto) 1.10 H Seg Neutrophils % 83 H Band Neutrophils % 11 H Lymphocytes % 2 L Immature Gran # 0.12 H Absolute Neutrophils 15.50 H WBC Morphology Abnormal A Vacuolated Neuts Toxic Granulation 1+ A Dohle Bodies Few A RBC Morphology Abnormal A Anisocytosis 1+ A PT INR VBG Lactic Acid Sodium Carbon Dioxide 18 L Anion Gap 18.0 H Creatinine Glucose 125 H Uric Acid Phosphorus Total Bilirubin 1.1 H Direct Bilirubin 0.6 H GGT 40 H AST 47 H Lactate Dehydrogenase 279 H Total Protein Albumin 2.7 L Globulin Albumin/Globulin Ratio 0.8 L Triglycerides Procalcitonin Urine Appearance Urine Glucose (UA) Urine Nitrate Urine Urobilinogen Ur Leukocyte Esterase Urine RBC Urine WBC Urine Mucus 08/04/22 08/04/22 17:35 12:51 WBC Hgb MCHC RDW Plt Count Immature Gran % (Auto) Neut % (Auto) Lymph % (Auto) Lymph # (Auto) Eagle # (Auto) Seg Neutrophils % Band Neutrophils % Lymphocytes % Immature Gran # Absolute Neutrophils WBC Morphology Vacuolated Neuts Toxic Granulation Dohle Bodies RBC Morphology Anisocytosis PT INR VBG Lactic Acid 3.0 H Sodium Carbon Dioxide Anion Gap Creatinine Glucose Uric Acid Phosphorus Total Bilirubin Direct Bilirubin GGT AST Lactate Dehydrogenase Total Protein Albumin Globulin Albumin/Globulin Ratio Triglycerides Procalcitonin Urine Appearance Hazy A Urine Glucose (UA) 150 A Urine Nitrate Pos A Urine Urobilinogen 4.0 A Ur Leukocyte Esterase 250 A Urine RBC 4 H Urine WBC 58 H Urine Mucus Few A Meds: Medications Acetaminophen (Acetaminophen 325 Mg Tablet) 650 mg PO Q6HP PRN; Protocol PRN Reason: Per Pain Protocol/Fever > 101 Last Admin: 08/06/22 14:17 Dose: 650 mg Albuterol Sulfate (Albuterol Sulfate 200 Puff Inhaler) 2 puff INH Q4HP PRN PRN Reason: Shortness Of Breath Albuterol/Ipratropium (Ipratropium/Albuterol 3 Ml Ampul.Neb) 3 ml NEB Q4HRT [facility] Last Admin: 08/07/22 12:24 Dose: 3 ml Benzonatate (Benzonatate 100 Mg Capsule) 100 mg PO TIDP PRN PRN Reason: Cough Last Admin: 08/07/22 08:57 Dose: 100 mg Buspirone HCl (Buspirone 15 Mg Tablet) 15 mg PO TID [facility] Last Admin: 08/07/22 08:43 Dose: 15 mg Cyclobenzaprine HCl (Cyclobenzaprine 10 Mg Tablet) 10 mg PO TIDP PRN PRN Reason: Muscle Spasm Last Admin: 08/06/22 20:14 Dose: 10 mg Dextrose (Dextrose 50% 50 Ml Vial) 0 ml IV UD PRN PRN Reason: Per Sliding Scale Diagnostic Test (Pha) (Accu-Chek 1 Each Strip) 1 each FS ACHS [facility] Last Admin: 08/07/22 11:53 Dose: 1 each Fenofibrate (Fenofibrate 43 Mg Capsule) 129 mg PO DAILY [facility] Last Admin: 08/07/22 08:42 Dose: 129 mg Fluoxetine HCl (Fluoxetine Hcl 20 Mg Capsule) 80 mg PO DAILY [facility] Last Admin: 08/07/22 08:43 Dose: 80 mg Glucose (Dextrose 31 Gm Oral.Susp) 15 gm PO PRN PRN PRN Reason: Hypoglycemia Guaifenesin (Guaifenesin/Dextromethorphan Oral Rose) 10 ml PO Q4HP PRN PRN Reason: Cough Last Admin: 08/07/22 13:08 Dose: 10 ml Potassium Chloride 40 meq/ (Dextrose) 520 mls @ 130 mls/hr IV UD PRN PRN Reason: Potassium < 3 Magnesium Sulfate (Magnesium Sulfate) 2 gm in 50 mls @ 50 mls/hr IV UD PRN PRN Reason: Magnesium </= 1.6 Piperacillin Sod/Tazobactam (Sod 4.5 gm/ Dextrose) 50 mls @ 100 mls/hr IV Q6H [facility]; Protocol Last Infusion: 08/07/22 13:39 Dose: Infused Azithromycin 500 mg/ Dextrose 250 mls @ 250 mls/hr IV Q24H [facility]; Protocol Stop: 08/09/22 09:59 Last Infusion: 08/07/22 09:46 Dose: Infused Insulin Glargine (Insulin Glargine, Human 1 Unit/0.01 Ml) 10 unit SQ HS [facility] Last Admin: 08/06/22 21:04 Dose: 10 units Insulin Human Lispro (Insulin Lispro 1 Unit/0.01 Ml Unit) [address] [facility]; Protocol Last Admin: 08/07/22 11:54 Dose: 9 unit Ketorolac Tromethamine (Ketorolac 30 Mg/Ml Vial) 15 mg IV Q6HP PRN PRN Reason: Pain Stop: 08/08/22 14:23 Last Admin: 08/07/22 06:45 Dose: 15 mg Lactulose (Lactulose 20 Gm/30 Ml Oral.Rose) 20 gm PO DAILYP PRN PRN Reason: Constipation Lactulose (Lactulose 20 Gm/30 Ml Oral.Rose) 20 gm PO TID [facility] Last Admin: 08/07/22 08:42 Dose: 20 gm Lidocaine HCl (Lidocaine Viscous 2% 15 Ml Unit Dose Cup) 15 ml PO Q6HP PRN PRN Reason: sore mouth Last Admin: 08/07/22 03:20 Dose: 15 ml Lorazepam (Lorazepam 2 Mg/Ml Vial) 0.5 mg IV Q6HP PRN PRN Reason: ANXIETY/SEDATION Last Admin: 08/07/22 11:15 Dose: 0.5 mg Melatonin (Melatonin 3 Mg Tablet) 9 mg PO HSP PRN PRN Reason: Insomnia Last Admin: 08/06/22 21:04 Dose: 9 mg Methylprednisolone Sodium Succinate (Methylprednisolone Sod Succ 125 Mg/2 Ml Vial) 62.5 mg IV Q24H [facility]LE[facility]DR[facility] Stop: 08/11/22 11:29 Last Admin: 08/07/22 11:31 Dose: 62.5 mg Montelukast Sodium (Montelukast 10 Mg Tablet) 10 mg PO DAILY [facility] Last Admin: 08/07/22 08:43 Dose: 10 mg Morphine Sulfate (Morphine 2 Mg/Ml Vial) 2 mg IV Q1HP PRN; Protocol PRN Reason: Per Pain Protocol Last Admin: 08/06/22 14:35 Dose: 2 mg Nystatin (Nystatin Powder Bottle 15gm) 1 dose TOPICAL BID [facility] Last Admin: 08/07/22 08:59 Dose: 1 dose Omeprazole (Omeprazole 20 Mg Capsule) 20 mg PO QDAY [facility] Last Admin: 08/07/22 08:43 Dose: 20 mg Ondansetron HCl (Ondansetron 4 Mg/2 Ml Vial) 4 mg IV Q4HP PRN PRN Reason: Nausea And Vomiting Oxycodone HCl (Oxycodone Hcl 5 Mg Tablet) 5 mg PO Q6HP PRN; Protocol PRN Reason: pain Last Admin: 08/07/22 13:08 Dose: 5 mg Fluticasone- Umeclidin-Vilanter [ Trelegy Ellipta] Inhaler 1 dose INH DAILY [facility] Last Admin: 08/07/22 08:45 Dose: 1 dose Potassium Chloride (Potassium Chloride 20 Meq Tablet) 40 meq PO UD PRN PRN Reason: Potssium is 3-3.5 Potassium Chloride (Potassium Chloride 20 Meq Tablet) 40 meq PO UD PRN PRN Reason: Potassium < 3 Pregabalin (Pregabalin 150 Mg Capsule) 150 mg PO BID [facility] Last Admin: 08/07/22 08:43 Dose: 150 mg Senna (Sennosides 1 Tablet) 2 tab PO DAILYP PRN PRN Reason: Constipation Sodium Chloride (0.9 % Sodium Chloride 10 Ml Syringe) 10 ml IV Q8 [facility] Last Admin: 08/07/22 14:10 Dose: 10 ml A/P Narrative A/P Narrative: Assessment: 66-year-old female with a history of decompensated liver cirrhosis, type 2 diabetes mellitus, chronic kidney disease stage III, COPD on 3 L home oxygen, depression, anxiety, GERD, obstructive sleep apnea admitted for severe sepsis felt to be secondary to UTI versus pneumonia. 1 out of 2 blood cultures are growing gram-positive cocci. *Resolved severe sepsis *UTI secondary to Citrobacter *Community-acquired pneumonia *COPD exacerbation *1 out of 2 positive blood culture staph aureus likely skin contaminant *Hepatic Encephalopathy: Improved *Cirrhosis: On Aldactone/Lasix *DM: On metformin *CKD III: *Anemia, chronic: *COPD(3L home O2): *ATIF: *Depression/anxiety: *Chronic LBP: *GERD: *Dysphagia P: -Zosyn 4.5 mg IV Q 6 hours and azithromycin 500 mg IV every 24 hours. -Solu-Medrol IV every 24 hours. -Duo nebs and as needed albuterol inhaler. -Oxygen supplementation as needed. -Respiratory panel, Bordetella pertussis PCR. -Analgesics as needed. -Follow-up all culture results. -lactulose titrate to 2-3 soft BM's/day -Resume home Lasix and spironolactone. -Lantus and SSI, hold metformin for now -cont home IH's, IS -PT, OT, speech therapy -pt/ot -ppx: lovenox / home ppi -CODE STATUS: Limited code Time Spent With Patient Time: Total time spent is greater than 50% in coordination of care (as documented) at patient's floor/unit and/or counseling patient: QUALITY VTE Deep Vein Thrombosis/Pulmonary Embolism Present on Admission: No
[2022-08-07] MEDS ORDERED: FUROSEMIDE 40 MG TABLET PO SCH (14:40)
[2022-08-07] MEDS ORDERED: SPIRONOLACTONE 25 MG TABLET PO SCH (14:45)
[2022-08-07] MEDS: CYCLOBENZAPRINE 10 MG TABLET PO PRN (16:06)
[2022-08-07] MEDS: INSULIN GLARGINE, HUMAN 1 UNIT/0.01 ML SQ SCH (21:24)
[2022-08-08] MEDS: IPRATROPIUM/ALBUTEROL 3 ML AMPUL.NEB NEB SCH ×6 (03:08→23:10)
[2022-08-08] MEDS: oxyCODONE HCL 5 MG TABLET PO PRN ×3 (04:58→18:48)
[2022-08-08] MEDS: guaiFENesin/DEXTROMETHORPHAN ORAL SOL PO PRN ×3 (04:58→14:43)
[2022-08-08] MEDS: PIPERACILLIN SODIUM/TAZOBACTAM 4.5 GM in DEXTROSE 5% IN WATER 50 ML IV SCH (05:40)
[2022-08-08] MEDS: 0.9 % SODIUM CHLORIDE 10 ML SYRINGE IV SCH ×3 (05:40→21:05)
[2022-08-08 06:47] LABS: Basophils # (Auto) 0.03 K/mcL (0.00-0.30); Basophils % (Auto) 0.4 % (0.0-2.0); Eosinophils # (Auto) 0.04 K/mcL (0.00-0.70); Eosinophils % (Auto) 0.5 % (0.0-7.0); Hematocrit 36.3 % (34.1-44.9); Hemoglobin 11.4 g/dL (11.2-15.7); Lymphocytes # (Auto) 0.98 K/mcL (1.50-4.80); Lymphocytes % (Auto) 11.7 % (15.5-49.0); Mean Cell Volume 84.2 fL (80.0-100.0); Mean Corpuscular HGB Conc 31.4 g/dL (31.0-36.0); Mean Platelet Volume 10.4 fL (8.8-12.5); Monocytes # (Auto) 0.64 K/mcL (0.10-0.90); Monocytes % (Auto) 7.6 % (1.0-12.0); Neutrophils % (Auto) 79.3 % (38.0-78.0); Platelet Count 146 K/mcL (140-440); RBC 4.31 M/mcL (3.59-5.38); Red Cell Distribution Width 15.1 % (11.5-14.5); WBC 8.4 K/mcL (4.5-11.0)
[2022-08-08 07:19] LABS: ALT/SGPT 21 U/L (<40); AST/SGOT 30 U/L (<32); Albumin 2.7 gm/dL (3.2-5.2); Albumin/Globulin Ratio 0.7 (1.0-2.3); Alkaline Phosphatase 96 U/L (39-117); Bilirubin,Direct 0.3 mg/dL (<0.3); Bilirubin,Total 0.4 mg/dL (0.1-1.0); Blood Urea Nitrogen 20 mg/dL (8-23); Calcium 8.8 mg/dL (8.6-10.4); Carbon Dioxide 22 mmol/L (22-30); Chloride 102 mmol/L (96-108); Globulin 3.7 gm/dL (2.2-3.7); Glomerular Filtration Rate 93; Glucose 108 mg/dL (70-105); Lactate Dehydrogenase 192 U/L (135-225); Phosphorous 2.2 mg/dL (2.5-4.5); Triglycerides 107 mg/dL (<150); Uric Acid 3.4 mg/dL (2.5-8.0)
[2022-08-08] MEDS: BENZONATATE 100 MG CAPSULE PO PRN ×2 (07:40→11:36)
[2022-08-08] MEDS: KETOROLAC 30 MG/ML VIAL IV PRN (07:40)
[2022-08-08] MEDS: INSULIN LISPRO 1 UNIT/0.01 ML UNIT SQ SCH ×4 (08:29→21:04)
[2022-08-08] MEDS: FENOFIBRATE 43 MG CAPSULE PO SCH (10:21)
[2022-08-08] MEDS: SPIRONOLACTONE 25 MG TABLET PO SCH (10:22)
[2022-08-08] MEDS: MONTELUKAST 10 MG TABLET PO SCH (10:23)
[2022-08-08] MEDS: FUROSEMIDE 40 MG TABLET PO SCH (10:23)
[2022-08-08] MEDS: OMEPRAZOLE 20 MG CAPSULE PO SCH (10:23)
[2022-08-08] MEDS: PREGABALIN 150 MG CAPSULE PO SCH ×2 (10:23→21:04)
[2022-08-08] MEDS: FLUoxetine HCL 20 MG CAPSULE PO SCH (10:23)
[2022-08-08] MEDS: busPIRone 15 MG TABLET PO SCH ×3 (10:23→21:03)
[2022-08-08] MEDS: NYSTATIN POWDER BOTTLE 15GM TOPICAL SCH ×2 (10:24→21:05)
[2022-08-08] MEDS: LEVOFLOXACIN 750 MG/150 ML BAG IV SCH (10:25)
[2022-08-08] MEDS: Fluticasone-Umeclidin-Vilanter [Trelegy Ellipta] Inhaler INH SCH (10:25)
[2022-08-08] MEDS: LORazepam 2 MG/ML VIAL IV PRN (11:36)
[2022-08-08] MEDS: LACTULOSE 20 GM/30 ML ORAL.SOL PO SCH ×3 (11:51→20:48)
[2022-08-08] MEDS: methylPREDNISolone SOD SUCC 125 MG/2 ML VIAL IV SCH (12:02)
[2022-08-08] MEDS: morphine 2 MG/ML VIAL IV PRN (12:56)
--- NOTE | 2022-08-08 13:33 | Internal Med Progress Note ---
SUBJECTIVE Subjective Patient information: Note initiated : 08/08/22 at 1:31 pm Service Date, if different from initiated Date: [] Patient: Kenia Sandoval a 66 y/o F admitted on 08/04/22 for weak and co nfused/severe sepsis, UTI,. Chief Complaint: [] Interval history: History of present illness: Ms. Sandoval is a 66 year old F Patient presents the ED for increased confusion and weakness. Her symptoms have been going on for several days and worsening over that time period. Lives on with her . He has a history of cirrhosis and is on lactulose. She does complain of having some fevers recently. Denies diarrhea abdominal pain any chest pain or shortness of breath. In the ED she was febrile and had a tachycardia and mild tachypnea. She was found to have a lactic acidosis and leukocytosis as well as elevated ammonia. Urine was dirty consistent with UTI. Blood cultures were obtained and patient was put on antibiotics. IV fluids started in the ED. Blood pressure stable at this time. 08/05 Patient says she does not feel any better than yesterday. She appears anxious. Does complain of headache and then some sharp pleuritic left chest wall pain which is made worse by cough and palpation. Leukocytosis slightly worse, will get manual differential. Fever curve improving. INR pending. Lactic acidosis resolved. 08/06 Continues to have a cough, pleuritic chest pain with coughing. MRSA nasal PCR negative. 1 out of 2 blood cultures grew staph aureus. Urine culture growing Citrobacter resistant to multiple cephalosporins, sensitive to fluoroquinolones. Discontinued vancomycin IV, ceftriaxone and azithromycin. Started Zosyn mg IV daily to cover for pneumonia and UTI, continue azithromycin. Started Solu- Medrol IV for possible COPD exacerbation, scheduled duo nebs. Started Lantus 10 units at bedtime, increased sliding scale Humalog to high-dose. Speech therapy consulted, recommended dysphagia level 6 diet. Mental status has improved since admission. Added morphine IV as needed and Toradol IV as needed for pleuritic chest pain. We will continue in PCU today, possibly transition to MedSurg tomorrow if the patient continues to improve. 08/07 Patient still has a cough cough however pleuritic chest pain has improved, Blood cultures continue to show 1 out of 2 results positive for staph aureus. Suspect this to be a skin contaminant. Procalcitonin has improved. Ammonia normal. Respiratory panel 1 2 and Bordetella pertussis panel obtained for persistent coughing. 08/08 Afebrile overnight, no new culture results. Respiratory panel positive for rhinovirus, otherwise negative. Transition to levofloxacin, discontinued Zosyn and azithromycin. Continue Solu-Medrol IV today, consider a switch to prednisone tomorrow. Physical exam Head: Atraumatic, normal inspection. Eyes: normal appearance, no scleral icterus. Neck: full ROM Respiratory: Nasal cannula oxygen, respiratory rate in the mid 20s, bilateral lower extremity crackles, wheezes. Cardiovascular: Regular tachycardia, S1, S2. GI/Abdominal: soft, nontender, no guarding. Extremities: full range of motion, nontender. Neurological: CN II-XII intact, intact motor, intact sensation. Psychiatric: normal mood. Skin: warm, normal color Constitutional Vitals: Vital Signs Temp Pulse Resp BP Pulse Ox O2 Del Method O2 Flow Rate 98 F 110 H 18 116/84 92 4 08/08/22 08:01 08/08/22 12:03 08/08/22 12:03 08/08/22 10:01 08/08/22 12:03 08/08/22 12:03 08/08/22 12:03 Period Temp Pulse Resp BP Sys/Miranda Pulse Ox O2 Del Method O2 Flow Rate Last 24 Hr 97.2 F-98.9 F 89-110 15-37 115-139/67-84 91-98 Nasal Cannula- Nasal Cannula 3.5-5 Intake and Output 08/07/22 08/08/22 08/08/22 21:59 05:59 13:59 Intake Total 1280 350 200 Output Total 2475 600 800 Balance -1195 -250 -600 Weight 60.6 kg Intake & Output: Intake & Output 08/07/22 08/08/22 08/08/22 21:59 05:59 13:59 Intake Total 1280 350 200 Output Total 2475 600 800 Balance -1195 -250 -600 Weight 60.6 kg Intake: Nourishment/Supplement quantity 240 (ml) IV 50 50 200 Zosyn 4.5 gm In Dextrose 5% in 50 50 50 Water 50 ml @ 100 mls/hr IV Q6H [facility] Rx#:[id number] Oral 990 300 Output: Void Amount 1225 600 400 Urine/Stool Mix 1250 400 Other: Meal Dinner Breakfast Percent of Meal Consumed 100% 100% Feeding Ability Independent Nourishment/Supplement name Murphy Urine Appearance Clear Clear Clear Urine Color Yellow Yellow Yellow Pale Urine Odor Normal Normal Strong Stool Size Small Large Small Stool Color Brown Brown Stool Consistency Loose Loose # Bowel Movements 1 1 1 # of times incontinent of 0 Bowels OBJ DATA Labs CBC & Chem 7: 08/08/22 05:34 08/08/22 05:34 Labs: Abnormal Lab Results 08/08/22 08/08/22 08/07/22 05:34 05:34 05:14 WBC Hgb RDW 15.1 H Plt Count Immature Gran % (Auto) Neut % (Auto) 79.3 H Lymph % (Auto) 11.7 L Lymph # (Auto) 0.98 L Seg Neutrophils % Band Neutrophils % Lymphocytes % Immature Gran # Absolute Neutrophils WBC Morphology Vacuolated Neuts Toxic Granulation Dohle Bodies RBC Morphology Anisocytosis Sodium Carbon Dioxide Creatinine Glucose 108 H Uric Acid Phosphorus 2.2 L Direct Bilirubin 0.3 H GGT 48 H Lactate Dehydrogenase Total Protein Albumin 2.7 L Globulin Albumin/Globulin Ratio 0.7 L Triglycerides Procalcitonin 0.45 H 08/07/22 08/07/22 08/06/22 05:14 05:14 11:43 WBC Hgb 10.9 L RDW 15.0 H Plt Count 139 L Immature Gran % (Auto) 0.8 H Neut % (Auto) 87.8 H Lymph % (Auto) 6.0 L Lymph # (Auto) 0.60 L Seg Neutrophils % Band Neutrophils % Lymphocytes % Immature Gran # 0.08 H Absolute Neutrophils 8.75 H WBC Morphology Vacuolated Neuts Toxic Granulation Dohle Bodies RBC Morphology Anisocytosis Sodium 131 L 132 L Carbon Dioxide 21 L 18 L Creatinine 0.5 L Glucose 174 H 273 H Uric Acid 2.3 L Phosphorus 2.1 L Direct Bilirubin 0.3 H 0.3 H GGT 39 H 38 H Lactate Dehydrogenase Total Protein Albumin 2.6 L 2.3 L Globulin 3.9 H Albumin/Globulin Ratio 0.7 L 0.6 L Triglycerides 261 H Procalcitonin 08/06/22 08/06/22 08/06/22 11:43 05:17 05:17 WBC 12.7 H Hgb RDW 15.1 H Plt Count Immature Gran % (Auto) 1.2 H Neut % (Auto) 83.5 H Lymph % (Auto) 7.4 L Lymph # (Auto) 0.94 L Seg Neutrophils % Band Neutrophils % Lymphocytes % Immature Gran # 0.15 H Absolute Neutrophils 10.61 H WBC Morphology Vacuolated Neuts Toxic Granulation Dohle Bodies RBC Morphology Anisocytosis Sodium 132 L Carbon Dioxide 18 L Creatinine Glucose 141 H Uric Acid Phosphorus 2.0 L Direct Bilirubin 0.3 H GGT Lactate Dehydrogenase 252 H Total Protein 5.8 L Albumin 2.2 L Globulin Albumin/Globulin Ratio 0.6 L Triglycerides 153 H Procalcitonin 0.65 H 08/06/22 08/05/22 05:17 08:03 WBC 13.7 H Hgb RDW 15.4 H Plt Count Immature Gran % (Auto) Neut % (Auto) Lymph % (Auto) Lymph # (Auto) Seg Neutrophils % 81 H 83 H Band Neutrophils % 11 H Lymphocytes % 11 L 2 L Immature Gran # Absolute Neutrophils WBC Morphology Abnormal A Abnormal A Vacuolated Neuts Rare A Toxic Granulation Rare A 1+ A Dohle Bodies Few A Few A RBC Morphology Abnormal A Abnormal A Anisocytosis Rare A 1+ A Sodium Carbon Dioxide Creatinine Glucose Uric Acid Phosphorus Direct Bilirubin GGT Lactate Dehydrogenase Total Protein Albumin Globulin Albumin/Globulin Ratio Triglycerides Procalcitonin Meds: Medications Acetaminophen (Acetaminophen 325 Mg Tablet) 650 mg PO Q6HP PRN; Protocol PRN Reason: Per Pain Protocol/Fever > 101 Last Admin: 08/06/22 14:17 Dose: 650 mg Albuterol Sulfate (Albuterol Sulfate 200 Puff Inhaler) 2 puff INH Q4HP PRN PRN Reason: Shortness Of Breath Albuterol/Ipratropium (Ipratropium/Albuterol 3 Ml Ampul.Neb) 3 ml NEB Q4HRT [facility] Last Admin: 08/08/22 12:02 Dose: 3 ml Benzonatate (Benzonatate 100 Mg Capsule) 100 mg PO TIDP PRN PRN Reason: Cough Last Admin: 08/08/22 11:36 Dose: 100 mg Buspirone HCl (Buspirone 15 Mg Tablet) 15 mg PO TID [facility] Last Admin: 08/08/22 10:23 Dose: 15 mg Cyclobenzaprine HCl (Cyclobenzaprine 10 Mg Tablet) 10 mg PO TIDP PRN PRN Reason: Muscle Spasm Last Admin: 08/07/22 16:06 Dose: 10 mg Dextrose (Dextrose 50% 50 Ml Vial) 0 ml IV UD PRN PRN Reason: Per Sliding Scale Diagnostic Test (Pha) (Accu-Chek 1 Each Strip) [address] [facility] Last Admin: 08/08/22 11:59 Dose: 1 each Fenofibrate (Fenofibrate 43 Mg Capsule) 129 mg PO DAILY [facility] Last Admin: 08/08/22 10:21 Dose: 129 mg Fluoxetine HCl (Fluoxetine Hcl 20 Mg Capsule) 80 mg PO DAILY [facility] Last Admin: 08/08/22 10:23 Dose: 80 mg Furosemide (Furosemide 40 Mg Tablet) 80 mg PO DAILY [facility] Last Admin: 08/08/22 10:23 Dose: 80 mg Glucose (Dextrose 31 Gm Oral.Susp) 15 gm PO PRN PRN PRN Reason: Hypoglycemia Guaifenesin (Guaifenesin/Dextromethorphan Oral Rose) 10 ml PO Q4HP PRN PRN Reason: Cough Last Admin: 08/08/22 10:23 Dose: 10 ml Potassium Chloride 40 meq/ (Dextrose) 520 mls @ 130 mls/hr IV UD PRN PRN Reason: Potassium < 3 Magnesium Sulfate (Magnesium Sulfate) 2 gm in 50 mls @ 50 mls/hr IV UD PRN PRN Reason: Magnesium </= 1.6 Levofloxacin (Levaquin) 750 mg in 150 mls @ 100 mls/hr IV Q24H [facility] Stop: 08/13/22 09:59 Last Infusion: 08/08/22 12:17 Dose: Infused Insulin Glargine (Insulin Glargine, Human 1 Unit/0.01 Ml) 5 unit SQ [facility] Insulin Human Lispro (Insulin Lispro 1 Unit/0.01 Ml Unit) [address] [facility]; Protocol Last Admin: 08/08/22 12:00 Dose: 6 unit Ketorolac Tromethamine (Ketorolac 30 Mg/Ml Vial) 15 mg IV Q6HP PRN PRN Reason: Pain Stop: 08/08/22 14:23 Last Admin: 08/08/22 07:40 Dose: 15 mg Lactulose (Lactulose 20 Gm/30 Ml Oral.Rose) 20 gm PO DAILYP PRN PRN Reason: Constipation Lactulose (Lactulose 20 Gm/30 Ml Oral.Rose) 20 gm PO TID [facility] Last Admin: 08/08/22 11:51 Dose: Not Given Lidocaine HCl (Lidocaine Viscous 2% 15 Ml Unit Dose Cup) 15 ml PO Q6HP PRN PRN Reason: sore mouth Last Admin: 08/07/22 18:40 Dose: 15 ml Lorazepam (Lorazepam 2 Mg/Ml Vial) 0.5 mg IV Q6HP PRN PRN Reason: ANXIETY/SEDATION Last Admin: 08/08/22 11:36 Dose: 0.5 mg Melatonin (Melatonin 3 Mg Tablet) 9 mg PO HSP PRN PRN Reason: Insomnia Last Admin: 08/06/22 21:04 Dose: 9 mg Methylprednisolone Sodium Succinate (Methylprednisolone Sod Succ 125 Mg/2 Ml Vial) 62.5 mg IV Q24H [facility] Stop: 08/11/22 11:29 Last Admin: 08/08/22 12:02 Dose: 62.5 mg Montelukast Sodium (Montelukast 10 Mg Tablet) 10 mg PO DAILY [facility] Last Admin: 08/08/22 10:23 Dose: 10 mg Morphine Sulfate (Morphine 2 Mg/Ml Vial) 2 mg IV Q1HP PRN; Protocol PRN Reason: Per Pain Protocol Last Admin: 08/08/22 12:56 Dose: 2 mg Nystatin (Nystatin Powder Bottle 15gm) 1 dose TOPICAL BID [facility] Last Admin: 08/08/22 10:24 Dose: 1 dose Omeprazole (Omeprazole 20 Mg Capsule) 20 mg PO QDAY [facility] Last Admin: 08/08/22 10:23 Dose: 20 mg Ondansetron HCl (Ondansetron 4 Mg/2 Ml Vial) 4 mg IV Q4HP PRN PRN Reason: Nausea And Vomiting Oxycodone HCl (Oxycodone Hcl 5 Mg Tablet) 5 mg PO Q6HP PRN; Protocol PRN Reason: pain Last Admin: 08/08/22 10:20 Dose: 5 mg Fluticasone- Umeclidin-Vilanter [ Trelegy Ellipta] Inhaler 1 dose INH DAILY [facility] Last Admin: 08/08/22 10:25 Dose: Not Given Potassium Chloride (Potassium Chloride 20 Meq Tablet) 40 meq PO UD PRN PRN Reason: Potssium is 3-3.5 Potassium Chloride (Potassium Chloride 20 Meq Tablet) 40 meq PO UD PRN PRN Reason: Potassium < 3 Pregabalin (Pregabalin 150 Mg Capsule) 150 mg PO BID [facility] Last Admin: 08/08/22 10:23 Dose: 150 mg Senna (Sennosides 1 Tablet) 2 tab PO DAILYP PRN PRN Reason: Constipation Sodium Chloride (0.9 % Sodium Chloride 10 Ml Syringe) 10 ml IV Q8 [facility] Last Admin: 08/08/22 12:56 Dose: 10 ml Spironolactone (Spironolactone 25 Mg Tablet) 200 mg PO DAILY [facility] Last Admin: 08/08/22 10:22 Dose: 200 mg A/P Narrative A/P Narrative: Assessment: 66-year-old female with a history of decompensated liver cirrhosis, type 2 diabetes mellitus, chronic kidney disease stage III, COPD on 3 L home oxygen, depression, anxiety, GERD, obstructive sleep apnea admitted for severe sepsis felt to be secondary to UTI versus pneumonia. 1 out of 2 blood cultures are growing gram-positive cocci, likely skin contaminant. *Resolved severe sepsis *UTI secondary to Citrobacter *Community-acquired pneumonia *COPD exacerbation *1 out of 2 positive blood culture staph aureus likely skin contaminant *Hepatic Encephalopathy: Improved *Cirrhosis: On Aldactone/Lasix *DM: On metformin *CKD III: *Anemia, chronic: *COPD(3L home O2): *ATIF: *Depression/anxiety: *Chronic LBP: *GERD: *Dysphagia P: -Levofloxacin 750 mg IV daily, consider transition to oral levofloxacin tomorrow. -Solu-Medrol 62.5 mg IV every 24 hours, consider transition to prednisone tomorrow. -Duo nebs and as needed albuterol inhaler. -Oxygen supplementation as needed. -Analgesics as needed. -Follow-up all culture results. -lactulose titrate to 2-3 soft BM's/day -Continue home Lasix and spironolactone. -Lantus and SSI, hold metformin for now -cont home IH's, IS -PT, OT, speech therapy -pt/ot -ppx: lovenox / home ppi -CODE STATUS: Limited code -Disposition: Probably SNF Time Spent With Patient Time: Total time spent is greater than 50% in coordination of care (as documented) at patient's floor/unit and/or counseling patient: QUALITY VTE Deep Vein Thrombosis/Pulmonary Embolism Present on Admission: No
[2022-08-08] MEDS: CYCLOBENZAPRINE 10 MG TABLET PO PRN (14:48)
[2022-08-08] MEDS: INSULIN GLARGINE, HUMAN 1 UNIT/0.01 ML SQ SCH (21:04)
[2022-08-09] MEDS: IPRATROPIUM/ALBUTEROL 3 ML AMPUL.NEB NEB SCH ×6 (03:10→23:03)
[2022-08-09] MEDS: 0.9 % SODIUM CHLORIDE 10 ML SYRINGE IV SCH ×3 (05:28→21:00)
[2022-08-09] MEDS: INSULIN LISPRO 1 UNIT/0.01 ML UNIT SQ SCH ×4 (07:47→21:12)
[2022-08-09] MEDS: oxyCODONE HCL 5 MG TABLET PO PRN ×2 (08:20→14:29)
[2022-08-09] MEDS: busPIRone 15 MG TABLET PO SCH ×3 (08:59→20:57)
[2022-08-09] MEDS: LACTULOSE 20 GM/30 ML ORAL.SOL PO SCH ×3 (09:00→20:57)
[2022-08-09] MEDS: FUROSEMIDE 40 MG TABLET PO SCH (09:00)
[2022-08-09] MEDS: PREGABALIN 150 MG CAPSULE PO SCH ×2 (09:00→20:57)
[2022-08-09] MEDS: NYSTATIN POWDER BOTTLE 15GM TOPICAL SCH ×2 (09:00→21:12)
[2022-08-09] MEDS: NYSTATIN 500,000 UNITS/5 ML ORAL.SUSP SSW SCH ×4 (09:00→20:57)
[2022-08-09] MEDS: FENOFIBRATE 43 MG CAPSULE PO SCH (09:00)
[2022-08-09] MEDS: OMEPRAZOLE 20 MG CAPSULE PO SCH (09:01)
[2022-08-09] MEDS: FLUoxetine HCL 20 MG CAPSULE PO SCH (09:01)
[2022-08-09] MEDS: BENZONATATE 100 MG CAPSULE PO PRN ×2 (09:01→14:03)
[2022-08-09] MEDS: MONTELUKAST 10 MG TABLET PO SCH (09:01)
[2022-08-09] MEDS: Fluticasone-Umeclidin-Vilanter [Trelegy Ellipta] Inhaler INH SCH (09:01)
[2022-08-09] MEDS: SPIRONOLACTONE 25 MG TABLET PO SCH (09:01)
[2022-08-09 09:41] LABS: Basophils # (Auto) 0.02 K/mcL (0.00-0.30); Basophils % (Auto) 0.2 % (0.0-2.0); Eosinophils # (Auto) 0.08 K/mcL (0.00-0.70); Eosinophils % (Auto) 0.8 % (0.0-7.0); Hemoglobin 11.4 g/dL (11.2-15.7); Lymphocytes # (Auto) 1.47 K/mcL (1.50-4.80); Lymphocytes % (Auto) 14.5 % (15.5-49.0); Mean Cell Volume 82.8 fL (80.0-100.0); Mean Corpuscular HGB Conc 31.7 g/dL (31.0-36.0); Mean Platelet Volume 10.7 fL (8.8-12.5); Monocytes # (Auto) 0.69 K/mcL (0.10-0.90); Monocytes % (Auto) 6.8 % (1.0-12.0); Neutrophils % (Auto) 76.1 % (38.0-78.0); Platelet Count 191 K/mcL (140-440); RBC 4.35 M/mcL (3.59-5.38); Red Cell Distribution Width 15.1 % (11.5-14.5); WBC 10.2 K/mcL (4.5-11.0)
[2022-08-09] MEDS: morphine 2 MG/ML VIAL IV PRN (09:50)
[2022-08-09] MEDS: LEVOFLOXACIN 750 MG/150 ML BAG IV SCH (09:51)
[2022-08-09 10:45] LABS: Blood Urea Nitrogen 23 mg/dL (8-23); Carbon Dioxide 26 mmol/L (22-30); Chloride 97 mmol/L (96-108); Glomerular Filtration Rate 93; Glucose 174 mg/dL (70-105)
[2022-08-09] MEDS: methylPREDNISolone SOD SUCC 125 MG/2 ML VIAL IV SCH (11:58)
--- NOTE | 2022-08-09 15:28 | Internal Med Progress Note ---
SUBJECTIVE Subjective Patient information: Note initiated : 08/09/22 at 3:27 pm Service Date, if different from initiated Date: [] Patient: Kenia Sandoval a 66 y/o F admitted on 08/04/22 for weak and co nfused/severe sepsis, UTI,. Chief Complaint: [] Interval history: History of present illness: Ms. Sandoval is a 66 year old F Patient presents the ED for increased confusion and weakness. Her symptoms have been going on for several days and worsening over that time period. Lives on with her . He has a history of cirrhosis and is on lactulose. She does complain of having some fevers recently. Denies diarrhea abdominal pain any chest pain or shortness of breath. In the ED she was febrile and had a tachycardia and mild tachypnea. She was found to have a lactic acidosis and leukocytosis as well as elevated ammonia. Urine was dirty consistent with UTI. Blood cultures were obtained and patient was put on antibiotics. IV fluids started in the ED. Blood pressure stable at this time. 08/05 Patient says she does not feel any better than yesterday. She appears anxious. Does complain of headache and then some sharp pleuritic left chest wall pain which is made worse by cough and palpation. Leukocytosis slightly worse, will get manual differential. Fever curve improving. INR pending. Lactic acidosis resolved. 08/06 Continues to have a cough, pleuritic chest pain with coughing. MRSA nasal PCR negative. 1 out of 2 blood cultures grew staph aureus. Urine culture growing Citrobacter resistant to multiple cephalosporins, sensitive to fluoroquinolones. Discontinued vancomycin IV, ceftriaxone and azithromycin. Started Zosyn mg IV daily to cover for pneumonia and UTI, continue azithromycin. Started Solu- Medrol IV for possible COPD exacerbation, scheduled duo nebs. Started Lantus 10 units at bedtime, increased sliding scale Humalog to high-dose. Speech therapy consulted, recommended dysphagia level 6 diet. Mental status has improved since admission. Added morphine IV as needed and Toradol IV as needed for pleuritic chest pain. We will continue in PCU today, possibly transition to MedSurg tomorrow if the patient continues to improve. 08/07 Patient still has a cough cough however pleuritic chest pain has improved, Blood cultures continue to show 1 out of 2 results positive for staph aureus. Suspect this to be a skin contaminant. Procalcitonin has improved. Ammonia normal. Respiratory panel 1 2 and Bordetella pertussis panel obtained for persistent coughing. 08/08 Afebrile overnight, no new culture results. Respiratory panel positive for rhinovirus, otherwise negative. Transition to levofloxacin, discontinued Zosyn and azithromycin. Continue Solu-Medrol IV today, consider a switch to prednisone tomorrow. 08/09 Continues on 4 L/min nasal cannula oxygen, vitals similar to yesterday. Started nystatin swish and follow for oropharyngeal thrush. Procalcitonin continuing to downtrend. Patient continues on levofloxacin for UTI and pneumonia, Solu- Medrol and scheduled bronchodilators for COPD exacerbation. Physical exam Head: Atraumatic, normal inspection. Eyes: normal appearance, no scleral icterus. Neck: full ROM Respiratory: Nasal cannula oxygen, respiratory rate in the mid 20s, bilateral lower extremity crackles, wheezes. Cardiovascular: Regular tachycardia, S1, S2. GI/Abdominal: soft, nontender, no guarding. Extremities: full range of motion, nontender. Neurological: CN II-XII intact, intact motor, intact sensation. Psychiatric: normal mood. Skin: warm, normal color Constitutional Vitals: Vital Signs Temp Pulse Resp BP Pulse Ox O2 Del Method O2 Flow Rate 98.3 F 108 H 19 113/71 92 4 08/09/22 12:04 08/09/22 12:04 08/09/22 12:04 08/09/22 12:04 08/09/22 12:04 08/09/22 11:33 08/09/22 11:33 Period Temp Pulse Resp BP Sys/Miranda Pulse Ox O2 Del Method O2 Flow Rate Last 24 Hr 97.0 F-98.6 F 93-109 17-39 102-129/62-85 91-96 Nasal Cannula- Nasal Cannula 4-4 Intake and Output 08/09/22 08/09/22 08/09/22 05:59 13:59 21:59 Intake Total 100 150 Output Total 275 1825 300 Balance -175 -3900 -300 Weight 57.606 kg Patient Weight 08/10/22 05:59 Weight 57.606 kg Intake & Output: Intake & Output 08/09/22 08/09/22 08/09/22 05:59 13:59 21:59 Intake Total 100 150 Output Total 275 1825 300 Balance -175 -1675 -300 Weight 57.606 kg Intake: IV 150 Oral 100 Output: Urine Catheter Amount 1125 Void Amount 275 300 300 Urine/Stool Mix 400 Other: Urine Appearance Clear Clear Urine Color Yellow Bright Yellow Urine Odor Normal Normal Stool Size Small Large Smear Stool Color Brown Brown Brown Yellow Yellow Stool Consistency Soft Loose Soft # Bowel Movements 1 1 1 # of times incontinent of 0 0 0 Bowels OBJ DATA Labs CBC & Chem 7: 08/09/22 08:59 08/09/22 08:59 Labs: Abnormal Lab Results 08/09/22 08/09/22 08/09/22 09:00 08:59 08:59 Hgb RDW 15.1 H Plt Count Immature Gran % (Auto) 1.6 H Neut % (Auto) Lymph % (Auto) 14.5 L Lymph # (Auto) 1.47 L Immature Gran # 0.16 H Absolute Neutrophils Sodium Carbon Dioxide Creatinine Glucose 174 H Uric Acid Phosphorus Direct Bilirubin GGT Albumin Albumin/Globulin Ratio Procalcitonin 0.25 H 08/08/22 08/08/22 08/07/22 05:34 05:34 05:14 Hgb RDW 15.1 H Plt Count Immature Gran % (Auto) Neut % (Auto) 79.3 H Lymph % (Auto) 11.7 L Lymph # (Auto) 0.98 L Immature Gran # Absolute Neutrophils Sodium Carbon Dioxide Creatinine Glucose 108 H Uric Acid Phosphorus 2.2 L Direct Bilirubin 0.3 H GGT 48 H Albumin 2.7 L Albumin/Globulin Ratio 0.7 L Procalcitonin 0.45 H 08/07/22 08/07/22 05:14 05:14 Hgb 10.9 L RDW 15.0 H Plt Count 139 L Immature Gran % (Auto) 0.8 H Neut % (Auto) 87.8 H Lymph % (Auto) 6.0 L Lymph # (Auto) 0.60 L Immature Gran # 0.08 H Absolute Neutrophils 8.75 H Sodium 131 L Carbon Dioxide 21 L Creatinine 0.5 L Glucose 174 H Uric Acid 2.3 L Phosphorus Direct Bilirubin 0.3 H GGT 39 H Albumin 2.6 L Albumin/Globulin Ratio 0.7 L Procalcitonin Meds: Medications Acetaminophen (Acetaminophen 325 Mg Tablet) 650 mg PO Q6HP PRN; Protocol PRN Reason: Per Pain Protocol/Fever > 101 Last Admin: 08/06/22 14:17 Dose: 650 mg Albuterol Sulfate (Albuterol Sulfate 200 Puff Inhaler) 2 puff INH Q4HP PRN PRN Reason: Shortness Of Breath Albuterol/Ipratropium (Ipratropium/Albuterol 3 Ml Ampul.Neb) 3 ml NEB Q4HRT [facility] Last Admin: 08/09/22 11:33 Dose: 3 ml Benzonatate (Benzonatate 100 Mg Capsule) 100 mg PO TIDP PRN PRN Reason: Cough Last Admin: 08/09/22 14:03 Dose: 100 mg Buspirone HCl (Buspirone 15 Mg Tablet) 15 mg PO TID [facility] Last Admin: 08/09/22 15:11 Dose: 15 mg Cyclobenzaprine HCl (Cyclobenzaprine 10 Mg Tablet) 10 mg PO TIDP PRN PRN Reason: Muscle Spasm Last Admin: 08/08/22 14:48 Dose: 10 mg Dextrose (Dextrose 50% 50 Ml Vial) 0 ml IV UD PRN PRN Reason: Per Sliding Scale Diagnostic Test (Pha) (Accu-Chek 1 Each Strip) 1 each FS ACHS [facility] Last Admin: 08/09/22 11:57 Dose: 1 each Fenofibrate (Fenofibrate 43 Mg Capsule) 129 mg PO DAILY [facility] Last Admin: 08/09/22 09:00 Dose: 129 mg Fluoxetine HCl (Fluoxetine Hcl 20 Mg Capsule) 80 mg PO DAILY [facility] Last Admin: 08/09/22 09:01 Dose: 80 mg Furosemide (Furosemide 40 Mg Tablet) 80 mg PO DAILY [facility] Last Admin: 08/09/22 09:00 Dose: 80 mg Glucose (Dextrose 31 Gm Oral.Susp) 15 gm PO PRN PRN PRN Reason: Hypoglycemia Guaifenesin (Guaifenesin/Dextromethorphan Oral Rose) 10 ml PO Q4HP PRN PRN Reason: Cough Last Admin: 08/08/22 14:43 Dose: 10 ml Potassium Chloride 40 meq/ (Dextrose) 520 mls @ 130 mls/hr IV UD PRN PRN Reason: Potassium < 3 Magnesium Sulfate (Magnesium Sulfate) 2 gm in 50 mls @ 50 mls/hr IV UD PRN PRN Reason: Magnesium </= 1.6 Levofloxacin (Levaquin) 750 mg in 150 mls @ 100 mls/hr IV Q24H [facility] Stop: 08/13/22 09:59 Last Infusion: 08/09/22 11:58 Dose: Infused Insulin Glargine (Insulin Glargine, Human 1 Unit/0.01 Ml) 5 unit SQ HS [facility] Last Admin: 08/08/22 21:04 Dose: 5 units Insulin Human Lispro (Insulin Lispro 1 Unit/0.01 Ml Unit) 0 unit SQ ACHS [facility]; Protocol Last Admin: 08/09/22 11:58 Dose: 3 unit Lactulose (Lactulose 20 Gm/30 Ml Oral.Rose) 20 gm PO DAILYP PRN PRN Reason: Constipation Lactulose (Lactulose 20 Gm/30 Ml Oral.Rose) 20 gm PO TID [facility] Last Admin: 08/09/22 15:11 Dose: Not Given Lidocaine HCl (Lidocaine Viscous 2% 15 Ml Unit Dose Cup) 15 ml PO Q4HP PRN PRN Reason: sore mouth Lorazepam (Lorazepam 2 Mg/Ml Vial) 0.5 mg IV Q6HP PRN PRN Reason: ANXIETY/SEDATION Last Admin: 08/08/22 11:36 Dose: 0.5 mg Melatonin (Melatonin 3 Mg Tablet) 9 mg PO HSP PRN PRN Reason: Insomnia Last Admin: 08/06/22 21:04 Dose: 9 mg Methylprednisolone Sodium Succinate (Methylprednisolone Sod Succ 125 Mg/2 Ml Vial) 62.5 mg IV Q24H [facility] Stop: 08/11/22 11:29 Last Admin: 08/09/22 11:58 Dose: 62.5 mg Montelukast Sodium (Montelukast 10 Mg Tablet) 10 mg PO DAILY [facility] Last Admin: 08/09/22 09:01 Dose: 10 mg Morphine Sulfate (Morphine 2 Mg/Ml Vial) 2 mg IV Q1HP PRN; Protocol PRN Reason: Per Pain Protocol Last Admin: 08/09/22 09:50 Dose: 2 mg Nystatin (Nystatin Powder Bottle 15gm) 1 dose TOPICAL BID [facility] Last Admin: 08/09/22 09:00 Dose: 1 dose Nystatin (Nystatin 500,000 Units/5 Ml Oral.Susp) 500,000 units SSW QID [facility] Stop: 08/16/22 08:59 Last Admin: 08/09/22 14:03 Dose: 500,000 units Omeprazole (Omeprazole 20 Mg Capsule) 20 mg PO QDAY [facility] Last Admin: 08/09/22 09:01 Dose: 20 mg Ondansetron HCl (Ondansetron 4 Mg/2 Ml Vial) 4 mg IV Q4HP PRN PRN Reason: Nausea And Vomiting Oxycodone HCl (Oxycodone Hcl 5 Mg Tablet) 5 mg PO Q6HP PRN; Protocol PRN Reason: pain Last Admin: 08/09/22 14:29 Dose: 5 mg Fluticasone- Umeclidin-Vilanter [ Trelegy Ellipta] Inhaler 1 dose INH DAILY [facility] Last Admin: 08/09/22 09:01 Dose: Not Given Potassium Chloride (Potassium Chloride 20 Meq Tablet) 40 meq PO UD PRN PRN Reason: Potssium is 3-3.5 Potassium Chloride (Potassium Chloride 20 Meq Tablet) 40 meq PO UD PRN PRN Reason: Potassium < 3 Pregabalin (Pregabalin 150 Mg Capsule) 150 mg PO BID [facility] Last Admin: 08/09/22 09:00 Dose: 150 mg Senna (Sennosides 1 Tablet) 2 tab PO DAILYP PRN PRN Reason: Constipation Sodium Chloride (0.9 % Sodium Chloride 10 Ml Syringe) 10 ml IV Q8 [facility] Last Admin: 08/09/22 14:07 Dose: 10 ml Spironolactone (Spironolactone 25 Mg Tablet) 200 mg PO DAILY [facility] Last Admin: 08/09/22 09:01 Dose: 200 mg A/P Narrative A/P Narrative: Assessment: 66-year-old female with a history of decompensated liver cirrhosis, type 2 diabetes mellitus, chronic kidney disease stage III, COPD on 3 L home oxygen, depression, anxiety, GERD, obstructive sleep apnea admitted for severe sepsis felt to be secondary to UTI versus pneumonia. 1 out of 2 blood cultures are growing gram-positive cocci, likely skin contaminant. *Resolved severe sepsis *UTI secondary to Citrobacter *Community-acquired pneumonia *COPD exacerbation *Rhinovirus infection *1 out of 2 positive blood culture staph aureus likely skin contaminant *Resolved hepatic Encephalopathy *Cirrhosis: On Aldactone/Lasix *DM: On metformin *CKD III: *Anemia, chronic: *COPD(3L home O2): *ATIF: *Depression/anxiety: *Chronic LBP: *GERD: *Dysphagia *Oropharyngeal thrush P: -Levofloxacin 750 mg IV daily, treat for 7 days. -Solu-Medrol 62.5 mg IV every 24 hours, could consider transitioning to prednisone tomorrow. -Duo nebs and as needed albuterol inhaler. -Consider transitioning to home COPD bronchodilators tomorrow. -Oxygen supplementation as needed. -Analgesics as needed. -Follow-up all culture results. -lactulose titrate to 2-3 soft BM's/day -Continue home Lasix and spironolactone. -Lantus and SSI, hold metformin for now -Nystatin swish and swallow for thrush -cont home IH's, IS -PT, OT, speech therapy -pt/ot -ppx: lovenox / home ppi -CODE STATUS: Limited code -Disposition: Probably SNF Time Spent With Patient Time: Total time spent is greater than 50% in coordination of care (as documented) at patient's floor/unit and/or counseling patient: QUALITY VTE Deep Vein Thrombosis/Pulmonary Embolism Present on Admission: No
[2022-08-09] MEDS: guaiFENesin/DEXTROMETHORPHAN ORAL SOL PO PRN (16:57)
[2022-08-09] MEDS: INSULIN GLARGINE, HUMAN 1 UNIT/0.01 ML SQ SCH (21:03)
[2022-08-10] MEDS: oxyCODONE HCL 5 MG TABLET PO PRN ×4 (03:37→23:34)
[2022-08-10] MEDS: IPRATROPIUM/ALBUTEROL 3 ML AMPUL.NEB NEB SCH ×2 (03:38→07:42)
[2022-08-10] MEDS: guaiFENesin/DEXTROMETHORPHAN ORAL SOL PO PRN ×3 (06:02→18:56)
[2022-08-10] MEDS: 0.9 % SODIUM CHLORIDE 10 ML SYRINGE IV SCH ×3 (06:03→21:15)
[2022-08-10 06:41] LABS: Basophils # (Auto) 0.02 K/mcL (0.00-0.30); Basophils % (Auto) 0.2 % (0.0-2.0); Eosinophils # (Auto) 0.11 K/mcL (0.00-0.70); Eosinophils % (Auto) 1.2 % (0.0-7.0); Hemoglobin 11.5 g/dL (11.2-15.7); Lymphocytes # (Auto) 1.24 K/mcL (1.50-4.80); Lymphocytes % (Auto) 13.4 % (15.5-49.0); Mean Cell Volume 82.6 fL (80.0-100.0); Mean Corpuscular HGB Conc 31.9 g/dL (31.0-36.0); Mean Platelet Volume 10.7 fL (8.8-12.5); Monocytes # (Auto) 0.62 K/mcL (0.10-0.90); Monocytes % (Auto) 6.7 % (1.0-12.0); Neutrophils % (Auto) 76.2 % (38.0-78.0); Platelet Count 186 K/mcL (140-440); RBC 4.36 M/mcL (3.59-5.38); Red Cell Distribution Width 14.9 % (11.5-14.5); WBC 9.2 K/mcL (4.5-11.0)
[2022-08-10] MEDS: INSULIN LISPRO 1 UNIT/0.01 ML UNIT SQ SCH ×4 (06:57→21:24)
[2022-08-10 07:14] LABS: ALT/SGPT 28 U/L (<40); AST/SGOT 42 U/L (<32); Albumin/Globulin Ratio 0.9 (1.0-2.3); Alkaline Phosphatase 97 U/L (39-117); Bilirubin,Direct 0.3 mg/dL (<0.3); Bilirubin,Total 0.5 mg/dL (0.1-1.0); Blood Urea Nitrogen 20 mg/dL (8-23); Carbon Dioxide 26 mmol/L (22-30); Chloride 98 mmol/L (96-108); Globulin 3.4 gm/dL (2.2-3.7); Glomerular Filtration Rate 93; Glucose 102 mg/dL (70-105); Lactate Dehydrogenase 194 U/L (135-225); Phosphorous 2.5 mg/dL (2.5-4.5); Triglycerides 74 mg/dL (<150); Uric Acid 3.8 mg/dL (2.5-8.0)
[2022-08-10] MEDS: FUROSEMIDE 40 MG TABLET PO SCH (08:13)
[2022-08-10] MEDS: NYSTATIN 500,000 UNITS/5 ML ORAL.SUSP SSW SCH ×4 (08:13→21:14)
[2022-08-10] MEDS: MONTELUKAST 10 MG TABLET PO SCH (08:13)
[2022-08-10] MEDS: OMEPRAZOLE 20 MG CAPSULE PO SCH (08:14)
[2022-08-10] MEDS: FENOFIBRATE 43 MG CAPSULE PO SCH (08:14)
[2022-08-10] MEDS: busPIRone 15 MG TABLET PO SCH ×3 (08:14→21:12)
[2022-08-10] MEDS: PREGABALIN 150 MG CAPSULE PO SCH ×2 (08:14→21:12)
[2022-08-10] MEDS: SPIRONOLACTONE 25 MG TABLET PO SCH (08:14)
[2022-08-10] MEDS: FLUoxetine HCL 20 MG CAPSULE PO SCH (08:14)
[2022-08-10] MEDS: NYSTATIN POWDER BOTTLE 15GM TOPICAL SCH ×2 (08:15→21:18)
[2022-08-10] MEDS: LIDOCAINE VISCOUS 2% 15 ML UNIT DOSE CUP PO PRN ×2 (08:26→12:06)
[2022-08-10] MEDS ORDERED: NON FORMULARY MEDICATION 1 DOSE MISCELL (Fluticasone Furoate-Vilanterol [Breo Ellipta] 200 INHALATION SCH (09:00)
[2022-08-10] MEDS: BENZONATATE 100 MG CAPSULE PO PRN (09:06)
[2022-08-10] MEDS: LEVOFLOXACIN 750 MG/150 ML BAG IV SCH (09:06)
[2022-08-10] MEDS: LACTULOSE 20 GM/30 ML ORAL.SOL PO SCH ×3 (10:11→21:12)
[2022-08-10] MEDS: Fluticasone-Umeclidin-Vilanter [Trelegy Ellipta] Inhaler INH SCH (10:12)
[2022-08-10] MEDS ORDERED: ALBUTEROL SULFATE 200 PUFF INHALER INH PRN (11:06)
[2022-08-10] MEDS ORDERED: IPRATROPIUM/ALBUTEROL 3 ML AMPUL.NEB NEB PRN (11:06)
--- NOTE | 2022-08-10 11:12 | Internal Med Progress Note ---
SUBJECTIVE Subjective Patient information: Note initiated : 08/10/22 at 11:10 am Service Date, if different from initiated Date: [] Patient: Kenia Sandoval a 66 y/o F admitted on 08/04/22 for weak and c onfused/severe sepsis, UTI,. Chief Complaint: [] Interval history: History of present illness: Ms. Sandoval is a 66 year old F Patient presents the ED for increased confusion and weakness. Her symptoms have been going on for several days and worsening over that time period. Lives on with her . He has a history of cirrhosis and is on lactulose. She does complain of having some fevers recently. Denies diarrhea abdominal pain any chest pain or shortness of breath. In the ED she was febrile and had a tachycardia and mild tachypnea. She was found to have a lactic acidosis and leukocytosis as well as elevated ammonia. Urine was dirty consistent with UTI. Blood cultures were obtained and patient was put on antibiotics. IV fluids started in the ED. Blood pressure stable at this time. 08/05 Patient says she does not feel any better than yesterday. She appears anxious. Does complain of headache and then some sharp pleuritic left chest wall pain which is made worse by cough and palpation. Leukocytosis slightly worse, will get manual differential. Fever curve improving. INR pending. Lactic acidosis resolved. 08/06 Continues to have a cough, pleuritic chest pain with coughing. MRSA nasal PCR negative. 1 out of 2 blood cultures grew staph aureus. Urine culture growing Citrobacter resistant to multiple cephalosporins, sensitive to fluoroquinolones. Discontinued vancomycin IV, ceftriaxone and azithromycin. Started Zosyn mg IV daily to cover for pneumonia and UTI, continue azithromycin. Started Solu- Medrol IV for possible COPD exacerbation, scheduled duo nebs. Started Lantus 10 units at bedtime, increased sliding scale Humalog to high-dose. Speech therapy consulted, recommended dysphagia level 6 diet. Mental status has improved since admission. Added morphine IV as needed and Toradol IV as needed for pleuritic chest pain. We will continue in PCU today, possibly transition to MedSurg tomorrow if the patient continues to improve. 08/07 Patient still has a cough cough however pleuritic chest pain has improved, Blood cultures continue to show 1 out of 2 results positive for staph aureus. Suspect this to be a skin contaminant. Procalcitonin has improved. Ammonia normal. Respiratory panel 1 2 and Bordetella pertussis panel obtained for persistent coughing. 08/08 Afebrile overnight, no new culture results. Respiratory panel positive for rhinovirus, otherwise negative. Transition to levofloxacin, discontinued Zosyn and azithromycin. Continue Solu-Medrol IV today, consider a switch to prednisone tomorrow. 08/09 Continues on 4 L/min nasal cannula oxygen, vitals similar to yesterday. Started nystatin swish and follow for oropharyngeal thrush. Procalcitonin continuing to downtrend. Patient continues on levofloxacin for UTI and pneumonia, Solu- Medrol and scheduled bronchodilators for COPD exacerbation. 08/10 No significant events overnight, continues on 4 L/min nasal cannula oxygen. Tra nsitioned to oral levofloxacin, prednisone and discontinued IV levofloxacin and Solu-Medrol IV. Changed DuoNebs to as needed and, continue the patient's home bronchodilators for COPD. 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 Physical exam Head: Atraumatic, normal inspection. Eyes: normal appearance, no scleral icterus. Neck: full ROM Respiratory: Nasal cannula oxygen, respiratory rate in the mid 20s, bilateral lower extremity crackles, wheezes. Cardiovascular: Regular tachycardia, S1, S2. GI/Abdominal: soft, nontender, no guarding. Extremities: full range of motion, nontender. Neurological: CN II-XII intact, intact motor, intact sensation. Psychiatric: normal mood. Skin: warm, normal color Constitutional Vitals: Vital Signs Temp Pulse Resp BP Pulse Ox O2 Del Method O2 Flow Rate 98.6 F 101 H 22 121/71 92 Bubble Humidifier 4 08/10/22 08:00 08/10/22 08:00 08/10/22 08:00 08/10/22 08:00 08/10/22 08:00 08/10/22 08:00 08/10/22 08:00 Period Temp Pulse Resp BP Sys/Miranda Pulse Ox O2 Del Method O2 Flow Rate Last 24 Hr 96.9 F-98.6 F 89-108 -22 113-133/68-77 92-96 Nasal Cannula- Nasal Cannula, Bubble Humidifier 3-4 Intake and Output 08/09/22 08/10/22 08/10/22 21:59 05:59 13:59 Intake Total 840 320 100 Output Total 1650 50 650 Balance -810 270 -550 Weight 57.833 kg Intake & Output: Intake & Output 08/09/22 08/10/22 08/10/22 21:59 05:59 13:59 Intake Total 840 320 100 Output Total 1650 50 650 Balance -810 270 -550 Weight 57.833 kg Intake: Nourishment/Supplement quantity 240 (ml) Oral 600 320 100 Output: Void Amount 1650 50 650 Other: Meal Dinner Breakfast Percent of Meal Consumed 100% 75% Feeding Ability Assist with Tray Set Up Assist with Tray Set Up Urine Appearance Clear Urine Color Yellow Dark Yellow Urine Odor Normal Stool Size Smear Small Small Stool Color Brown Brown Brown Yellow Stool Consistency Soft Soft Soft Formed # Bowel Movements 1 1 1 # of times incontinent of 0 Bowels OBJ DATA Labs CBC & Chem 7: 08/10/22 05:55 08/10/22 05:55 Labs: Abnormal Lab Results 08/10/22 08/10/22 08/09/22 05:55 05:55 09:00 RDW 14.9 H Immature Gran % (Auto) 2.3 H Neut % (Auto) Lymph % (Auto) 13.4 L Lymph # (Auto) 1.24 L Immature Gran # 0.21 H Glucose Phosphorus Direct Bilirubin 0.3 H GGT 66 H AST 42 H Albumin 3.0 L Albumin/Globulin Ratio 0.9 L Procalcitonin 0.25 H 08/09/22 08/09/22 08/08/22 08:59 08:59 05:34 RDW 15.1 H Immature Gran % (Auto) 1.6 H Neut % (Auto) Lymph % (Auto) 14.5 L Lymph # (Auto) 1.47 L Immature Gran # 0.16 H Glucose 174 H 108 H Phosphorus 2.2 L Direct Bilirubin 0.3 H GGT 48 H AST Albumin 2.7 L Albumin/Globulin Ratio 0.7 L Procalcitonin 08/08/22 05:34 RDW 15.1 H Immature Gran % (Auto) Neut % (Auto) 79.3 H Lymph % (Auto) 11.7 L Lymph # (Auto) 0.98 L Immature Gran # Glucose Phosphorus Direct Bilirubin GGT AST Albumin Albumin/Globulin Ratio Procalcitonin Meds: Medications Acetaminophen (Acetaminophen 325 Mg Tablet) 650 mg PO Q6HP PRN; Protocol PRN Reason: Per Pain Protocol/Fever > 101 Last Admin: 08/06/22 14:17 Dose: 650 mg Albuterol Sulfate (Albuterol Sulfate 200 Puff Inhaler) 2 puff INH Q2HP PRN PRN Reason: Shortness Of Breath Albuterol/Ipratropium (Ipratropium/Albuterol 3 Ml Ampul.Neb) 3 ml NEB Q4HRT PRN PRN Reason: wheezing Benzonatate (Benzonatate 100 Mg Capsule) 100 mg PO TIDP PRN PRN Reason: Cough Last Admin: 08/10/22 09:06 Dose: 100 mg Buspirone HCl (Buspirone 15 Mg Tablet) 15 mg PO TID [facility] Last Admin: 08/10/22 08:14 Dose: 15 mg Cyclobenzaprine HCl (Cyclobenzaprine 10 Mg Tablet) 10 mg PO TIDP PRN PRN Reason: Muscle Spasm Last Admin: 08/08/22 14:48 Dose: 10 mg Dextrose (Dextrose 50% 50 Ml Vial) 0 ml IV UD PRN PRN Reason: Per Sliding Scale Diagnostic Test (Pha) (Accu-Chek 1 Each Strip) 1 each FS ACHS [facility] Last Admin: 08/10/22 06:55 Dose: 1 each Fenofibrate (Fenofibrate 43 Mg Capsule) 129 mg PO DAILY [facility] Last Admin: 08/10/22 08:14 Dose: 129 mg Fluoxetine HCl (Fluoxetine Hcl 20 Mg Capsule) 80 mg PO DAILY [facility] Last Admin: 08/10/22 08:14 Dose: 80 mg Furosemide (Furosemide 40 Mg Tablet) 80 mg PO DAILY [facility] Last Admin: 08/10/22 08:13 Dose: 80 mg Glucose (Dextrose 31 Gm Oral.Susp) 15 gm PO PRN PRN PRN Reason: Hypoglycemia Guaifenesin (Guaifenesin/Dextromethorphan Oral Rose) 10 ml PO Q4HP PRN PRN Reason: Cough Last Admin: 08/10/22 06:02 Dose: 10 ml Potassium Chloride 40 meq/ (Dextrose) 520 mls @ 130 mls/hr IV UD PRN PRN Reason: Potassium < 3 Magnesium Sulfate (Magnesium Sulfate) 2 gm in 50 mls @ 50 mls/hr IV UD PRN PRN Reason: Magnesium </= 1.6 Insulin Glargine (Insulin Glargine, Human 1 Unit/0.01 Ml) 5 unit SQ HS [facility] Last Admin: 08/09/22 21:03 Dose: 5 units Insulin Human Lispro (Insulin Lispro 1 Unit/0.01 Ml Unit) 0 unit SQ ACHS [facility]; Protocol Last Admin: 08/10/22 06:57 Dose: Not Given Lactulose (Lactulose 20 Gm/30 Ml Oral.Rose) 20 gm PO DAILYP PRN PRN Reason: Constipation Lactulose (Lactulose 20 Gm/30 Ml Oral.Rose) 20 gm PO TID [facility] Last Admin: 08/10/22 10:11 Dose: Not Given Levofloxacin (Levofloxacin 750 Mg Tablet) 750 mg PO DAILY [facility]; Protocol Stop: 08/14/22 08:59 Lidocaine HCl (Lidocaine Viscous 2% 15 Ml Unit Dose Cup) 15 ml PO Q4HP PRN PRN Reason: sore mouth Last Admin: 08/10/22 08:26 Dose: 15 ml Lorazepam (Lorazepam 2 Mg/Ml Vial) 0.5 mg IV Q6HP PRN PRN Reason: ANXIETY/SEDATION Last Admin: 08/08/22 11:36 Dose: 0.5 mg Melatonin (Melatonin 3 Mg Tablet) 9 mg PO HSP PRN PRN Reason: Insomnia Last Admin: 08/06/22 21:04 Dose: 9 mg Montelukast Sodium (Montelukast 10 Mg Tablet) 10 mg PO DAILY [facility] Last Admin: 08/10/22 08:13 Dose: 10 mg Morphine Sulfate (Morphine 2 Mg/Ml Vial) 2 mg IV Q1HP PRN; Protocol PRN Reason: Per Pain Protocol Last Admin: 08/09/22 09:50 Dose: 2 mg Nystatin (Nystatin Powder Bottle 15gm) 1 dose TOPICAL BID [facility] Last Admin: 08/10/22 08:15 Dose: 1 dose Nystatin (Nystatin 500,000 Units/5 Ml Oral.Susp) 500,000 units SSW QID [facility] Stop: 08/16/22 08:59 Last Admin: 08/10/22 08:13 Dose: 500,000 units Omeprazole (Omeprazole 20 Mg Capsule) 20 mg PO QDAY [facility] Last Admin: 08/10/22 08:14 Dose: 20 mg Ondansetron HCl (Ondansetron 4 Mg/2 Ml Vial) 4 mg IV Q4HP PRN PRN Reason: Nausea And Vomiting Oxycodone HCl (Oxycodone Hcl 5 Mg Tablet) 5 mg PO Q6HP PRN; Protocol PRN Reason: pain Last Admin: 08/10/22 10:09 Dose: 5 mg Fluticasone- Umeclidin-Vilanter [ Trelegy Ellipta] Inhaler 1 dose INH DAILY [facility] Last Admin: 08/10/22 10:12 Dose: 1 dose Potassium Chloride (Potassium Chloride 20 Meq Tablet) 40 meq PO UD PRN PRN Reason: Potssium is 3-3.5 Potassium Chloride (Potassium Chloride 20 Meq Tablet) 40 meq PO UD PRN PRN Reason: Potassium < 3 Prednisone (Prednisone 20 Mg Tablet) 40 mg PO [facility] Stop: 08/13/22 07:59 Pregabalin (Pregabalin 150 Mg Capsule) 150 mg PO BID [facility] Last Admin: 08/10/22 08:14 Dose: 150 mg Senna (Sennosides 1 Tablet) 2 tab PO DAILYP PRN PRN Reason: Constipation Sodium Chloride (0.9 % Sodium Chloride 10 Ml Syringe) 10 ml IV Q8 [facility] Last Admin: 08/10/22 06:03 Dose: 10 ml Spironolactone (Spironolactone 25 Mg Tablet) 200 mg PO DAILY [facility] Last Admin: 08/10/22 08:14 Dose: 200 mg A/P Narrative A/P Narrative: Assessment: 66-year-old female with a history of decompensated liver cirrhosis, type 2 diabetes mellitus, chronic kidney disease stage III, COPD on 3 L home oxygen, depression, anxiety, GERD, obstructive sleep apnea admitted for severe sepsis felt to be secondary to UTI versus pneumonia. 1 out of 2 blood cultures are growing gram-positive cocci, likely skin contaminant. *Resolved severe sepsis *UTI secondary to Citrobacter *Community-acquired pneumonia *COPD exacerbation *Rhinovirus infection *1 out of 2 positive blood culture staph aureus likely skin contaminant *Resolved hepatic Encephalopathy *Cirrhosis: On Aldactone/Lasix *DM: On metformin *CKD III: *Anemia, chronic: *COPD(3L home O2): *TAIF: *Depression/anxiety: *Chronic LBP: *GERD: *Dysphagia *Oropharyngeal thrush P: -Levofloxacin 750 mg PO daily, treat for 7 days. -Prednisone 40 mg daily, discontinue Solu-Medrol IV. -Changed short acting bronchodilators to as needed. -Continue home Breo Ellipta. -Oxygen supplementation as needed. -Analgesics as needed. -Follow-up all culture results. -lactulose titrate to 2-3 soft BM's/day -Continue home Lasix and spironolactone. -Lantus and SSI, hold metformin for now -Nystatin swish and swallow for thrush -cont home IH's, IS -PT, OT, speech therapy -pt/ot -ppx: lovenox / home ppi -CODE STATUS: Limited code -Disposition: Low intensity rehab at assisted facility pending placement. Time Spent With Patient Time: Total time spent is greater than 50% in coordination of care (as documented) at patient's floor/unit and/or counseling patient: QUALITY VTE Deep Vein Thrombosis/Pulmonary Embolism Present on Admission: No
[2022-08-10] MEDS: ACETAMINOPHEN 325 MG TABLET PO PRN (12:33)
[2022-08-10] MEDS: LORazepam 2 MG/ML VIAL IV PRN (12:37)
[2022-08-10] MEDS: CYCLOBENZAPRINE 10 MG TABLET PO PRN (14:31)
[2022-08-10] MEDS: morphine 2 MG/ML VIAL IV PRN (18:56)
[2022-08-10] MEDS: INSULIN GLARGINE, HUMAN 1 UNIT/0.01 ML SQ SCH (21:16)
[2022-08-11] MEDS: guaiFENesin/DEXTROMETHORPHAN ORAL SOL PO PRN ×2 (00:25→05:35)
[2022-08-11] MEDS: ACETAMINOPHEN 325 MG TABLET PO PRN (05:37)
[2022-08-11 07:31] LABS: Basophils # (Auto) 0.09 K/mcL (0.00-0.30); Basophils % (Auto) 0.7 % (0.0-2.0); Eosinophils # (Auto) 0.62 K/mcL (0.00-0.70); Hematocrit 40.2 % (34.1-44.9); Hemoglobin 12.7 g/dL (11.2-15.7); Lymphocytes # (Auto) 1.41 K/mcL (1.50-4.80); Lymphocytes % (Auto) 11.4 % (15.5-49.0); Mean Cell Volume 83.1 fL (80.0-100.0); Mean Corpuscular HGB Conc 31.6 g/dL (31.0-36.0); Mean Platelet Volume 10.9 fL (8.8-12.5); Monocytes % (Auto) 3.2 % (1.0-12.0); Neutrophils % (Auto) 77.9 % (38.0-78.0); Platelet Count 222 K/mcL (140-440); RBC 4.84 M/mcL (3.59-5.38); Red Cell Distribution Width 15.2 % (11.5-14.5); WBC 12.4 K/mcL (4.5-11.0)
[2022-08-11] MEDS: INSULIN LISPRO 1 UNIT/0.01 ML UNIT SQ SCH (07:32)
[2022-08-11] MEDS: 0.9 % SODIUM CHLORIDE 10 ML SYRINGE IV SCH (07:33)
[2022-08-11] MEDS: IPRATROPIUM/ALBUTEROL 3 ML AMPUL.NEB NEB SCH (07:38)
[2022-08-11] MEDS ORDERED: predniSONE 20 MG TABLET PO SCH (08:00)
[2022-08-11 08:06] LABS: ALT/SGPT 35 U/L (<40); AST/SGOT 68 U/L (<32); Albumin 2.9 gm/dL (3.2-5.2); Albumin/Globulin Ratio 0.7 (1.0-2.3); Alkaline Phosphatase 106 U/L (39-117); Bilirubin,Direct 0.4 mg/dL (<0.3); Bilirubin,Total 0.7 mg/dL (0.1-1.0); Blood Urea Nitrogen 18 mg/dL (8-23); Calcium 9.1 mg/dL (8.6-10.4); Carbon Dioxide 25 mmol/L (22-30); Chloride 94 mmol/L (96-108); Globulin 3.9 gm/dL (2.2-3.7); Glomerular Filtration Rate 88; Glucose 112 mg/dL (70-105); Lactate Dehydrogenase 252 U/L (135-225); Phosphorous 3.1 mg/dL (2.5-4.5); Triglycerides 107 mg/dL (<150); Uric Acid 4.2 mg/dL (2.5-8.0)
[2022-08-11] MEDS: LACTULOSE 20 GM/30 ML ORAL.SOL PO SCH (08:47)
[2022-08-11] MEDS: busPIRone 15 MG TABLET PO SCH (08:47)
[2022-08-11] MEDS: Fluticasone-Umeclidin-Vilanter [Trelegy Ellipta] Inhaler INH SCH (08:47)
[2022-08-11] MEDS: NYSTATIN 500,000 UNITS/5 ML ORAL.SUSP SSW SCH (08:47)
[2022-08-11] MEDS: FLUoxetine HCL 20 MG CAPSULE PO SCH (08:47)
[2022-08-11] MEDS: SPIRONOLACTONE 25 MG TABLET PO SCH (08:48)
--- NOTE | 2022-08-11 08:48 | Discharge Summary ---
Discharge Provider Provider IMPORTANT FOLLOW-UP INFORMATION FOR PCP: Patient information: Note initiated : 08/11/22 at 8:45 am Service Date, if different from initiated Date: [] Patient: Kenia Sandoval 66 y/o F admitted on 08/04/22 for weak and confused/severe sepsis, UTI,. Chief Complaint: [] Date of admission: 08/04/22 17:10 Discharge date: 08/11/22 Primary care physician: Darleen Kemp Attending physician on admission: Prince Liao Consults: 08/04/22 Consult to Physician [CONS] Stat Comment: Consulting Provider: Prince Liao Reason For Exam: Physician to Consult Attending physician on discharge: Chi Chinyere Pui COURSE Hospital Course Hospital course: History of present illness: Ms. Sandoval is a 66 year old F Patient presents the ED for increased confusion and weakness. Her symptoms have been going on for several days and worsening over that time period. Lives on with her . He has a history of cirrhosis and is on lactulose. She does complain of having some fevers recently. Denies diarrhea abdominal pain any chest pain or shortness of breath. In the ED she was febrile and had a tachycardia and mild tachypnea. She was found to have a lactic acidosis and leukocytosis as well as elevated ammonia. Urine was dirty consistent with UTI. Blood cultures were obtained and patient was put on antibiotics. IV fluids started in the ED. Blood pressure stable at this time. 08/05 Patient says she does not feel any better than yesterday. She appears anxious. Does complain of headache and then some sharp pleuritic left chest wall pain which is made worse by cough and palpation. Leukocytosis slightly worse, will get manual differential. Fever curve improving. INR pending. Lactic acidosis resolved. Patient's antibiotics subsequently switched to oral Levaquin based on culture result from the urine and from the blood. Patient is clinically improved and which clinical stability on August 11, 2022. Patient would to be discharged to SNF. Discharge diagnosis: pneumonia, UTI Time Spent with Patient Time attestation: Total time spent providing and/or coordinating discharge services: Time spent: Greater than 30 minutes EXAM Constitutional Vitals: Temp Pulse Resp BP Pulse Ox O2 Del Method O2 Flow Rate 36.5 C 95 H 20 107/68 92 3 08/11/22 07:58 08/11/22 07:58 08/11/22 07:58 08/11/22 07:58 08/11/22 08:00 08/11/22 08:00 08/11/22 08:00 General appearance: cooperative and no acute distress Head Head exam: Present atraumatic and normocephalic Eye Eye exam: Present EOMI and PERRL ENT ENT exam: Present mucous membranes moist, normal exam and normal external ear exam Additional comments: Nasal cannula in place Neck Neck exam: Present normal inspection; Absent lymphadenopathy, tenderness or thyromegaly Respiratory Respiratory exam: Present decreased breath sounds; Absent accessory muscle use, respiratory distress or wheezes Cardiovascular Cardiovascular exam: Present normal rate and rhythm; Absent JVD GI/Abdominal GI/Abdominal exam: Present normal bowel sounds and soft; Absent organomegaly or tenderness Extremities Exam Extremities exam: Present full ROM, normal capillary refill and normal inspection; Absent tenderness Neurological Exam Neurological exam: Present alert, CN II-XII intact and oriented X3; Absent motor sensory deficit Psychiatric Psychiatric exam: Present normal affect and normal mood; Absent anxious or depressed Skin Skin exam: Present dry and intact Discharge Data Data Completed and Pending Labs on day of discharge: Labs from last 24 hours 08/11/22 08/11/22 06:12 06:12 WBC 12.4 H RBC 4.84 Hgb 12.7 Hct 40.2 MCV 83.1 MCH 26.2 MCHC 31.6 RDW 15.2 H Plt Count 222 MPV 10.9 Immature Gran % (Auto) 1.8 H Neut % (Auto) 77.9 Lymph % (Auto) 11.4 L Morgan % (Auto) 3.2 Eos % (Auto) 5.0 Baso % (Auto) 0.7 Lymph # (Auto) 1.41 L Morgan # (Auto) 0.40 Eos # (Auto) 0.62 Baso # (Auto) 0.09 Immature Gran # 0.22 H Absolute Neutrophils 9.68 H Sodium 131 L Potassium 4.4 Chloride 94 L Carbon Dioxide 25 Anion Gap 12.0 BUN 18 Creatinine 0.7 GFR Calculation 88 Glucose 112 H Uric Acid 4.2 Calcium 9.1 Phosphorus 3.1 Magnesium 1.9 Total Bilirubin 0.7 Direct Bilirubin 0.4 H GGT 84 H AST 68 H ALT 35 Alkaline Phosphatase 106 Lactate Dehydrogenase 252 H Total Protein 6.8 Albumin 2.9 L Globulin 3.9 H Albumin/Globulin Ratio 0.7 L Triglycerides 107 Discharge Plan Patient/Caregiver Discharge Instructions Activity: increase activity as tolerated Diet: Consistent Carbohydrate Prescriptions: New nystatin 100,000 unit/mL Suspension 500,000 units SSW QID 10 Days Qty: 200 0RF dextromethorphan-guaifenesin [Diabetic Tussin DM] 10-100 mg/5 mL Liquid 10 ml PO Q4HP PRN (Reason: Cough) 10 Days Qty: 240 0RF prednisone 20 mg Tablet 40 mg PO QAMCC 3 Days Qty: 6 0RF levofloxacin 750 mg Tablet 750 mg PO DAILY 10 Days Qty: 10 0RF Continued polyethylene glycol 3350 [Miralax] 17 gram/dose powder 17 g PO QDAY PRN (Reason: Constipation) nystatin 100,000 unit/gram powder 1 applic topical BID nystatin 100,000 unit/mL suspension 1 ml PO QID Rx Instructions: swish and swallow ondansetron 4 mg tablet,disintegrating 4 mg PO .Q4-6H PRN (Reason: Nausea) Prolia 60 mg/mL syringe 60 mg subcut [id number] melatonin 10 mg PO HS PRN (Reason: Insomnia) fenofibrate 160 mg tablet 160 mg PO QDAY Qty: 90 3RF buspirone 15 mg tablet 15 mg PO TID omeprazole 20 MG capsule 20 mg PO QDAY Qty: 90 3RF potassium chloride 10 mEq capsule, extended release 20 meq PO QDAY cyclobenzaprine 10 mg tablet 10 mg PO TID lidocaine HCl 2 % solution 1 applic mucous membrane BID spironolactone 100 mg tablet 200 mg PO QAM etodolac 400 mg tablet 400 mg PO BID (DME) Disabled Parking Placard See Rx Instructions .Route .MEDSUPPLY Qty: 1 0RF Rx Instructions: This patient has a lung disease that requires the use of portable oxygen and can not ambulate more than 150 feet without rest Trelegy Ellipta 100-62.5-25 mcg blister with device 1 ea inhalation DAILY 0RF fluoxetine 20 MG tablet 80 mg PO DAILY metformin 500 mg tablet extended release 24 hr 1,000 mg PO BID montelukast [Singulair] 10 mg tablet 10 mg PO DAILY furosemide 40 mg tablet 80 mg PO DAILY calcium carbonate-vitamin D3 [Calcium with Vitamin D] 600 mg(1,500mg) -400 unit Tablet 1 tab PO QDAY ipratropium-albuterol 0.5 mg-3 mg(2.5 mg base)/3 mL solution for nebulization 3 ml INHALATION Q6H PRN (Reason: Shortness Of Breath) Qty: 1 0RF albuterol sulfate [Ventolin HFA] 90 mcg/actuation HFA aerosol inhaler 2 puff INHALATION Q4-6HP PRN (Reason: Shortness Of Breath) Qty: 1 0RF pregabalin [Lyrica] 150 mg capsule 150 mg PO BID triamcinolone acetonide 0.1 % paste 1 applic dental TID Rx Instructions: use after food and/or drink and/or oral hygiene lactulose 10 gram/15 mL solution 30 ml PO TID lidocaine 5 % ointment 1 ea topical QIDP PRN (Reason: Pain) Jardiance 10 mg tablet 1 tab PO QDAY fluticasone furoate-vilanterol [Breo Ellipta] 200-25 mcg/dose blister with device 1 puff INHALATION QDAY Changed oxycodone 5 mg tablet 5 mg PO Q8HP MDD 1 PRN (Reason: pain) Qty: 10 0RF Rx Instructions: 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 Follow Up Plan Follow up with: Darleen Kemp ARNP [Primary Care Provider] - Patient Disposition: Xfer SNF Prognosis: Serious Rehab Potential: Good I certify that the patient requires SNF services: Yes Overall status at discharge: patient is progressing back to baseline Discharge Orders: Discharge Order (Routine); Ordered 08/11/22 Ordered By: Constantino JAMES VTE Deep Vein Thrombosis/Pulmonary Embolism Present on Admission: No
[2022-08-11] MEDS: FENOFIBRATE 43 MG CAPSULE PO SCH (08:49)
[2022-08-11] MEDS: OMEPRAZOLE 20 MG CAPSULE PO SCH (08:49)
[2022-08-11] MEDS: FUROSEMIDE 40 MG TABLET PO SCH (08:49)
[2022-08-11] MEDS: MONTELUKAST 10 MG TABLET PO SCH (08:49)
[2022-08-11] MEDS: PREGABALIN 150 MG CAPSULE PO SCH (08:50)
[2022-08-11] MEDS: NYSTATIN POWDER BOTTLE 15GM TOPICAL SCH (08:50)
[2022-08-11] MEDS: BENZONATATE 100 MG CAPSULE PO PRN (08:59)
[2022-08-11] MEDS: oxyCODONE HCL 5 MG TABLET PO PRN (09:00)
[2022-08-11] MEDS ORDERED: LEVOFLOXACIN 750 MG TABLET PO SCH (09:00)
[2022-08-11] MEDS: LIDOCAINE VISCOUS 2% 15 ML UNIT DOSE CUP PO PRN (09:01)
== END 2022-08-11 10:35 | DRG 871 ==
LOC: ED 11:07 → ICU 17:10 → MEDSUR 08-09 16:37
PROVIDERS: ADMIT Internal Medicine; ATTEND Internal Medicine